=== PATIENT | female | born 1945 | race Hispanic/Latino ===

== ENCOUNTER 2017-08-16 11:36 | Inpatient (IN) | payer MEDICARE, OTHER ==
--- NOTE | 2017-08-16 12:43 | ED PDOC ---
Arrival/HPI <Catrachito Leach - Last Filed: 08/16/17 18:25> <Mark Lewis DO - Last Filed: 08/16/17 21:29> - General Chief Complaint: Abnormal Labs Time Seen by Provider: 08/16/17 11:44 - History of Present Illness Narrative History of Present Illness (Text): 72 year old Females presents with complaints of melena, shortness of breath, and swollen bilateral lower extremities. Patient is hard of hearing. Patient reports that she cannot walk more than a few feet without feeling short of breath. When she sits down, she starts coughing, wheezing and has clear sputum. Her symptoms resolve with rest. She reports that this has been going on for "a while" and cannot remember accurately how long it has been going on. She also had bilateral lower extremity edema that started the week of August 09. She saw her PCP who prescribed lasix for her. She took lasix for 3 days and then stopped because she started to have leg cramps. Her bilateral lower extremity edema is still persisting. She also has had "tarry" stool for a reported "6 years". She reports "I have had these stool constantly for the past 6 years." She reports having 1 bowel movement every other day. She denies fever, chest pain, dizziness, headache, heart palpitations. Patient saw Robin Montes today that instructed her to go to the emergency room for admission for low hemoglobin and dark, tarry stools 08/16/17 12:44 08/16/17 13:34 (Catrachito Leach) Past Medical History - Provider Review Nursing Documentation Reviewed: Yes - Cardiac Hx OK: Yes (questionable mi at age 41) Hx Hypertension: Yes - Pulmonary Hx Asthma: Yes Hx Bronchitis: Yes - Neurological HX Cerebrovascular Accident: Yes (02/2010 left facial droop, bilat lower ext wkns ) - Endocrine/Metabolic Hx Diabetes Mellitus Type 2: Yes - Musculoskeletal/Rheumatological Hx Falls: No - Gastrointestinal Hx Gastrointestinal Disorders: Yes (umbilical hernia) - Genitourinary/Gynecological Hx Genitourinary Disorders: No Hx Reproductive Disorders: No - Psychiatric Hx Depression: No Hx Emotional Abuse: No Hx Physical Abuse: No Hx Substance Use: No - Anesthesia Hx Anesthesia: Yes Hx Anesthesia Reactions: No Hx Malignant Hyperthermia: No - Suicidal Assessment Feels Threatened In Home Enviroment: No <Catrachito Leach - Last Filed: 08/16/17 18:25> Family/Social History - Physician Review Nursing Documentation Reviewed: Yes Family/Social History: Unknown Family HX Smoking Status: Never Smoked Hx Alcohol Use: Yes (OCCASIONAL DRINKS) Hx Substance Use: No Hx Substance Use Treatment: No <Catrachito Leach - Last Filed: 08/16/17 18:25> Allergies/Home Meds <Catrachito Leach - Last Filed: 08/16/17 18:25> <Mark Lewis DO - Last Filed: 08/16/17 21:29> Allergies/Adverse Reactions: Allergies banana Allergy (Verified 08/16/17 17:30) RASH codeine Allergy (Verified 08/16/17 17:30) ANAPHYLAXIS erythromycin base [From Erythrocin] Allergy (Verified 08/16/17 17:30) RASH Penicillins Allergy (Verified 08/16/17 17:30) ANAPHYLAXIS shellfish derived Allergy (Verified 08/16/17 17:30) ANAPHYLAXIS strawberry Allergy (Verified 08/16/17 17:30) RASH Sulfa (Sulfonamide Antibiotics) Allergy (Verified 08/16/17 17:30) ANAPHYLAXIS Home Medications: Home Meds Medication Instructions Recorded Confirmed Bisoprolol/HCTZ [Ziac 5-6.25 mg] 1 tab PO DAILY 08/16/17 08/16/17 GlipiZIDE [Glucotrol] 10 mg pe PO DAILY 08/16/17 08/16/17 Warfarin Sodium [Jantoven] 2 mg PO DAILY 08/16/17 08/16/17 metFORMIN [glucOPHAGE] 500 mg PO DAILY 08/16/17 08/16/17 Review of Systems - Physician Review All systems were reviewed & negative as marked: Yes - Review of Systems Constitutional: Fatigue Eyes: Normal Respiratory: SOB, Cough, Wheezing Cardiovascular: Normal Gastrointestinal: Other (Melena) Genitourinary Female: Frequency, Other (incontinence. she cannot feel the sensation of urination at times.) Musculoskeletal: Normal Skin: Rash (rash near anal canal) Neurological: Normal <Catrachito Leach - Last Filed: 08/16/17 18:25> Physical Exam Temperature: Afebrile Blood Pressure: Hypertensive Pulse: Regular Respiratory Rate: Normal Appearance: Positive for: Well-Appearing, Other (pale) Mental Status: Positive for: Alert and Oriented X 3 - Systems Exam Head: Present: Atraumatic Pupils: Present: PERRL Extroacular Muscles: Present: EOMI Mouth: Present: Moist Mucous Membranes Pharnyx: Present: Normal Respiratory/Chest: Present: Clear to Auscultation Cardiovascular: Present: Murmurs (aortic stenosis) Abdomen: Present: Normal Bowel Sounds Back: Present: Normal Inspection Upper Extremity: Present: Normal Inspection, NORMAL PULSES Lower Extremity: Present: Edema, NORMAL PULSES Neurological: Present: GCS=15, CN II-XII Intact Skin: Present: Warm, Dry <Catrachito Leach - Last Filed: 08/16/17 18:25> <Mark Lewis DO - Last Filed: 08/16/17 21:29> Vital Signs Temp Pulse Resp BP Pulse Ox 08/16/17 15:41 97.8 F 91 H 18 155/90 H 97 08/16/17 15:37 97.8 F 91 H 18 155/90 H 08/16/17 15:16 98.2 F 90 18 149/58 L 08/16/17 11:53 98.4 F 90 19 140/89 100 Medical Decision Making <Catrachito Leach - Last Filed: 08/16/17 18:25> <Mark Lewis DO - Last Filed: 08/16/17 21:29> ED Course and Treatment: Impression: 72 year old Female presents with reported melena, SOB with movement , and bilateral lower extremity edema Assessment: GI bleed, congestive heart failure, possible anemia Rule out pneumonia, asthma, COPD Plan: CBC CMP BNP Troponin Type and screen: PT/INR PTT EKG: normal sinus rhythm, right bundle branch block Vent rate: 91 OK: 150 QRS: 138 QT/QTc: 418/514 Chest X ray: moderate cardiomegaly and moderate vascular and interstitial congestion Patient saw Robin Montes today that instructed her to go to the emergency room for admission. Patient will be admitted to Med/Surg 08/16/17 13:12 Hgb is 6.9. Patient will be transfused 1 unit of PRBCs. INR:2.06. Hemoccult exam: guaiac + (Catrachito Leach) Patient Seen With Resident: In agreement with resident note. Patient was seen and evaluated with resident, came up with plan and treatment together. (Mark Lewis DO) - Lab Interpretations Lab Results: 08/16/17 12:50 08/16/17 12:50 Lab Results 08/16/17 13:30: Blood Type Confirm A POSITIVE 08/16/17 12:50: Blood Type A POSITIVE, Antibody Screen Negative, Crossmatch See Detail, BBK History Checked No verified bt 08/16/17 12:50: Sodium 142, Potassium 4.2, Chloride 108 H, Carbon Dioxide 21, Anion Gap 17, BUN 13, Creatinine 0.8, Est GFR ( Amer) > 60, Est GFR (Non- Af Amer) > 60, Random Glucose 179 H, Calcium 8.9, Total Bilirubin 1.6 H, AST 27 , ALT 20, Alkaline Phosphatase 69, Lactate Dehydrogenase 560, Total Creatine Kinase < 20 L, Troponin I 0.03, NT-Pro-B Natriuret Pep 2980 H, Total Protein 6.6 , Albumin 3.2, Globulin 3.4, Albumin/Globulin Ratio 0.9 L 08/16/17 12:50: PT 24.0 H, INR 2.06 H, APTT 33.3 08/16/17 12:50: WBC 4.8, RBC 2.97 L, Hgb 6.9 L*, Hct 22.3 L, MCV 75.1 L, MCH 23.2 L, MCHC 30.9 L, RDW 22.6 H, Plt Count 257, MPV 9.0, Gran % 71.5 H, Lymph % (Auto) 19.8 L, Hunt % (Auto) 7.3 H, Eos % (Auto) 1.0 L, Baso % (Auto) 0.4, Gran # 3.43, Lymph # (Auto) 1.0 L, Hunt # (Auto) 0.4, Eos # (Auto) 0.1, Baso # (Auto ) 0.02 - RAD Interpretation Radiology Orders: 08/16/17 12:14 CHEST PORTABLE [RAD] Stat - Medication Orders Current Medication Orders: Atorvastatin Calcium (Lipitor) 20 mg PO DIN RADHA Furosemide (Lasix) 40 mg IVP Q12 RADHA Last Admin: 08/16/17 21:14 Dose: 40 mg MAR Blood Pressure Document 08/16/17 21:14 RM (Rec: 08/16/17 21:20 RM [email or web address]) Blood Pressure Blood Pressure (100/60-150/90) 115/59 IVP Administration Document 08/16/17 21:14 RM (Rec: 08/16/17 21:20 RM [email or web address]) Charges for Administration # of IVP Administrations 1 Insulin Human Regular (Humulin R Med) 0 units SC ACHS RADHA PRN Reason: Protocol Last Admin: 08/16/17 21:14 Dose: Not Given Non-Admin Reason: Blood Sugar Parameter MAR Blood Glucose Document 08/16/17 21:14 RM (Rec: 08/16/17 21:14 [email or web address]) Blood Glucose Finger Stick Blood Glucose (70-120) 202 Discontinued Medications Phytonadione 10 mg/ Sodium (Chloride) 51 mls @ 100 mls/hr IV ONCE ONE Stop: 08/16/17 16:50 Last Admin: 08/16/17 17:50 Dose: 100 mls/hr eMAR Start Stop Document 08/16/17 17:50 (Rec: 08/16/17 17:50 [facility] [place], [id number]) Intravenous Solution Start Date 08/16/17 Start Time 17:50 End Date 08/16/17 End time 18:20 Total Infusion Time 30 - PA / PROPERTY ASSESSMENT MONITOR / Resident Statement SHMUEL has reviewed & agrees with the documentation as recorded. SHMUEL has examined the patient and agrees with the treatment plan. <Catrachito Leach - Last Filed: 08/16/17 18:25> Disposition/Present on Arrival - Present on Arrival Any Indicators Present on Arrival: No History of DVT/PE: No History of Uncontrolled Diabetes: No Urinary Catheter: No History of Decub. Ulcer: No History Surgical Site Infection Following: None - Disposition Have Diagnosis and Disposition been Completed?: Yes Disposition Time: 15:00 <Catrachito Leach - Last Filed: 08/16/17 18:25> - Disposition Disposition Time: 13:15 <Mark Lewis DO - Last Filed: 08/16/17 21:29> - Disposition Diagnosis: Anemia, Guaiac positive stools Disposition: HOSPITALIZED Patient Problems: Current Active Problems Problem Status Onset Anemia Acute Condition: UNKNOWN
[2017-08-16 12:56] LABS: BASO # 0.02 K/mm3 (0.0-2.0); BASO % 0.4 % (0.0-3.0); EOS # 0.1 (0.0-0.7); GRAN # 3.43 (1.4-6.5); GRAN % 71.5 % (50.0-68.0); LYMPH % 19.8 % (22.0-35.0); MEAN CELL VOLUME 75.1 fl (80.0-105.0); MEAN CORPUSCULAR HEMOGLOBIN 23.2 pg (25.0-35.0); MEAN CORPUSCULAR HGB CONC 30.9 g/dl (31.0-37.0); MONO # 0.4 (0.1-0.6); MONO % 7.3 % (1.0-6.0); RBC 2.97 10^6/uL (3.5-6.1); RED CELL DISTRIBUTION WIDTH 22.6 % (11.5-14.5); WHITE BLOOD COUNT 4.8 10^3/ul (4.5-11.0)
[2017-08-16 12:58] LABS: HEMOGLOBIN 6.9 g/dL (12.0-16.0)
[2017-08-16 13:05] LABS: INR 2.06 (0.93-1.08); PARTIAL THROMBOPLASTIN TIME 33.3 Seconds (25.1-36.5)
[2017-08-16 13:07] LABS: ALB/GLOB RATIO 0.9 (1.1-1.8); ALBUMIN 3.2 g/dL (3.0-4.8); ALT/SGPT 20 U/L (7-56); AST/SGOT 27 U/L (14-36); BLOOD UREA NITROGEN 13 mg/dL (7-21); CALCIUM 8.9 mg/dL (8.4-10.5); GFR AFRICAN-AMERICAN > 60; GFR NON-AFRICAN AMERICAN > 60
[2017-08-16 13:19] LABS: B-TYPE NATRIURETIC PEPTIDE 2980 pg/mL (0-450); TROPONIN I 0.03 ng/mL
--- NOTE | 2017-08-16 13:37 | RAD ---
Date of service: 08/16/2017 HISTORY: r/o infiltrate COMPARISON: 01/12/2012 FINDINGS: LUNGS: No active pulmonary disease. PLEURA: No significant pleural effusion identified, no pneumothorax apparent. CARDIOVASCULAR: Moderate cardiomegaly and moderate vascular and interstitial congestion OSSEOUS STRUCTURES: No significant abnormalities. VISUALIZED UPPER ABDOMEN: Normal. OTHER FINDINGS: None. IMPRESSION: Moderate cardiomegaly and moderate vascular and interstitial congestion
[2017-08-16 13:55] LABS: IRON 30 ug/dL (45-180)
[2017-08-16 14:05] LABS: % IRON SATURATION 8 % (20-55); TOTAL IRON BINDING CAPACITY 371 ug/dL (265-497)
[2017-08-16] MEDS ORDERED: Phytonadione 10 MG in Sodium Chloride 0.9% 50 ML IV ONE (16:20)
[2017-08-16] MEDS: Insulin Reg-MEDIUM-Coverage SC SCH ×2 (16:53→21:14)
--- NOTE | 2017-08-16 19:55 | HP ---
HISTORY OF PRESENT ILLNESS: The patient is a 72 year old woman with a past medical history of CAD s/p MA, iron deficiency anemia and a remote history of PE who was sent to [facility] ED by her PMD for inpatient management of symptomatic anemia and workup of suspected new onset heart failure. The patient was seen in her PMD's office approximately 10 days ago for complaint of a 3 day history of bilateral pedal edema, exertional dyspnea and 2 pillow orthopnea. Examination revealed bibasilar crackles and trace bilateral pedal edema. The patient at that time declined cardiac evaluation or ED evaluation and was started on Lasix 40 mg p.o. daily and advised to follow up in 1 week for reexamination. The patient returned 1 week later as advised and was noted to have significant improvement in her pedal edema but continued to endorse fatigue and exercise intolerance. Laboratory studies which were obtained demonstrated a hemoglobin of 7.8 ( baseline Hb 9-10 over the past 2 years) and, as such, she was sent to the ED for continued management of symptomatic anemia and further cardiac workup. Upon arrival to the ED, she was found to be afebrile and hemodynamically stable. Routine laboratory studies confirmed the anemia with a hemoglobin of 6.9. She was also found to have an elevated BNP of 2980. The patient was type and cross matched for 2 units of PRBCs and subsequently admitted for continued management of symptomatic anemia and heart failure. PAST MEDICAL HISTORY: As per HPI, also hypertension, pcg-ldwcrrs-hnvepkorz diabetes mellitus, vitamin B12 deficiency and morbid obesity. PAST SURGICAL HISTORY: Cholecystectomy and tonsillectomy. ALLERGIES: Penicillin, sulfas, macrolides, codeine and AARON inhibitors. MEDICATIONS: Bisoprolol/HCTZ 5/6.25 mg p.o. daily, Metformin 500 mg p.o. b.i.d.,. Glipizide 10 mg p.o. b.i.d., Coumadin 2 mg p.o. daily, Simvastatin 20 mg p.o. daily and vitamin B12 1000 mcg IM q monthly. FAMILY HISTORY: Significant for hypertension, coronary artery disease, and hyperlipidemia. SOCIAL HISTORY: She has no history of any toxic habits. REVIEW OF SYSTEMS: A 12-point review of systems is negative except as per HPI. PHYSICAL EXAMINATION: VITAL SIGNS: Temperature 97.8, pulse 91, blood pressure 155/90, respiratory rate 18, oxygen saturation 100% on room air. GENERAL: Elderly woman appearing her stated age, in no apparent distress. HEENT: PERRL. EOMI. No scleral icterus. Conjunctival pallor is noted. NECK: No JVD. LUNGS: Decreased breath sounds at the bases with bibasilar crackles and a few scattered rhonchi. CARDIOVASCULAR: Regular rate and rhythm. Normal S1 and S2. Grade 2/6 systolic murmur at the right upper sternal border. ABDOMEN: Obese. Normoactive bowel sounds. Soft, nontender, nondistended. EXTREMITIES: Bilateral trace pedal edema. NEUROLOGIC: Awake, alert, and oriented x 3. No focal motor deficits. LABORATORY DATA: WBC 4.8, hemoglobin 6.9, hematocrit 22, platelets 257, MCV 75. Sodium 142, potassium 4.2, chloride 108, bicarb 21, BUN 13, creatinine 0.8, glucose 179. INR 2.06. Iron 30, TIBC 371. BNP 2980. Troponin 0.03. IMAGING STUDIES: Chest x-ray demonstrates moderate cardiomegaly with moderate vascular and interstitial congestion. ASSESSMENT: The patient is a 72 year old woman with multiple medical comorbidities who was sent to the ED by her PMD for inpatient management of symptomatic anemia and cardiac workup for suspected new onset heart failure. PLAN: 1. Iron deficiency anemia, symptomatic. The patient is typed and cross matched and scheduled for transfusion of 2 units of PRBCs. A stool occult blood was reportedly positive in the ED. Dr. Shaver of Hematology/Oncology has been consulted for evaluation for possible IV iron infusions. Dr. Osei of Gastroenterology has been consulted for evaluation for possible colonoscopy. We will continue to monitor CBC daily and transfuse as needed. 2. Acute systolic HF exacerbation, new onset. Labs demonstrate an elevated BNP on admission of 2980. We will obtain a TTE to assess LV function and for any valvular abnormalities. Dr. Muniz of Cardiology has been consulted for further evaluation and recommendations. The patient has been started on Lasix 40 mg IV every 12 hours. We will monitor strict I&O's. 3. CAD s/p MA. As above, Dr. Muniz of Cardiology has been consulted for further evaluation and recommendations. We will cycle cardiac enzymes for 3 sets. The patient remains chest pain free. 4. Hypertension. Blood pressure controlled. We will continue to monitor hemodynamics and resume her home medications as needed. 5. Remote history of PE. The patient remains on Coumadin 2 mg p.o. daily however in the setting of symptomatic anemia and possible GI bleed we will hold anticoagulation therapy pending further GI evaluation. 6. Edc-efochqx-gvqzeapla diabetes mellitus. We will start medium dose insulin sliding scale for coverage and repeat a hemoglobin A1c in the morning. 7. Vitamin B12 deficiency. We will repeat a vitamin B12 level in the morning. She most recently received an IM injection on 08/01/2017. 8. Prophylaxis. GI prophylaxis is not indicated as the patient is eating. DVT prophylaxis is not indicated as the patient is ambulatory. CODE STATUS: Full code. Robin Richards MD MTDD
--- NOTE | 2017-08-16 20:13 | CARD ---
APPROVED REPORT Date of service: 08/16/2017 EKG Measurement Heart [id number] <Conclusion> Normal sinus rhythm Right bundle branch block Abnormal ECG
[2017-08-16 23:10] VITALS: BMI 29.9
[2017-08-16] MEDS ORDERED: Pneumococcal 23-Valent Vaccine IM ONE (23:10)
[2017-08-17 06:28] LABS: BASO # 0.02 K/mm3 (0.0-2.0); BASO % 0.4 % (0.0-3.0); EOS # 0.2 (0.0-0.7); EOS % 4.2 % (1.5-5.0); GRAN # 3.39 (1.4-6.5); LYMPH # 1.2 (1.2-3.4); LYMPH % 23.1 % (22.0-35.0); MEAN CELL VOLUME 78.2 fl (80.0-105.0); MEAN CORPUSCULAR HEMOGLOBIN 24.9 pg (25.0-35.0); MEAN CORPUSCULAR HGB CONC 31.9 g/dl (31.0-37.0); MEAN PLATELET VOLUME 8.9 fl (7.0-11.0); MONO # 0.4 (0.1-0.6); MONO % 8.3 % (1.0-6.0); RBC 3.57 10^6/uL (3.5-6.1); RED CELL DISTRIBUTION WIDTH 21.4 % (11.5-14.5); WHITE BLOOD COUNT 5.3 10^3/ul (4.5-11.0)
[2017-08-17 06:49] LABS: TROPONIN I 0.03 ng/mL
[2017-08-17 07:05] LABS: ALB/GLOB RATIO 0.9 (1.1-1.8); ALBUMIN 3.1 g/dL (3.0-4.8); ALT/SGPT 14 U/L (7-56); AST/SGOT 29 U/L (14-36); BLOOD UREA NITROGEN 13 mg/dL (7-21); CALCIUM 8.8 mg/dL (8.4-10.5); GFR AFRICAN-AMERICAN > 60; GFR NON-AFRICAN AMERICAN > 60
[2017-08-17 07:19] LABS: HEMOGLOBIN 8.9 g/dL (12.0-16.0)
[2017-08-17] MEDS: Insulin Reg-MEDIUM-Coverage SC SCH ×4 (08:25→21:52)
[2017-08-17] MEDS: HCTZ PO SCH (09:15)
[2017-08-17] MEDS: BISOPROLOL PO SCH (09:15)
--- NOTE | 2017-08-17 11:17 | CON ---
DATE: 08/16/2017 HISTORY OF PRESENT ILLNESS: This is a 72-year-old patient with a past medical history of diabetes mellitus, coronary artery disease, admitted with iron deficiency anemia on supplement and remote history of PE, admitted with symptomatic anemia, leg edema, exertional dyspnea and shortness of breath. Patient's hemoglobin was found to be 7.8. The patient was on iron with dark stool, but stool for occult blood done was positive. In the ER, it was found to have hemoglobin of 6.9 and was admitted for further evaluation. Her BNP was 2980. No history of vomiting blood. No complaints of any abdominal pain. The patient's family was at bedside at the time of the examination. PAST MEDICAL HISTORY: Other past medical history significant as above, history of hypertension, rem-xjoeibn-umglrconx diabetes mellitus and B12 deficiency. PAST SURGICAL HISTORY: Significant for cholecystectomy, tonsillectomy, the patient does remember having had any coloscopy or endoscopy. REVIEW OF SYSTEMS: Positive as above. The patient has shortness of breath on exertion, leg edema, no chest pain, no vomiting, no fever. ALLERGIES: STATES SHE IS ALLERGIC TO SHELLFISH, PENICILLIN, SULFA, MACROLIDES, AND AARON INHIBITORS. FAMILY HISTORY: Noncontributory. PHYSICAL EXAMINATION GENERAL: The patient is lying on the bed, not in acute distress. VITAL SIGNS: Temperature was 98.2, pulse 86, blood pressure 111/45 and respirations 20. HEENT: Atraumatic, anicteric. The patient is hard of hearing. NECK: Supple. HEART: S1, S2 heard. LUNGS: Bilateral air entry present. Few basilar crackles noted. ABDOMEN: Soft. There is no mass noted. EXTREMITIES: Bilateral pedal edema present. NEUROLOGICAL: Alert, oriented, moves all the extremities. LABORATORY DATA: Hemoglobin is 6.9, hematocrit 22.3, WBC 4.8 and platelets 257. Chemistry; total bilirubin 1.6, BUN 13, creatinine 0.8, serum glucose serum iron 30, INR is elevated to 2.06. IMPRESSION: This 72-year-old patient with history of coronary artery disease, history of status post cardiovascular accident admitted with symptomatic anemia, hemoglobin of 6.9. The patient does have some dark stool, but the patient to be also on iron. The patient is being now transfused, received 1 unit of PRBC transfusion . The patient also found to be in congestive heart failure. Would recommend at this point: 1. follow up with hemoglobin and hematocrit. Transfused. 2. PPI. 3. I would consider CT of the abdomen and pelvis with p.o. contrast.. 4. We will consider upper GI endoscopy and colonoscopy after further optimization of the cardiac status. 5. The patient received 10 mg of vitamin K. We will continue to closely follow up her care and suggest further management based on the clinical course. Angie Osei MD MTDOlivia
--- NOTE | 2017-08-17 11:58 | CT ---
Date of service: 08/17/2017 PROCEDURE: CT Abdomen and Pelvis without intravenous contrast HISTORY: positive stool occult blood COMPARISON: 12/27/2011 CT TECHNIQUE: Without contrast.. Contrast dose: Radiation dose: Total exam DLP = 1036 mGy-cm. This CT exam was performed using one or more of the following dose reduction techniques: Automated exposure control, adjustment of the mA and/or kV according to patient size, and/or use of iterative reconstruction technique. FINDINGS: LOWER THORAX: Moderate size left effusion LIVER: The liver appears atrophic surrounded by large amount of ascites. Findings are consistent with cirrhosis. GALLBLADDER AND BILE DUCTS: Unremarkable. PANCREAS: Unremarkable. No gross lesion or ductal dilatation. SPLEEN: Unremarkable. ADRENALS: Unremarkable. No mass. KIDNEYS AND URETERS: Unremarkable. No hydronephrosis. No solid mass. VASCULATURE: Unremarkable. No aortic aneurysm. BOWEL: Unremarkable. No obstruction. No gross mural thickening. APPENDIX: Unremarkable. Normal appendix. PERITONEUM: Severe ascites LYMPH NODES: Unremarkable. No enlarged lymph nodes. BLADDER: Unremarkable. REPRODUCTIVE: Unremarkable. BONES: No acute fracture. OTHER FINDINGS: None. IMPRESSION: Cirrhosis. Severe ascites. Moderate size left effusion
[2017-08-17 12:12] LABS: INR 1.54 (0.93-1.08); PARTIAL THROMBOPLASTIN TIME 31.7 Seconds (25.1-36.5); PROTHROMBIN TIME 17.9 SECONDS (9.4-12.5)
--- NOTE | 2017-08-17 12:57 | CP.PCM.PN ---
<Scottie Lipscomb - Last Filed: 08/17/17 13:44> Subjective - Date & Time of Evaluation Date of Evaluation: 08/17/17 Time of Evaluation: 11:00 - Subjective Subjective: PGY-4 GI Fellow Progress Note Sitting up in bed when seen this AM. Adamant about not having any contrast for CT scan; agreeable to CT w/o any contrast. States breathing about the same and feels abdomen is full. Denied abd pain, melena, hematochezia. 5 point ROS negative other than stated above. Objective - Vital Signs/Intake and Output Vital Signs (last 24 hours): Temp Pulse Resp BP Pulse Ox 98.3 F 81 20 140/55 L 100 08/17/17 07:48 08/17/17 10:00 08/17/17 07:48 08/17/17 09:15 08/17/17 07:48 Intake and Output: 08/17/17 08/17/17 06:59 18:59 Intake Total 915 Balance 915 - Medications Medications: Current Medications Atorvastatin Calcium (Lipitor) 20 mg PO DIN [facility] Furosemide (Lasix) 40 mg IVP Q12 [facility] Last Admin: 08/17/17 09:15 Dose: 40 mg Home Med (Home Med) 1 unit PO DAILY [facility] Last Admin: 08/17/17 09:15 Dose: 1 unit Insulin Human Regular (Humulin R Med) 0 units SC ACHS [facility] PRN Reason: Protocol Last Admin: 08/17/17 12:51 Dose: 1 unit Pantoprazole Sodium (Protonix Ec Tab) 40 mg PO 0600 [facility] - Labs Labs: 08/17/17 05:45 08/17/17 05:45 PT 17.9 SECONDS (9.4-12.5) H 08/17/17 11:30 INR 1.54 (0.93-1.08) H 08/17/17 11:30 APTT 31.7 Seconds (25.1-36.5) 08/17/17 11:30 - Constitutional Appears: Non-toxic, No Acute Distress - Head Exam Head Exam: ATRAUMATIC, NORMAL INSPECTION - Eye Exam Eye Exam: EOMI. absent: Scleral icterus - Respiratory Exam Respiratory Exam: NORMAL BREATHING PATTERN. absent: Accessory Muscle Use - Cardiovascular Exam Cardiovascular Exam: RRR. absent: Bradycardia, Tachycardia - GI/Abdominal Exam GI & Abdominal Exam: Distended (mildly), Soft, Normal Bowel Sounds. absent: Firm, Guarding, Rigid, Tenderness - Extremities Exam Extremities Exam: Pedal Edema (+1 to knees bilaterally) Assessment and Plan - Assessment and Plan (Free Text) Assessment: 72 yo WF with h/o CAD, CVA and PE (on warfarin) admitted for symptomatic anemia , # Occult GI Bleed: No obvious signs of GI bleed, dark stool but on Fe tabs, hemoccult +. Hgb 6.8 on admission -> 8.9 s/p 2 units PRBCs. Originally planned for PO contrasted CT but pt declined, agrees to non-con Abd/Pelvis CT. Holding endoscopy w/u given concerns for new decompensated CHF. No previous endoscopies. # Elevated INR: 2.06->1.54 today s/p Vit K 10 mg. On warfarin as OP for h/o PE. Wonder if risk of trt may outweigh benefits in this eldery pt (concern for GI bleed, falls->intracranial bleed, etc.) # New onset CHF: Defer w/u to primary/cardiology, await Echo results Plan: - Abd/Pelvis CT w/o contrast - Monitor Hgb - PPI - Monitor INR - Possible endoscopy when optimized from cardiac standpoint Pt seen and examing with Dr. Osei <Angie Osei V - Last Filed: 08/17/17 22:01> Objective - Vital Signs/Intake and Output Vital Signs (last 24 hours): Temp Pulse Resp BP Pulse Ox 98 F 77 20 121/44 L 100 08/17/17 16:26 08/17/17 18:00 08/17/17 16:26 08/17/17 16:26 08/17/17 16:26 Intake and Output: 08/17/17 08/18/17 18:59 06:59 Intake Total 600 540 Output Total 400 400 Balance 200 140 - Medications Medications: Current Medications Atorvastatin Calcium (Lipitor) 20 mg PO DIN [facility] Last Admin: 08/17/17 19:13 Dose: Not Given Furosemide (Lasix) 40 mg IVP Q12 [facility] Last Admin: 08/17/17 09:15 Dose: 40 mg Home Med (Home Med) 1 unit PO DAILY [facility] Last Admin: 08/17/17 09:15 Dose: 1 unit Insulin Human Regular (Humulin R Med) 0 units SC ACHS [facility] PRN Reason: Protocol Last Admin: 08/17/17 17:03 Dose: 1 unit Pantoprazole Sodium (Protonix Ec Tab) 40 mg PO 0600 [facility] - Labs Labs: 08/17/17 05:45 08/17/17 05:45 PT 17.9 SECONDS (9.4-12.5) H 08/17/17 11:30 INR 1.54 (0.93-1.08) H 08/17/17 11:30 APTT 31.7 Seconds (25.1-36.5) 08/17/17 11:30 Attending/Attestation - Attestation I have personally seen and examined this patient.: Yes I have fully participated in the care of the patient.: Yes I have reviewed all pertinent clinical information, including history, physical exam and plan: Yes Notes (Text): This is an addendum to GI progress report dictated by the GI Fellow.The patient was seen and examined earlier. Medical records, lab studies, imagings were reviewed. Last 24 hours events reviewed. Agreed with the above treatment plan as outlined in GI Fellow 's notes the with the addition of the following received a blood transfusion yesterday On examination abdomen soft no tenderness Patient refused by mouth contrast and also IV contrast Would request CT with no by mouth or IV contras patient is agreeable for that Follow-up PT INR and hemoglobin Consider EGD after reviewing the CT and INR thank you very much for allowing us to participate in the patient 08/17/17 21:59
--- NOTE | 2017-08-17 13:30 | PN ---
SUBJECTIVE: The patient was seen and examined at bedside on remote telemetry navarro. No acute events overnight. She remains afebrile and hemodynamically stable. She is s/p transfusion of 2 units of PRBC's with an appropriate response in hemoglobin and which were tolerated without any difficulties. This morning she is being taken for TTE. PHYSICAL EXAMINATION: VITAL SIGNS: Temperature 98.3, pulse 80, blood pressure 140/55, respiratory rate 18, oxygen saturation 100% on room air. GENERAL: An elderly woman appearing her stated age in no apparent distress. HEENT: PERRL. EOMI. No scleral icterus. Conjunctival pallor is noted. NECK: No JVD. CARDIOVASCULAR: Regular rate and rhythm. Normal S1 and S2. Grade 2/6 systolic murmur at the right upper sternal border. LUNGS: Decreased breath sounds at the bases with bibasilar crackles and few scattered rhonchi. ABDOMEN: Obese, normoactive bowel sounds. Soft, nontender, nondistended. EXTREMITIES: Trace pedal edema bilaterally. NEUROLOGIC: Awake, alert and oriented x 3. No focal motor deficits. LABORATORY DATA: WBC 5.3, hemoglobin 8.9, hematocrit 28, platelets 224, MCV 78.2. Chemistry reviewed and unremarkable. Troponin 0.03 x 3 sets. DIAGNOSTIC STUDIES: TTE is pending. ASSESSMENT: The patient is a 72 year old woman with multiple medical comorbidities who was sent to the ED by her PMD for inpatient management of symptomatic anemia and cardiac workup for suspected new onset heart failure. PLAN: 1. Iron deficiency anemia, symptomatic. The patient is s/p transfusion of 2 units of PRBC's with an appropriate response in Hb. Evaluation with Dr. Shaver of Heme/Onc pending to evaluate for possible IV iron infusions. Input from Dr. Osei of GI appreciated and recommendations were made for a CT of the abdomen /pelvis with p.o. contrast but the patient declined. We will speak with the patient to encourage her to perform the CT of the abdomen/pelvis as part of her anemia workup. We will continue to monitor CBC daily and transfuse as needed. 2. Acute systolic heart failure exacerbation, new onset. The patient is being taken for TTE. We will continue Lasix 40 mg IV q. 12 hours and monitoring strict I&O's. Evaluation with Dr. Muniz of Cardiology is pending. 3. CAD s/p CO. As above, evaluation with Dr. Muniz of Cardiology is pending. Cardiac enzymes have been negative for 3 sets and she remains chest pain free. Continue Lipitor 20 mg p.o. daily. 4. Hypertension. Continue Bisoprolol/HCTZ 5/6.25 mg p.o. daily. 5. Remote history of PE. The patient was on Coumadin 2 mg p.o. daily at home however this remains on hold in the setting of symptomatic anemia and possible GI bleed pending further GI evaluation. 6. NIDDM. The patient remains on a medium dose insulin sliding scale for coverage and the repeat A1c is pending. 7. Vitamin B12 deficiency. She most recently received an IM injection on 2017. A repeat B12 level is pending. 8. Prophylaxis: GI prophylaxis is not indicated as the patient is eating. DVT prophylaxis not indicated as the patient is ambulatory. CODE STATUS: Full code. Robin Richards MD MTDD
--- NOTE | 2017-08-17 19:26 | CON ---
DATE: 08/17/2017 CARDIOLOGY CONSULTATION HISTORY OF PRESENT ILLNESS: The patient is a 72-year-old woman who presents with dyspnea. The patient's past medical history is notable for diabetes mellitus and hypertension. She presents with shortness of breath. The patient is on Coumadin at home. In the emergency room, she was found to be markedly anemic. She denies chest pain. She does have chronic edema in the lower extremities. SOCIAL HISTORY: The patient has never smoked. REVIEW OF SYSTEMS: Fourteen-point review of systems is reviewed in detail. No angina, no coronary symptoms were elicited. Her symptoms are dominated by dyspnea as well as edema in the lower extremities. PHYSICAL EXAMINATION: VITAL SIGNS; Blood pressure is 140/55 with the heart rates in the 80s. NECK: Negative JVD. LUNGS: Bilateral rhonchi. HEART: Reveals S1, S2. EXTREMITIES: Without edema. LABORATORY DATA: Hemoglobin was 6.9, is up to 8.9. BUN and creatinine are unremarkable. Glucose is 132. Her proBNP was not done. Troponins are negative x2. Preliminary echocardiogram reveals good LV function with no LV outflow obstruction. IMPRESSION: 1. Dyspnea. 2. Mild congestive heart failure. 3. Marked anemia. 4. Diabetes mellitus. 5. Hypertension. PLAN: Given these findings, the patient has a CT scan of the chest. I agree with Lassilas for now. We will follow her hemoglobin. Mat Muniz MD
--- NOTE | 2017-08-17 19:27 | CARD ---
APPROVED REPORT Date of service: 08/17/2017 EXAM: Two-dimensional and M-mode echocardiogram with Doppler and color Doppler. INDICATION Congestive Heart Failure 2D DIMENSIONS Left Atrium (2D)3.9 (1.6-4.0cm)IVSd1.4 (0.7-1.1cm) LVDd4.4 (3.9-5.9cm)LVOT Diameter2.0 (1.8-2.4cm) PWd1.3 (0.7-1.1cm)LVDs3.1 (2.5-4.0cm) FS (%) 28.7 %LVEF (%)55.6 (>50%) M-Mode DIMENSIONS Aortic Root2.30 (2.2-3.7cm)Aortic Cusp Exc.0.50 (1.5-2.0cm) Aortic Valve AoV Peak Brttmetj761.0cm/sAoV VTI89.6cmAO Peak GR.55mmHg LVOT Peak Isawxqes17.8cm/sLVOT VTI23.90cmAO Mean GR.36mmHg JORGE (VMAX)0.05qx5IPX (VTI)0.84cm2 Mitral Valve MV E Eyotrles691.0cm/sMV A Bejmlclz325.0cm/sE/A ratio1.5 TDI E/Lateral E'0.0E/Medial E'0.0 Tricuspid Valve TR Peak Uaxfarqy351jh/sRAP ZHMBKCIC13fgHoFV Peak Gr.42mmHg [id number] LEFT VENTRICLE The left ventricle is normal size. There is mild concentric left ventricular hypertrophy. The left ventricular function is normal. The left ventricular ejection fraction is within the normal range. There is normal LV segmental wall motion. Transmitral Doppler flow pattern is Grade II-pseudonormal filling dynamics. RIGHT VENTRICLE The right ventricle is normal size. There is normal right ventricular wall thickness. The right ventricular systolic function is normal. ATRIA The left atrium size is normal. The right atrium size is normal. AORTIC VALVE The aortic valve is severely thickened. No aortic regurgitation is present. There is severe valvular aortic stenosis. MITRAL VALVE The mitral valve is mildly thickened. Mitral regurgitation is mild. There is no mitral valve stenosis. TRICUSPID VALVE The tricuspid valve is normal in structure. There is severe tricuspid regurgitation. There is moderate pulmonary hypertension. PULMONIC VALVE The pulmonary valve is normal in structure. There is no pulmonic valvular regurgitation. GREAT VESSELS The aortic root is normal in size. The IVC is normal in size and collapses >50% with inspiration. PERICARDIAL EFFUSION There is no pleural effusion. There is moderate left pleural effusion. <Conclusion> The left ventricle is normal size. There is mild concentric left ventricular hypertrophy. The left ventricular function is normal. The left ventricular ejection fraction is within the normal range. There is normal LV segmental wall motion. Transmitral Doppler flow pattern is Grade II-pseudonormal filling dynamics.. There is severe valvular aortic stenosis. Mitral regurgitation is mild. There is severe tricuspid regurgitation. There is moderate pulmonary hypertension. A PFO was noted
[2017-08-18] MEDS: Pantoprazole 40 mg EC Tab PO SCH (05:50)
[2017-08-18 06:38] LABS: BASO # 0.02 K/mm3 (0.0-2.0); BASO % 0.5 % (0.0-3.0); EOS # 0.3 (0.0-0.7); EOS % 5.8 % (1.5-5.0); GRAN # 2.69 (1.4-6.5); GRAN % 61.9 % (50.0-68.0); HEMOGLOBIN 8.3 g/dL (12.0-16.0); LYMPH % 22.8 % (22.0-35.0); MEAN CELL VOLUME 78.4 fl (80.0-105.0); MEAN CORPUSCULAR HEMOGLOBIN 24.6 pg (25.0-35.0); MEAN CORPUSCULAR HGB CONC 31.3 g/dl (31.0-37.0); MEAN PLATELET VOLUME 9.4 fl (7.0-11.0); MONO # 0.4 (0.1-0.6); RBC 3.38 10^6/uL (3.5-6.1); RED CELL DISTRIBUTION WIDTH 21.9 % (11.5-14.5); WHITE BLOOD COUNT 4.3 10^3/ul (4.5-11.0)
[2017-08-18 07:00] LABS: ALB/GLOB RATIO 0.8 (1.1-1.8); ALBUMIN 2.7 g/dL (3.0-4.8); ALT/SGPT 27 U/L (7-56); AST/SGOT 26 U/L (14-36); BLOOD UREA NITROGEN 14 mg/dL (7-21); CALCIUM 8.6 mg/dL (8.4-10.5); GFR AFRICAN-AMERICAN > 60; GFR NON-AFRICAN AMERICAN > 60
[2017-08-18] MEDS: Insulin Reg-MEDIUM-Coverage SC SCH ×4 (07:39→21:52)
[2017-08-18] MEDS ORDERED: levoFLOXacin 750 mg in D5W 750 MG/150 ML BAG IVPB STA (09:37)
[2017-08-18] MEDS: HCTZ PO SCH (09:39)
[2017-08-18] MEDS: BISOPROLOL PO SCH (09:39)
[2017-08-18 11:41] LABS: BODY FLUID TYPE PERITONEAL/ASCITES
[2017-08-18 12:06] LABS: BF GROSS APPEARANCE SL CLOUDY (CLEAR); BODY FLUID TOTAL COUNT 100 (0-0)
--- NOTE | 2017-08-18 12:46 | PN ---
DATE: 08/18/2017 CARDIOLOGY FOLLOWUP SUBJECTIVE: The patient is in a chair without shortness of breath at rest. PHYSICAL EXAMINATION: VITAL SIGNS: Blood pressure is 121/50, heart rate is in the 70s. NECK: Negative JVD. LUNGS: Without rales. HEART: S1 and S2 with 2/6 systolic ejection murmur. EXTREMITIES: Trace edema. LABORATORY DATA: Glucose is 127, hemoglobin is 8.3. Echocardiogram reveals critical aortic stenosis with a valve area of 0.8. IMPRESSION: 1. Marked anemia. 2. Gastrointestinal bleed, likely due to colonic perhaps telangiectasia. 3. Critical aortic stenosis. 4. Congestive heart failure. 5. Anemia. PLAN: Given these findings, I had an extensive discussion with the patient about her aortic stenosis and the need for cardiac catheterization and possible TAVR. The patient's all questions were answered. Risks and benefits of the procedure as well as risk and benefits of her disease was discussed in detail. We will schedule the patient for catheterization on Monday tentatively. The patient will decide over the next 24 hours. Mat Muniz MD
--- NOTE | 2017-08-18 13:38 | PN ---
DATE: 08/18/2017 SUBJECTIVE: The patient is a 72-year-old female in room 361, bed 2. She has no specific complaints and there have been no acute events overnight. PHYSICAL EXAMINATION: VITAL SIGNS: Temperature of 97.8, pulse rate of 78, blood pressure 120/50, respiratory rate of 20 with an O2 saturation of 93%. HEENT: PERRLA. EOMI. There is no icterus present. NECK: Supple with a full range of motion. No bruits or adenopathies are appreciated. LUNGS: Clear to auscultation and percussion bilaterally. HEART: With a regular rate and rhythm. ABDOMEN: Soft, somewhat distended, is nontender. Bowel sounds are normoactive. EXTREMITIES: Show no deformities. NEUROLOGIC: The patient is intact. LABORATORY DATA: Lab values show a WBC of 4.3, hemoglobin and hematocrit are 8.3 and 26.5, platelet count of 220,000. Chemistry is normal with the exception of a sugar of 127, total bilirubin of 1.9 with an albumin of 2.7. The patient, on CAT scan, appears to have cirrhosis with some ascites. She will be taken to GI Lab for an endoscopy today. We will continue current regimen. Marcelo Richards MD
--- NOTE | 2017-08-18 15:25 | CP.PCM.PN ---
<Scottie Lipscomb - Last Filed: 08/18/17 16:54> Subjective - Date & Time of Evaluation Date of Evaluation: 08/18/17 Time of Evaluation: 15:30 - Subjective Subjective: PGY-4 GI Fellow Progress Note Pt stated she feels well after para, less bloated. Denied N/V, F/C, nor signs of melena/hematochezia. 5 point ROS negative other than stated above Objective - Vital Signs/Intake and Output Vital Signs (last 24 hours): Temp Pulse Resp BP Pulse Ox 97.9 F 74 15 140/49 L 98 08/18/17 13:58 08/18/17 14:00 08/18/17 13:58 08/18/17 13:58 08/18/17 13:58 Intake and Output: 08/18/17 08/18/17 06:59 18:59 Intake Total 660 0 Output Total 500 500 Balance 160 -500 - Medications Medications: Current Medications Atorvastatin Calcium (Lipitor) 20 mg PO DIN [facility] Last Admin: 08/17/17 19:13 Dose: Not Given Furosemide (Lasix) 40 mg IVP Q12 [facility] Last Admin: 08/18/17 09:38 Dose: 40 mg Home Med (Home Med) 1 unit PO DAILY [facility] Last Admin: 08/18/17 09:39 Dose: 1 unit Insulin Human Regular (Humulin R Med) 0 units SC ACHS [facility] PRN Reason: Protocol Last Admin: 08/18/17 12:19 Dose: Not Given Pantoprazole Sodium (Protonix Ec Tab) 40 mg PO 0600 [facility] Last Admin: 08/18/17 05:50 Dose: 40 mg - Labs Labs: 08/18/17 05:45 08/18/17 05:45 PT 17.9 SECONDS (9.4-12.5) H 08/17/17 11:30 INR 1.54 (0.93-1.08) H 08/17/17 11:30 APTT 31.7 Seconds (25.1-36.5) 08/17/17 11:30 - Constitutional Appears: Well, Non-toxic - Head Exam Head Exam: ATRAUMATIC, NORMAL INSPECTION - Eye Exam Eye Exam: EOMI. absent: Conjunctival injection, Scleral icterus - Cardiovascular Exam Cardiovascular Exam: RRR, Murmur (3/6 systolic murmur best at RUSB) - GI/Abdominal Exam GI & Abdominal Exam: Distended (flank fullness), Soft, Normal Bowel Sounds. absent: Guarding, Tenderness - Skin Skin Exam: Dry, Normal Color Assessment and Plan - Assessment and Plan (Free Text) Assessment: 72 yo WF with h/o CAD, CVA and PE (on warfarin) admitted for symptomatic anemia , # Occult GI Bleed: No obvious signs of GI bleed, dark stool but on Fe tabs, hemoccult +. Hgb 6.8 on admission -> 8.9 s/p 2 units [address]BCs. Given new CT finding of cirrhosis suspect that patient could be bleeding from slow portal HTN bleed such as PHG, doubt acute variceal bleed given benign presentation. # Decompensated Cirrhosis: CP Class B, MELD-Na 14 (though on warfarin). c/b ascites. 3900 mL fluid removed on paracentesis on 08/18/17. No SBP. No total protein available. Etiology perhaps NAFLD vs R sided CHF induced with severe TR on echo and pHTN? # Elevated INR: 2.06->1.54 s/p Vit K 10 mg. On warfarin as OP for h/o PE. Wonder if risk of trt may outweigh benefits in this eldery pt (concern for GI bleed with cirrhosis, falls->intracranial bleed, etc.) # New onset CHF with preserved EF, severe and TR with pHTN: Defer w/u to primary/cardiology, plan for cath 08/21 Plan: - Need to discuss risk/benefit of proceeding with endoscopy in setting of severe aortic stenosis - At this time, Cardiology plan to perform cardiac cath on 08/21/17 prior to any endoscopy, defer to cardiology and primary medicine team - Levofloxacin daily day 2 of 7 for SBP ppx for cirrhotic with GI Bleed - Low Na diet - Monitor Hgb - PPI - Monitor INR Pt seen and examing with Dr. Osei <Angie Osei V - Last Filed: 08/19/17 00:09> Objective - Vital Signs/Intake and Output Vital Signs (last 24 hours): Temp Pulse Resp BP Pulse Ox 98.0 F 80 20 141/90 98 08/18/17 17:30 08/18/17 22:00 08/18/17 17:30 08/18/17 21:44 08/18/17 17:30 Intake and Output: 08/18/17 08/19/17 18:59 06:59 Intake Total 0 420 Output Total 500 300 Balance -500 120 - Medications Medications: Current Medications Atorvastatin Calcium (Lipitor) 20 mg PO DIN [facility] Last Admin: 08/18/17 17:13 Dose: Not Given Furosemide (Lasix) 40 mg IVP Q12 [facility] Last Admin: 08/18/17 21:44 Dose: 40 mg Home Med (Home Med) 1 unit PO DAILY [facility] Last Admin: 08/18/17 09:39 Dose: 1 unit Insulin Human Regular (Humulin R Med) 0 units SC ACHS [facility] PRN Reason: Protocol Last Admin: 08/18/17 21:52 Dose: Not Given Levofloxacin/Dextrose (Levaquin 750mg) 750 mg IVPB DAILY [facility] PRN Reason: Protocol Last Admin: 08/18/17 16:59 Dose: Not Given Pantoprazole Sodium (Protonix Ec Tab) 40 mg PO 0600 [facility] Last Admin: 08/18/17 05:50 Dose: 40 mg - Labs Labs: 08/18/17 05:45 08/18/17 05:45 PT 17.9 SECONDS (9.4-12.5) H 08/17/17 11:30 INR 1.54 (0.93-1.08) H 08/17/17 11:30 APTT 31.7 Seconds (25.1-36.5) 08/17/17 11:30 Attending/Attestation - Attestation I have personally seen and examined this patient.: Yes I have fully participated in the care of the patient.: Yes I have reviewed all pertinent clinical information, including history, physical exam and plan: Yes Notes (Text): This is an addendum to GI progress report dictated by the GI Fellow.The patient was seen and examined earlier. Medical records, lab studies, imagings were reviewed. Last 24 hours events reviewed. 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 Recommended to reschedule after cath Endo Procedure today was cancelled. Cirrhosis of liver sp large volume paracentesis today GI bleeding DD include variceal,PUD,AVM neoplasia On antibiotic prophylaxis 08/19/17 00:03
[2017-08-18] MEDS: levoFLOXacin 750 mg in D5W 150 ML BAG IVPB SCH (16:59)
--- NOTE | 2017-08-18 19:17 | US ---
PROCEDURE: Ultrasound guided paracentesis. HISTORY: New onset ascites. Abdominal pain and distension. Needs diagnostic and therapeutic paracentesis PHYSICIAN(S): Mat Swain MD. TECHNIQUE: The relative risks and indications for the procedure were explained to the patient and informed written consent obtained. Sonography of the abdomen was performed in a supine position. This revealed a moderate to large amount of non-loculated ascites, greatest in the right lower quadrant. A puncture site was selected and the area was prepped and draped in the usual sterile fashion. 1% Xylocaine was used to anesthetize the skin and soft tissues. A 7 Armenian paracentesis catheter was trocared into the right lower quadrantand 3900 cc of clear, straw fluid aspirated. The appropriate labs were sent. IMPRESSION: Ultrasound-guided paracentesis in the right lower quadrant. 3900 cc of fluid were aspirated. Labs were sent
[2017-08-19] MEDS: Pantoprazole 40 mg EC Tab PO SCH (05:25)
[2017-08-19 06:35] LABS: INR 1.48 (0.93-1.08); PROTHROMBIN TIME 17.1 SECONDS (9.4-12.5)
[2017-08-19 07:04] LABS: BASO # 0.02 K/mm3 (0.0-2.0); BASO % 0.5 % (0.0-3.0); EOS # 0.1 (0.0-0.7); EOS % 2.5 % (1.5-5.0); GRAN # 2.62 (1.4-6.5); GRAN % 71.4 % (50.0-68.0); HEMOGLOBIN 7.8 g/dL (12.0-16.0); LYMPH # 0.6 (1.2-3.4); LYMPH % 16.3 % (22.0-35.0); MEAN CELL VOLUME 78.5 fl (80.0-105.0); MEAN CORPUSCULAR HEMOGLOBIN 24.6 pg (25.0-35.0); MEAN CORPUSCULAR HGB CONC 31.3 g/dl (31.0-37.0); MEAN PLATELET VOLUME 9.5 fl (7.0-11.0); MONO # 0.3 (0.1-0.6); MONO % 9.3 % (1.0-6.0); RBC 3.17 10^6/uL (3.5-6.1); RED CELL DISTRIBUTION WIDTH 22.2 % (11.5-14.5); WHITE BLOOD COUNT 3.7 10^3/ul (4.5-11.0)
[2017-08-19 07:25] LABS: ALB/GLOB RATIO 0.8 (1.1-1.8); ALBUMIN 2.6 g/dL (3.0-4.8); ALT/SGPT 22 U/L (7-56); AST/SGOT 56 U/L (14-36); BLOOD UREA NITROGEN 13 mg/dL (7-21); CALCIUM 8.5 mg/dL (8.4-10.5); GFR AFRICAN-AMERICAN > 60; GFR NON-AFRICAN AMERICAN > 60
[2017-08-19] MEDS: Insulin Reg-MEDIUM-Coverage SC SCH ×4 (08:02→22:07)
[2017-08-19] MEDS: HCTZ PO SCH (10:21)
[2017-08-19] MEDS: BISOPROLOL PO SCH (10:21)
[2017-08-19] MEDS: levoFLOXacin 750 mg in D5W 150 ML BAG IVPB SCH (10:26)
[2017-08-19] MEDS: guaiFENesin DM 100 mg-10 mg/5 ml UD PO PRN (10:28)
--- NOTE | 2017-08-19 11:33 | PN ---
SUBJECTIVE: The patient was seen and examined at bedside on the remote telemetry navarro. No acute events overnight. She remains afebrile and hemodynamically stable. The patient is s/p therapeutic/diagnostic abdominal paracentesis with aspiration of 3.9 liters of fluid. This morning she reports significant improvement in her respiratory status. OBJECTIVE: VITAL SIGNS: Temperature 98, pulse 80, blood pressure 110/48, respiratory rate 20, oxygen saturation 99% on 2 liters nasal cannula. GENERAL: No apparent distress. HEENT: PERRL, EOMI. No scleral icterus. Mild conjunctival pallor is noted. NECK: No JVD. LUNGS: Decreased breath sounds at the bases with bibasilar crackles and a few scattered rhonchi. CARDIOVASCULAR: Regular rate and rhythm. Normal S1 and S2. Grade 2/6 systolic ejection murmur to right upper sternal border. ABDOMEN: Obese. Normoactive bowel sounds. Soft, nontender, and nondistended. EXTREMITIES: Trace pedal edema bilaterally. NEUROLOGIC: Awake, alert, and oriented x 3. No focal motor deficits. LABORATORY DATA: WBC 3.7, hemoglobin 7.8, hematocrit 25, platelets 199, MCV is 78. Sodium 141, potassium 3.5, chloride 105, bicarb 28, BUN 13, creatinine 0.8, glucose 147. ASSESSMENT: The patient is a 72 year old woman with multiple medical comorbidities who was sent to the ED by her PMD for inpatient management of symptomatic anemia and a cardiac workup for suspected new-onset heart failure whose hospital course demonstrated cirrhosis of unclear etiology and critical aortic stenosis. PLAN: 1. 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 Input from Dr. Osei greatly appreciated. We will transfuse an additional 1 unit of PRBC. EGD/colonoscopy has been deferred pending cardiac clearance given the patient's newly diagnosed critical aortic stenosis. 2. Acute systolic heart failure exacerbation, new onset, resolved. Input from Dr. Muniz greatly appreciated. The patient continues to diurese nicely and at present, is clinically euvolemic. We will continue Lasix 40 mg IV every 12 hours. 3. Critical aortic stenosis. The patient is pending cardiac catheterization with Dr. Muniz prior to evaluation for possible TAVR. 4. Cirrhosis, unclear etiology, consider secondary to NAFLD vs right-sided heart failure in the setting of severe . Input from Dr. Osei noted and greatly appreciated. Abdominal paracentesis with 3.9 liters of fluid aspirated. We will await reports. 5. CAD s/p UT. Continue with Lipitor 20 mg p.o. daily. 6. Hypertension. Blood pressure controlled. Continue Bisoprolol/HCTZ 5/6.25 mg p.o. daily. 7. History of remote PE. Patient remains off anticoagulation therapy in the setting of suspected GI bleed. 8. NIDDM. Patient remains on medium-dose insulin sliding scale for coverage. 9. Vitamin B12 deficiency. Patient most recently received an IM injection on . 10. Prophylaxis. GI prophylaxis is not indicated as the patient is eating. DVT prophylaxis not indicated as the patient is ambulatory. CODE STATUS: Full code. Robin Richards MD MTDD
--- NOTE | 2017-08-19 11:39 | PN ---
DATE: 08/19/2017 CARDIOLOGY FOLLOWUP SUBJECTIVE: The patient is comfortable in bed. No shortness of breath. PHYSICAL EXAMINATION: VITAL SIGNS: Blood pressure 110/48, the heart rate is in the 80s. NECK: Negative JVD. LUNGS: Without rales. HEART: With 2/6 systolic ejection murmur. EXTREMITIES: Decreasing edema. LABORATORY DATA: Potassium is 3.5. The hemoglobin is 7.8. INR is 1.48. IMPRESSION: 1. Congestive heart failure. 2. Cirrhosis. 3. Critical aortic stenosis. 4. Marked anemia, likely due to gastrointestinal bleed. 5. Anemia. Given these findings, the patient will need packed red blood cells. I have discussed with her about the need for cardiac catheterization. She is now agreeable. Mat Muniz MD
[2017-08-19 12:30] LABS: HEPATITIS B SURFACE AG Negative (NEGATIVE)
[2017-08-19 12:35] LABS: HEPATITIS A IGM NEGATIVE (NEGATIVE); HEPATITIS B CORE AB NEGATIVE (NEGATIVE)
[2017-08-19 12:47] LABS: HEPATITIS C ANTIBODY NEGATIVE (NEGATIVE)
--- NOTE | 2017-08-19 14:15 | CP.PCM.PN ---
<Santa Robertson - Last Filed: 08/19/17 14:21> Subjective - Date & Time of Evaluation Date of Evaluation: 08/19/17 Time of Evaluation: 14:12 - Subjective Subjective: Gastroenterology Fellow/PGY6 Progress Note for Dr. Osei Patient sitting out in chair. Denies abdominal pain and notes improved abdominal distension. Notes improving leg swelling. Tolerating regular diet. Admits to bowel movement yesterday. Denies confusion, hematemesis, or easy bruising/bleeding. A 12-point review of systems negative except for as above. Objective - Vital Signs/Intake and Output Vital Signs (last 24 hours): Temp Pulse Resp BP Pulse Ox 98 F 80 20 111/66 99 08/19/17 08:00 08/19/17 10:00 08/19/17 08:00 08/19/17 10:10 08/19/17 08:00 Intake and Output: 08/19/17 08/19/17 06:59 18:59 Intake Total 420 Output Total 300 Balance 120 - Medications Medications: Current Medications Alprazolam (Xanax) 0.5 mg PO BID PRN; Protocol PRN Reason: Anxiety Last Admin: 08/19/17 10:26 Dose: 0.5 mg Atorvastatin Calcium (Lipitor) 20 mg PO DIN [facility] Last Admin: 08/18/17 17:13 Dose: Not Given Furosemide (Lasix) 40 mg IVP DAILY [facility] Last Admin: 08/19/17 10:10 Dose: 40 mg Guaifenesin/Dextromethorphan (Robitussin Dm) 5 ml PO Q4H PRN PRN Reason: Cough Last Admin: 08/19/17 10:28 Dose: 5 ml Home Med (Home Med) 1 unit PO DAILY [facility] Last Admin: 08/19/17 10:21 Dose: 1 unit Insulin Human Regular (Humulin R Med) 0 units SC ACHS [facility] PRN Reason: Protocol Last Admin: 08/19/17 11:34 Dose: 3 unit Levofloxacin/Dextrose (Levaquin 750mg) 750 mg IVPB DAILY [facility] PRN Reason: Protocol Last Admin: 08/19/17 10:26 Dose: 750 mg Pantoprazole Sodium (Protonix Ec Tab) 40 mg PO 0600 [facility] Last Admin: 08/19/17 05:25 Dose: 40 mg Potassium Chloride (K-Dur 20 Meq Er Tab) 40 meq PO BRK [facility] - Labs Labs: 08/19/17 06:30 08/19/17 06:30 PT 17.1 SECONDS (9.4-12.5) H 08/19/17 06:00 INR 1.48 (0.93-1.08) H 08/19/17 06:00 APTT 31.7 Seconds (25.1-36.5) 08/17/17 11:30 - Constitutional Appears: Non-toxic, No Acute Distress - Head Exam Head Exam: ATRAUMATIC, NORMOCEPHALIC - Eye Exam Eye Exam: EOMI, PERRL. absent: Scleral icterus Pupil Exam: PERRL. absent: Miosis, Mydriatic - ENT Exam ENT Exam: Mucous Membranes Moist, Normal Oropharynx - Neck Exam Neck Exam: Full ROM, Normal Inspection - Respiratory Exam Respiratory Exam: Clear to Ausculation Bilateral. absent: Rales, Rhonchi, Wheezes - Cardiovascular Exam Cardiovascular Exam: RRR, +S1, +S2. absent: Gallop, Rubs - GI/Abdominal Exam GI & Abdominal Exam: Soft, Normal Bowel Sounds. absent: Distended, Firm, Guarding, Rigid, Tenderness, Organomegaly, Rebound - Extremities Exam Extremities Exam: Normal Inspection Additional comments: 1+ B/L LE pitting edema - Neurological Exam Neurological Exam: Alert, Awake - Psychiatric Exam Psychiatric exam: Normal Affect, Normal Mood - Skin Skin Exam: Dry, Intact, Normal Color, Warm Assessment and Plan - Assessment and Plan (Free Text) Assessment: 72 year old female with PMH of CAD, CVA, and PE on Coumadin presenting with shortness of breath. Active treatment of symptomatic anemia 2/2 to concern for GI bleed s/p 2Units pRBC (08/16/17) and newly diagnosed decompensated cirrhosis 2 /2 ascites and GI bleed. No prior EGD or colonoscopy. Plan: -H/H slowly trending down, continue to trend -Goal Hb 7-8 in setting of cirrhosis -no overt active GI blood loss -BUN normal-likely slow occult GI blood loss- DDx -variceal, PUD, vascular malformation, neoplasia -cardiology managing- high risk for endoscopic procedure in setting of severe Aortic stenosis -await cardiology recommendation after catheterization planned for monday, prior to consideration of endoscopic evaluation -MELD-Na 12 today -08/18 3.9L paracentesis- no SBP, pending fluid albumin and cytology -contacted the lab to add on total protein to delineate ascites etiology as likely portal HTN vs cardiac -continue Levofloxacin for SBP prophylaxis given penicillin allergy -negative Hepatitis panel -daily LFTs, INR -low sodium diet -will follow clinical course <Angie Osei V - Last Filed: 08/19/17 20:23> Objective - Vital Signs/Intake and Output Vital Signs (last 24 hours): Temp Pulse Resp BP Pulse Ox 98.3 F 79 20 111/49 L 100 08/19/17 17:32 08/19/17 18:00 08/19/17 17:32 08/19/17 17:32 08/19/17 17:08 Intake and Output: 08/19/17 08/20/17 18:59 06:59 Intake Total 1050 Balance 1050 - Medications Medications: Current Medications Alprazolam (Xanax) 0.5 mg PO BID PRN; Protocol PRN Reason: Anxiety Last Admin: 08/19/17 10:26 Dose: 0.5 mg Atorvastatin Calcium (Lipitor) 20 mg PO DIN [facility] Last Admin: 08/19/17 16:49 Dose: Not Given Furosemide (Lasix) 40 mg IVP DAILY [facility] Last Admin: 08/19/17 10:10 Dose: 40 mg Guaifenesin/Dextromethorphan (Robitussin Dm) 5 ml PO Q4H PRN PRN Reason: Cough Last Admin: 08/19/17 10:28 Dose: 5 ml Home Med (Home Med) 1 unit PO DAILY [facility] Last Admin: 08/19/17 10:21 Dose: 1 unit Insulin Human Regular (Humulin R Med) 0 units SC ACHS [facility] PRN Reason: Protocol Last Admin: 08/19/17 16:46 Dose: 3 unit Pantoprazole Sodium (Protonix Ec Tab) 40 mg PO 0600 [facility] Last Admin: 08/19/17 05:25 Dose: 40 mg Potassium Chloride (K-Dur 20 Meq Er Tab) 40 meq PO BRK [facility] - Labs Labs: 08/19/17 06:30 08/19/17 06:30 PT 17.1 SECONDS (9.4-12.5) H 08/19/17 06:00 INR 1.48 (0.93-1.08) H 08/19/17 06:00 APTT 31.7 Seconds (25.1-36.5) 08/17/17 11:30 Attending/Attestation - Attestation I have personally seen and examined this patient.: Yes I have fully participated in the care of the patient.: Yes I have reviewed all pertinent clinical information, including history, physical exam and plan: Yes Notes (Text): This is an addendum to GI progress report dictated by the GI Fellow.The patient was seen and examined earlier. Medical records, lab studies, imagings were reviewed. Last 24 hours events reviewed. Agreed with the above treatment plan as outlined in GI Fellow 's notes the with the addition of the following patient is receiving blood transfusion On examination abdomen spleen edge palpable Close follow-up of hemo Continue PPI Critical aortic stenosis planned cardiac cath on Monday Would recommend upper GI endoscopy. prior to restarting long-term anticoagulation/ antiplatelet therapy in view of possible gastric/esophageal varices, PUD and or other active upper GI bleeding source inc AVM, neoplasia 08/19/17 20:18
[2017-08-20] MEDS: Pantoprazole 40 mg EC Tab PO SCH (05:48)
[2017-08-20 07:33] LABS: BASO # 0.02 K/mm3 (0.0-2.0); BASO % 0.5 % (0.0-3.0); EOS # 0.2 (0.0-0.7); EOS % 4.7 % (1.5-5.0); GRAN # 2.73 (1.4-6.5); GRAN % 67.6 % (50.0-68.0); HEMOGLOBIN 9.5 g/dL (12.0-16.0); LYMPH # 0.7 (1.2-3.4); LYMPH % 16.6 % (22.0-35.0); MEAN CELL VOLUME 79.4 fl (80.0-105.0); MEAN CORPUSCULAR HEMOGLOBIN 25.4 pg (25.0-35.0); MEAN PLATELET VOLUME 8.8 fl (7.0-11.0); MONO # 0.4 (0.1-0.6); MONO % 10.6 % (1.0-6.0); RBC 3.74 10^6/uL (3.5-6.1); RED CELL DISTRIBUTION WIDTH 21.7 % (11.5-14.5)
[2017-08-20 08:07] LABS: ALB/GLOB RATIO 0.8 (1.1-1.8); ALBUMIN 2.6 g/dL (3.0-4.8); ALT/SGPT 21 U/L (7-56); AST/SGOT 24 U/L (14-36); BLOOD UREA NITROGEN 14 mg/dL (7-21); CALCIUM 8.5 mg/dL (8.4-10.5); GFR AFRICAN-AMERICAN > 60; GFR NON-AFRICAN AMERICAN > 60
[2017-08-20] MEDS: Potassium Chloride 20 mEq ER Tab PO SCH (08:32)
[2017-08-20] MEDS: Insulin Reg-MEDIUM-Coverage SC SCH ×4 (08:32→21:41)
[2017-08-20] MEDS: guaiFENesin DM 100 mg-10 mg/5 ml UD PO PRN (11:05)
[2017-08-20] MEDS: BISOPROLOL PO SCH (11:05)
[2017-08-20] MEDS: HCTZ PO SCH (11:05)
[2017-08-20] MEDS ORDERED: Potassium Chloride 20 mEq/15 ml LIQ UD PO STA (11:40)
--- NOTE | 2017-08-20 12:07 | CP.PCM.PN ---
Addendum entered and electronically signed by Santa Robertson DO 08/20/17 12:50 : ordered Doppler U/S to evaluate portal system for thrombosis Original Note: <Santa Robertson - Last Filed: 08/20/17 12:42> Subjective - Date & Time of Evaluation Date of Evaluation: 08/20/17 Time of Evaluation: 12:04 - Subjective Subjective: Gastroenterology Fellow/PGY6 Progress Note for Dr. Osei Patient feels well. Notes worsened abdominal distension compared to yesterday. Tolerating regular diet. Denies confusion or abdominal pain. A 12-point review of systems negative except for as above. Objective - Vital Signs/Intake and Output Vital Signs (last 24 hours): Temp Pulse Resp BP Pulse Ox 98 F 84 20 118/50 L 97 08/20/17 07:52 08/20/17 07:52 08/20/17 07:52 08/20/17 11:09 08/20/17 07:52 Intake and Output: 08/20/17 08/20/17 06:59 18:59 Intake Total 720 Output Total 450 Balance 270 - Medications Medications: Current Medications Alprazolam (Xanax) 0.5 mg PO BID PRN; Protocol PRN Reason: Anxiety Last Admin: 08/19/17 10:26 Dose: 0.5 mg Atorvastatin Calcium (Lipitor) 20 mg PO DIN [facility] Last Admin: 08/19/17 16:49 Dose: Not Given Guaifenesin/Dextromethorphan (Robitussin Dm) 5 ml PO Q4H PRN PRN Reason: Cough Last Admin: 08/20/17 11:05 Dose: 5 ml Home Med (Home Med) 1 unit PO DAILY [facility] Last Admin: 08/20/17 11:05 Dose: 1 unit Insulin Human Regular (Humulin R Med) 0 units SC ACHS [facility] PRN Reason: Protocol Last Admin: 08/20/17 08:32 Dose: 1 unit Pantoprazole Sodium (Protonix Ec Tab) 40 mg PO 0600 [facility] Last Admin: 08/20/17 05:48 Dose: 40 mg Potassium Chloride (K-Dur 20 Meq Er Tab) 40 meq PO BRK [facility] Last Admin: 08/20/17 08:32 Dose: 40 meq - Labs Labs: 08/20/17 06:30 08/20/17 06:30 PT 17.1 SECONDS (9.4-12.5) H 08/19/17 06:00 INR 1.48 (0.93-1.08) H 08/19/17 06:00 APTT 31.7 Seconds (25.1-36.5) 08/17/17 11:30 - Constitutional Appears: Non-toxic, No Acute Distress - Head Exam Head Exam: ATRAUMATIC, NORMOCEPHALIC - Eye Exam Eye Exam: EOMI, PERRL Pupil Exam: PERRL. absent: Miosis, Mydriatic - ENT Exam ENT Exam: Mucous Membranes Moist, Normal Oropharynx - Neck Exam Neck Exam: Full ROM, Normal Inspection - Respiratory Exam Respiratory Exam: Clear to Ausculation Bilateral. absent: Rales, Rhonchi, Wheezes - Cardiovascular Exam Cardiovascular Exam: RRR, +S1, +S2. absent: Gallop, Rubs - GI/Abdominal Exam GI & Abdominal Exam: Distended, Soft, Normal Bowel Sounds, Organomegaly. absent : Firm, Guarding, Rigid, Tenderness, Rebound Additional comments: fluid wave present, splenomegaly - Extremities Exam Extremities Exam: Normal Inspection Additional comments: 1+ B/L LE pitting edema - Neurological Exam Neurological Exam: Alert, Awake Additional comments: no asterixis - Psychiatric Exam Psychiatric exam: Normal Affect, Normal Mood - Skin Skin Exam: Dry, Intact, Normal Color, Warm Assessment and Plan - Assessment and Plan (Free Text) Assessment: 72 year old female with PMH of CAD, CVA, and PE on Coumadin presenting with shortness of breath. Active treatment of symptomatic anemia 2/2 to concern for GI bleed s/p 2Units pRBC (08/16/17) and newly diagnosed decompensated cirrhosis 2 /2 ascites and GI bleed. No prior EGD or colonoscopy. Plan: -H/H with appropriate response to transfusion, s/p 1U pRBC 08/19 -continue to monitor H/H -await cardiology recommendation after catheterization tomorrow, 08/21/17 -MELD-Na 12, daily PT/INR patient will likely benefit from NSBB given pHTN, will await cardiology recommendation given severe aortic stenosis -08/18 3.9L paracentesis- no SBP, pending total protein, albumin, cytology -continue Levofloxacin for SBP prophylaxis given penicillin allergy for additional three days -will benefit from EGD prior to restarting anticoagulation to evaluate for source of GI Bleed- rule out varices, PUD, vascular malformation -low sodium diet -will follow clinical course <Angie Osei V - Last Filed: 08/21/17 00:06> Objective - Vital Signs/Intake and Output Vital Signs (last 24 hours): Temp Pulse Resp BP Pulse Ox 97.5 F L 68 16 111/45 L 96 08/20/17 16:24 08/20/17 16:24 08/20/17 16:24 08/20/17 16:24 08/20/17 16:24 Intake and Output: 08/20/17 08/21/17 18:59 06:59 Intake Total 875 360 Balance 875 360 - Medications Medications: Current Medications Alprazolam (Xanax) 0.5 mg PO BID PRN; Protocol PRN Reason: Anxiety Last Admin: 08/19/17 10:26 Dose: 0.5 mg Atorvastatin Calcium (Lipitor) 20 mg PO DIN [facility] Last Admin: 08/20/17 17:24 Dose: Not Given Guaifenesin/Dextromethorphan (Robitussin Dm) 5 ml PO Q4H PRN PRN Reason: Cough Last Admin: 08/20/17 11:05 Dose: 5 ml Home Med (Home Med) 1 unit PO DAILY [facility] Last Admin: 08/20/17 11:05 Dose: 1 unit Insulin Human Regular (Humulin R Med) 0 units SC ACHS [facility] PRN Reason: Protocol Last Admin: 08/20/17 21:41 Dose: Not Given Levofloxacin (Levaquin) 750 mg PO DAILY [facility] PRN Reason: Protocol Stop: 08/22/17 10:01 Last Admin: 08/20/17 14:11 Dose: 750 mg Pantoprazole Sodium (Protonix Ec Tab) 40 mg PO 0600 [facility] Last Admin: 08/20/17 05:48 Dose: 40 mg Potassium Chloride (K-Dur 20 Meq Er Tab) 40 meq PO BRK [facility] Last Admin: 08/20/17 08:32 Dose: 40 meq - Labs Labs: 08/20/17 06:30 08/20/17 06:30 PT 17.1 SECONDS (9.4-12.5) H 08/19/17 06:00 INR 1.48 (0.93-1.08) H 08/19/17 06:00 APTT 31.7 Seconds (25.1-36.5) 08/17/17 11:30 Attending/Attestation - Attestation I have personally seen and examined this patient.: Yes I have fully participated in the care of the patient.: Yes I have reviewed all pertinent clinical information, including history, physical exam and plan: Yes Notes (Text): This is an addendum to GI progress report dictated by the GI Fellow.The patient was seen and examined earlier. Medical records, lab studies, imagings were reviewed. Last 24 hours events reviewed. Agreed with the above treatment plan as outlined in GI Fellow 's notes the with the addition of the following Hct has improved post transfusion on exam abdominal distention present planned cath tomorrow 08/21/17 00:04
--- NOTE | 2017-08-20 12:16 | PN ---
DATE: 08/20/2017 CARDIOLOGY FOLLOWUP SUBJECTIVE: The patient is without dyspnea. PHYSICAL EXAMINATION: VITAL SIGNS: Blood pressure is 118/50, the heart rate is in the 80s. NECK: Negative JVD. LUNGS: Without rales. HEART: Reveals a II/ systolic ejection murmur. EXTREMITIES: Without edema. LABORATORY DATA: Hemoglobin is 3.2, hemoglobin is 9.5. IMPRESSION: 1. Congestive heart failure. 2. Pedal edema. 3. Critical aortic stenosis. 4. Gastrointestinal bleed. 5. Anemia. PLAN: Given these findings, her anemia is stable at this time. The patient is scheduled for cardiac catheterization in the morning. I have discussed this with the patient as well as her son in detail. Mat Muniz MD
[2017-08-20] MEDS: levoFLOXacin 750 MG TAB PO SCH (14:11)
--- NOTE | 2017-08-20 16:19 | PN ---
SUBJECTIVE: The patient is seen and examined at bedside on the remote telemetry navarro. No acute events overnight. She remains afebrile and hemodynamically stable. The patient is s/p transfusion of an additional unit of PRBCs with an appropriate response in hemoglobin. She is pending cardiac catheterization with Dr. Muniz tomorrow as part of evaluation for possible TAVR. She also has ongoing GI workup given the presentation with decompensated cirrhosis. Overall, she does feel improved since admission and offers no complaints. OBJECTIVE: VITAL SIGNS: Temperature 98, pulse 84, blood pressure 118/50, respiratory rate 20, oxygen saturation 97% on room air. GENERAL: No apparent distress. HEENT: PERRL. EOMI. No scleral icterus. Mild conjunctival pallor is noted. NECK: No JVD. LUNGS: Decreased breath sounds at the bases with scant bibasilar crackles. CARDIOVASCULAR: Regular rate and rhythm. Normal S1 and S2. Grade 2/6 MILTON to RUSB. ABDOMEN: Normoactive bowel sounds. Soft, nontender, and nondistended. EXTREMITIES: No edema. NEUROLOGIC: Awake, alert, and oriented x 3. No focal motor deficits. LABORATORY DATA: WBC 4, hemoglobin 9.5, hematocrit 29, platelets 173, MCV 79.4. Chemistry reviewed and largely unremarkable. Hepatitis panel is negative. ASSESSMENT: The patient is a 72 year old woman with multiple medical comorbidities who was sent to the ED by her PMD for inpatient management of symptomatic anemia and a cardiac workup for suspected new onset heart failure whose hospital course demonstrated cirrhosis of unclear etiology and critical aortic stenosis. PLAN: 1. 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 Input from Dr. Osei greatly appreciated. The patient is status post transfusion of 1 unit of PRBC with an appropriate response in hemoglobin. EGD/colonoscopy has been deferred pending cardiac optimization as the patient is scheduled for cardiac catheterization as a part of a workup for her critical aortic stenosis. 2. Acute systolic heart failure exacerbation, new onset, resolved. Input from Dr. Muniz is greatly appreciated. The patient is diuresed nicely since admission and Lasix has been discontinued. 3. Critical aortic stenosis. She is pending cardiac catheterization tomorrow with Dr. Muniz prior to evaluation for possible TAVR. 4. Decompensated cirrhosis, unclear etiology, consider secondary to NAFLD vs right-sided heart failure in the setting of severe . Input from Dr. Osei is greatly appreciated. The patient is s/p abdominal paracentesis with 3.9 L of fluid aspirated. Cytology and culture reports are pending. 5. CAD s/p NH. Continue Lipitor 20 mg p.o. daily. 6. Hypertension, blood pressure controlled. Continue bisoprolol/HCTZ 5/6.25 mg p.o. daily. 7. History of remote PE. She remains off anticoagulation therapy in the setting of suspected GI bleed. 8. NIDDM. Continue medium-dose insulin sliding scale for coverage. 9. Vitamin B12 deficiency. 10. Prophylaxis. GI prophylaxis not indicated as the patient is eating. DVT prophylaxis not indicated as the patient is ambulatory. CODE STATUS: Full code. Robin Richards MD MTDOlivia
[2017-08-21] MEDS: Pantoprazole 40 mg EC Tab PO SCH (05:38)
[2017-08-21 06:43] LABS: BASO # 0.02 K/mm3 (0.0-2.0); BASO % 0.5 % (0.0-3.0); EOS # 0.2 (0.0-0.7); EOS % 3.7 % (1.5-5.0); GRAN # 3.02 (1.4-6.5); GRAN % 70.4 % (50.0-68.0); HEMOGLOBIN 9.4 g/dL (12.0-16.0); LYMPH # 0.7 (1.2-3.4); LYMPH % 16.1 % (22.0-35.0); MEAN CELL VOLUME 78.9 fl (80.0-105.0); MEAN CORPUSCULAR HEMOGLOBIN 25.1 pg (25.0-35.0); MEAN CORPUSCULAR HGB CONC 31.9 g/dl (31.0-37.0); MEAN PLATELET VOLUME 9.3 fl (7.0-11.0); MONO # 0.4 (0.1-0.6); MONO % 9.3 % (1.0-6.0); RBC 3.74 10^6/uL (3.5-6.1); RED CELL DISTRIBUTION WIDTH 22.1 % (11.5-14.5); WHITE BLOOD COUNT 4.3 10^3/ul (4.5-11.0)
[2017-08-21 07:07] LABS: ALB/GLOB RATIO 0.9 (1.1-1.8); ALBUMIN 2.7 g/dL (3.0-4.8); ALT/SGPT 19 U/L (7-56); AST/SGOT 23 U/L (14-36); BLOOD UREA NITROGEN 13 mg/dL (7-21); CALCIUM 8.7 mg/dL (8.4-10.5); GFR AFRICAN-AMERICAN > 60; GFR NON-AFRICAN AMERICAN > 60
[2017-08-21 07:09] LABS: INR 1.54 (0.93-1.08); PROTHROMBIN TIME 17.9 SECONDS (9.4-12.5)
[2017-08-21] MEDS: Insulin Reg-MEDIUM-Coverage SC SCH ×4 (09:02→22:05)
[2017-08-21] MEDS: Potassium Chloride 20 mEq ER Tab PO SCH (09:38)
[2017-08-21] MEDS: levoFLOXacin 750 MG TAB PO SCH (09:38)
[2017-08-21] MEDS: BISOPROLOL PO SCH (09:39)
[2017-08-21] MEDS: HCTZ PO SCH (09:39)
--- NOTE | 2017-08-21 11:11 | CP.PCM.PN ---
<Scottie Lpiscomb - Last Filed: 08/21/17 11:07> Subjective - Date & Time of Evaluation Date of Evaluation: 08/21/17 Time of Evaluation: 08:00 - Subjective Subjective: PGY-4 Gi Fellow Prog Note Pt sitting in bedside chair, son present. States feels overall somewhat better in general since admission. Denies CP, SOB, Abd pain, unsure about BM details but stated is having them. 5 point ROS negative other than stated above Objective - Vital Signs/Intake and Output Vital Signs (last 24 hours): Temp Pulse Resp BP Pulse Ox 98.2 F 86 18 114/46 L 98 08/21/17 08:08 08/21/17 08:08 08/21/17 08:08 08/21/17 08:08 08/21/17 08:08 Intake and Output: 08/21/17 08/21/17 06:59 18:59 Intake Total 360 Balance 360 - Medications Medications: Current Medications Alprazolam (Xanax) 0.5 mg PO BID PRN; Protocol PRN Reason: Anxiety Last Admin: 08/19/17 10:26 Dose: 0.5 mg Atorvastatin Calcium (Lipitor) 20 mg PO DIN [facility] Last Admin: 08/20/17 17:24 Dose: Not Given Guaifenesin/Dextromethorphan (Robitussin Dm) 5 ml PO Q4H PRN PRN Reason: Cough Last Admin: 08/20/17 11:05 Dose: 5 ml Home Med (Home Med) 1 unit PO DAILY [facility] Last Admin: 08/21/17 09:39 Dose: 1 unit Insulin Human Regular (Humulin R Med) 0 units SC ACHS [facility] PRN Reason: Protocol Last Admin: 08/21/17 09:02 Dose: Not Given Levofloxacin (Levaquin) 750 mg PO DAILY [facility] PRN Reason: Protocol Stop: 08/22/17 10:01 Last Admin: 08/21/17 09:38 Dose: 750 mg Pantoprazole Sodium (Protonix Ec Tab) 40 mg PO 0600 [facility] Last Admin: 08/21/17 05:38 Dose: Not Given Potassium Chloride (K-Dur 20 Meq Er Tab) 40 meq PO BRK [facility] Last Admin: 08/21/17 09:38 Dose: 40 meq - Labs Labs: 08/21/17 06:00 08/21/17 06:00 PT 17.9 SECONDS (9.4-12.5) H 08/21/17 06:00 INR 1.54 (0.93-1.08) H 08/21/17 06:00 APTT 31.7 Seconds (25.1-36.5) 08/17/17 11:30 - Constitutional Appears: Well, Non-toxic - Head Exam Head Exam: ATRAUMATIC, NORMAL INSPECTION - Eye Exam Eye Exam: EOMI. absent: Conjunctival injection, Scleral icterus - Respiratory Exam Respiratory Exam: NORMAL BREATHING PATTERN. absent: Accessory Muscle Use, Wheezes - Cardiovascular Exam Cardiovascular Exam: Irregular Rhythm, Murmur (3/6 systolic at RUSB) - GI/Abdominal Exam GI & Abdominal Exam: Distended (mildly), Soft, Normal Bowel Sounds. absent: Firm, Guarding, Rigid, Tenderness Assessment and Plan - Assessment and Plan (Free Text) Assessment: 72 yo WF with h/o CAD, CVA and PE (on warfarin) admitted for symptomatic anemia , # Occult GI Bleed: No obvious signs of GI bleed, dark stool but on Fe tabs, hemoccult +. Hgb 6.8 on admission -> 8.9 s/p 2 units PRBCs with appropriate response. Given new CT finding of cirrhosis suspect that patient could be bleeding from slow portal HTN bleed such as PHG, doubt acute variceal bleed given benign presentation. # Decompensated Cirrhosis: CP Class B, MELD-Na 14 (though on warfarin). c/b ascites. 3900 mL fluid removed on paracentesis on 08/18/17. No SBP. No total protein available. Etiology perhaps NAFLD vs R sided CHF induced with severe TR on echo and pHTN? # Elevated INR: 2.06->1.54 s/p Vit K 10 mg. On warfarin as OP for h/o PE. Wonder if risk of trt may outweigh benefits in this eldery pt (concern for GI bleed with cirrhosis, falls->intracranial bleed, etc.) # New onset CHF with preserved EF, severe and TR with pHTN: Defer w/u to primary/cardiology, plan for cath 08/21. Plan: - Need to discuss risk/benefit of proceeding with endoscopy in setting of severe aortic stenosis; planning for EGD on 08/22/17 - May need BB for primary variceal ppx - Cardiology plan to perform cardiac cath on today prior to any endoscopy, defer to cardiology and primary medicine team - Levofloxacin daily day 5 of 7 for SBP ppx for cirrhotic with GI Bleed - Low Na diet - Monitor Hgb - PPI - Monitor INR <Angie Osei V - Last Filed: 08/21/17 22:50> Objective - Vital Signs/Intake and Output Vital Signs (last 24 hours): Temp Pulse Resp BP Pulse Ox 97.6 F 82 19 117/56 L 96 08/21/17 17:05 08/21/17 22:00 08/21/17 21:21 08/21/17 21:21 08/21/17 17:05 Intake and Output: 08/21/17 08/22/17 18:59 06:59 Intake Total 2500 Output Total 400 Balance 2100 - Medications Medications: Current Medications Alprazolam (Xanax) 0.5 mg PO BID PRN; Protocol PRN Reason: Anxiety Last Admin: 08/19/17 10:26 Dose: 0.5 mg Atorvastatin Calcium (Lipitor) 20 mg PO DIN [facility] Last Admin: 08/21/17 17:26 Dose: Not Given Guaifenesin/Dextromethorphan (Robitussin Dm) 5 ml PO Q4H PRN PRN Reason: Cough Last Admin: 08/20/17 11:05 Dose: 5 ml Home Med (Home Med) 1 unit PO DAILY [facility] Last Admin: 08/21/17 09:39 Dose: 1 unit Insulin Human Regular (Humulin R Med) 0 units SC ACHS [facility] PRN Reason: Protocol Last Admin: 08/21/17 22:05 Dose: Not Given Pantoprazole Sodium (Protonix Ec Tab) 40 mg PO 0600 [facility] Last Admin: 08/21/17 05:38 Dose: Not Given Potassium Chloride (K-Dur 20 Meq Er Tab) 40 meq PO BRK [facility] Last Admin: 08/21/17 09:38 Dose: 40 meq - Labs Labs: 08/21/17 06:00 08/21/17 06:00 PT 17.9 SECONDS (9.4-12.5) H 08/21/17 06:00 INR 1.54 (0.93-1.08) H 08/21/17 06:00 APTT 31.7 Seconds (25.1-36.5) 08/17/17 11:30 Attending/Attestation - Attestation I have personally seen and examined this patient.: Yes I have fully participated in the care of the patient.: Yes I have reviewed all pertinent clinical information, including history, physical exam and plan: Yes Notes (Text): This is an addendum to GI progress report dictated by the GI Fellow.The patient was seen and examined earlier. Medical records, lab studies, imagings were reviewed. Last 24 hours events reviewed. Agreed with the above treatment plan as outlined in GI Fellow 's notes the with the addition of the following dw Dr. Muniz ,tie layer sp cardiac cath significant and CAD Cardiology recommended GI workup prior to further cardiology eval Schedule for EGD tomorrow 08/21/17 22:47
--- NOTE | 2017-08-21 11:55 | PN ---
SUBJECTIVE: The patient was seen and examined at bedside on the remote telemetry navarro. No acute events overnight. She remains afebrile and hemodynamically stable. The patient is scheduled for cardiac catheterization today with Dr. Muniz as part of a workup prior to possible TAVR given her critical aortic stenosis. OBJECTIVE: VITAL SIGNS: Temperature 98.2, pulse 86, blood pressure 114/46, respiratory rate 18, oxygen saturation 98% on room air. GENERAL: No apparent distress. HEENT: PERRL, EOMI. No scleral icterus. Mild conjunctival pallor is noted. NECK: No JVD. LUNGS: Decreased breath sounds at the bases. CARDIOVASCULAR: Regular rate and rhythm. Normal S1 and S2. Grade 2/6 MILTON to RUSB. ABDOMEN: Normoactive bowel sounds. Soft, nontender, and nondistended. EXTREMITIES: No edema. NEUROLOGIC: Awake, alert and oriented x 3. No focal motor deficits. LABORATORY DATA: WBC 4.3, hemoglobin 9.4, hematocrit 29, platelets 195, MCV 79. Chemistry reviewed and unremarkable. ASSESSMENT: The patient is a 72 year old woman with multiple medical comorbidities who was sent to the ED by her PMD for inpatient management of symptomatic anemia and a cardiac workup for suspected new-onset heart failure and whose hospital course demonstrated cirrhosis of unclear etiology and critical aortic stenosis. PLAN: 1. 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 Input from Dr. Osei appreciated. The patient has been transfused multiple units of PRBCs and with stable H/H. EGD/colonoscopy has been deferred pending cardiac optimization given her underlying critical aortic stenosis. We will continue to monitor CBC daily and transfuse as needed. 2. Acute systolic heart failure exacerbation, new onset, resolved. Input from Dr. Muniz appreciated. The patient has diuresed nicely since admission and remains off Lasix. 3. Critical aortic stenosis. The patient is pending cardiac cath with Dr. Muniz as part of a workup for possible TAVR. 4. Decompensated cirrhosis, unclear etiology, consider secondary to NAFLD vs right-sided heart failure in the setting of critical . Input from Dr. Osei is appreciated. Hepatitis panel reviewed and negative. The patient underwent an abdominal ultrasound with results pending. 5. CAD s/p SD. Continue Lipitor 20 mg p.o. daily. 6. Hypertension. Continue Bisoprolol/HCTZ 5/6.25 mg p.o. daily. 7. History of remote PE. She remains off anticoagulation therapy in the setting of suspected GI bleed. 8. NIDDM. Continue medium-dose insulin sliding scale for coverage. 9. Vitamin B12 deficiency. 10. Prophylaxis. GI prophylaxis not indicated as the patient is eating. DVT prophylaxis not indicated as the patient is ambulatory. CODE STATUS: Full code. Robin Richards MD MTDD
[2017-08-21] MEDS ORDERED: Famotidine 20mg/50ml 20 MG/50 ML BAG IVPB ONE (12:38)
[2017-08-21] MEDS ORDERED: Lidocaine 2 GM Vial 2 GM/50 ML VIAL IV ONE (12:54)
[2017-08-21] MEDS ORDERED: HEPARIN IV ONE (12:54)
[2017-08-21] MEDS ORDERED: Iodixanol 320 MG/ML 100 ML BOTTLE IV ONE (13:06)
[2017-08-21] MEDS ORDERED: Midazolam 2 MG/2 ML VIAL ONE ×2 (13:16→14:15)
[2017-08-21] MEDS ORDERED: Iodixanol 320 MG/ML 200 ML BOTTLE IV ONE ×2 (13:36→13:56)
[2017-08-21] MEDS ORDERED: Sodium Chloride 0.9% 1,000 ML IV SCH (15:15)
--- NOTE | 2017-08-21 18:45 | US ---
PROCEDURE: Portal vein duplex ultrasound. CLINICAL HISTORY: Cirrhosis. Deteriorating liver function. Evaluate for portal vein thrombosis. PHYSICIAN(S): Mat Swain M.D. FINDINGS: The liver parenchyma is heterogeneous with a nodular contour. This is consistent with cirrhosis. No obvious mass is seen on these limited images. The extrahepatic portal vein is somewhat small in caliber with hepatopetal flow. The hepatic artery is enlarged and patent. Limited images the central hepatic veins are patent. The spleen is enlarged. There is a small to moderate amount of ascites in the upper abdomen IMPRESSION: 1. Patent portal vein with hepatopetal flow.
--- NOTE | 2017-08-21 20:02 | CARDCATH ---
PROCEDURE DATE: 08/21/2017 RIGHT AND LEFT HEART CATHETERIZATION HISTORY: The patient is a 72-year-old woman who presents with CHF and marked anemia. She was found to have critical aortic stenosis on her echocardiogram and physical exam. In addition, she is found to be markedly anemic requiring blood transfusions. Because of this, cardiac catheterization was recommended. PROCEDURE: Right and left heart catheterization with coronary arteriography, left ventriculogram, supra-aortic valvular injection. The right femoral artery was cannulated with a 6-Moroccan sheath. The right femoral vein was cannulated with a 7-Moroccan sheath. There were no complications. I performed moderate sedation which included the presence of an independent trained observer that assisted in monitoring the patient's level of consciousness and physiologic status. After administration of Versed and fentanyl, my intra-service time was 30 minutes. The findings on catheterization included hemodynamic measurements which revealed a right atrial mean pressure of 4 mmHg, pulmonary artery pressure was 60/25 mmHg. The mean pulmonary pressure was 28 mmHg. The mean pulmonary capillary wedge pressure was 7 mmHg. Simultaneous LV and supra-aortic valvular pressure measurements revealed a [id number]-[id number] gradient of 40 mmHg. With a cardiac output of 5.45 liters per minute, the aortic valve area was 0.86 cm2. Her coronary anatomy revealed a right dominant circulation. The RCA was free of significant disease. The left main artery was unremarkable. The LAD revealed an eccentric 50%-60% stenosis. The circumflex artery and obtuse marginal branches are free of significant disease. Supra-aortic valvular injection revealed no aortic insufficiency. LV function revealed normal LV function with an EF of approximately 60%. Manual compression was used close the femoral artery site. The patient tolerated the procedure well. Given these findings, the patient's catheterization revealed; 1. Critical aortic stenosis with an aortic valve area of 0.86 cm2. 2. Single vessel LAD stenosis of approximately 60% in the proximal portion. 3. Normal LV function. 4. No aortic insufficiency. Given these findings, the patient will need TAVR as well as potential PTCA and stent of a proximal LAD stenosis. Before we can do these procedures, we will need to rule out a GI source of bleeding in order to place her on antiplatelet therapy. She will need to undergo an invasive GI workup. I have discussed this with the patient and family. The patient is at increased risk because of her aortic stenosis and coronary artery disease, however, the risk will need to be accepted and understood with careful hemodynamic monitoring to minimize the risk. I have discussed this in detail with the patient and family in detail. We will move on to GI workup in the morning. Mat Muniz MD
[2017-08-22] MEDS: Pantoprazole 40 mg EC Tab PO SCH (05:35)
[2017-08-22 07:00] LABS: GRAN # 4.49 (1.4-6.5); GRAN % 83.2 % (50.0-68.0); LYMPH # 0.5 (1.2-3.4); LYMPH % 9.6 % (22.0-35.0); MEAN CELL VOLUME 79.8 fl (80.0-105.0); MEAN CORPUSCULAR HEMOGLOBIN 24.9 pg (25.0-35.0); MEAN CORPUSCULAR HGB CONC 31.3 g/dl (31.0-37.0); MEAN PLATELET VOLUME 9.7 fl (7.0-11.0); MONO # 0.4 (0.1-0.6); MONO % 7.2 % (1.0-6.0); RBC 4.01 10^6/uL (3.5-6.1); RED CELL DISTRIBUTION WIDTH 22.5 % (11.5-14.5); WHITE BLOOD COUNT 5.4 10^3/ul (4.5-11.0)
[2017-08-22 07:18] LABS: ALB/GLOB RATIO 0.9 (1.1-1.8); ALBUMIN 2.9 g/dL (3.0-4.8); ALT/SGPT 20 U/L (7-56); AST/SGOT 28 U/L (14-36); BLOOD UREA NITROGEN 19 mg/dL (7-21); CALCIUM 8.8 mg/dL (8.4-10.5); GFR AFRICAN-AMERICAN > 60; GFR NON-AFRICAN AMERICAN > 60
[2017-08-22 08:15] LABS: INR 1.56 (0.93-1.08); PROTHROMBIN TIME 18.1 SECONDS (9.4-12.5)
[2017-08-22] MEDS: BISOPROLOL PO SCH (10:00)
[2017-08-22] MEDS: HCTZ PO SCH (10:00)
[2017-08-22] MEDS: Insulin Reg-MEDIUM-Coverage SC SCH ×4 (11:00→22:42)
[2017-08-22] MEDS: Potassium Chloride 20 mEq ER Tab PO SCH (12:24)
--- NOTE | 2017-08-22 12:59 | PN ---
SUBJECTIVE: The patient was seen and examined on bedside on the telemetry navarro. No acute events overnight. She remains afebrile, hemodynamically stable and is doing well s/p her diagnostic cardiac catheterization. We will confer with Dr. Muniz and Dr. Osei regarding the need for further GI evaluation with EGD and/or colonoscopy given the patient's presentation with symptomatic anemia and decompensated cirrhosis. Otherwise she feels well overall and offers no complaints. OBJECTIVE: VITAL SIGNS: Temperature 97.8, pulse 85, blood pressure 112/53, respiratory rate 18, oxygen saturation 96% on room air. GENERAL: No apparent distress. HEENT: PERRL, EOMI. No scleral icterus. Mild conjunctival pallor is noted. NECK: No JVD. LUNGS: Decreased breath sounds at the bases. CARDIOVASCULAR: Regular rate and rhythm. Normal S1 and S2. Grade 2/6 MILTON to RUSB. ABDOMEN: Normoactive bowel sounds. Soft, nontender, nondistended. EXTREMITIES: No edema. NEUROLOGIC: Awake, alert, and oriented x 3. No focal motor deficits. LABORATORY DATA: WBC 5.4, hemoglobin 10, hematocrit 32, platelets 200, MCV 79.8. Chemistry reviewed and unremarkable. IMAGING STUDIES: Abdominal ultrasound demonstrated [id number] ascites in the upper abdomen and a cirrhotic liver with no evidence of portal vein obstruction. DIAGNOSTIC STUDIES: Cardiac catheterization demonstrated normal LV function with single vessel LAD stenosis of approximately 60% to the proximal portion and critical aortic stenosis with an aortic valve area of 0.86 cm2. ASSESSMENT: The patient is a 72 year old woman with multiple medical comorbidities who was admitted for management of symptomatic anemia and new onset heart failure and whose hospital workup revealed critical aortic stenosis and cirrhosis of unclear etiology. PLAN: 1. 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 The patient is s/p transfusion of multiple units of PRBCs and with stable H/H. Input from Dr. Osei appreciated. The patient will require invasive GI workup (ie: EGD/colnoscopy). 2. Critical aortic stenosis. Input from Dr. Muniz greatly appreciated and the patient is s/p cardiac catheterization as part of a workup for possible TAVR. 3. Acute systolic heart failure exacerbation, resolved. She remains clinically euvolemic and off Lasix. 4. Decompensated cirrhosis, unclear etiology, consider secondary to NAFLD versus right-sided heart failure in the setting of critical . Input from Dr. Osei appreciated. Abdominal ultrasound reviewed. Hepatitis panel is negative. 5. CAD. As above, cardiac catheterization demonstrated single vessel disease however the lesion was not instrumented as the patient cannot be started on anticoagulation or antiplatelet therapy until a complete GI workup has been done given her presentation with symptomatic anemia and concern for GI bleed. 6. Hypertension. Blood pressure controlled. Continue Bisoprolol/HCTZ 5/6.25 mg p.o. daily. 7. History of remote PE. As above, the patient remains off anticoagulation therapy pending GI evaluation. 8. NIDDM. Continue medium-dose insulin sliding scale for coverage. 9. Vitamin B12 deficiency. 10. Prophylaxis. GI prophylaxis not indicated as the patient is eating. DVT prophylaxis not indicated as the patient is ambulatory. CODE STATUS: Full code. Robin Richards MD MTDD
[2017-08-22] MEDS ORDERED: Sodium Chloride 0.9% 1,000 ML IV SCH (14:00)
[2017-08-22] MEDS ORDERED: Etomidate 20 mg/10ml Inj IV ONE (14:06)
[2017-08-22] MEDS ORDERED: ePHEDrine 50 mg/ml Inj ONE (14:06)
--- NOTE | 2017-08-22 14:08 | PN ---
DATE: 08/22/2017 SUBJECTIVE: The patient tolerated cardiac catheterization. There are no post catheterization complications. PHYSICAL EXAMINATION: GENERAL: The patient is awake and alert. VITAL SIGNS: Blood pressure is 137/51, heart rate is in the 80s. NECK: Negative JVD. LUNGS: Without rales. HEART: S1, S2 with 2/6 systolic ejection murmur. EXTREMITIES: Without edema. The right groin site is stable. LABORATORY DATA: Hemoglobin is 10. Chemistries, BUN and creatinine unremarkable. The glucose is 272. IMPRESSION: 1. Critical aortic stenosis. 2. Coronary artery disease with a 60-70% proximal left anterior descending stenoses. 3. Gastrointestinal bleed. 4. Anemia. 5. Ascites. PLAN: The plan is for endoscopy today with colonoscopy. If no obvious source of bleeding is found, we will consider the patient for TAVR. Mat Muniz MD
[2017-08-22] MEDS ORDERED: Peg-Electrolyte Oral Soln 4L (Golytely) PO ONE (16:00)
[2017-08-23] MEDS: Pantoprazole 40 mg EC Tab PO SCH ×2 (05:35→06:30)
[2017-08-23 06:42] LABS: EOS % 0.7 % (1.5-5.0); GRAN # 2.9 (1.4-6.5); GRAN % 67.2 % (50.0-68.0); HEMOGLOBIN 8.9 g/dL (12.0-16.0); LYMPH % 23.7 % (22.0-35.0); MEAN CELL VOLUME 80.3 fl (80.0-105.0); MEAN CORPUSCULAR HEMOGLOBIN 25.1 pg (25.0-35.0); MEAN CORPUSCULAR HGB CONC 31.2 g/dl (31.0-37.0); MEAN PLATELET VOLUME 9.5 fl (7.0-11.0); MONO # 0.4 (0.1-0.6); MONO % 8.4 % (1.0-6.0); RBC 3.55 10^6/uL (3.5-6.1); RED CELL DISTRIBUTION WIDTH 23.3 % (11.5-14.5)
[2017-08-23] MEDS ORDERED: Magnesium Citrate Oral SOL (300 ml) PO ONE (06:59)
[2017-08-23 07:01] LABS: ALB/GLOB RATIO 0.8 (1.1-1.8); ALBUMIN 2.6 g/dL (3.0-4.8); ALT/SGPT 21 U/L (7-56); AST/SGOT 27 U/L (14-36); BLOOD UREA NITROGEN 19 mg/dL (7-21); CALCIUM 8.6 mg/dL (8.4-10.5); GFR AFRICAN-AMERICAN > 60; GFR NON-AFRICAN AMERICAN > 60
[2017-08-23] MEDS ORDERED: Phytonadione 10 mg/ml Inj (Adult) SC STA (07:01)
[2017-08-23] MEDS ORDERED: Bisacodyl 5mg EC Tab PO ONE (07:01)
[2017-08-23 07:06] LABS: INR 1.64 (0.93-1.08); PROTHROMBIN TIME 19.1 SECONDS (9.4-12.5)
[2017-08-23 07:09] LABS: WHITE BLOOD COUNT 4.3 10^3/ul (4.5-11.0)
[2017-08-23] MEDS: Insulin Reg-MEDIUM-Coverage SC SCH ×5 (08:26→21:12)
[2017-08-23] MEDS: Potassium Chloride 20 mEq ER Tab PO SCH (08:32)
--- NOTE | 2017-08-23 09:26 | CP.PCM.PN ---
<Scottie Lipscomb - Last Filed: 08/23/17 09:23> Subjective - Date & Time of Evaluation Date of Evaluation: 08/23/17 Time of Evaluation: 08:30 - Subjective Subjective: PGY-4 GI Fellow Prog Note Pt lying in bed when seen this AM. Did not finish golytely prep overnight. Denied any abd pain, CP, SOB. 5 point ROS negative other than stated above Objective - Vital Signs/Intake and Output Vital Signs (last 24 hours): Temp Pulse Resp BP Pulse Ox 98.1 F 83 18 121/60 92 L 08/23/17 06:00 08/23/17 06:00 08/23/17 06:00 08/23/17 06:00 08/23/17 06:00 Intake and Output: 08/23/17 08/23/17 06:59 18:59 Intake Total 240 Balance 240 - Medications Medications: Current Medications Alprazolam (Xanax) 0.5 mg PO BID PRN; Protocol PRN Reason: Anxiety Last Admin: 08/19/17 10:26 Dose: 0.5 mg Atorvastatin Calcium (Lipitor) 20 mg PO DIN [facility] Last Admin: 08/22/17 17:40 Dose: Not Given Guaifenesin/Dextromethorphan (Robitussin Dm) 5 ml PO Q4H PRN PRN Reason: Cough Last Admin: 08/20/17 11:05 Dose: 5 ml Home Med (Home Med) 1 unit PO DAILY [facility] Last Admin: 08/22/17 10:00 Dose: Not Given Insulin Human Regular (Humulin R Med) 0 units SC ACHS [facility] PRN Reason: Protocol Last Admin: 08/23/17 08:26 Dose: Not Given Pantoprazole Sodium (Protonix Ec Tab) 40 mg PO 0600 [facility] Last Admin: 08/23/17 06:30 Dose: 40 mg Potassium Chloride (K-Dur 20 Meq Er Tab) 40 meq PO BRK [facility] Last Admin: 08/23/17 08:32 Dose: 40 meq - Labs Labs: 08/23/17 06:00 08/23/17 06:00 PT 19.1 SECONDS (9.4-12.5) H 08/23/17 06:29 INR 1.64 (0.93-1.08) H 08/23/17 06:29 APTT 31.7 Seconds (25.1-36.5) 08/17/17 11:30 - Constitutional Appears: Well, No Acute Distress - Head Exam Head Exam: ATRAUMATIC, NORMAL INSPECTION - Eye Exam Eye Exam: EOMI. absent: Scleral icterus - Respiratory Exam Respiratory Exam: NORMAL BREATHING PATTERN. absent: Accessory Muscle Use, Wheezes, Stridor - Cardiovascular Exam Cardiovascular Exam: REGULAR RHYTHM, Murmur (3/6 systolic at RUSB) - GI/Abdominal Exam GI & Abdominal Exam: Distended, Soft, Normal Bowel Sounds. absent: Firm, Guarding, Rigid, Tenderness Assessment and Plan - Assessment and Plan (Free Text) Assessment: 72 yo WF with h/o CAD, CVA and PE (on warfarin) admitted for symptomatic anemia , # Occult GI Bleed: No obvious signs of GI bleed, dark stool but on Fe tabs, hemoccult +. Hgb 6.8 on admission -> 8.9 s/p 2 units PRBCs with appropriate response. 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 No varices seen. Planned for CSPY today, but pt did not finish prep and INR > 1.5. # Decompensated Cirrhosis: CP Class B, MELD-Na 14 (though on warfarin). Etiology perhaps NAFLD vs R sided CHF induced with severe TR on echo and pHTN? - Ascites: 3900 mL fluid removed on paracentesis on 08/18/17. No SBP. No total protein available. Would likely benefit from diuretic therapy but will hold off for now with w/u of GI Bleed and plans for TAVR. 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 - HCC: CT scan this admission w/o mass though not triple phase - HE: None # Elevated INR: 1.6 on 08/23, given FFP and Vit K in order to reverse for possible CSPY On warfarin as OP for h/o PE. Wonder if risk of trt may outweigh benefits in this eldery pt (concern for GI bleed with cirrhosis, falls-> intracranial bleed, etc.) # New onset CHF with preserved EF, severe and TR with pHTN: Defer w/u to primary/cardiology, Cardiology recommend TAVR, but need to figure out if actively GI Bleeding. Plan: - Given MagCitrate and more Golytely this AM in hopes of Colonoscopy before end of day; if not clear by noon, will need to arrange for Colonoscopy on 08/25/17. In that case, would need Golytely on 08/24/17, Clear Liq Diet on 08/24/17, NPO after MN and INR to be <1.5 in AM on 08/25/17. - Completing course of Levofloxacin for SBP ppx, day 6 of 7 - Low Na diet - Monitor Hgb - PPI - Monitor INR - Needs Hep A and Hep B vaccination as outpatient if not already done <Angie Osei V - Last Filed: 08/27/17 10:24> Objective - Vital Signs/Intake and Output Vital Signs (last 24 hours): Temp Pulse Resp BP Pulse Ox 98.3 F 76 20 123/63 99 08/24/17 17:40 08/24/17 18:00 08/24/17 17:40 08/24/17 17:40 08/24/17 15:00 Intake and Output: 08/24/17 08/25/17 18:59 06:59 Intake Total 720 300 Output Total 0 Balance 720 300 - Medications Medications: Current Medications Alprazolam (Xanax) 0.5 mg PO BID PRN; Protocol PRN Reason: Anxiety Last Admin: 08/19/17 10:26 Dose: 0.5 mg Atorvastatin Calcium (Lipitor) 20 mg PO DIN [facility] Last Admin: 08/24/17 17:06 Dose: Not Given Guaifenesin/Dextromethorphan (Robitussin Dm) 5 ml PO Q4H PRN PRN Reason: Cough Last Admin: 08/20/17 11:05 Dose: 5 ml Home Med (Home Med) 1 unit PO DAILY [facility] Last Admin: 08/24/17 09:13 Dose: 1 unit Levofloxacin/Dextrose (Levaquin 750mg) 750 mg in 150 mls @ 100 mls/hr IVPB DAILY [facility] PRN Reason: Protocol Stop: 08/24/17 23:59 Last Admin: 08/24/17 09:13 Dose: 100 mls/hr Albumin Human (Albumin Human 25% (12.5 Gm/50 Ml)) 50 mls @ 1 mls/min IVPB BID [facility] Last Admin: 08/24/17 17:49 Dose: 1 mls/min Metronidazole (Flagyl) 500 mg in 100 mls @ 100 mls/hr IVPB Q8 [facility] PRN Reason: Protocol Last Admin: 08/24/17 22:03 Dose: 100 mls/hr Insulin Human Regular (Humulin R Med) 0 units SC ACHS [facility] PRN Reason: Protocol Last Admin: 08/24/17 22:03 Dose: Not Given Pantoprazole Sodium (Protonix Ec Tab) 40 mg PO 0600 [facility] Last Admin: 08/24/17 05:21 Dose: 40 mg Potassium Chloride (K-Dur 20 Meq Er Tab) 40 meq PO BRK [facility] Last Admin: 08/24/17 08:12 Dose: 40 meq - Labs Labs: 08/24/17 06:00 08/24/17 06:00 PT 16.8 SECONDS (9.4-12.5) H 08/24/17 06:00 INR 1.45 (0.93-1.08) H 08/24/17 06:00 APTT 31.7 Seconds (25.1-36.5) 08/17/17 11:30 Attending/Attestation - Attestation I have personally seen and examined this patient.: Yes I have fully participated in the care of the patient.: Yes I have reviewed all pertinent clinical information, including history, physical exam and plan: Yes Notes (Text): This is an addendum to GI progress report dictated by the Seating And Mobility Technologist.The patient was seen and examined earlier. Medical records, lab studies, imagings were reviewed. Last 24 hours events reviewed. Agreed with the above treatment plan as outlined in Seating And Mobility Technologist 's notes the with the addition of the following patient scheduled for colonoscopy and EGD High risk procedure risks benefits alternatives to the patient and patient'sier 08/24/17 23:35
--- NOTE | 2017-08-23 09:29 | PN ---
SUBJECTIVE: The patient was seen and examined at the bedside on the telemetry navarro. No acute events overnight. She remains afebrile and hemodynamically stable. The patient is pending invasive GI evaluation with Dr. Osei this morning and overall feels okay and offers no complaints. OBJECTIVE: VITAL SIGNS: Temperature 98.1, pulse 83, blood pressure 121/60, respiratory rate 18, oxygen saturation 93% on room air. GENERAL: No apparent distress. HEENT: PERRL. EOMI. No scleral icterus. Mild conjunctival pallor is noted. NECK: No JVD. LUNGS: Decreased breath sounds at the bases. CARDIOVASCULAR: Regular rate and rhythm. Normal S1 and S2. Grade 2/6 MILTON to RUSB. ABDOMEN: Normoactive bowel sounds. Soft, nontender, nondistended. EXTREMITIES: No edema. NEUROLOGIC: Awake, alert and oriented x 3. No focal motor deficits. LABORATORY DATA: WBC 4.3, hemoglobin 8.9, hematocrit 28, platelets 172. Chemistry reviewed and unremarkable. INR 1.6. ASSESSMENT: The patient is a 72 year old woman with multiple medical comorbidities who was admitted for management of symptomatic anemia and new onset heart failure and whose hospital course revealed critical aortic stenosis and cirrhosis of unclear etiology. PLAN: 1. 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 The patient is s/p transfusion of multiple units of PRBCs and pending invasive GI evaluation today with Dr. Osei. 2. Critical aortic stenosis. Input from Dr. Muniz appreciated and arrangements will be made for TAVR. 3. Acute systolic heart failure, resolved. The patient remains clinically euvolemic and off Lasix. 4. Decompensated cirrhosis, unclear etiology, consider secondary to NAFLD vs right-sided heart failure in the setting of critical aortic stenosis. Continue with care as per Dr. Osei. 5. CAD. The patient is s/p cardiac catheterization which demonstrated single vessel CAD however the lesion was not instrumented as the patient cannot be started on anticoagulation or antiplatelet therapy until we have ruled out an active bleed. 6. Hypertension. Continue Bisoprolol/HCTZ 5/6.25 mg p.o. daily. 7. History of remote PE. She remains off anticoagulation therapy pending GI evaluation. 8. NIDDM. Continue medium-dose insulin sliding scale for coverage. 9. Vitamin B12 deficiency. 10. Prophylaxis. GI prophylaxis not indicated as the patient is eating. DVT prophylaxis not indicated as the patient is ambulatory. CODE STATUS: Full code. Robin Richards MD MTDOlivia
[2017-08-23] MEDS: levoFLOXacin 750 mg in D5W 750 MG/150 ML BAG IVPB SCH (10:00)
[2017-08-23] MEDS: BISOPROLOL PO SCH (12:06)
[2017-08-23] MEDS: HCTZ PO SCH (12:06)
--- NOTE | 2017-08-23 14:13 | PN ---
DATE: 08/23/2017 CARDIOLOGY FOLLOWUP SUBJECTIVE: The patient is comfortable. No shortness of breath. OBJECTIVE: VITAL SIGNS: Blood pressure 121/60, heart rate is in the 80s. NECK: Negative JVD. LUNGS: Without rales. HEART: Reveal S1, S2 with a 2/6 systolic ejection murmur. EXTREMITIES: Without edema. DATA: Hemoglobin is 8.9 today. Chemistries: BUN and creatinine unremarkable. Glucose 134. IMPRESSION: 1. Critical aortic stenosis. 2. Marked anemia. 3. Recent congestive heart failure. 4. Rule out gastrointestinal bleed. 5. Cirrhosis. 6. History of ascites. Given these findings, we were awaiting for complete GI workup before considering TAVR for aortic stenosis. Mat Muniz MD
[2017-08-23] MEDS ORDERED: Propofol 10 mg/ml Inj (20 ML) ONE ×2 (15:19→16:02)
[2017-08-23] MEDS ORDERED: Etomidate 20 mg/10ml Inj IV ONE (15:19)
[2017-08-23] MEDS ORDERED: Sodium Chloride 0.9% 1,000 ML IV SCH (16:30)
[2017-08-23] MEDS: metroNIDAZOLE IV 500 mg/100 ml 500 MG/100 ML BAG IVPB SCH (20:00)
[2017-08-24] MEDS: Pantoprazole 40 mg EC Tab PO SCH (05:21)
[2017-08-24] MEDS: metroNIDAZOLE IV 500 mg/100 ml 500 MG/100 ML BAG IVPB SCH ×3 (05:21→22:03)
[2017-08-24 07:06] LABS: BASO # 0.02 K/mm3 (0.0-2.0); BASO % 0.5 % (0.0-3.0); EOS # 0.1 (0.0-0.7); GRAN # 2.77 (1.4-6.5); GRAN % 68.2 % (50.0-68.0); HEMOGLOBIN 9.4 g/dL (12.0-16.0); LYMPH # 0.8 (1.2-3.4); LYMPH % 20.4 % (22.0-35.0); MEAN CELL VOLUME 81.4 fl (80.0-105.0); MEAN CORPUSCULAR HEMOGLOBIN 25.3 pg (25.0-35.0); MEAN CORPUSCULAR HGB CONC 31.1 g/dl (31.0-37.0); MONO # 0.4 (0.1-0.6); MONO % 8.9 % (1.0-6.0); PLATELET COUNT 171 10^3/uL (120.0-450.0); RBC 3.71 10^6/uL (3.5-6.1); RED CELL DISTRIBUTION WIDTH 23.9 % (11.5-14.5); WHITE BLOOD COUNT 4.1 10^3/ul (4.5-11.0)
[2017-08-24 07:22] LABS: ALB/GLOB RATIO 0.8 (1.1-1.8); ALBUMIN 2.6 g/dL (3.0-4.8); ALT/SGPT 24 U/L (7-56); AST/SGOT 27 U/L (14-36); BLOOD UREA NITROGEN 16 mg/dL (7-21); CALCIUM 8.5 mg/dL (8.4-10.5); GFR AFRICAN-AMERICAN > 60; GFR NON-AFRICAN AMERICAN > 60
[2017-08-24 07:23] LABS: INR 1.45 (0.93-1.08); PROTHROMBIN TIME 16.8 SECONDS (9.4-12.5)
[2017-08-24] MEDS: Insulin Reg-MEDIUM-Coverage SC SCH ×4 (07:51→22:03)
[2017-08-24] MEDS: Potassium Chloride 20 mEq ER Tab PO SCH (08:12)
[2017-08-24] MEDS: levoFLOXacin 750 mg in D5W 750 MG/150 ML BAG IVPB SCH (09:13)
[2017-08-24] MEDS: BISOPROLOL PO SCH (09:13)
[2017-08-24] MEDS: HCTZ PO SCH (09:13)
--- NOTE | 2017-08-24 10:26 | PN ---
DATE: 08/24/2017 CARDIOLOGY FOLLOWUP SUBJECTIVE: The patient is comfortable post colonoscopy. PHYSICAL EXAMINATION: VITAL SIGNS: Blood pressure is 105/70, heart rates in the 80s. NECK: Negative JVD. LUNGS: Without rales. HEART: Reveals S1, S2 with a II/ ejection murmur. EXTREMITIES: Without edema. LABORATORY DATA: Hemoglobin is stable at 9.4. Chemistries are unremarkable. IMPRESSION: 1. Status post gastrointestinal bleed. 2. Aortic stenosis. 3. Colonic telangiectasia. 4. Anemia. 5. Diabetes mellitus. PLAN: Given these findings, we will discuss with GI about continued management. We would like to place the patient on Plavix and see whether she bleeds prior to proceeding with TAVR of her aortic valve. Mat Muniz MD
--- NOTE | 2017-08-24 10:45 | CP.PCM.PN ---
<CherylstaciaKrystinsisi - Last Filed: 08/24/17 12:15> Subjective - Date & Time of Evaluation Date of Evaluation: 08/24/17 Time of Evaluation: 07:30 - Subjective Subjective: PGY-4 GI Fellow Prog Note Pt sleeping in bed this AM. States that she is doing OK. Eager for Paracentesis today to remove fluid. Denied CP, SOB, Abd Pain. 5 point ROS negative other than stated above Objective - Vital Signs/Intake and Output Vital Signs (last 24 hours): Temp Pulse Resp BP Pulse Ox 98.1 F 90 20 105/40 L 97 08/24/17 06:00 08/24/17 06:00 08/24/17 06:00 08/24/17 06:00 08/24/17 06:00 Intake and Output: 08/24/17 08/24/17 06:59 18:59 Intake Total 320 Output Total 900 Balance -580 - Medications Medications: Current Medications Alprazolam (Xanax) 0.5 mg PO BID PRN; Protocol PRN Reason: Anxiety Last Admin: 08/19/17 10:26 Dose: 0.5 mg Atorvastatin Calcium (Lipitor) 20 mg PO DIN RADHA Last Admin: 08/23/17 18:12 Dose: Not Given Guaifenesin/Dextromethorphan (Robitussin Dm) 5 ml PO Q4H PRN PRN Reason: Cough Last Admin: 08/20/17 11:05 Dose: 5 ml Home Med (Home Med) 1 unit PO DAILY [facility] Last Admin: 08/24/17 09:13 Dose: 1 unit Levofloxacin/Dextrose (Levaquin 750mg) 750 mg in 150 mls @ 100 mls/hr IVPB DAILY RAD[facility] PRN Reason: Protocol Stop: 08/24/17 23:59 Last Admin: 08/24/17 09:13 Dose: 100 mls/hr Albumin Human (Albumin Human 25% (12.5 Gm/50 Ml)) 50 mls @ 1 mls/min IVPB BID RADHA Metronidazole (Flagyl) 500 mg in 100 mls @ 100 mls/hr IVPB Q8 [facility] PRN Reason: Protocol Last Admin: 08/24/17 05:21 Dose: 100 mls/hr Insulin Human Regular (Humulin R Med) 0 units SC ACHS RADHA PRN Reason: Protocol Last Admin: 08/24/17 07:51 Dose: Not Given Pantoprazole Sodium (Protonix Ec Tab) 40 mg PO 0600 [facility] Last Admin: 08/24/17 05:21 Dose: 40 mg Potassium Chloride (K-Dur 20 Meq Er Tab) 40 meq PO BRK [facility] Last Admin: 08/24/17 08:12 Dose: 40 meq - Labs Labs: 08/24/17 06:00 08/24/17 06:00 PT 16.8 SECONDS (9.4-12.5) H 08/24/17 06:00 INR 1.45 (0.93-1.08) H 08/24/17 06:00 APTT 31.7 Seconds (25.1-36.5) 08/17/17 11:30 - Constitutional Appears: Well, Non-toxic, No Acute Distress - Head Exam Head Exam: ATRAUMATIC, NORMAL INSPECTION - Respiratory Exam Respiratory Exam: Clear to Ausculation Bilateral. absent: Accessory Muscle Use , NORMAL BREATHING PATTERN - Cardiovascular Exam Cardiovascular Exam: REGULAR RHYTHM, RRR, Murmur (4/6 systolic murmur) - GI/Abdominal Exam GI & Abdominal Exam: Distended (mildly with flank fullness), Soft, Normal Bowel Sounds. absent: Firm, Guarding, Tenderness, Mass, Rebound - Psychiatric Exam Psychiatric exam: Normal Affect, Normal Mood Assessment and Plan - Assessment and Plan (Free Text) Assessment: 72 yo WF with h/o CAD, CVA and PE (on warfarin) admitted for symptomatic anemia , # Occult GI Bleed: No obvious signs of GI bleed, dark stool but on Fe tabs, hemoccult +. Hgb 6.8 on admission -> 8.9 s/p 2 units PRBCs with appropriate response. 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 No varices seen. Repeat EGD on 08/23 with APC trt to GAVE. CSPY on 08/24/17 with multiple non-bleeding angioectasia treated with APC, Diverticulosis, 5 mm polyp in descending colon, 8 mm polyp in sigmoid both injection lifted and hot snared. # Decompensated Cirrhosis: CP Class B, MELD-Na 14 (though on warfarin). Etiology perhaps NAFLD vs R sided CHF induced with severe TR on echo and pHTN? - Ascites: 3900 mL fluid removed on paracentesis on 08/18/17. No SBP. No total protein available. Would likely benefit from diuretic therapy but will hold off for now with w/u of GI Bleed and plans for TAVR. 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 - HCC: CT scan this admission w/o mass though not triple phase - HE: None # Elevated INR: Revered with Vit K and FFP for endoscopy. On warfarin as OP for h/o PE. Wonder if risk of trt may outweigh benefits in this eldery pt ( concern for GI bleed with cirrhosis, falls->intracranial bleed, etc.) # New onset CHF with preserved EF, severe and TR with pHTN: Defer w/u to primary/cardiology, Cardiology recommend TAVR. Plan: - Would wait another 24 before starting on anti-coagulation - CLD today - Paracentesis today - Completing course of Levofloxacin for SBP ppx, day 7 of 7 - Will consider starting diuretics, need to discuss with cardiology - Low Na diet - Monitor Hgb - PPI - Monitor INR - Needs Hep A and Hep B vaccination as outpatient if not already done Pt discussed with Dr. Osei who will see pt later today for final recs <Angie Osei V - Last Filed: 08/27/17 10:27> Objective - Vital Signs/Intake and Output Vital Signs (last 24 hours): Temp Pulse Resp BP Pulse Ox 98.3 F 76 20 123/63 99 08/24/17 17:40 08/24/17 18:00 08/24/17 17:40 08/24/17 17:40 08/24/17 15:00 Intake and Output: 08/24/17 08/25/17 18:59 06:59 Intake Total 720 300 Output Total 0 Balance 720 300 - Medications Medications: Current Medications Alprazolam (Xanax) 0.5 mg PO BID PRN; Protocol PRN Reason: Anxiety Last Admin: 08/19/17 10:26 Dose: 0.5 mg Atorvastatin Calcium (Lipitor) 20 mg PO DIN RADHA Last Admin: 08/24/17 17:06 Dose: Not Given Guaifenesin/Dextromethorphan (Robitussin Dm) 5 ml PO Q4H PRN PRN Reason: Cough Last Admin: 08/20/17 11:05 Dose: 5 ml Home Med (Home Med) 1 unit PO DAILY [facility] Last Admin: 08/24/17 09:13 Dose: 1 unit Levofloxacin/Dextrose (Levaquin 750mg) 750 mg in 150 mls @ 100 mls/hr IVPB DAILY RADHA PRN Reason: Protocol Stop: 08/24/17 23:59 Last Admin: 08/24/17 09:13 Dose: 100 mls/hr Albumin Human (Albumin Human 25% (12.5 Gm/50 Ml)) 50 mls @ 1 mls/min IVPB BID RAD[facility] Last Admin: 08/24/17 17:49 Dose: 1 mls/min Metronidazole (Flagyl) 500 mg in 100 mls @ 100 mls/hr IVPB Q8 [facility] PRN Reason: Protocol Last Admin: 08/24/17 22:03 Dose: 100 mls/hr Insulin Human Regular (Humulin R Med) 0 units SC ACHS RADHA PRN Reason: Protocol Last Admin: 08/24/17 22:03 Dose: Not Given Pantoprazole Sodium (Protonix Ec Tab) 40 mg PO 0600 [facility] Last Admin: 08/24/17 05:21 Dose: 40 mg Potassium Chloride (K-Dur 20 Meq Er Tab) 40 meq PO BRK [facility] Last Admin: 08/24/17 08:12 Dose: 40 meq - Labs Labs: 08/24/17 06:00 08/24/17 06:00 PT 16.8 SECONDS (9.4-12.5) H 08/24/17 06:00 INR 1.45 (0.93-1.08) H 08/24/17 06:00 APTT 31.7 Seconds (25.1-36.5) 08/17/17 11:30 Attending/Attestation - Attestation I have personally seen and examined this patient.: Yes I have fully participated in the care of the patient.: Yes I have reviewed all pertinent clinical information, including history, physical exam and plan: Yes Notes (Text): This is an addendum to GI progress report dictated by the Real Estate Manager.The patient was seen and examined earlier. Medical records, lab studies, imagings were reviewed. Last 24 hours events reviewed. Agreed with the above treatment plan as outlined in Real Estate Manager 's notes the with the addition of the following status post EGD and BiCAP treatment of gave Status post APC off multiple colonic AVMs status post polypectomy. Patient also had diverticulosis and Hemorrhoids Okay to resume Plavix after 48 hours if Hct remains stable and no s bleeding Patient is scheduled for TAVAR and PCI 08/24/17 23:36
--- NOTE | 2017-08-24 14:13 | PN ---
SUBJECTIVE: The patient was seen and examined at bedside on the telemetry navarro. No acute events overnight. The patient is s/p EGD and colonoscopy with no postprocedure complications noted. This morning she reports feeling well and offers no new complaints. OBJECTIVE: VITAL SIGNS: Temperature 98.1, pulse 87, blood pressure 105/40, respiratory rate 20, oxygen saturation 97% on room air. GENERAL: No apparent distress. HEENT: PERRL. EOMI. No scleral icterus. Mild conjunctival pallor is noted. NECK: No JVD. LUNGS: Decreased breath sounds at the bases. CARDIOVASCULAR: Regular rate and rhythm. Normal S1 and S2. Grade 2/6 MILTON to RUSB. ABDOMEN: Normoactive bowel sounds. Soft, nontender, nondistended. EXTREMITIES: No edema. NEUROLOGIC: Awake, alert and oriented x 3. No focal motor deficits. LABORATORY DATA: WBC 4.1, hemoglobin 9.4, hematocrit 30, platelets 171. Chemistry reviewed and unremarkable. DIAGNOSTIC STUDIES: 1. 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 2. Colonoscopy demonstrated multiple non-bleeding colonic angioectasias, diverticulosis and internal hemorrhoids. ASSESSMENT: The patient is a 72 year old woman with multiple medical comorbidities who was admitted for management of symptomatic anemia and new onset heart failure and whose hospital course revealed critical aortic stenosis and cirrhosis of unclear etiology. PLAN: 1. Iron-deficiency anemia, symptomatic, secondary to Heyde syndrome. Input from Dr. Osei greatly appreciated and findings of the EGD and colonoscopy are reviewed. There is no active bleeding. We will continue to monitor her CBC daily and transfuse as needed. The definitive therapy will be aortic valve replacement given her critical . 2. Critical aortic stenosis. Input from Dr. Muniz greatly appreciated and arrangements will be need to be made for a TAVR. We will need to confer with Dr. Osei and Dr. Muniz regarding timing anticoagulation therapy. 3. Acute systolic heart failure, resolved. 4. Decompensated cirrhosis, etiology unclear, considered secondary to NAFLD vs right-sided heart failure. Continue with care as per Dr. Osei. The patient is being transfused Albumin and may benefit from maintenance doses of Lasix and Aldactone. 5. CAD. The patient is s/p cardiac catheterization which demonstrated single vessel CAD. As above, we will need to confer with Dr. Muniz and Dr. Osei regarding the feasibility of stenting this patient and placing her on anticoagulation therapy. 6. Hypertension. Continue Bisoprolol/HCTZ 5/6.25 mg p.o. daily. 7. History of remote PE. She remains off anticoagulation therapy pending discussion with Dr. Osei. 8. NIDDM. Continue medium-dose insulin sliding scale for coverage. 9. Vitamin B12 deficiency. 10. Prophylaxis. GI prophylaxis not indicated as the patient is eating. DVT prophylaxis not indicated as the patient is ambulatory. CODE STATUS: Full code. Robin Richards MD MTDD
--- NOTE | 2017-08-24 16:50 | US ---
PROCEDURE: Ultrasound guided paracentesis. HISTORY: Recurrent ascites with abdominal pain and distension. Needs repeat paracentesis PHYSICIAN(S): Mat Swain MD. TECHNIQUE: The relative risks and indications for the procedure were explained to the patient and informed written consent obtained. Sonography of the abdomen was performed in a supine position. This revealed a small to moderate amount of non-loculated ascites, greatest in the right lower quadrant. A puncture site was selected and the area was prepped and draped in the usual sterile fashion. 1% Xylocaine was used to anesthetize the skin and soft tissues. A 7 Palestinian paracentesis catheter was trocared into the right lower quadrantand 2900 cc of clear, straw-colored fluid aspirated. No labs were sent due to the recent paracentesis P. IMPRESSION: Ultrasound-guided paracentesis in the right lower quadrant. 2900 cc of fluid were aspirated.
[2017-08-25] MEDS: metroNIDAZOLE IV 500 mg/100 ml 500 MG/100 ML BAG IVPB SCH (06:28)
[2017-08-25] MEDS: Pantoprazole 40 mg EC Tab PO SCH (06:29)
[2017-08-25] MEDS ORDERED: Alum-Mag Hydrox-Simethicone Susp (30 mL) PO ONE (06:39)
[2017-08-25 06:53] LABS: BASO # 0.01 K/mm3 (0.0-2.0); BASO % 0.3 % (0.0-3.0); EOS # 0.1 (0.0-0.7); EOS % 3.2 % (1.5-5.0); GRAN # 2.15 (1.4-6.5); GRAN % 63.1 % (50.0-68.0); HEMOGLOBIN 8.8 g/dL (12.0-16.0); LYMPH # 0.8 (1.2-3.4); LYMPH % 24.3 % (22.0-35.0); MEAN CELL VOLUME 81.8 fl (80.0-105.0); MEAN CORPUSCULAR HEMOGLOBIN 25.4 pg (25.0-35.0); MEAN CORPUSCULAR HGB CONC 31.1 g/dl (31.0-37.0); MEAN PLATELET VOLUME 8.8 fl (7.0-11.0); MONO # 0.3 (0.1-0.6); MONO % 9.1 % (1.0-6.0); RBC 3.46 10^6/uL (3.5-6.1); RED CELL DISTRIBUTION WIDTH 23.5 % (11.5-14.5); WHITE BLOOD COUNT 3.4 10^3/ul (4.5-11.0)
[2017-08-25 07:03] LABS: INR 1.52 (0.93-1.08); PROTHROMBIN TIME 17.6 SECONDS (9.4-12.5)
[2017-08-25 07:26] LABS: ALB/GLOB RATIO 0.8 (1.1-1.8); ALBUMIN 2.4 g/dL (3.0-4.8); ALT/SGPT 28 U/L (7-56); AST/SGOT 22 U/L (14-36); BLOOD UREA NITROGEN 12 mg/dL (7-21); CALCIUM 8.3 mg/dL (8.4-10.5); GFR AFRICAN-AMERICAN > 60; GFR NON-AFRICAN AMERICAN > 60
--- NOTE | 2017-08-25 07:41 | CP.PCM.PN ---
<Scottie Lipscomb - Last Filed: 08/25/17 18:19> Subjective - Date & Time of Evaluation Date of Evaluation: 08/25/17 Time of Evaluation: 07:15 - Subjective Subjective: PGY-4 GI Fellow Prog Note Pt lying in bed this AM asleep. States abd feels less full after para yesterday. Complains of RLE pain that seems to be worse than day prior. 5 point ROS negative other than stated above Objective - Vital Signs/Intake and Output Vital Signs (last 24 hours): Temp Pulse Resp BP Pulse Ox 97.9 F 81 20 114/58 L 99 08/25/17 06:00 08/25/17 06:00 08/25/17 06:00 08/25/17 06:00 08/25/17 06:00 Intake and Output: 08/25/17 08/25/17 06:59 18:59 Intake Total 540 Output Total 350 Balance 190 - Medications Medications: Current Medications Alprazolam (Xanax) 0.5 mg PO BID PRN; Protocol PRN Reason: Anxiety Last Admin: 08/19/17 10:26 Dose: 0.5 mg Atorvastatin Calcium (Lipitor) 20 mg PO DIN [facility] Last Admin: 08/24/17 17:06 Dose: Not Given Guaifenesin/Dextromethorphan (Robitussin Dm) 5 ml PO Q4H PRN PRN Reason: Cough Last Admin: 08/20/17 11:05 Dose: 5 ml Home Med (Home Med) 1 unit PO DAILY [facility] Last Admin: 08/24/17 09:13 Dose: 1 unit Albumin Human (Albumin Human 25% (12.5 Gm/50 Ml)) 50 mls @ 1 mls/min IVPB BID [facility] Last Admin: 08/24/17 17:49 Dose: 1 mls/min Metronidazole (Flagyl) 500 mg in 100 mls @ 100 mls/hr IVPB Q8 [facility] PRN Reason: Protocol Last Admin: 08/25/17 06:28 Dose: 100 mls/hr Insulin Human Regular (Humulin R Med) 0 units SC ACHS RADHA PRN Reason: Protocol Last Admin: 08/24/17 22:03 Dose: Not Given Pantoprazole Sodium (Protonix Ec Tab) 40 mg PO 0600 [facility] Last Admin: 08/25/17 06:29 Dose: 40 mg Potassium Chloride (K-Dur 20 Meq Er Tab) 40 meq PO BRK [facility] Last Admin: 08/24/17 08:12 Dose: 40 meq - Labs Labs: 08/25/17 06:30 08/25/17 06:30 PT 17.6 SECONDS (9.4-12.5) H 08/25/17 06:30 INR 1.52 (0.93-1.08) H 08/25/17 06:30 APTT 31.7 Seconds (25.1-36.5) 08/17/17 11:30 Assessment and Plan - Assessment and Plan (Free Text) Assessment: 72 yo WF with h/o CAD, CVA and PE (on warfarin) admitted for symptomatic anemia , # Occult GI Bleed: No obvious signs of GI bleed, dark stool but on Fe tabs, hemoccult +. Hgb 6.8 on admission -> 8.9 s/p 2 units PRBCs with appropriate response. 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 No varices seen. Repeat EGD on 08/23 with APC trt to GAVE. CSPY on 08/24/17 with multiple non-bleeding angioectasia treated with APC, Diverticulosis, 5 mm polyp in descending colon (hyperplastic), 8 mm polyp in sigmoid (tubular adenoma). # Decompensated Cirrhosis: CP Class B, MELD-Na 14 (though on warfarin). Etiology perhaps NAFLD vs R sided CHF induced with severe TR on echo and pHTN? Ordered broad w/u to evaluate etiology of cirrhosis including ARABELLA w/reflex, ASMA , Anti Live Kidney Ab, Alpha 1 antitrypsin, Ceruloplasmin, Hemochromatosis Gene (iron studies not accurate in acute setting) - Ascites: 3900 mL fluid removed on paracentesis on 08/18/17. No SBP. No total protein available. 2900 mL removed 08/24. Plan to start spironolactone monotherapy for now given . - EGD: 08/22, with GAVE s/p APC, no varices. - HCC: CT scan this admission w/o mass though not triple phase - HE: None # Elevated INR: Reversed with Vit K and FFP for endoscopy. On warfarin as OP for h/o PE. Wonder if risk of trt may outweigh benefits in this eldery pt ( concern for GI bleed with cirrhosis, falls->intracranial bleed, etc.) # New onset CHF with preserved EF, severe and TR with pHTN: Defer w/u to primary/cardiology, Cardiology recommend TAVR. Plan: - OK to start clopidogrel and monitor Hgb, signs of bleeding - Started spironolactone 25 mg Daily --- May eventually need furosemide and higher doses --- Stopped KCl supp - F/u above cirrhosis w/u - Completed 7 day course of Levofloxacin for SBP ppx - Low Na diet - PPI - Monitor INR - Needs Hep A and Hep B vaccination as outpatient if not already done Pt seen and examined with Dr. Osei <Angie Osei V - Last Filed: 08/27/17 10:18> Objective - Vital Signs/Intake and Output Vital Signs (last 24 hours): Temp Pulse Resp BP Pulse Ox 97.1 F L 67 19 103/43 L 100 08/25/17 11:38 08/25/17 11:38 08/25/17 11:38 08/25/17 11:38 08/25/17 09:22 - Labs Labs: 08/25/17 06:30 08/25/17 06:30 PT 17.6 SECONDS (9.4-12.5) H 08/25/17 06:30 INR 1.52 (0.93-1.08) H 08/25/17 06:30 APTT 31.7 Seconds (25.1-36.5) 08/17/17 11:30 Attending/Attestation - Attestation I have personally seen and examined this patient.: Yes I have fully participated in the care of the patient.: Yes I have reviewed all pertinent clinical information, including history, physical exam and plan: Yes Notes (Text): This is an addendum to GI progress report dictated by the GI Fellow.The patient was seen and examined earlier. Medical records, lab studies, imagings were reviewed. Last 24 hours events reviewed. Agreed with the above treatment plan as outlined in GI Fellow 's notes the with the addition of the following started on Plavix Status post large volume paracentesis 2 On examination abdomen soft Will start low-dose Aldactone We need to titrate the dose Lasix Need close monitoring of blood pressure to avoid significant reduction in preload him in view of of aortic stenosis 08/26/17 02:34
[2017-08-25] MEDS: Insulin Reg-MEDIUM-Coverage SC SCH ×2 (08:08→13:39)
[2017-08-25] MEDS: Potassium Chloride 20 mEq ER Tab PO SCH (08:36)
[2017-08-25 09:23] VITALS: O2SAT 100
[2017-08-25] MEDS: BISOPROLOL PO SCH (09:37)
[2017-08-25] MEDS: HCTZ PO SCH (09:37)
--- NOTE | 2017-08-25 09:48 | PN ---
DATE: 08/25/2017 CARDIOLOGY FOLLOWUP HISTORY: The patient underwent paracentesis yesterday. No shortness of breath noted. PHYSICAL EXAMINATION: VITAL SIGNS: Blood pressure 114/58, the heart rate is in the 70s. NECK: Negative JVD. LUNGS: Without rales. HEART: Reveals a II/ systolic ejection murmur. EXTREMITIES: Without edema. LABORATORY DATA: Hemoglobin is 8.8. Chemistries: BUN and creatinine are unremarkable. Glucose is 140. IMPRESSION: 1. Status post paracentesis. 2. Critical aortic stenosis. 3. History of gastrointestinal bleed secondary to telangiectasias. 4. Diabetes mellitus. 5. Anemia. PLAN: Given these findings, awaiting clearance for GI to start Plavix. We will check her hemoglobin over the weekend on Plavix once cleared by GI. If her hemoglobin stays stable, we will begin arrangements for TAVR. Mat Muniz MD
--- NOTE | 2017-08-25 10:23 | US ---
PROCEDURE: Right lower extremity venous US HISTORY: Leg pain and swelling. Evaluate for DVT. PHYSICIAN(S): Mat Swain M.D. TECHNIQUE: Duplex sonography and color-flow Doppler with graded compression were used to evaluate the deep venous system of the right lower extremity. The exam is somewhat limited by edema. FINDINGS: The visualized deep venous system of the right lower extremity is sonographically normal and compressible. Normal waveforms and augmentation are seen. There is no sonographic evidence for deep venous thrombosis in the visualized segments of the right lower extremity. IMPRESSION: 1. No sonographic evidence for deep venous thrombosis in the visualized segments of the right lower extremity.
[2017-08-25 11:41] VITALS: BP 103/43; PULSE 67; RESP 19; TEMP 97.1
--- NOTE | 2017-08-25 11:55 | PN ---
DATE: 08/24/2017 SUBJECTIVE: The patient's only complaint at this time is right leg pain. She is currently having an ultrasound of the leg performed to rule out DVT. PHYSICAL EXAMINATION: VITAL SIGNS: Temperature is 97.5, pulse rate of 75, blood pressure 110/45, O2 saturation of 100% on 2 liters nasal cannula. HEENT: Negative. NECK: Supple with a full range of motion. Bilateral bruits are appreciated. LUNGS: Clear. HEART: Regular rate and rhythm with a grade 3/6 systolic murmur in the aortic area. ABDOMEN: Benign. EXTREMITIES: Show no edema. NEUROLOGICAL: There are no focal motor deficits. LABORATORY DATA: WBC of 3.4, hemoglobin and hematocrit of 8.8 and 28.3. Chemistry has been essentially normal with a random glucose of 140, calcium is 8.3. IMPRESSION: At this time is, 1. Anemia. 2. B12 deficiency. 3. Critical aortic stenosis. 4. Arteriovenous malformations, both in the upper and lower endoscopy. PLAN: We will continue current regimen, check ultrasound of the leg and treat appropriately. Marcelo Richards MD
--- NOTE | 2017-08-28 17:25 | DS ---
ADMITTING DIAGNOSES: Symptomatic iron deficiency anemia, decompensated cirrhosis and new onset congestive heart failure. DISCHARGE DIAGNOSES: Iron deficiency anemia secondary to GI secondary to Heyde syndrome, decompensated cirrhosis of unclear etiology and critical aortic stenosis. SECONDARY DIAGNOSES: CAD, HTN and T2DM. CONSULTATIONS: Dr. Osei (Gastroenterology), Dr. Swain (Interventional Radiology) and Dr. Muniz (Cardiology). IMAGING STUDIES: 1. Chest x-ray demonstrated moderate cardiomegaly with moderate vascular and interstitial congestion. 2. CT of the abdomen and pelvis without contrast demonstrated severe ascites with a cirrhotic liver and moderate left-sided pleural effusion. 3. Abdominal ultrasound demonstrated a cirrhotic liver with no evidence of portal vein thrombosis. DIAGNOSTIC STUDIES: TTE demonstrated normal LV size and function with severe aortic stenosis and severe tricuspid regurgitation with moderate pulmonary hypertension. PROCEDURES: 1. Abdominal paracentesis with aspiration of 3.9 liters of fluid. 2. Cardiac catheterization demonstrated single-vessel CAD with a 60% proximal LAD lesion. 3. Endoscopy demonstrated short-segment Ann esophagus, gastric antral vascular ectasia (GAVE) without bleeding. 4. Colonoscopy demonstrated multiple non-bleeding colonic angioectasias, internal hemorrhoids and diverticulosis of the sigmoid and descending colon. HISTORY OF PRESENT ILLNESS: The patient is a 72 year old woman with a past medical history of CAD, iron deficiency anemia and a remote history of PE who was sent to [facility] ED by her PMD for inpatient management of symptomatic anemia and workup of suspected new onset heart failure. The patient was seen in her PMD's office approximately 10 days ago for complaint of a 3 day history of bilateral pedal edema, exertional dyspnea and 2 pillow orthopnea. Examination revealed bibasilar crackles and trace bilateral pedal edema. At that time she declined ED evaluation or cardiac referral and was started on Lasix 40 mg p.o. daily. She was advised to follow up in 1 week for re-examination. The patient returned 1 week later as advised and was noted to have significant improvement in her pedal edema but continued to endorse fatigue and exercise intolerance. Laboratory studies which were obtained demonstrated a hemoglobin of 7.8 ( baseline Hb 9-10 over the past 2 years) and she was sent to the ED for continued management of symptomatic anemia and further cardiac workup. Upon arrival to the ED she was found to be afebrile and hemodynamically stable. Laboratory studies confirmed the anemia with a hemoglobin of 6.9. She was also found to have an elevated BNP of 2980. The patient was started on IV Lasix, type and crossmatch for 2 units of PRBCs and was subsequently admitted to the telemetry navarro for continued management of symptomatic anemia and decompensated heart failure. HOSPITAL COURSE: Upon admission to the telemetry navarro the patient was evaluated by Dr. Muniz of Cardiology and Dr. Osei of Gastroenterology. The patient was transfused multiple units of PRBCs during her hospital stay with no complications noted. As part of her cardiac workup, she underwent an echocardiogram which demonstrated a preserved EF but did note severe aortic stenosis. The patient was taken to the cardiac catheterization lab with Dr. Muniz as part of a workup for possible TAVR and was noted to have single-vessel CAD with a 60% proximal LAD lesion and critical aortic stenosis. The LAD lesion was not instrumented as the patient did not have a complete invasive GI workup and as such was unable to be started on antiplatelet or anticoagulation therapy. The following day she was taken to the endoscopy suite with Dr. Osei where she went an EGD and a colonoscopy with the findings described above. Of note, no active bleeding was noted. The patient was also evaluated by Dr. Mat Swain of Interventional Radiology and underwent a diagnostic and therapeutic paracentesis given her presentation with decompensated cirrhosis of unclear etiology. She had removal of 3.9 liters of ascites with the fluid analysis results pending. The remainder of her hospital course was unremarkable but given her deconditioned state a TCU evaluation was placed. After acceptance to the TCU, the patient was cleared for transfer and on hospital day #9 was transferred to the TCU for continued physical therapy. CONDITION: Fair, improved. DISPOSITION: TCU. FOLLOWUP: The patient will be followed by her PMD and the consultants while on the TCU. Robin Richards MD [facility]
== END 2017-08-25 16:56 | DRG 811 ==
LOC: ED 11:36 → ERH 13:44 → 3RNO 15:51 → 2RSO 08-21 15:32
PROVIDERS: ADMIT Student in an Organized Health Care Education/Training Program; ATTEND Student in an Organized Health Care Education/Training Program
PROC: 30233N1 Transfusion of Nonautologous Red Blood Cells into Peripheral Vein, Percutaneous Approach (ICD-10-PCS; 2017-08-16)
PROC: 0W9G3ZX Drainage of Peritoneal Cavity, Percutaneous Approach, Diagnostic (ICD-10-PCS; 2017-08-18)
PROC: 4A023N8 Measurement of Cardiac Sampling and Pressure, Bilateral, Percutaneous Approach (ICD-10-PCS; principal; 2017-08-21)
PROC: B2161ZZ Fluoroscopy of Right and Left Heart using Low Osmolar Contrast (ICD-10-PCS; 2017-08-21)
PROC: B2111ZZ Fluoroscopy of Multiple Coronary Arteries using Low Osmolar Contrast (ICD-10-PCS; 2017-08-21)
PROC: B3101ZZ Fluoroscopy of Thoracic Aorta using Low Osmolar Contrast (ICD-10-PCS; 2017-08-21)
PROC: 0DJ08ZZ Inspection of Upper Intestinal Tract, Via Natural or Artificial Opening Endoscopic (ICD-10-PCS; 2017-08-22)
PROC: 0W3P8ZZ Control Bleeding in Gastrointestinal Tract, Via Natural or Artificial Opening Endoscopic (ICD-10-PCS; 2017-08-23)
PROC: 0DBM8ZX Excision of Descending Colon, Via Natural or Artificial Opening Endoscopic, Diagnostic (ICD-10-PCS; 2017-08-23)
PROC: 0DBN8ZX Excision of Sigmoid Colon, Via Natural or Artificial Opening Endoscopic, Diagnostic (ICD-10-PCS; 2017-08-23)
PROC: 3E0 Administration, Physiological Systems and Anatomical Regions, Introduction (ICD-10-PCS; 2017-08-23)
PROC: 0W3P8ZZ Control Bleeding in Gastrointestinal Tract, Via Natural or Artificial Opening Endoscopic (ICD-10-PCS; 2017-08-23)
PROC: 30233K1 Transfusion of Nonautologous Frozen Plasma into Peripheral Vein, Percutaneous Approach (ICD-10-PCS; 2017-08-23)
PROC: 0W9G3ZZ Drainage of Peritoneal Cavity, Percutaneous Approach (ICD-10-PCS; 2017-08-24)
DX: D50.0 Iron deficiency anemia secondary to blood loss (chronic) (principal); I50.23 Acute on chronic systolic (congestive) heart failure; R18.8 Other ascites; K92.1 Melena; I11.0 Hypertensive heart disease with heart failure; I25.10 Atherosclerotic heart disease of native coronary artery without angina pectoris; I35.0 Nonrheumatic aortic (valve) stenosis; K55.20 Angiodysplasia of colon without hemorrhage; K31.819 Angiodysplasia of stomach and duodenum without bleeding; K22.70 Barrett's esophagus without dysplasia; K31.7 Polyp of stomach and duodenum; D12.5 Benign neoplasm of sigmoid colon; K63.5 Polyp of colon; K57.30 Diverticulosis of large intestine without perforation or abscess without bleeding; K74.60 Unspecified cirrhosis of liver; K64.8 Other hemorrhoids; E11.9 Type 2 diabetes mellitus without complications; K42.9 Umbilical hernia without obstruction or gangrene; E78.5 Hyperlipidemia, unspecified; J45.909 Unspecified asthma, uncomplicated; E53.8 Deficiency of other specified B group vitamins; R79.1 Abnormal coagulation profile; Z86.73 Personal history of transient ischemic attack (TIA), and cerebral infarction without residual deficits; I25.2 Old myocardial infarction; Z79.84 Long term (current) use of oral hypoglycemic drugs; Z88.5 Allergy status to narcotic agent; Z86.711 Personal history of pulmonary embolism; Z79.02 Long term (current) use of antithrombotics/antiplatelets; Z88.0 Allergy status to penicillin; Z79.01 Long term (current) use of anticoagulants; Z88.2 Allergy status to sulfonamides

== ENCOUNTER 2017-08-25 16:58 | Inpatient (IN) | payer OTHER ==
[2017-08-25] MEDS ORDERED: guaiFENesin DM 100 mg-10 mg/5 ml UD PO PRN (17:13)
[2017-08-25] MEDS: Albumin Human 25% (12.5 gm/50 ml) IV SCH (18:11)
[2017-08-25] MEDS ORDERED: Pneumococcal 23-Valent Vaccine IM ONE (20:04)
[2017-08-25 20:05] VITALS: BMI 31.1
[2017-08-25] MEDS: Insulin Reg-MEDIUM-Coverage SC SCH (21:16)
[2017-08-26] MEDS: Pantoprazole 40 mg EC Tab PO SCH (05:27)
[2017-08-26] MEDS: Insulin Reg-MEDIUM-Coverage SC SCH ×4 (06:58→21:47)
[2017-08-26] MEDS ORDERED: Potassium Chloride 20 mEq ER Tab PO SCH (08:00)
[2017-08-26 08:55] LABS: BASO # 0.02 K/mm3 (0.0-2.0); BASO % 0.5 % (0.0-3.0); EOS # 0.2 (0.0-0.7); EOS % 5.4 % (1.5-5.0); GRAN # 2.89 (1.4-6.5); GRAN % 70.5 % (50.0-68.0); HEMOGLOBIN 10.2 g/dL (12.0-16.0); LYMPH # 0.6 (1.2-3.4); LYMPH % 15.1 % (22.0-35.0); MEAN CORPUSCULAR HEMOGLOBIN 25.8 pg (25.0-35.0); MEAN CORPUSCULAR HGB CONC 31.9 g/dl (31.0-37.0); MONO # 0.4 (0.1-0.6); MONO % 8.5 % (1.0-6.0); PLATELET COUNT 134 10^3/uL (120.0-450.0); RBC 3.95 10^6/uL (3.5-6.1); RED CELL DISTRIBUTION WIDTH 23.3 % (11.5-14.5); WHITE BLOOD COUNT 4.1 10^3/ul (4.5-11.0)
[2017-08-26 09:02] LABS: ALB/GLOB RATIO 0.9 (1.1-1.8); ALBUMIN 2.8 g/dL (3.0-4.8); ALT/SGPT 25 U/L (7-56); AST/SGOT 18 U/L (14-36); BLOOD UREA NITROGEN 13 mg/dL (7-21); CALCIUM 8.7 mg/dL (8.4-10.5); GFR AFRICAN-AMERICAN > 60; GFR NON-AFRICAN AMERICAN > 60
[2017-08-26 09:03] LABS: INR 1.43 (0.93-1.08); PROTHROMBIN TIME 16.6 SECONDS (9.4-12.5)
[2017-08-26] MEDS ORDERED: Non Formulary Medication (Bisoprolol/Hctz [Ziac 5-6.25 Mg] 1 TAB) PO SCH (10:00)
[2017-08-26] MEDS: Albumin Human 25% (12.5 gm/50 ml) IV SCH ×2 (10:14→18:41)
--- NOTE | 2017-08-26 12:23 | PN ---
SUBJECTIVE: The patient was seen and examined at bedside on the TCU. No acute events overnight. She remains afebrile and hemodynamically stable. This morning she reports feeling well and offers no complaints. OBJECTIVE: VITAL SIGNS: Temperature 97.9, pulse 72, blood pressure 141/64, respiratory rate 18, oxygen saturation 94% on 2 liters nasal cannula. GENERAL: No apparent distress. HEENT: PERRL. EOMI. No scleral icterus. Mild conjunctival pallor is noted. NECK: No JVD. LUNGS: Decreased breath sounds at the bases. CARDIOVASCULAR: Regular rate and rhythm. Normal S1 and S2. Grade 2/6 MILTON to RUSB. ABDOMEN: Normoactive bowel sounds. Soft, nontender, nondistended. EXTREMITIES: No edema. NEUROLOGIC: Awake, alert and oriented x 3. No focal motor deficits. LABORATORY DATA: WBC 4, hemoglobin 10.2, hematocrit 32, platelets 134. Chemistry reviewed and unremarkable. ASSESSMENT: The patient is a 72 year old woman with multiple medical comorbidities who was admitted for management of symptomatic anemia and new onset heart failure and whose hospital course revealed critical aortic stenosis and cirrhosis of unclear etiology. PLAN: 1. Iron deficiency anemia, secondary to Heyde syndrome. Input from Dr. Osei greatly appreciated and the findings of the EGD and colonoscopy are reviewed. The definitive therapy will be aortic valve replacement given her critical . 2. Critical . Input from Dr. Muniz appreciated and arrangements will be made for TAVR. 3. Acute systolic heart failure, resolved. 4. Decompensated cirrhosis, etiology unclear. Workup is ongoing for the patient's cirrhosis. Continue care as per Dr. Osei. 5. CAD. The patient is s/p cardiac catheterization which demonstrated single vessel CAD. She has been started on Plavix 75 mg p.o. daily. We will continue to monitor for any evidence of bleeding and the patient will need to undergo cardiac catheterization prior to pursuing TAVR. 6. Hypertension. Continue Bisoprolol/HCTZ 5/6.25 mg p.o. daily. 7. History of remote PE. The patient remains off anticoagulation therapy but has been restarted on Plavix given her underlying CAD. 8. NIDDM. Continue medium dose of insulin sliding scale for coverage. 9. Vitamin B12 deficiency. 10. Prophylaxis. GI prophylaxis not indicated as the patient is eating. DVT prophylaxis is not indicated as patient is ambulatory. CODE STATUS: Full code. Robin Richards MD [id number]
[2017-08-27] MEDS: Pantoprazole 40 mg EC Tab PO SCH (05:22)
[2017-08-27] MEDS: Insulin Reg-MEDIUM-Coverage SC SCH ×4 (06:40→21:54)
--- NOTE | 2017-08-27 10:42 | CP.PCM.PN ---
<Naomi Bell - Last Filed: 08/27/17 10:59> Subjective - Date & Time of Evaluation Date of Evaluation: 08/26/17 Time of Evaluation: 12:00 - Subjective Subjective: GI Fellow PGY5 Progress Note, Late Entry Pt seen and evaluated at bedside, pt doing well with no complaints, in chair eating food. No reports of rectal bleeding per nursing staff. ROS: A 12pt ROS was negative except as above Objective - Vital Signs/Intake and Output Vital Signs (last 24 hours): Temp Pulse Resp BP Pulse Ox 97.6 F 75 16 115/65 99 08/26/17 10:00 08/26/17 10:00 08/26/17 10:00 08/26/17 10:00 08/26/17 10:00 Intake and Output: 08/27/17 08/27/17 06:59 18:59 Intake Total 320 Output Total 500 Balance -180 - Medications Medications: Current Medications Albumin Human (Albumin Human 25% (12.5 Gm/50 Ml)) 12.5 gm IV BID [facility] Last Admin: 08/26/17 18:41 Dose: 12.5 gm Alprazolam (Xanax) 0.5 mg PO BID PRN; Protocol PRN Reason: Anxiety Atorvastatin Calcium (Lipitor) 20 mg PO DIN [facility] Last Admin: 08/26/17 17:34 Dose: 20 mg Clopidogrel Bisulfate (Plavix) 75 mg PO DAILY [facility] Last Admin: 08/26/17 09:40 Dose: 75 mg Furosemide (Lasix) 20 mg PO DAILY [facility] Guaifenesin/Dextromethorphan (Robitussin Dm) 5 ml PO Q4H PRN PRN Reason: Cough Insulin Human Regular (Humulin R Med) 0 units SC ACHS [facility] PRN Reason: Protocol Last Admin: 08/27/17 06:40 Dose: 1 u Non-Formulary Medication (Bisoprolol/Hctz [Ziac 5-6.25 Mg]) 1 tab PO DAILY [facility] Pantoprazole Sodium (Protonix Ec Tab) 40 mg PO 0600 [facility] Last Admin: 08/27/17 05:22 Dose: 40 mg Spironolactone (Aldactone) 25 mg PO 1000,1800 [facility] PRN Reason: Protocol - Labs Labs: 08/26/17 08:30 08/26/17 08:30 PT 16.6 SECONDS (9.4-12.5) H 08/26/17 08:30 INR 1.43 (0.93-1.08) H 08/26/17 08:30 - Constitutional Appears: Non-toxic, No Acute Distress - Head Exam Head Exam: ATRAUMATIC, NORMAL INSPECTION, NORMOCEPHALIC - Eye Exam Eye Exam: EOMI, Normal appearance, PERRL - ENT Exam ENT Exam: Mucous Membranes Moist - Neck Exam Neck Exam: Full ROM - Respiratory Exam Respiratory Exam: NORMAL BREATHING PATTERN - Cardiovascular Exam Cardiovascular Exam: REGULAR RHYTHM, RRR - GI/Abdominal Exam GI & Abdominal Exam: Soft, Normal Bowel Sounds. absent: Distended, Guarding, Tenderness - Neurological Exam Neurological Exam: Alert, Awake - Psychiatric Exam Psychiatric exam: Normal Affect, Normal Mood - Skin Skin Exam: Dry, Intact, Normal Color, Warm Assessment and Plan - Assessment and Plan (Free Text) Assessment: This is a 72 yo WF with h/o CAD, CVA and PE admitted for symptomatic anemia. 1. GI Bleed 2. Anemia 3. Decompensated Cirrhosis 4. Ascites 5. Elevated INR 6. 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 No varices seen. Repeat EGD on 08/23 with APC txt to GAVE. Colonoscopy on 08/24/17 with multiple non-bleeding angioectasia treated with APC, Diverticulosis, 5 mm polyp in descending colon (hyperplastic), 8 mm polyp in sigmoid (tubular adenoma). -Continue clopidogrel and monitor Hgb, signs of bleeding -Ascites with 3900 mL fluid removed on paracentesis on 08/18/17. No SBP. No total protein available. 2900 mL removed 08/24. -Completed 7 day course of Levofloxacin for SBP ppx -Low Na diet -Monitor INR -Given critical , do not want to decrease preload, will decrease lasix to 20mg daily and increase aldactone to 25mg bid -Further medical management per primary team and cardiology for critical Pt seen and examined with Dr. Osei <Angie Osei V - Last Filed: 08/27/17 22:18> Objective - Vital Signs/Intake and Output Vital Signs (last 24 hours): Temp Pulse Resp BP Pulse Ox 98.2 F 74 18 101/48 L 96 08/27/17 16:30 08/27/17 16:30 08/27/17 16:30 08/27/17 16:30 08/27/17 16:30 - Medications Medications: Current Medications Acetaminophen (Tylenol 325mg Tab) 650 mg PO Q6H PRN; Protocol PRN Reason: Pain, moderate (4-7) Last Admin: 08/27/17 17:19 Dose: 650 mg Albumin Human (Albumin Human 25% (12.5 Gm/50 Ml)) 12.5 gm IV BID [facility] Last Admin: 08/27/17 18:10 Dose: 12.5 gm Alprazolam (Xanax) 0.5 mg PO BID PRN; Protocol PRN Reason: Anxiety Atorvastatin Calcium (Lipitor) 20 mg PO DIN [facility] Last Admin: 08/27/17 18:29 Dose: Not Given Clopidogrel Bisulfate (Plavix) 75 mg PO DAILY [facility] Last Admin: 08/27/17 11:02 Dose: 75 mg Furosemide (Lasix) 20 mg PO DAILY [facility] Last Admin: 08/27/17 11:01 Dose: 20 mg Guaifenesin/Dextromethorphan (Robitussin Dm) 5 ml PO Q4H PRN PRN Reason: Cough Insulin Human Regular (Humulin R Med) 0 units SC ACHS [facility] PRN Reason: Protocol Last Admin: 08/27/17 21:54 Dose: 2 u Non-Formulary Medication (Bisoprolol/Hctz [Ziac 5-6.25 Mg]) 1 tab PO DAILY [facility] Last Admin: 08/27/17 11:01 Dose: 1 tab Pantoprazole Sodium (Protonix Ec Tab) 40 mg PO 0600 [facility] Last Admin: 08/27/17 05:22 Dose: 40 mg Spironolactone (Aldactone) 25 mg PO 1000,1800 [facility] PRN Reason: Protocol Last Admin: 08/27/17 18:10 Dose: 25 mg - Labs Labs: 08/26/17 08:30 08/26/17 08:30 PT 16.6 SECONDS (9.4-12.5) H 08/26/17 08:30 INR 1.43 (0.93-1.08) H 08/26/17 08:30 Attending/Attestation - Attestation I have personally seen and examined this patient.: Yes I have fully participated in the care of the patient.: Yes I have reviewed all pertinent clinical information, including history, physical exam and plan: Yes Notes (Text): This is a delayed addendum to GI progress report dictated by the GI Fellow.The patient was seen and examined earlier. Medical records, lab studies , imagings were reviewed. Last 24 hours events reviewed. Agreed with the above treatment plan as outlined in GI Fellow 's notes the with the addition of the following we change the diuretics dose. Increase Aldctone to 25 mg twice daily and lasic to 20 mg daily. Monitor weight and also urinary output Close follow-up off blood pressure and electrolytes Follow-up hemoglobin and hematocrit patient is on Plavix Plan for TAVAR and the PCI 08/27/17 22:10
[2017-08-27] MEDS: Non Formulary Medication (Bisoprolol/Hctz [Ziac 5-6.25 Mg] 1 TAB) PO SCH (11:01)
[2017-08-27] MEDS: Albumin Human 25% (12.5 gm/50 ml) IV SCH ×2 (11:01→18:10)
[2017-08-27 13:05] VITALS: RESP 18
[2017-08-27 16:30] VITALS: TEMP 98.2
[2017-08-28] MEDS: Pantoprazole 40 mg EC Tab PO SCH (05:41)
[2017-08-28 06:20] VITALS: O2SAT 94
[2017-08-28] MEDS: Insulin Reg-MEDIUM-Coverage SC SCH ×4 (06:31→21:28)
[2017-08-28 07:13] LABS: BASO # 0.02 K/mm3 (0.0-2.0); BASO % 0.5 % (0.0-3.0); EOS # 0.2 (0.0-0.7); EOS % 4.1 % (1.5-5.0); GRAN # 2.39 (1.4-6.5); GRAN % 61.4 % (50.0-68.0); HEMOGLOBIN 9.6 g/dL (12.0-16.0); LYMPH # 0.9 (1.2-3.4); LYMPH % 22.9 % (22.0-35.0); MEAN CELL VOLUME 80.5 fl (80.0-105.0); MEAN CORPUSCULAR HEMOGLOBIN 25.7 pg (25.0-35.0); MEAN CORPUSCULAR HGB CONC 31.9 g/dl (31.0-37.0); MONO # 0.4 (0.1-0.6); MONO % 11.1 % (1.0-6.0); PLATELET COUNT 145 10^3/uL (120.0-450.0); RBC 3.74 10^6/uL (3.5-6.1); RED CELL DISTRIBUTION WIDTH 23.9 % (11.5-14.5); WHITE BLOOD COUNT 3.9 10^3/ul (4.5-11.0)
[2017-08-28 07:23] LABS: ALBUMIN 2.9 g/dL (3.0-4.8); ALT/SGPT 22 U/L (7-56); AST/SGOT 19 U/L (14-36); BLOOD UREA NITROGEN 11 mg/dL (7-21); CALCIUM 8.9 mg/dL (8.4-10.5); GFR AFRICAN-AMERICAN > 60; GFR NON-AFRICAN AMERICAN > 60
--- NOTE | 2017-08-28 09:44 | PN ---
SUBJECTIVE: The patient was seen and examined at bedside on the TCU. No acute events overnight. She remains afebrile and hemodynamically stable. This morning she reports feeling well and offers no complaints. PHYSICAL EXAMINATION VITAL SIGNS: Temperature 98.2, pulse 83, blood pressure 115/60, respiratory rate 18, oxygen saturation 94% on room air. GENERAL: No apparent distress. HEENT: PERRL. EOMI. No scleral icterus. Mild conjunctival pallor is noted. NECK: No JVD. LUNGS: Clear to auscultation. CARDIOVASCULAR: Regular rate and rhythm. Normal S1 and S2. Grade II/ MILTON to RUSB. ABDOMEN: Normoactive bowel sounds. Soft, nontender, nondistended. EXTREMITIES: No edema. NEUROLOGIC: Awake, alert and oriented x 3. No focal motor deficits. LABORATORY DATA: WBC 3.9, hemoglobin 9.6, hematocrit 30, platelets 145. Chemistry reviewed and unremarkable. ASSESSMENT: The patient is a 72 year-old woman with multiple medical comorbidities who was admitted for management of symptomatic anemia and decompensated cirrhosis of unclear etiology and was subsequently transferred to the TCU for continued physical therapy. PLAN: 1. 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 Input from Dr. Osei greatly appreciated. The patient has no evidence of active bleed. The definitive therapy will be aortic valve replacement given her critical . 2. Critical . Input from Dr. Muniz appreciated. The patient is s/p post cardiac catheterization and has been started on Plavix. Arrangements will be made in the near future for a TAVR. 3. Decompensated cirrhosis of unclear etiology. Continue with care as per Dr. Osei. 4. Acute systolic heart failure, resolved. 5. CAD. As above the patient is s/p cardiac catheterization which demonstrated a single lesion to the proximal LAD. The lesion was not stented given the patient's presentation with GI bleed. She has been restarted on Plavix 75 mg p.o. daily. There has been no evidence of active bleed. 6. Hypertension. Blood pressure controlled. Continue with current medications. 7. History of remote PE. We will need to discuss the feasibility of anticoagulation in this patient. 8. NIDDM. 9. Vitamin B12 deficiency. 10. Prophylaxis. GI prophylaxis is not indicated as the patient is eating. DVT prophylaxis is not indicated as the patient is ambulatory. CODE STATUS: Full code. Robin Richards MD [facility]
[2017-08-28] MEDS: Albumin Human 25% (12.5 gm/50 ml) IV SCH ×2 (10:53→17:28)
[2017-08-28] MEDS: Non Formulary Medication (Bisoprolol/Hctz [Ziac 5-6.25 Mg] 1 TAB) PO SCH (10:54)
--- NOTE | 2017-08-28 14:11 | CP.PCM.PN ---
<Scottie Lipscomb - Last Filed: 08/28/17 14:08> Subjective - Date & Time of Evaluation Date of Evaluation: 08/28/17 Time of Evaluation: 07:30 - Subjective Subjective: PGY-4 GI Fellow Prog Note Pt sitting in bed eating breakfast this AM. States she is doing well with just some mild intermittent abd pain. Denies melena, hematochezia, N/V. 5 point ROS negative other than stated above Objective - Vital Signs/Intake and Output Vital Signs (last 24 hours): Temp Pulse Resp BP Pulse Ox 98.2 F 85 18 111/56 L 94 L 08/28/17 06:00 08/28/17 12:53 08/28/17 06:00 08/28/17 10:54 08/28/17 06:00 Intake and Output: 08/28/17 08/28/17 06:59 18:59 Intake Total 360 Output Total 600 Balance -240 - Medications Medications: Current Medications Acetaminophen (Tylenol 325mg Tab) 650 mg PO Q6H PRN; Protocol PRN Reason: Pain, moderate (4-7) Last Admin: 08/27/17 17:19 Dose: 650 mg Albumin Human (Albumin Human 25% (12.5 Gm/50 Ml)) 12.5 gm IV BID [facility] Last Admin: 08/28/17 10:53 Dose: 12.5 gm Alprazolam (Xanax) 0.5 mg PO BID PRN; Protocol PRN Reason: Anxiety Atorvastatin Calcium (Lipitor) 20 mg PO DIN [facility] Last Admin: 08/27/17 18:29 Dose: Not Given Clopidogrel Bisulfate (Plavix) 75 mg PO DAILY [facility] Last Admin: 08/28/17 10:55 Dose: 75 mg Furosemide (Lasix) 20 mg PO DAILY [facility] Last Admin: 08/28/17 10:54 Dose: 20 mg Guaifenesin/Dextromethorphan (Robitussin Dm) 5 ml PO Q4H PRN PRN Reason: Cough Insulin Human Regular (Humulin R Med) 0 units SC ACHS [facility] PRN Reason: Protocol Last Admin: 08/28/17 11:36 Dose: 1 u Non-Formulary Medication (Bisoprolol/Hctz [Ziac 5-6.25 Mg]) 1 tab PO DAILY [facility] Last Admin: 08/28/17 10:54 Dose: 1 tab Pantoprazole Sodium (Protonix Ec Tab) 40 mg PO 0600 [facility] Last Admin: 08/28/17 05:41 Dose: 40 mg Spironolactone (Aldactone) 25 mg PO 1000,1800 [facility] PRN Reason: Protocol Last Admin: 08/28/17 10:53 Dose: 25 mg - Labs Labs: 08/28/17 06:20 08/28/17 06:20 PT 16.6 SECONDS (9.4-12.5) H 08/26/17 08:30 INR 1.43 (0.93-1.08) H 08/26/17 08:30 - Constitutional Appears: Non-toxic, No Acute Distress - Eye Exam Eye Exam: EOMI. absent: Conjunctival injection, Scleral icterus - Respiratory Exam Respiratory Exam: NORMAL BREATHING PATTERN. absent: Accessory Muscle Use, Respiratory Distress - Cardiovascular Exam Cardiovascular Exam: REGULAR RHYTHM, Murmur - GI/Abdominal Exam GI & Abdominal Exam: Distended (mildly, with flank fullness), Soft, Normal Bowel Sounds. absent: Tenderness, Diminished Bowel Sounds Assessment and Plan - Assessment and Plan (Free Text) Assessment: 72 yo WF with h/o CAD, CVA and PE (on warfarin) admitted for symptomatic anemia , # Occult GI Bleed: No obvious signs of GI bleed, dark stool but on Fe tabs, hemoccult +. Hgb 6.8 on admission -> 8.9 s/p 2 units PRBCs with appropriate response. 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 No varices seen. Repeat EGD on 08/23 with APC trt to GAVE. CSPY on 08/24/17 with multiple non-bleeding angioectasia treated with APC, Diverticulosis, 5 mm polyp in descending colon (hyperplastic), 8 mm polyp in sigmoid (tubular adenoma). # Decompensated Cirrhosis: CP Class B, MELD-Na 14 (though on warfarin). Etiology perhaps NAFLD vs R sided CHF induced with severe TR on echo and pHTN? Ordered broad w/u to evaluate etiology of cirrhosis including ARABELLA w/reflex, ASMA , Anti Live Kidney Ab, Alpha 1 antitrypsin, Ceruloplasmin, Hemochromatosis Gene (iron studies not accurate in acute setting) - Ascites: 3900 mL fluid removed on paracentesis on 08/18/17. No SBP. No total protein available. 2900 mL removed 08/24. Plan to start spironolactone monotherapy for now given . - EGD: 08/22, with GAVE s/p APC, no varices. - HCC: CT scan this admission w/o mass though not triple phase - HE: None # Elevated INR: Reversed with Vit K and FFP for endoscopy. On warfarin as OP for h/o PE. Wonder if risk of trt may outweigh benefits in this eldery pt ( concern for GI bleed with cirrhosis, falls->intracranial bleed, etc.) # New onset CHF with preserved EF, severe and TR with pHTN: Defer w/u to primary/cardiology, Cardiology recommend TAVR. Plan: - Continue anti-platelet therapy and monitor Hgb, signs of bleeding - Continue Spironolactone 25 mg BID and Furosemide 20 mg daily with monitoring of I&O and labs - F/u above cirrhosis w/u - Completed 7 day course of Levofloxacin for SBP ppx - Low Na diet - PPI - Monitor INR - Needs Hep A and Hep B vaccination as outpatient if not already done Pt seen and examined with Dr. Osei <Angie Osei V - Last Filed: 08/28/17 23:55> Objective - Vital Signs/Intake and Output Vital Signs (last 24 hours): Temp Pulse Resp BP Pulse Ox 98.2 F 89 18 111/56 L 94 L 08/28/17 06:00 08/28/17 16:57 08/28/17 06:00 08/28/17 10:54 08/28/17 16:57 - Medications Medications: Current Medications Acetaminophen (Tylenol 325mg Tab) 650 mg PO Q6H PRN; Protocol PRN Reason: Pain, moderate (4-7) Last Admin: 08/27/17 17:19 Dose: 650 mg Albumin Human (Albumin Human 25% (12.5 Gm/50 Ml)) 12.5 gm IV BID [facility] Last Admin: 08/28/17 17:28 Dose: 12.5 gm Alprazolam (Xanax) 0.5 mg PO BID PRN; Protocol PRN Reason: Anxiety Atorvastatin Calcium (Lipitor) 20 mg PO DIN [facility] Last Admin: 08/28/17 17:28 Dose: Not Given Clopidogrel Bisulfate (Plavix) 75 mg PO DAILY [facility] Last Admin: 08/28/17 10:55 Dose: 75 mg Furosemide (Lasix) 20 mg PO DAILY [facility] Last Admin: 08/28/17 10:54 Dose: 20 mg Guaifenesin/Dextromethorphan (Robitussin Dm) 5 ml PO Q4H PRN PRN Reason: Cough Insulin Human Regular (Humulin R Med) 0 units SC ACHS [facility] PRN Reason: Protocol Last Admin: 08/28/17 21:28 Dose: 7 u Non-Formulary Medication (Bisoprolol/Hctz [Ziac 5-6.25 Mg]) 1 tab PO DAILY [facility] Last Admin: 08/28/17 10:54 Dose: 1 tab Pantoprazole Sodium (Protonix Ec Tab) 40 mg PO 0600 [facility] Last Admin: 08/28/17 05:41 Dose: 40 mg Spironolactone (Aldactone) 25 mg PO 1000,1800 [facility] PRN Reason: Protocol Last Admin: 08/28/17 17:29 Dose: 25 mg - Labs Labs: 08/28/17 06:20 08/28/17 06:20 PT 16.6 SECONDS (9.4-12.5) H 08/26/17 08:30 INR 1.43 (0.93-1.08) H 08/26/17 08:30 Attending/Attestation - Attestation I have personally seen and examined this patient.: Yes I have fully participated in the care of the patient.: Yes I have reviewed all pertinent clinical information, including history, physical exam and plan: Yes Notes (Text): This is an addendum to GI progress report dictated by the GI Fellow.The patient was seen and examined earlier. Medical records, lab studies, imagings were reviewed. Last 24 hours events reviewed. Agreed with the above treatment plan as outlined in GI Fellow 's notes the with the addition of the following 08/28/17 23:55
--- NOTE | 2017-08-28 14:12 | PN ---
DATE: 08/28/2017 CARDIOLOGY FOLLOWUP SUBJECTIVE: Patient is currently in the TCU. She denies shortness of breath. Denies chest pain. PHYSICAL EXAMINATION: VITAL SIGNS: Stable. NECK: Negative JVD. LUNGS: Without rales. HEART: S1, S2 with a 2/6 systolic ejection murmur. EXTREMITIES: Without edema. LABORATORY DATA: Hemoglobin is state. IMPRESSION: 1. Status post gastrointestinal bleed. 2. Documented telangiectasias. 3. Critical aortic stenosis. 4. Anemia which is remained stable. 5. History of deep venous thromboses in the past. 6. Anemia. Given these findings, the patient is agreeable for transfer to [facility] for evaluation for TAVR. I have discussed this with the patient in detail. Calls have been made to [facility] with Dr. Rice. Once the bed is ready, they will transfer the patient over to [facility]. Mat Muniz MD
[2017-08-28 17:10] VITALS: PULSE 89
[2017-08-29] MEDS: Pantoprazole 40 mg EC Tab PO SCH (05:56)
[2017-08-29] MEDS: Insulin Reg-MEDIUM-Coverage SC SCH ×2 (06:39→12:15)
--- NOTE | 2017-08-29 09:16 | PN ---
SUBJECTIVE: The patient was seen and examined at bedside on the TCU. No acute events overnight. She remains afebrile and hemodynamically stable. The patient is agreeable to transfer to [facility] for TAVR and arrangements are being made to facilitate this transfer. OBJECTIVE: VITAL SIGNS: Temperature 98, pulse 85, blood pressure 124/52, respiratory rate 18, oxygen saturation 94% on room air. GENERAL: No apparent distress. HEENT: PERRL. EOMI. No scleral icterus. No conjunctival pallor. NECK: No JVD. LUNGS: Clear to auscultation. CARDIOVASCULAR: Regular rate and rhythm. Normal S1 and S2. Grade II/ MILTON to RUSB. ABDOMEN: Normoactive bowel sounds. Soft, nontender, nondistended. EXTREMITIES: No edema. NEUROLOGIC: Awake, alert and oriented x 3. No focal motor deficits. LABORATORY DATA: No new labs. ASSESSMENT: The patient is a 72 year old woman with multiple medical comorbidities who was admitted for management of symptomatic anemia and decompensated cirrhosis of unclear etiology and was subsequently transferred to the TCU for continued PT and is pending transfer to [facility] for TAVR. PLAN: 1. Iron deficiency anemia secondary to GI bleed secondary to Heyde syndrome, resolved. Input from Dr. Osei greatly appreciated and the patient has no evidence of active bleed. The patient is pending transfer to [facility] for TAVR which is the definitive therapy given her underlying cause of GI bleed. 2. Critical . Input from Dr. Muniz appreciated and, as above, the patient is pending transfer to [facility] for TAVR. 3. Decompensated cirrhosis of unclear etiology. The workup is ongoing. Continue with care as per Dr. Osei. 4. Acute systolic heart failure, resolved. 5. CAD. As above, the patient is scheduled for TAVR and her proximal LAD lesion of 60% stenosis may be pursued afterwards. 6. Hypertension. Blood pressure controlled. Continue with current medications. 7. History of remote PE. We will need to discuss anticoagulation in this patient after undergoing TAVR. 8. NIDDM. Continue with medium dose of insulin sliding scale for coverage. 9. Vitamin B12 deficiency. 10. Prophylaxis. GI prophylaxis is not indicated as the patient is eating. DVT prophylaxis is not indicated as the patient is ambulatory. CODE STATUS: Full code. Robin Richards MD [facility]TD[facility]
[2017-08-29 10:37] LABS: CERULOPLASMIN 30 mg/dL (18-53)
[2017-08-29] MEDS: Albumin Human 25% (12.5 gm/50 ml) IV SCH (10:46)
[2017-08-29] MEDS: Non Formulary Medication (Bisoprolol/Hctz [Ziac 5-6.25 Mg] 1 TAB) PO SCH (10:47)
[2017-08-29 10:50] VITALS: BP 116/74
[2017-08-29 10:59] LABS: BASO # 0.03 K/mm3 (0.0-2.0); BASO % 0.6 % (0.0-3.0); EOS # 0.2 (0.0-0.7); EOS % 4.4 % (1.5-5.0); GRAN # 3.25 (1.4-6.5); GRAN % 64.3 % (50.0-68.0); HEMOGLOBIN 10.9 g/dL (12.0-16.0); LYMPH % 18.8 % (22.0-35.0); MEAN CELL VOLUME 81.5 fl (80.0-105.0); MEAN CORPUSCULAR HEMOGLOBIN 25.5 pg (25.0-35.0); MEAN CORPUSCULAR HGB CONC 31.2 g/dl (31.0-37.0); MONO # 0.6 (0.1-0.6); MONO % 11.9 % (1.0-6.0); PLATELET COUNT 154 10^3/uL (120.0-450.0); RBC 4.28 10^6/uL (3.5-6.1); RED CELL DISTRIBUTION WIDTH 24.6 % (11.5-14.5); WHITE BLOOD COUNT 5.1 10^3/ul (4.5-11.0)
--- NOTE | 2017-08-29 11:14 | CP.PCM.PN ---
Subjective - Date & Time of Evaluation Date of Evaluation: 08/29/17 Time of Evaluation: 09:20 - Subjective Subjective: S&E at bedside, chart reviewed, no acute overnight events. Last BM was last night, not "watery", report abdominal "fluttering" , feel like abdomen is distended, no distress, no N/V , tolerated breakfast. No fever or chills. Denies SOB or CP. Objective - Vital Signs/Intake and Output Vital Signs (last 24 hours): Temp Pulse Resp BP Pulse Ox 98.2 F 89 18 116/74 94 L 08/28/17 06:00 08/28/17 16:57 08/28/17 06:00 08/29/17 10:48 08/28/17 16:57 - Medications Medications: Current Medications Acetaminophen (Tylenol 325mg Tab) 650 mg PO Q6H PRN; Protocol PRN Reason: Pain, moderate (4-7) Last Admin: 08/27/17 17:19 Dose: 650 mg Albumin Human (Albumin Human 25% (12.5 Gm/50 Ml)) 12.5 gm IV BID [facility] Last Admin: 08/29/17 10:46 Dose: 12.5 gm Alprazolam (Xanax) 0.5 mg PO BID PRN; Protocol PRN Reason: Anxiety Atorvastatin Calcium (Lipitor) 20 mg PO DIN [facility] Last Admin: 08/28/17 17:28 Dose: Not Given Clopidogrel Bisulfate (Plavix) 75 mg PO DAILY [facility] Last Admin: 08/29/17 10:48 Dose: 75 mg Furosemide (Lasix) 20 mg PO DAILY [facility] Last Admin: 08/29/17 10:48 Dose: 20 mg Guaifenesin/Dextromethorphan (Robitussin Dm) 5 ml PO Q4H PRN PRN Reason: Cough Insulin Human Regular (Humulin R Med) 0 units SC ACHS [facility] PRN Reason: Protocol Last Admin: 08/29/17 06:39 Dose: Not Given Non-Formulary Medication (Bisoprolol/Hctz [Ziac 5-6.25 Mg]) 1 tab PO DAILY [facility] Last Admin: 08/29/17 10:47 Dose: 1 tab Pantoprazole Sodium (Protonix Ec Tab) 40 mg PO 0600 [facility] Last Admin: 08/29/17 05:56 Dose: 40 mg Spironolactone (Aldactone) 25 mg PO 1000,1800 [facility] PRN Reason: Protocol Last Admin: 08/29/17 10:47 Dose: 25 mg - Labs Labs: 08/28/17 06:20 08/28/17 06:20 PT 16.6 SECONDS (9.4-12.5) H 08/26/17 08:30 INR 1.43 (0.93-1.08) H 08/26/17 08:30 - Constitutional Appears: No Acute Distress - Head Exam Head Exam: NORMOCEPHALIC - Eye Exam Eye Exam: Normal appearance. absent: Scleral icterus - ENT Exam ENT Exam: Mucous Membranes Moist - Neck Exam Neck Exam: Normal Inspection - Respiratory Exam Respiratory Exam: NORMAL BREATHING PATTERN. absent: Respiratory Distress - Cardiovascular Exam Cardiovascular Exam: +S1, +S2 - GI/Abdominal Exam GI & Abdominal Exam: Distended, Soft, Normal Bowel Sounds. 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, no varices, no intervention elevated INR, repeat EGD 08/23 s/p APC for GAVE, colon 08/24/17: multiple nonbleeding angioectasia w/ APC, diverticulosis, colon polyps descending colon and sigmoid Decompensated Cirrhosis, maybe secondary to NAFLD vs right sided CHF Ascites, s/p paracentesis 08/18/17 (3900ml), negative for SBP, repeated on 08/24 ( 2900ml) New onset CHF Plan: on Plavix, monitor Hgb, signs of bleeding Continue Spironolactone 25 mg BID and Furosemide 20 mg daily with monitoring of I&O and labs F/u autoimmune markers Low Na diet PPI Monitor INR FU cdiff, results pending Needs Hep A and Hep B vaccination as outpatient if not already done planned to be transferred to [facility] for TAVR evaluation when bed ready, as per cardiology Seen and discussed with Dr. Osei
--- NOTE | 2017-08-29 14:38 | PN ---
DATE: 08/29/2017 SUBJECTIVE: The patient is in no acute distress. PHYSICAL EXAMINATION: VITAL SIGNS: Stable. NECK: Negative JVD. LUNGS: Without rales. HEART: S1, S2, 2/6 systolic ejection murmur. EXTREMITIES: Without edema. LABORATORY DATA: Hemoglobin was not done today. Chemistries unremarkable. IMPRESSION: 1. Status post gastrointestinal bleed. 2. Critical aortic stenosis. 3. Coronary artery disease. 4. Diabetes mellitus. Given these findings, we will obtain a CBC daily. Awaiting transfer to [facility] for evaluation of a transcatheter aortic valve replacement. Mat Muniz MD
--- NOTE | 2017-08-30 05:48 | DS ---
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 SECONDARY DIAGNOSES: Coronary artery disease, hypertension and vzh-vrmnefy-zpnatfylj diabetes mellitus. CONSULTATIONS: Dr. Osei (Gastroenterology) and Dr. Muniz (Cardiology). IMAGING STUDIES: None. DIAGNOSTIC STUDIES: None. PROCEDURES: None. HISTORY OF PRESENT ILLNESS: The patient is a 72 year old woman with a past medical history of CAD and a remote history of PE who was sent to [facility] ED by her PMD for inpatient management of symptomatic anemia and workup of suspected new-onset heart failure. The patient was initially admitted to the telemetry navarro for management of the aforementioned symptoms. 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 After resolution of her acute medical issues she was transferred to the TCU for continued physical therapy. HOSPITAL COURSE: The patient's TCU stay was largely unremarkable. She was found to be ambulating around the TCU and was doing well with physical therapy. There was no further report of blood loss and labs demonstrated a stable hemoglobin. Arrangements were made by Dr. Muniz for transfer to [facility] for TAVR and on TCU day #3 she was accepted and transferred to the [facility]. CONDITION: Fair, improved. DISPOSITION: [facility]. FOLLOWUP: The patient will follow up with her PMD within 1 week of discharge. The patient to follow up with Dr. Muniz and Dr. Osei as scheduled. Robin Richards MD FLAKITO
== END 2017-08-29 14:34 | disposition short-term general hospital (02) | DRG 812 ==
LOC: TRCU 16:58
PROVIDERS: ADMIT Student in an Organized Health Care Education/Training Program; ATTEND Student in an Organized Health Care Education/Training Program
PROC: F07Z9FZ Gait Training/Functional Ambulation Treatment using Assistive, Adaptive, Supportive or Protective Equipment (ICD-10-PCS; principal; 2017-08-26)
PROC: F07M6ZZ Therapeutic Exercise Treatment of Musculoskeletal System - Whole Body (ICD-10-PCS; 2017-08-26)
PROC: F08Z2ZZ Grooming/Personal Hygiene Treatment (ICD-10-PCS; 2017-08-26)
PROC: F08Z0ZZ Bathing/Showering Techniques Treatment (ICD-10-PCS; 2017-08-26)
PROC: F08Z4ZZ Home Management Treatment (ICD-10-PCS; 2017-08-26)
DX: D50.0 Iron deficiency anemia secondary to blood loss (chronic) (principal); K92.2 Gastrointestinal hemorrhage, unspecified; R18.8 Other ascites; E11.9 Type 2 diabetes mellitus without complications; I11.0 Hypertensive heart disease with heart failure; I25.10 Atherosclerotic heart disease of native coronary artery without angina pectoris; I35.0 Nonrheumatic aortic (valve) stenosis; I50.9 Heart failure, unspecified; K74.60 Unspecified cirrhosis of liver; R79.1 Abnormal coagulation profile; Z79.84 Long term (current) use of oral hypoglycemic drugs; Z86.711 Personal history of pulmonary embolism; Z86.718 Personal history of other venous thrombosis and embolism; Z86.73 Personal history of transient ischemic attack (TIA), and cerebral infarction without residual deficits; Z95.2 Presence of prosthetic heart valve

== ENCOUNTER 2017-09-29 17:30 | Inpatient (IN) | payer MEDICARE, OTHER ==
[2017-09-29 17:31] VITALS: BMI 31.1
[2017-09-29 19:05] LABS: BASO # 0.02 K/mm3 (0.0-2.0); BASO % 0.6 % (0.0-3.0); EOS # 0.1 (0.0-0.7); EOS % 4.1 % (1.5-5.0); GRAN # 1.94 (1.4-6.5); GRAN % 61.1 % (50.0-68.0); HEMOGLOBIN 8.3 g/dL (12.0-16.0); LYMPH # 0.9 (1.2-3.4); MEAN CORPUSCULAR HEMOGLOBIN 28.6 pg (25.0-35.0); MEAN CORPUSCULAR HGB CONC 32.2 g/dl (31.0-37.0); MEAN PLATELET VOLUME 8.7 fl (7.0-11.0); MONO # 0.2 (0.1-0.6); MONO % 7.2 % (1.0-6.0); RBC 2.9 10^6/uL (3.5-6.1); RED CELL DISTRIBUTION WIDTH 28.8 % (11.5-14.5); WHITE BLOOD COUNT 3.2 10^3/ul (4.5-11.0)
[2017-09-29 19:09] LABS: INR 1.24; PROTHROMBIN TIME 14.2 SECONDS (9.4-12.5)
[2017-09-29 19:13] LABS: ALB/GLOB RATIO 0.8 (1.1-1.8); ALBUMIN 3.3 g/dL (3.0-4.8); ALT/SGPT 16 U/L (7-56); AST/SGOT 30 U/L (14-36); BLOOD UREA NITROGEN 13 mg/dL (7-21); CALCIUM 9.2 mg/dL (8.4-10.5); GFR NON-AFRICAN AMERICAN > 60
[2017-09-29 19:23] LABS: TROPONIN I < 0.01 ng/mL
--- NOTE | 2017-09-29 20:10 | ED PDOC ---
Arrival/HPI - General Chief Complaint: Abnormal Labs Time Seen by Provider: 09/29/17 17:51 Historian: Patient - History of Present Illness Narrative History of Present Illness (Text): 09/29/17 20:04 72 year old female, with a past medical history that includes jaundice, pancreatitis, and GI bleed, presents to the emergency department for evaluation status post low hemoglobin reading. Patient states she was in a rehab facility and the doctor there told her she had low hemoglobin and sent her to the emergency department. Patient denies any complaints, states she did not see any rectal bleeding, and does not know why she was sent to the hospital. Patient states she has been feeling much better since entering the rehab facility. Patient also informs she was in hospital about a month ago and had a lower GI bleed requiring 5 units of blood per patient. Patient denies any nausea , vomiting, chest pain, shortness of breath, abdominal pain, or any other complaints. Time/Duration: Prior to Arrival Past Medical History - Provider Review Nursing Documentation Reviewed: Yes - Travel History Have you recently traveled outside [place] w/in the past 3 mons?: No - Reproductive Menopause: Yes - Cardiac Hx Congestive Heart Failure: Yes Hx Hypertension: Yes - Pulmonary Hx Asthma: Yes Hx Bronchitis: Yes - Neurological HX Cerebrovascular Accident: Yes - Endocrine/Metabolic Hx Diabetes Mellitus Type 2: Yes - Hematological/Oncological Hx Blood Transfusions: Yes Hx Blood Transfusion Reaction: (UNKNOWN) - Musculoskeletal/Rheumatological Hx Falls: No - Gastrointestinal Hx Gastrointestinal Disorders: Yes (HEMORRHOID,H/O GI BLEED,) - Genitourinary/Gynecological Hx Genitourinary Disorders: No Hx Reproductive Disorders: No - Psychiatric Hx Depression: No Hx Emotional Abuse: No Hx Physical Abuse: No Hx Substance Use: No - Anesthesia Hx Anesthesia Reactions: No Hx Malignant Hyperthermia: No - Suicidal Assessment Feels Threatened In Home Enviroment: No Family/Social History - Physician Review Nursing Documentation Reviewed: Yes Family/Social History: No Known Family HX Smoking Status: Never Smoked Hx Alcohol Use: Yes (OCCASIONAL) Frequency of alcohol use: Socially Hx Substance Use: No Hx Substance Use Treatment: No Allergies/Home Meds Allergies/Adverse Reactions: Allergies banana Allergy (Verified 09/29/17 17:37) RASH codeine Allergy (Verified 09/29/17 17:37) ANAPHYLAXIS diphenhydramine [From Benadryl Allergy] Allergy (Verified 09/29/17 17:37) RASH erythromycin base [From Erythrocin] Allergy (Verified 09/29/17 17:37) RASH Penicillins Allergy (Verified 09/29/17 17:37) ANAPHYLAXIS shellfish derived Allergy (Verified 09/29/17 17:37) ANAPHYLAXIS strawberry Allergy (Verified 09/29/17 17:37) RASH Sulfa (Sulfonamide Antibiotics) Allergy (Verified 09/29/17 17:37) ANAPHYLAXIS Review of Systems - Physician Review All systems were reviewed & negative as marked: Yes - Review of Systems Constitutional: absent: Fatigue, Fevers Respiratory: absent: SOB, Cough Cardiovascular: absent: Chest Pain Gastrointestinal: absent: Abdominal Pain, Nausea, Vomiting Neurological: absent: Headache, Dizziness Psychiatric: absent: Anxiety, Depression Physical Exam Vital Signs Reviewed: Yes Vital Signs Temp Pulse Resp BP Pulse Ox 09/29/17 19:31 98.5 F 100 H 18 127/60 97 Temperature: Afebrile Blood Pressure: Normal Pulse: Tachycardic Respiratory Rate: Normal Appearance: Positive for: Well-Appearing, Non-Toxic, Comfortable Pain Distress: None Mental Status: Positive for: Alert and Oriented X 3 - Systems Exam Head: Present: Atraumatic Mouth: Present: Moist Mucous Membranes Respiratory/Chest: Present: Clear to Auscultation, Good Air Exchange. No: Respiratory Distress, Accessory Muscle Use Cardiovascular: Present: Murmurs, Tachycardic Abdomen: No: Tenderness, Distention, Peritoneal Signs, Rebound, Guarding Rectal: Present: Occult Blood, Melena, Normal Rectal Tone. No: Rectal Tenderness, Gross Blood, Hemorrhoids, Fissures Back: Present: Normal Inspection Neurological: Present: GCS=15, Speech Normal Skin: Present: Warm, Dry, Normal Color. No: Rashes Psychiatric: Present: Alert, Oriented x 3 Medical Decision Making ED Course and Treatment: 09/29/17 21:02 72-year-old female sent in from rehabilitation facility for anemia Patient is slightly tachycardic. Denies any complaints at present time. Patient was found to have heme positive dark stools. CBC hemoglobin 8.3 CMP k:3.4 glucose; 154 EKG sinus rhythm with PACs at 100 bpm right bundle branch block no ST elevations Case was discussed with Dr. Mcdermott in depth. We'll transfuse one unit admit observational status to telemetry. consent for blood transfusion obtained. Family states that patients GI doctor is dr. Munoz; both the patient and her son would prefer dr. munoz on consult all results and plan discussed with family and patient in depth. impression; gi bleeding, anemia admit observational status - Lab Interpretations Lab Results: 09/29/17 18:20 09/29/17 18:20 Lab Results 09/29/17 20:25: Urine Color Yellow, Urine Appearance Clear, Urine pH 6.0, Ur Specific [place] <= 1.005, Urine Protein Negative, Urine Glucose (UA) Negative, Urine Ketones Negative, Urine Blood Trace-intact H, Urine Nitrate Negative, Urine Bilirubin Negative, Urine Urobilinogen 0.2, Ur Leukocyte Esterase Trace H , Urine RBC 2 - 5, Urine WBC 1 - 3, Ur Epithelial Cells 6 - 8 09/29/17 18:20: PT 14.2 H, INR 1.24, APTT 25.0 L 09/29/17 18:20: WBC 3.2 L D, RBC 2.90 L, Hgb 8.3 L D, Hct 25.8 L, MCV 89.0 D, MCH 28.6, MCHC 32.2, RDW 28.8 H, Plt Count 140, MPV 8.7, Gran % 61.1, Lymph % ( Auto) 27.0, Dunn % (Auto) 7.2 H, Eos % (Auto) 4.1, Baso % (Auto) 0.6, Gran # 1.94, Lymph # (Auto) 0.9 L, Dunn # (Auto) 0.2, Eos # (Auto) 0.1, Baso # (Auto) 0.02 09/29/17 18:20: Blood Type A POSITIVE, Antibody Screen Negative, Crossmatch See Detail, BBK History Checked Patient has bt 09/29/17 18:20: Sodium 141, Potassium 3.4 L, Chloride 106, Carbon Dioxide 26, Anion Gap 13, BUN 13, Creatinine 0.6 L, Est GFR ( Amer) > 60, Est GFR ( Non-Af Amer) > 60, Random Glucose 154 H, Calcium 9.2, Total Bilirubin 0.8, AST 30, ALT 16, Alkaline Phosphatase 71, Lactate Dehydrogenase 597, Total Creatine Kinase < 20 L, Troponin I < 0.01 D, Total Protein 7.3, Albumin 3.3, Globulin 4.0, Albumin/Globulin Ratio 0.8 L - RAD Interpretation Radiology Orders: 09/29/17 20:23 CHEST PORTABLE [RAD] Stat - Medication Orders Current Medication Orders: Discontinued Medications Pantoprazole Sodium (Protonix Inj) 40 mg IVP STAT STA Stop: 09/29/17 20:41 Last Admin: 09/29/17 20:50 Dose: 40 mg IVP Administration Document 09/29/17 20:50 JOL (Rec: 09/29/17 20:50 JOL [id number]) Charges for Administration # of IVP Administrations 1 Disposition/Present on Arrival - Present on Arrival Any Indicators Present on Arrival: No History of DVT/PE: No History of Uncontrolled Diabetes: No Urinary Catheter: No History of Decub. Ulcer: No History Surgical Site Infection Following: None - Disposition Have Diagnosis and Disposition been Completed?: Yes Diagnosis: Anemia, Guaiac positive stools Disposition: HOSPITALIZED Disposition Time: 21:05 Patient Plan: Observation Patient Problems: Current Active Problems Problem Status Onset Anemia Acute Guaiac positive stools Acute Condition: FAIR
[2017-09-29 20:42] LABS: URINE BILIRUBIN NEGATIVE (NEGATIVE); URINE BLOOD TRACE-INTACT (NEGATIVE); URINE GLUCOSE (UA) NEGATIVE (NEGATIVE); URINE LEUKOCYTE ESTERASE TRACE Leu/uL (NEGATIVE); URINE PROTEIN NEGATIVE mg/dL (<30 mg/dL); URINE UROBILINOGEN 0.2 E.U./dL (<1 E.U./dL)
[2017-09-29 20:48] LABS: URINE APPEARANCE CLEAR (CLEAR); URINE COLOR YELLOW (YELLOW)
[2017-09-30] MEDS ORDERED: Potassium Chloride 20 mEq ER Tab PO ONE (08:10)
[2017-09-30 08:47] LABS: BASO # 0.02 K/mm3 (0.0-2.0); BASO % 0.6 % (0.0-3.0); EOS # 0.2 (0.0-0.7); EOS % 5.1 % (1.5-5.0); GRAN # 1.85 (1.4-6.5); GRAN % 58.8 % (50.0-68.0); HEMOGLOBIN 9.1 g/dL (12.0-16.0); LYMPH # 0.9 (1.2-3.4); LYMPH % 27.6 % (22.0-35.0); MEAN CELL VOLUME 87.3 fl (80.0-105.0); MEAN CORPUSCULAR HEMOGLOBIN 29.5 pg (25.0-35.0); MEAN CORPUSCULAR HGB CONC 33.8 g/dl (31.0-37.0); MEAN PLATELET VOLUME 8.3 fl (7.0-11.0); MONO # 0.3 (0.1-0.6); MONO % 7.9 % (1.0-6.0); RBC 3.08 10^6/uL (3.5-6.1); RED CELL DISTRIBUTION WIDTH 26.3 % (11.5-14.5); WHITE BLOOD COUNT 3.2 10^3/ul (4.5-11.0)
[2017-09-30 08:57] LABS: ALB/GLOB RATIO 0.8 (1.1-1.8); ALBUMIN 3.1 g/dL (3.0-4.8); ALT/SGPT 16 U/L (7-56); AST/SGOT 28 U/L (14-36); BLOOD UREA NITROGEN 12 mg/dL (7-21); GFR NON-AFRICAN AMERICAN > 60
--- NOTE | 2017-09-30 09:26 | HP ---
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 The patient was admitted to [facility] [place] approximately 1 month ago for evaluation of malaise, fatigue and near syncope. Workup at that time found the patient to have critical aortic stenosis as well as iron deficiency anemia. The patient underwent EGD and colonoscopy with Dr. Osei which demonstrated GAVE and multiple colonic telangiectasias due to her underlying critical aortic stenosis. She was transfused multiple units of PRBCs given her presenting hemoglobin of 6.3 and has maintained a baseline hemoglobin of 8-9 since that hospitalization. On this admission she denies overt blood loss, melena, hematochezia or hematemesis. She furthermore denies fatigue, lethargy, chest pain, palpitations or near syncope and states that she was excelling with physical therapy. On arrival to the ED she was found to be afebrile and hemodynamically stable. Laboratory studies demonstrated a hemoglobin of 8.3 ( baseline 8-9) and a stool sample was heme positive. She was typed and crossmatched for transfusion of 1 unit of PRBCs and subsequently admitted to the telemetry navarro. PAST MEDICAL HISTORY: As per HPI, also CAD, hypertension, morbid obesity, NIDDM, vitamin B12 deficiency and a remote history of PE. PAST SURGICAL HISTORY: Cholecystectomy and tonsillectomy. ALLERGIES: Penicillin, sulfas, macrolides, codeine and AARON inhibitors. MEDICATIONS: Bisoprolol/HCTZ 5/6.25 mg p.o. daily, Metformin 500 mg p.o. b.i.d., Simvastatin 20 mg p.o. daily and Vitamin B12 1000 mcg IM q monthly. FAMILY HISTORY: Significant for hypertension, CAD and hyperlipidemia. SOCIAL HISTORY: The patient has no history of any toxic habits. REVIEW OF SYSTEMS: A 12-point review of systems is negative except as per HPI. PHYSICAL EXAMINATION VITAL SIGNS: Temperature 97.9, pulse 90, blood pressure 134/63, respiratory rate 20, oxygen saturation 97% on room air. GENERAL: No apparent distress. HEENT: PERRL, EOMI. No scleral icterus. Mild conjunctival pallor is noted. NECK: No JVD. LUNGS: Clear to auscultation. CARDIOVASCULAR: Regular rate and rhythm. Normal S1 and S2. Grade II/ MILTON to RUSB. ABDOMEN: Normoactive bowel sounds, soft, nontender, nondistended. EXTREMITIES: No edema. NEUROLOGIC: Awake, alert and oriented x 3. No focal motor deficits. LABORATORY DATA: WBC 3.2, hemoglobin 8.3, hematocrit 26, platelets 140. Chemistry reviewed and largely unremarkable with the exception of potassium of 3.4. 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 PLAN: 1. 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 She remains at her baseline Hb of 8-9. She has been transfused 1 unit of PRBCs. The patient remains completely asymptomatic and offers no new complaints as compared to her prior admission. Evaluation with Dr. Osei is pending however it is unlikely she will warrant any further GI intervention. We will check a post-transfusion CBC. 2. Critical aortic stenosis. The patient remains chest pain free and hemodynamically stable. She has had a consultation at [facility] for TAVR. 3. CAD. Recent catheterization demonstrated a 60% proximal LAD lesion and the patient was advised that this may be pursued after she undergoes her TAVR. 4. Hypertension. Blood pressure controlled. Continue with current medications. 5. History of remote PE. 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 6. NIDDM. We will resume Metformin 500 mg p.o. b.i.d. 7. Vitamin B12 deficiency. 8. Prophylaxis. GI prophylaxis not indicated as the patient is eating. DVT prophylaxis not indicated as the patient is ambulatory. CODE STATUS: Full code. Robin Richards MD MTDOlivia
--- NOTE | 2017-09-30 10:27 | RAD ---
Date of service: 09/29/2017 HISTORY: anemia COMPARISON: 08/16/2017. FINDINGS: LUNGS: The lungs are well inflated. There is moderate pulmonary venous congestion and mild interstitial pulmonary edema. PLEURA: No significant pleural effusion identified, no pneumothorax apparent. CARDIOVASCULAR: There is moderate cardiomegaly with prominent central vasculature P OSSEOUS STRUCTURES: No significant abnormalities. VISUALIZED UPPER ABDOMEN: Normal. OTHER FINDINGS: None. IMPRESSION: Findings are most compatible with mild congestive heart failure.
--- NOTE | 2017-09-30 12:10 | CP.PCM.CON ---
<Scottie Lipscomb - Last Filed: 09/30/17 12:10> History of Present Illness - History of Present Illness History of Present Illness: PGY-4 GI Fellow Consult Note Mrs. 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 Pt was recently admitted here last month for newly diagnosis cirrhosis and severe after presenting with signs of volume overload and GI bleed. Since DC, she states she has been in rehab working with PT. She states that she has been compliant with her medications as far as she can tell. She states that her BMs are normally green or brown but states that the last one was black, though she is on iron. She denied any CP, SOB, N/V, hematochezia. She states that she feels some abd distention when she has not moved her bowels or voided her bladder with regularity. In ED, she was found to have a Hgb of 8.3 from baseline of 8-9 during last admission. She was later admitted for blood transfusion and GI consult. 12 point ROS negative other than stated above MHx: See above SurgHx: Cardiac Cath. EGD 08/24/17 with GAVE s/p APC, no varices, short seg Ann's; CSPY: 1 hyperplastic polyp, 1 tubular adenoma, angioectasias s/p APC , diverticulosis. Meds: reviewed in MAR FamHx: Denied fam h/o GI probs SocHx: Denied x3 All: Reviewed in chart. Past Patient History - Past Social History Smoking Status: Never Smoked - CARDIAC Hx Cardiac Disorders: Yes (severe aortic stenosis) Hx Congestive Heart Failure: Yes Hx Hypercholesterolemia: Yes Hx Hypertension: Yes Hx Peripheral Edema: Yes - PULMONARY Hx Respiratory Disorders: Yes (PE) Hx Asthma: Yes Hx Bronchitis: Yes - NEUROLOGICAL Hx Neurological Disorder: Yes HX Cerebrovascular Accident: Yes - HEENT Hx HEENT Problems: Yes (wearing glasses and hard hearing) - RENAL Hx Chronic Kidney Disease: No - ENDOCRINE/METABOLIC Hx Endocrine Disorders: Yes Hx Diabetes Mellitus Type 2: Yes - HEMATOLOGICAL/ONCOLOGICAL Hx Blood Disorders: Yes Hx Anemia: Yes (Blood transfusion) Hx Cirrhosis: Yes - INTEGUMENTARY Hx Dermatological Problems: No (denies) - MUSCULOSKELETAL/RHEUMATOLOGICAL Hx Musculoskeletal Disorders: Yes Hx Back Pain: Yes (chronic back pain) Hx Falls: Yes - GASTROINTESTINAL Hx Gastrointestinal Disorders: Yes (HEMORRHOID,H/O GI BLEED,) - GENITOURINARY/GYNECOLOGICAL Hx Genitourinary Disorders: No - PSYCHIATRIC Hx Psychophysiologic Disorder: No (denies) Hx Depression: No Hx Emotional Abuse: No Hx Substance Use: No - SURGICAL HISTORY Hx Surgeries: Yes Hx Cardiac Catheterization: Yes - ANESTHESIA Hx Anesthesia Reactions: No Hx Malignant Hyperthermia: No Meds Allergies/Adverse Reactions: Allergies Allergy/AdvReac Type Severity Reaction Status Date / Time banana Allergy RASH Verified 09/29/17 17:37 codeine Allergy ANAPHYLAXIS Verified 09/29/17 17:37 diphenhydramine Allergy RASH Verified 09/29/17 17:37 [From Benadryl Allergy] erythromycin base Allergy RASH Verified 09/29/17 17:37 [From Erythrocin] Penicillins Allergy ANAPHYLAXIS Verified 09/29/17 17:37 shellfish derived Allergy ANAPHYLAXIS Verified 09/29/17 17:37 strawberry Allergy RASH Verified 09/29/17 17:37 Sulfa (Sulfonamide Allergy ANAPHYLAXIS Verified 09/29/17 17:37 Antibiotics) - Medications Medications: Current Medications Atorvastatin Calcium (Lipitor) 20 mg PO DIN [facility] Furosemide (Lasix) 20 mg PO DAILY [facility] Metformin HCl (Glucophage) 500 mg PO BID [facility] Last Admin: 09/30/17 09:18 Dose: 500 mg Metoprolol Tartrate (Lopressor) 12.5 mg PO BRKDIN [facility] Spironolactone (Aldactone) 25 mg PO BID [facility] Physical Exam - Constitutional Appears: No Acute Distress, Chronically Ill - Head Exam Head Exam: ATRAUMATIC, NORMAL INSPECTION - Eye Exam Eye Exam: EOMI, Scleral icterus. absent: Conjunctival injection - ENT Exam ENT Exam: Mucous Membranes Dry. absent: Mucous Membranes Moist, Normal External Ear Exam - Respiratory Exam Respiratory Exam: Clear to Auscultation Bilateral, NORMAL BREATHING PATTERN. absent: Wheezes - Cardiovascular Exam Cardiovascular Exam: REGULAR RHYTHM, RRR - GI/Abdominal Exam GI & Abdominal Exam: Distended (mild, dull to percussion, falnk fullness), Normal Bowel Sounds, Soft. absent: Bruit, Diminished Bowel Sounds, Guarding, Pulsatile Mass, Rebound, Rigid, Tenderness - Rectal Exam Rectal Exam: Deferred - Extremities Exam Extremities exam: Positive for: normal inspection, pedal edema (trace) - Neurological Exam Neurological exam: Alert, Oriented x3 - Psychiatric Exam Psychiatric exam: Normal Affect, Normal Mood - Skin Skin Exam: Dry, Intact Results - Vital Signs Recent Vital Signs: Last Vital Signs Temp 97.9 F 09/30/17 06:00 Pulse 99 H 09/30/17 06:00 Resp 20 09/30/17 06:00 BP 134/63 09/30/17 06:00 Pulse Ox 97 09/30/17 06:00 - Labs Result Diagrams: 09/30/17 08:40 09/30/17 08:40 Labs: Laboratory Results - last 24 hr 09/30/17 09/30/17 09/30/17 07:26 08:40 08:40 WBC 3.2 L RBC 3.08 L Hgb 9.1 L Hct 26.9 L MCV 87.3 MCH 29.5 MCHC 33.8 RDW 26.3 H Plt Count 119 L MPV 8.3 Gran % 58.8 Lymph % (Auto) 27.6 [place] % (Auto) 7.9 H Eos % (Auto) 5.1 H Baso % (Auto) 0.6 Gran # 1.85 Lymph # (Auto) 0.9 L [place] # (Auto) 0.3 Eos # (Auto) 0.2 Baso # (Auto) 0.02 Sodium 143 Potassium 3.7 Chloride 107 Carbon Dioxide 24 Anion Gap 16 BUN 12 Creatinine 0.6 L Est GFR ( Amer) > 60 Est GFR (Non-Af Amer) > 60 POC Glucose (mg/dL) 156 H Random Glucose 148 H Calcium 9.0 Total Bilirubin 1.9 H AST 28 ALT 16 Alkaline Phosphatase 68 Total Protein 7.1 Albumin 3.1 Globulin 4.0 Albumin/Globulin Ratio 0.8 L Assessment & Plan - Assessment and Plan (Free Text) Assessment: # Decompensated Cirrhosis: CP Class B, MELD-Na 143. Etiology perhaps NAFLD vs R sided CHF induced with severe TR on echo and pHTN? - Ascites: s/p Para x 2 during last admission. Supposed to be on furosemide and spironolactone, but unclear if was taking at rehab. - EGD: 08/22, with GAVE s/p APC, no varices. 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 # H/o PE: Previously on warfarin but since DCed due to bleeding concerns. # Severe and TR with pHTN: Cardiology recommend TAVR, seen last week by surgeon who recommended further PT prior to any procedure. Plan: - F/u transfusion, transfuse if Hgb < 7 - RUQ doppler to eval for PVT and ascites - Start Furosemide 20 mg gabino - Start Spironolactone 25 mg BID - Might need Paracentesis Pt discussed with Dr. Osei, see his attestation for further recs/changes. <Angie Osei V - Last Filed: 09/30/17 23:53> Meds - Medications Medications: Current Medications Acetaminophen (Tylenol 325mg Tab) 650 mg PO Q4H PRN PRN Reason: Pain, moderate (4-7) Last Admin: 09/30/17 23:29 Dose: 650 mg Atorvastatin Calcium (Lipitor) 20 mg PO DIN [facility] Last Admin: 09/30/17 18:00 Dose: Not Given Furosemide (Lasix) 20 mg PO DAILY [facility] Metformin HCl (Glucophage) 500 mg PO BID [facility] Last Admin: 09/30/17 17:58 Dose: 500 mg Metoprolol Tartrate (Lopressor) 12.5 mg PO BRKDIN [facility] Last Admin: 09/30/17 17:58 Dose: 12.5 mg Pantoprazole Sodium (Protonix Ec Tab) 40 mg PO 0600 [facility] Spironolactone (Aldactone) 25 mg PO BID [facility] Last Admin: 09/30/17 17:58 Dose: 25 mg Results - Vital Signs Recent Vital Signs: Last Vital Signs Temp 97.1 F L 09/30/17 17:44 Pulse 83 09/30/17 22:00 Resp 19 09/30/17 17:44 BP 132/59 L 09/30/17 17:58 Pulse Ox 97 09/30/17 06:00 - Labs Result Diagrams: 09/30/17 08:40 09/30/17 08:40 Labs: Laboratory Results - last 24 hr 09/30/17 09/30/17 09/30/17 07:26 08:40 08:40 WBC 3.2 L RBC 3.08 L Hgb 9.1 L Hct 26.9 L MCV 87.3 MCH 29.5 MCHC 33.8 RDW 26.3 H Plt Count 119 L MPV 8.3 Gran % 58.8 Lymph % (Auto) 27.6 [place] % (Auto) 7.9 H Eos % (Auto) 5.1 H Baso % (Auto) 0.6 Gran # 1.85 Lymph # (Auto) 0.9 L [place] # (Auto) 0.3 Eos # (Auto) 0.2 Baso # (Auto) 0.02 Sodium 143 Potassium 3.7 Chloride 107 Carbon Dioxide 24 Anion Gap 16 BUN 12 Creatinine 0.6 L Est GFR ( Amer) > 60 Est GFR (Non-Af Amer) > 60 POC Glucose (mg/dL) 156 H Random Glucose 148 H Calcium 9.0 Total Bilirubin 1.9 H AST 28 ALT 16 Alkaline Phosphatase 68 Total Protein 7.1 Albumin 3.1 Globulin 4.0 Albumin/Globulin Ratio 0.8 L 09/30/17 09/30/17 11:44 16:07 WBC RBC Hgb Hct MCV MCH MCHC RDW Plt Count MPV Gran % Lymph % (Auto) [place] % (Auto) Eos % (Auto) Baso % (Auto) Gran # Lymph # (Auto) [place] # (Auto) Eos # (Auto) Baso # (Auto) Sodium Potassium Chloride Carbon Dioxide Anion Gap BUN Creatinine Est GFR ( Amer) Est GFR (Non-Af Amer) POC Glucose (mg/dL) 171 H 185 H Random Glucose Calcium Total Bilirubin AST ALT Alkaline Phosphatase Total Protein Albumin Globulin Albumin/Globulin Ratio Attending/Attestation - Attestation I have personally seen and examined this patient.: Yes I have fully participated in the care of the patient.: Yes I have reviewed all pertinent clinical information: Yes Notes (Text): This is an addendum to GI consult report dictated by the GI Fellow.The patient was seen and examined earlier. Medical records, lab studies, imagings were reviewed. Last 24 hours events reviewed. Agreed with the above treatment plan as outlined in GI Fellow 's notes with the addition of the following discussed with the patient and also patient's family who were at bedside Admitted with a symptomatic anemia Previousendoscopic evaluation reviewed previous cath report review. In addition to the critiareas patient also has significant coronary artery may need PCI as per Dr. Muniz Patient is presently on Plavix, off Coumadin Status post 1 unit packed RBC transfusion The concern for her to have is ascites as per the patient The etiology for cirrhosis is not clear the differential diagnosisshould include a Yo cardiac cirrhosis and less likely autoimmune, patient's ARABELLA was positi low titer and anti-smooth muscle antody positive in low titer. Hemochromatosis genetic test was negative Would recommend patient on periodic IV infusion of iron until hemoglobin improves then long-term oral iron if the patient can tolerate otherwise she would benefit from maintenance in IV iron infusions. The possibility of patient having small bowel AVM is high in the background of patient having critical aortic stenosis Would increase the Aldactone to 50mg po BIDif blood pressure stable and continue Lasix at 20 mg titrated to 40mg if the patient can tolerate it in addition Aldactone 100mg and present dose of lasix Close monitoring of hemoglobin and hematocrit Close follow-up of electrolytes 09/30/17 23:44
--- NOTE | 2017-09-30 14:36 | CARD ---
APPROVED REPORT Date of service: 09/29/2017 EKG Measurement Heart [id number] <Conclusion> Sinus rhythm with premature atrial complexes Right bundle branch block T wave abnormality, consider inferior ischemia Abnormal ECG
[2017-10-01 07:37] LABS: HEMOGLOBIN 8.6 g/dL (12.0-16.0); MEAN CELL VOLUME 87.5 fl (80.0-105.0); MEAN CORPUSCULAR HEMOGLOBIN 29.1 pg (25.0-35.0); MEAN CORPUSCULAR HGB CONC 33.2 g/dl (31.0-37.0); MEAN PLATELET VOLUME 8.9 fl (7.0-11.0); RBC 2.96 10^6/uL (3.5-6.1); RED CELL DISTRIBUTION WIDTH 26.6 % (11.5-14.5)
[2017-10-01 07:46] LABS: INR 1.26; PROTHROMBIN TIME 14.6 SECONDS (9.4-12.5)
[2017-10-01 07:50] LABS: ALB/GLOB RATIO 0.7 (1.1-1.8); ALBUMIN 2.7 g/dL (3.0-4.8); ALT/SGPT 19 U/L (7-56); AST/SGOT 21 U/L (14-36); BLOOD UREA NITROGEN 13 mg/dL (7-21); CALCIUM 8.9 mg/dL (8.4-10.5); GFR NON-AFRICAN AMERICAN > 60
--- NOTE | 2017-10-01 13:33 | CP.PCM.PN ---
<Scottie Lipscomb - Last Filed: 10/01/17 16:16> Subjective - Date & Time of Evaluation Date of Evaluation: 10/01/17 Time of Evaluation: 15:30 - Subjective Subjective: PGY-4 GI Fellow Prog Note Mrs. Santiago was lying in bed when seen this PM. Some minor abd pain and loose stools which is not atypical for her. 5 point ROS negative other than stated above Objective - Vital Signs/Intake and Output Vital Signs (last 24 hours): Temp Pulse Resp BP Pulse Ox 97.6 F 74 20 117/47 L 100 10/01/17 06:00 10/01/17 10:17 10/01/17 06:00 10/01/17 10:17 10/01/17 06:00 - Medications Medications: Current Medications Acetaminophen (Tylenol 325mg Tab) 650 mg PO Q4H PRN PRN Reason: Pain, moderate (4-7) Last Admin: 09/30/17 23:29 Dose: 650 mg Atorvastatin Calcium (Lipitor) 20 mg PO DIN [facility] Last Admin: 09/30/17 18:00 Dose: Not Given Furosemide (Lasix) 20 mg PO DAILY [facility] Last Admin: 10/01/17 10:17 Dose: Not Given Metformin HCl (Glucophage) 500 mg PO BID [facility] Last Admin: 10/01/17 10:17 Dose: 500 mg Metoprolol Tartrate (Lopressor) 12.5 mg PO BRKDIN [facility] Last Admin: 10/01/17 10:17 Dose: 12.5 mg Pantoprazole Sodium (Protonix Ec Tab) 40 mg PO 0600 [facility] Spironolactone (Aldactone) 25 mg PO BID [facility] Last Admin: 10/01/17 10:17 Dose: 25 mg - Labs Labs: PT 14.6 SECONDS (9.4-12.5) H 10/01/17 07:00 INR 1.26 10/01/17 07:00 APTT 25.0 Seconds (25.1-36.5) L 09/29/17 18:20 - Constitutional Appears: No Acute Distress, Chronically Ill - Head Exam Head Exam: ATRAUMATIC, NORMAL INSPECTION - Eye Exam Eye Exam: EOMI. absent: Conjunctival injection, Scleral icterus - Respiratory Exam Respiratory Exam: absent: Accessory Muscle Use, Respiratory Distress - Cardiovascular Exam Cardiovascular Exam: REGULAR RHYTHM, RRR, Murmur (4/6 at RUSB) - GI/Abdominal Exam GI & Abdominal Exam: Distended (mildly with some ttp in LLQ), Soft, Tenderness ( LLQ), Normal Bowel Sounds. absent: Bruit, Firm, Guarding, Rigid, Organomegaly, Rebound Additional comments: flank fullness Assessment and Plan - Assessment and Plan (Free Text) Assessment: # Decompensated Cirrhosis: CP Class B, MELD-Na 143. Etiology perhaps NAFLD vs R sided CHF induced with severe TR on echo and pHTN? - Ascites: s/p Para x 2 during last admission. Supposed to be on furosemide and spironolactone, but unclear if was taking at rehab. New PVT seen on Doppler this admission, formal report pending to assess if signs of chronic PVT present - EGD: 08/22, with GAVE s/p APC, no varices. 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 # H/o PE: Previously on warfarin but since DCed due to bleeding concerns. # Severe and TR with pHTN: Cardiology recommend TAVR, seen last week by surgeon who recommended further PT prior to any procedure. Plan: - Increase Spironolactone from 25 mg BID to 50 mg BID - Cont Furosemide 20 mg daily - Daily CMPs, CBCx - Plan to await formal Doppler read to help decided whether to proceed with MRI or Triple phase CT to eval PVT further and r/o HCC - Check AFP in AM Pt discussed with Dr. Osei, see his attestation for further recs/changes. <Angie Osei V - Last Filed: 10/02/17 00:45> Objective - Vital Signs/Intake and Output Vital Signs (last 24 hours): Temp Pulse Resp BP Pulse Ox 97.6 F 75 20 110/56 L 100 10/01/17 23:57 10/01/17 23:57 10/01/17 23:57 10/01/17 23:57 10/01/17 23:57 Intake and Output: 10/01/17 10/02/17 18:59 06:59 Intake Total 712 Balance 712 - Medications Medications: Current Medications Acetaminophen (Tylenol 325mg Tab) 650 mg PO Q4H PRN PRN Reason: Pain, moderate (4-7) Last Admin: 09/30/17 23:29 Dose: 650 mg Atorvastatin Calcium (Lipitor) 20 mg PO DIN [facility] Last Admin: 10/01/17 18:13 Dose: 20 mg Furosemide (Lasix) 20 mg PO DAILY [facility] Last Admin: 10/01/17 10:17 Dose: Not Given Metformin HCl (Glucophage) 500 mg PO BID [facility] Last Admin: 10/01/17 18:13 Dose: 500 mg Metoprolol Tartrate (Lopressor) 12.5 mg PO BRKDIN [facility] Last Admin: 10/01/17 18:13 Dose: 12.5 mg Pantoprazole Sodium (Protonix Ec Tab) 40 mg PO 0600 [facility] Spironolactone (Aldactone) 50 mg PO BID [facility] Last Admin: 10/01/17 18:12 Dose: 50 mg - Labs Labs: PT 14.6 SECONDS (9.4-12.5) H 10/01/17 07:00 INR 1.26 10/01/17 07:00 APTT 25.0 Seconds (25.1-36.5) L 09/29/17 18:20 Attending/Attestation - Attestation I have personally seen and examined this patient.: Yes I have fully participated in the care of the patient.: Yes I have reviewed all pertinent clinical information, including history, physical exam and plan: Yes Notes (Text): This is an addendum to GI consult report dictated by the GI Fellow.The patient was seen and examined earlier. Medical records, lab studies, imagings were reviewed. Last 24 hours events reviewed. Agreed with the above treatment plan as outlined in GI Fellow 's notes with the addition of the following diuretics dose has been increased Repeat abdominal Doppler preliminary report is suggestive of portal vein thrombosis. Patient's previous Doppler done last month portal vein was patent We discussed with the interventional radiologist regarding repeat study CT with contrast versus MRI with contrast. The previous CT was done with no contrast. Ordered AFP 10/02/17 00:41
--- NOTE | 2017-10-01 14:36 | PN ---
SUBJECTIVE: The patient was seen and examined at bedside on the telemetry navarro. No acute events overnight. She remains afebrile and hemodynamically stable. This morning she reports feeling well, is moving her bowels and denies melena, hematochezia or any overt blood loss. She is presently pending an abdominal ultrasound as per GI. OBJECTIVE: VITAL SIGNS: Temperature 97.6, pulse 74, blood pressure 117/47, respiratory rate 20, oxygen saturation 100% on room air. GENERAL: No apparent distress. HEENT: PERRL, EOMI. No scleral icterus. Mild conjunctival pallor is noted. NECK: No JVD. LUNGS: Clear to auscultation. CARDIOVASCULAR: Regular rate and rhythm. Normal S1 and S2. Grade II/ MILTON to RUSB. ABDOMEN: Normoactive bowel sounds. Soft, nontender and nondistended. EXTREMITIES: No edema. NEUROLOGIC: Awake, alert and oriented x 3. No focal motor deficits. LABORATORY DATA: WBC 3, hemoglobin 9.6, hematocrit 26, platelets 124. Chemistry reviewed and unremarkable. 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 PLAN: 1. 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 She remains at her baseline Hb of 8-9. We will continue to monitor CBC daily and transfuse as needed. Input from Dr. Osei noted and appreciated and the patient is pending an abdominal ultrasound. 2. Critical aortic stenosis. The patient remains chest pain free and hemodynamically stable. She has ongoing care at [facility] for a TAVR. 3. CAD. Recent cardiac catheterization demonstrated a 60% proximal LAD lesion and the patient was advised that this may need to be pursued after she undergoes her TAVR. 4. Hypertension. Blood pressure controlled. Continue current medications. 5. History of remote PE. The patient remains off anticoagulation therapy given her chronic GI losses. 6. NIDDM. Continue Metformin 500 mg p.o. b.i.d. 7. Vitamin B12 deficiency. 8. Cirrhosis of unclear etiology but likely favors cardiac cirrhosis +/- FORD. Continue with care as per Dr. Osei. 9. Prophylaxis. GI prophylaxis is not indicated as the patient is eating. DVT prophylaxis is not indicated as the patient is ambulatory. CODE STATUS: Full code. Robin Richards MD MTDOlivia
[2017-10-02] MEDS: Pantoprazole 40 mg EC Tab PO SCH (05:28)
[2017-10-02 07:28] LABS: HEMOGLOBIN 8.4 g/dL (12.0-16.0); MEAN CELL VOLUME 88.5 fl (80.0-105.0); MEAN CORPUSCULAR HEMOGLOBIN 29.3 pg (25.0-35.0); MEAN CORPUSCULAR HGB CONC 33.1 g/dl (31.0-37.0); MEAN PLATELET VOLUME 8.7 fl (7.0-11.0); RBC 2.87 10^6/uL (3.5-6.1); RED CELL DISTRIBUTION WIDTH 25.9 % (11.5-14.5); WHITE BLOOD COUNT 3.4 10^3/ul (4.5-11.0)
[2017-10-02 07:40] LABS: ALB/GLOB RATIO 0.7 (1.1-1.8); ALBUMIN 2.7 g/dL (3.0-4.8); ALT/SGPT 18 U/L (7-56); AST/SGOT 19 U/L (14-36); BLOOD UREA NITROGEN 14 mg/dL (7-21); CALCIUM 9.2 mg/dL (8.4-10.5); GFR NON-AFRICAN AMERICAN > 60
--- NOTE | 2017-10-02 09:38 | PN ---
SUBJECTIVE: The patient was seen and examined at bedside on the telemetry navarro. No acute events overnight. She remains afebrile and hemodynamically stable. This morning she reports feeling well, is moving her bowels and denies melena, hematochezia or any overt blood loss. She had an abdominal ultrasound with the preliminary read reportedly demonstrating a portal vein thrombus and, as such, is scheduled for an MRI of the abdomen. OBJECTIVE: VITAL SIGNS: Temperature 98, pulse 75, blood pressure 113/50, respiratory rate 20, oxygen saturation 97% on room air. GENERAL: No apparent distress. HEENT: PERRL, EOMI. No scleral icterus. Mild conjunctival pallor is noted. NECK: No JVD. LUNGS: Clear to auscultation. CARDIOVASCULAR: Regular rate and rhythm. Normal S1 and S2. Grade II/ MILTON to RUSB. ABDOMEN: Normoactive bowel sounds. Soft, nontender, nondistended. EXTREMITIES: No edema. NEUROLOGIC: Awake, alert and oriented x 3. No focal motor deficits. LABORATORY DATA: WBC 3.4, hemoglobin 8.4, hematocrit 25, platelets 129. Chemistry reviewed and unremarkable. 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 PLAN: 1. 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 She remains at her baseline Hb of 8-9. We will continue to monitor CBC daily and transfuse as needed. 2. Cirrhosis of unclear etiology although favor cardiac cirrhosis +/- FORD. Input from Dr. Osei greatly appreciated. The patient is s/p abdominal ultrasound with preliminary report demonstrating possible portal vein thrombus. She is scheduled for an MRI of the abdomen. Continue Lasix 20 mg p.o. daily and Spironolactone 50 mg p.o. b.i.d. 3. Critical aortic stenosis. The patient remains chest pain free and hemodynamically stable. Arrangements are in process for TAVR at [facility]. 4. CAD. A recent cardiac catheterization demonstrated a 60% proximal LAD lesion and the patient was advised that this may need to be instrumented after undergoing TAVR. 5. Hypertension. Blood pressure controlled. Continue Metoprolol 12.5 mg p.o. b.i.d. 6. History of remote PE. The patient remains off anticoagulation therapy given her chronic GI blood loss. 7. NIDDM. Continue Metformin 500 mg p.o. b.i.d. 8. Vitamin B12 deficiency. The patient receives monthly B12 injections. 9. Prophylaxis. GI prophylaxis not indicated as the patient is eating. DVT prophylaxis not indicated as the patient is ambulatory. CODE STATUS: Full code. Robin Richards MD MTDOlivia
--- NOTE | 2017-10-02 11:18 | US ---
Date of service: 10/01/2017 PROCEDURE: ABDOMEN DUPLEX ULTRASOUND HISTORY: r/o portal vein thrombosis COMPARISON: Portal vein duplex ultrasound 08/21/2017. TECHNIQUE: Duplex and spectral Doppler analysis of the portal and hepatic veins is been performed as well as the hepatic artery, abdominal aorta and inferior vena cava. FINDINGS: There is no detectable color or spectral Doppler blood flow identified subpleural the main portal vein suggesting at least partial if not near complete thrombosis. Follow-up CT with contrast is advised if there is no contraindication. Normal hepatic arterial blood flows appreciated as well as abdominal aortic and main segment, right and left hepatic venous blood flow. IMPRESSION: Findings suspicious for interval subtotal if not near complete thrombosis of the main portal vein. Follow-up contrast CT is advised for further characterization.
--- NOTE | 2017-10-02 15:33 | CP.PCM.PCO ---
Physician Communication Note - Physician Communication Note Physician Communication Note: Discussed w/Dr. Swain, order MRI w/wo contrast
--- NOTE | 2017-10-02 16:34 | CP.PCM.CON ---
History of Present Illness - History of Present Illness History of Present Illness: Heme/Onc Consult Note for Dr. 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 Patient was admitted to [facility] about one month ago where she underwent upper and lower endoscopy with Dr. 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 On this admission, she was found to have a hemoglobin of 8.3 in the ED and was transfused 1 unit of pRBC and admitted. Patient had abdominal US performed, which showed subtotal thrombosis of the portal vein. Hematology was consulted for further recommendations. Patient also complained of right lower extremity pain. Patient denied CP, SOB, n/v/d, abdominal pain, fever, chills, [place], or dizziness. PMH: as above Surg: cholecystectomy and tonsillectomy All: banana, codeine, benadryl, penicillin, shellfish, straberry, sulfa SH: Denies tobacco, EtOH, or illicit drug use FHx: CAD, HTN, and HLD Review of Systems - Review of Systems All systems: reviewed and no additional remarkable complaints except (12 point ROS reviewed and is negative other than what is stated in HPI.) Past Patient History - Past Social History Smoking Status: Never Smoked - CARDIAC Hx Cardiac Disorders: Yes (severe aortic stenosis) Hx Congestive Heart Failure: Yes Hx Hypercholesterolemia: Yes Hx Hypertension: Yes Hx Peripheral Edema: Yes - PULMONARY Hx Respiratory Disorders: Yes (PE) Hx Asthma: Yes Hx Bronchitis: Yes - NEUROLOGICAL Hx Neurological Disorder: Yes HX Cerebrovascular Accident: Yes - HEENT Hx HEENT Problems: Yes (wearing glasses and hard hearing) - RENAL Hx Chronic Kidney Disease: No - ENDOCRINE/METABOLIC Hx Endocrine Disorders: Yes Hx Diabetes Mellitus Type 2: Yes - HEMATOLOGICAL/ONCOLOGICAL Hx Blood Disorders: Yes Hx Anemia: Yes (Blood transfusion) Hx Cirrhosis: Yes - INTEGUMENTARY Hx Dermatological Problems: No (denies) - MUSCULOSKELETAL/RHEUMATOLOGICAL Hx Musculoskeletal Disorders: Yes Hx Back Pain: Yes (chronic back pain) Hx Falls: Yes - GASTROINTESTINAL Hx Gastrointestinal Disorders: Yes (HEMORRHOID,H/O GI BLEED,) - GENITOURINARY/GYNECOLOGICAL Hx Genitourinary Disorders: No - PSYCHIATRIC Hx Psychophysiologic Disorder: No (denies) Hx Depression: No Hx Emotional Abuse: No Hx Substance Use: No - SURGICAL HISTORY Hx Surgeries: Yes Hx Cardiac Catheterization: Yes - ANESTHESIA Hx Anesthesia Reactions: No Hx Malignant Hyperthermia: No Meds Allergies/Adverse Reactions: Allergies Allergy/AdvReac Type Severity Reaction Status Date / Time banana Allergy RASH Verified 09/29/17 17:37 codeine Allergy ANAPHYLAXIS Verified 09/29/17 17:37 diphenhydramine Allergy RASH Verified 09/29/17 17:37 [From Benadryl Allergy] erythromycin base Allergy RASH Verified 09/29/17 17:37 [From Erythrocin] Penicillins Allergy ANAPHYLAXIS Verified 09/29/17 17:37 shellfish derived Allergy ANAPHYLAXIS Verified 09/29/17 17:37 strawberry Allergy RASH Verified 09/29/17 17:37 Sulfa (Sulfonamide Allergy ANAPHYLAXIS Verified 09/29/17 17:37 Antibiotics) - Medications Medications: Current Medications Acetaminophen (Tylenol 325mg Tab) 650 mg PO Q4H PRN PRN Reason: Pain, moderate (4-7) Last Admin: 10/02/17 05:53 Dose: 650 mg Atorvastatin Calcium (Lipitor) 20 mg PO DIN [facility] Last Admin: 10/01/17 18:13 Dose: 20 mg Furosemide (Lasix) 20 mg PO DAILY [facility] Last Admin: 10/02/17 09:29 Dose: 20 mg Metformin HCl (Glucophage) 500 mg PO BID [facility] Last Admin: 10/02/17 09:30 Dose: 500 mg Metoprolol Tartrate (Lopressor) 12.5 mg PO BRKDIN [facility] Last Admin: 10/02/17 09:30 Dose: 12.5 mg Pantoprazole Sodium (Protonix Ec Tab) 40 mg PO 0600 [facility] Last Admin: 10/02/17 05:28 Dose: 40 mg Spironolactone (Aldactone) 50 mg PO BID [facility] Last Admin: 10/02/17 09:30 Dose: 50 mg Physical Exam - Constitutional Appears: No Acute Distress - Head Exam Head Exam: NORMAL INSPECTION - Eye Exam Eye Exam: Normal appearance - ENT Exam ENT Exam: Normal Exam - Neck Exam Neck exam: Positive for: Normal Inspection - Respiratory Exam Respiratory Exam: Clear to Auscultation Bilateral. absent: Rales, Rhonchi, Wheezes - Cardiovascular Exam Cardiovascular Exam: RRR, +S1, +S2, Systolic Murmur (heard best at left sternal border). absent: Gallop, Rubs - GI/Abdominal Exam GI & Abdominal Exam: Distended, Soft. absent: Guarding, Rebound Additional comments: no spider angiomas, no caput medusae - Extremities Exam Additional comments: positive Heberden nodes; no palmar erythema, contractures, benitez's nails - Back Exam Back exam: NORMAL INSPECTION - Neurological Exam Neurological exam: Alert, CN II-XII Intact, Oriented x3 - Psychiatric Exam Psychiatric exam: Normal Affect, Normal Mood - Skin Skin Exam: Dry, Intact, Normal Color, Warm Results - Vital Signs Recent Vital Signs: Last Vital Signs Temp 97.8 F 10/02/17 12:00 Pulse 73 10/02/17 12:00 Resp 18 10/02/17 12:00 BP 125/63 10/02/17 12:00 Pulse Ox 97 10/02/17 06:00 - Labs Result Diagrams: 10/02/17 06:30 10/02/17 06:30 Labs: Laboratory Results - last 24 hr 10/01/17 10/01/17 10/02/17 17:06 21:21 06:30 WBC 3.4 L RBC 2.87 L Hgb 8.4 L Hct 25.4 L MCV 88.5 MCH 29.3 MCHC 33.1 RDW 25.9 H Plt Count 129 MPV 8.7 Sodium Potassium Chloride Carbon Dioxide Anion Gap BUN Creatinine Est GFR ( Amer) Est GFR (Non-Af Amer) POC Glucose (mg/dL) 206 H 272 H Random Glucose Calcium Total Bilirubin AST ALT Alkaline Phosphatase Total Protein Albumin Globulin Albumin/Globulin Ratio 10/02/17 10/02/17 10/02/17 06:30 07:17 11:30 WBC RBC Hgb Hct MCV MCH MCHC RDW Plt Count MPV Sodium 141 Potassium 3.9 Chloride 108 H Carbon Dioxide 23 Anion Gap 13 BUN 14 Creatinine 0.7 Est GFR ( Amer) > 60 Est GFR (Non-Af Amer) > 60 POC Glucose (mg/dL) 148 H 189 H Random Glucose 141 H Calcium 9.2 Total Bilirubin 1.0 AST 19 ALT 18 Alkaline Phosphatase 61 Total Protein 6.4 Albumin 2.7 L Globulin 3.7 Albumin/Globulin Ratio 0.7 L Assessment & Plan - Assessment and Plan (Free Text) Assessment: 72 yo F with PMH of FORD and cardiac cirrhosis, ascites, colonic polyps, Ann 's esophagus, DM, HTN, 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 Hematology was consulted due to subtotal portal vein thrombosis found on US. Plan: - Abdominal US showed subtotal portal vein thrombosis - F/u abdominal MRI - Would hold off on anticoagulation at this time in the setting of cirrhosis and low-normal platelet count - Will reassess anticoagulation after MRI - Paroxysmal nocturnal hemoglobinuria included in differential, but unlikely with normal LDH. Flow cytometry and retic ordered to rule out. - Cont Lasix and Aldactone per GI - GI following - ID [email or web address] [email or web address] Case discussed with Dr. Cifuentes. Ryan Lomeli DO PGY2
--- NOTE | 2017-10-02 18:17 | CP.PCM.PN ---
<Franko Tam - Last Filed: 10/02/17 18:27> Subjective - Date & Time of Evaluation Date of Evaluation: 10/02/17 Time of Evaluation: 18:17 - Subjective Subjective: GI Progress Note for Dr. Osei's Service- Rahul, PGY2 Patient seen and assessed at bedside. No acute events overnight. Patient denies any complaints at this time including fevers, chills, headache, chest pain, SOB , abdominal pain, N/V/D/C, changes in urine output or any skin changes. Objective - Vital Signs/Intake and Output Vital Signs (last 24 hours): Temp Pulse Resp BP Pulse Ox 97.8 F 73 18 112/46 L 97 10/02/17 12:00 10/02/17 17:50 10/02/17 12:00 10/02/17 17:50 10/02/17 06:00 Intake and Output: 10/02/17 10/02/17 06:59 18:59 Intake Total 420 Output Total 350 Balance 70 - Medications Medications: Current Medications Acetaminophen (Tylenol 325mg Tab) 650 mg PO Q4H PRN PRN Reason: Pain, moderate (4-7) Last Admin: 10/02/17 05:53 Dose: 650 mg Atorvastatin Calcium (Lipitor) 20 mg PO DIN [facility] Last Admin: 10/02/17 17:49 Dose: Not Given Furosemide (Lasix) 20 mg PO DAILY [facility] Last Admin: 10/02/17 09:29 Dose: 20 mg Metformin HCl (Glucophage) 500 mg PO BID [facility] Last Admin: 10/02/17 17:50 Dose: Not Given Metoprolol Tartrate (Lopressor) 12.5 mg PO BRKDIN [facility] Last Admin: 10/02/17 17:50 Dose: 12.5 mg Pantoprazole Sodium (Protonix Ec Tab) 40 mg PO 0600 [facility] Last Admin: 10/02/17 05:28 Dose: 40 mg Spironolactone (Aldactone) 50 mg PO BID [facility] Last Admin: 10/02/17 09:30 Dose: 50 mg - Labs Labs: 10/02/17 06:30 10/02/17 06:30 PT 14.6 SECONDS (9.4-12.5) H 10/01/17 07:00 INR 1.26 10/01/17 07:00 APTT 25.0 Seconds (25.1-36.5) L 09/29/17 18:20 - Constitutional Appears: Non-toxic, No Acute Distress - Head Exam Head Exam: ATRAUMATIC, NORMOCEPHALIC - Eye Exam Eye Exam: EOMI, Normal appearance, PERRL - ENT Exam ENT Exam: Mucous Membranes Moist - Neck Exam Neck Exam: Full ROM - Respiratory Exam Respiratory Exam: Clear to Ausculation Bilateral, NORMAL BREATHING PATTERN. absent: Accessory Muscle Use, Chest Wall Tenderness, Decreased Breath Sounds, Prolonged Expiratory Phase, Rales, Rhonchi, Wheezes, Respiratory Distress, Stridor - Cardiovascular Exam Cardiovascular Exam: REGULAR RHYTHM, RRR, +S1, +S2, Murmur (Grade I/II systolic ejection murmur) - GI/Abdominal Exam GI & Abdominal Exam: Soft, Normal Bowel Sounds. absent: Distended, Firm, Guarding, Rigid, Tenderness - Extremities Exam Extremities Exam: Full ROM, Normal Capillary Refill, Normal Inspection - Neurological Exam Neurological Exam: Alert, Awake, Oriented x3 - Psychiatric Exam Psychiatric exam: Normal Affect, Normal Mood - Skin Skin Exam: Dry, Intact, Normal Color, Warm Assessment and Plan - Assessment and Plan (Free Text) Assessment: 72 year old female with a past medical history significant for , suspected FORD +/- Cardiac Cirrhosis (c/b Ascites, GAVE s/p APC, no varices on 08/24/17), Colonic Angioectasias (Heyde Syndrome), Colonic polyps, Ann's, DM, HTN, and pHTN who presented from rehab for reported drop in hemoglobin. Patient was found to have portal vein thrombosis on abdominal US. Plan: -Abdominal US showed portal vein thrombosis; See report for further details -Abdominal MRI w/o contrast pending to r/o HCC -IR and Heme/Onc consulted, all recommendations appreciated -Holding diuretics (Lasix and Aldactone) -AFP pending -Daily CBC's, INR's and CMP's -Continue daily PPI -Heart Healthy/Moderate Carb Consistent diet Patient seen and case discussed with attending, Dr. Osei. <Angie Osei V - Last Filed: 10/03/17 06:34> Objective - Vital Signs/Intake and Output Vital Signs (last 24 hours): Temp Pulse Resp BP Pulse Ox 98.4 F 72 18 101/50 L 94 L 10/02/17 21:48 10/02/17 21:48 10/02/17 21:48 10/02/17 21:48 10/02/17 21:48 Intake and Output: 10/02/17 10/03/17 18:59 06:59 Intake Total 780 Output Total 350 Balance 430 - Medications Medications: Current Medications Acetaminophen (Tylenol 325mg Tab) 650 mg PO Q4H PRN PRN Reason: Pain, moderate (4-7) Last Admin: 10/03/17 03:21 Dose: 650 mg Atorvastatin Calcium (Lipitor) 20 mg PO DIN [facility] Last Admin: 10/02/17 17:49 Dose: Not Given Furosemide (Lasix) 20 mg PO DAILY [facility] Last Admin: 10/02/17 09:29 Dose: 20 mg Metformin HCl (Glucophage) 500 mg PO BID [facility] Last Admin: 10/02/17 17:50 Dose: Not Given Metoprolol Tartrate (Lopressor) 12.5 mg PO BRKDIN [facility] Last Admin: 10/02/17 17:50 Dose: 12.5 mg Pantoprazole Sodium (Protonix Ec Tab) 40 mg PO 0600 [facility] Last Admin: 10/03/17 05:06 Dose: 40 mg Spironolactone (Aldactone) 50 mg PO BID [facility] Last Admin: 10/02/17 09:30 Dose: 50 mg - Labs Labs: 10/02/17 06:30 10/02/17 06:30 PT 14.6 SECONDS (9.4-12.5) H 10/01/17 07:00 INR 1.26 10/01/17 07:00 APTT 25.0 Seconds (25.1-36.5) L 09/29/17 18:20 Attending/Attestation - Attestation I have personally seen and examined this patient.: Yes I have fully participated in the care of the patient.: Yes I have reviewed all pertinent clinical information, including history, physical exam and plan: Yes
[2017-10-03] MEDS: Pantoprazole 40 mg EC Tab PO SCH (05:06)
[2017-10-03 07:10] LABS: HEMOGLOBIN 8.3 g/dL (12.0-16.0); MEAN CELL VOLUME 88.7 fl (80.0-105.0); MEAN CORPUSCULAR HEMOGLOBIN 29.4 pg (25.0-35.0); MEAN CORPUSCULAR HGB CONC 33.2 g/dl (31.0-37.0); MEAN PLATELET VOLUME 8.9 fl (7.0-11.0); RBC 2.82 10^6/uL (3.5-6.1); RED CELL DISTRIBUTION WIDTH 25.8 % (11.5-14.5)
[2017-10-03 07:13] LABS: INR 1.29; PARTIAL THROMBOPLASTIN TIME 29.7 Seconds (25.1-36.5); PROTHROMBIN TIME 14.9 SECONDS (9.4-12.5)
[2017-10-03 07:27] LABS: ALB/GLOB RATIO 0.7 (1.1-1.8); ALBUMIN 2.7 g/dL (3.0-4.8); ALT/SGPT 15 U/L (7-56); AST/SGOT 21 U/L (14-36); BLOOD UREA NITROGEN 14 mg/dL (7-21); CALCIUM 9.4 mg/dL (8.4-10.5); GFR NON-AFRICAN AMERICAN > 60
[2017-10-03 07:57] LABS: WHITE BLOOD COUNT 2.8 10^3/ul (4.5-11.0)
--- NOTE | 2017-10-03 08:40 | PN ---
SUBJECTIVE: The patient was seen and examined at bedside on the telemetry navarro. No acute events overnight. She remains afebrile and hemodynamically stable. She is pending an MRI of the abdomen to further assess possible portal vein thrombus as per abdominal ultrasound. Otherwise she feels ok and offers no new complaints. OBJECTIVE: VITAL SIGNS: Temperature 98.4, pulse 72, blood pressure 101/50, respiratory rate 18, oxygen saturation 94% on room air. GENERAL: No apparent distress. HEENT: PERRL, EOMI. No scleral icterus. Mild conjunctival pallor is noted. NECK: No JVD. LUNGS: Clear to auscultation. CARDIOVASCULAR: Regular rate and rhythm. Normal S1 and S2. Grade II/ MILTON to RUSB. ABDOMEN: Normoactive bowel sounds. Soft, nontender, nondistended. EXTREMITIES: No edema. NEUROLOGIC: Awake, alert and oriented x 3. No focal motor deficits. LABORATORY DATA: Morning labs are pending. 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 PLAN: 1. 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 She remains at her baseline Hb of 8-9. Continue to monitor CBC daily and transfuse as needed. 2. Cirrhosis of unclear etiology, although favor cardiac cirrhosis +/- FORD. Input from Dr. Osei greatly appreciated. MRI of the abdomen is pending. Continue Lasix 20 mg p.o. daily and Aldactone 50 mg p.o. b.i.d. 3. Critical aortic stenosis. Arrangements are in process for TAVR at [facility]. 4. Portal vein thrombosis. Input from Dr. Osei greatly appreciated. Input from Dr. Cifuentes greatly appreciated. The patient is pending MRI of the abdomen. 5. Nonobstructive CAD. A recent catheterization demonstrated 60% proximal LAD lesion and the patient was advised that this may need to be instrumented after undergoing TAVR. 6. Hypertension. Blood pressure controlled. Continue Metoprolol 12.5 mg p.o. b.i.d. 7. History of remote PE. The patient remains off anticoagulation therapy given her chronic GI blood loss. 7. NIDDM. We will d/c Metformin 500 mg p.o. b.i.d and start medium dose insulin sliding scale. 8. Vitamin B12 deficiency. The patient receives monthly B12 injections. 9. Prophylaxis. GI prophylaxis not indicated as the patient is eating. DVT prophylaxis not indicated as the patient is ambulatory. CODE STATUS: Full code. Robin Richards MD MTDD
[2017-10-03] MEDS ORDERED: Gadodiamide 287 MG/ML VIAL (15ML) IV ONE (08:51)
--- NOTE | 2017-10-03 11:10 | CP.PCM.PN ---
<Franko Tam - Last Filed: 10/03/17 20:03> Subjective - Date & Time of Evaluation Date of Evaluation: 10/03/17 Time of Evaluation: 11:08 - Subjective Subjective: GI Progress Note for Dr. Osei's Service- Rahul, PGY2 Patient seen and assessed at bedside. No acute events overnight. Patient refused CT scan yesterday as patient thought she was allergic to the dye but aware of Abdominal MRI today. Patient denies any complaints at this time including fevers, chills, headache, chest pain, SOB, abdominal pain, N/V/D/C, changes in urine output or any skin changes. Objective - Vital Signs/Intake and Output Vital Signs (last 24 hours): Temp Pulse Resp BP Pulse Ox 97.9 F 79 20 116/52 L 95 10/03/17 06:00 10/03/17 06:00 10/03/17 06:00 10/03/17 09:45 10/03/17 06:00 Intake and Output: 10/03/17 10/03/17 06:59 18:59 Intake Total 780 Output Total 350 Balance 430 - Medications Medications: Current Medications Acetaminophen (Tylenol 325mg Tab) 650 mg PO Q4H PRN PRN Reason: Pain, moderate (4-7) Last Admin: 10/03/17 03:21 Dose: 650 mg Atorvastatin Calcium (Lipitor) 20 mg PO DIN [facility] Last Admin: 10/02/17 17:49 Dose: Not Given Furosemide (Lasix) 20 mg PO DAILY [facility] Last Admin: 10/02/17 09:29 Dose: 20 mg Insulin Human Regular (Humulin R Med) 0 units SC ACHS [facility] PRN Reason: Protocol Metoprolol Tartrate (Lopressor) 12.5 mg PO BRKDIN [facility] Last Admin: 10/03/17 09:45 Dose: Not Given Pantoprazole Sodium (Protonix Ec Tab) 40 mg PO 0600 [facility] Last Admin: 10/03/17 05:06 Dose: 40 mg Spironolactone (Aldactone) 50 mg PO BID [facility] Last Admin: 10/02/17 09:30 Dose: 50 mg - Labs Labs: 10/03/17 06:30 10/03/17 06:30 PT 14.9 SECONDS (9.4-12.5) H 10/03/17 06:30 INR 1.29 10/03/17 06:30 APTT 29.7 Seconds (25.1-36.5) 10/03/17 06:30 - Constitutional Appears: Non-toxic, No Acute Distress - Head Exam Head Exam: ATRAUMATIC, NORMOCEPHALIC - Eye Exam Eye Exam: EOMI, Normal appearance - ENT Exam ENT Exam: Mucous Membranes Moist - Neck Exam Neck Exam: Full ROM - Respiratory Exam Respiratory Exam: Clear to Ausculation Bilateral, NORMAL BREATHING PATTERN. absent: Accessory Muscle Use, Chest Wall Tenderness, Decreased Breath Sounds, Prolonged Expiratory Phase, Rales, Rhonchi, Wheezes, Respiratory Distress, Stridor - Cardiovascular Exam Cardiovascular Exam: REGULAR RHYTHM, RRR, +S1, +S2, Murmur. absent: Bradycardia , Tachycardia, Clicks, Diastolic murmur, Gallop, Irregular Rhythm, JVD, Rubs, + S4 - GI/Abdominal Exam GI & Abdominal Exam: Soft, Normal Bowel Sounds. absent: Distended, Firm, Guarding, Rigid, Tenderness, Organomegaly, Rebound - Extremities Exam Extremities Exam: Normal Capillary Refill. absent: Calf Tenderness, Joint Swelling, Pedal Edema, Tenderness - Neurological Exam Neurological Exam: Alert, Awake, Oriented x3 - Psychiatric Exam Psychiatric exam: Normal Affect, Normal Mood - Skin Skin Exam: Dry, Intact, Normal Color, Warm Assessment and Plan - Assessment and Plan (Free Text) Assessment: 72 year old female with a past medical history significant for , suspected FORD +/- Cardiac Cirrhosis (c/b Ascites, GAVE s/p APC, no varices on 08/24/17), Colonic Angioectasias (Heyde Syndrome), Colonic polyps, Ann's, DM, HTN, and pHTN who presented from rehab for reported drop in hemoglobin. Patient was found to have portal vein thrombosis on abdominal US. IR and Heme/Onc consulted and patient pending Abdominal MRI today (10/03). Plan: -Abdominal US showed portal vein thrombosis; See report for further details -Abdominal MRI w/o contrast pending to r/o HCC; Will follow up results -Will resume diuretics as scheduled tomorrow (10/04) -AFP within normal limits -Daily CBC's, INR's and CMP's -Continue daily PPI -Heart Healthy/Moderate Carb Consistent diet -IR and Heme/Onc consulted, all recommendations appreciated Patient seen and case discussed with attending, Dr. Osei. <Angie Osei V - Last Filed: 10/03/17 23:39> Objective - Vital Signs/Intake and Output Vital Signs (last 24 hours): Temp Pulse Resp BP Pulse Ox 97.8 F 83 20 144/63 97 10/03/17 14:00 10/03/17 14:00 10/03/17 14:00 10/03/17 14:00 10/03/17 14:00 - Medications Medications: Current Medications Acetaminophen (Tylenol 325mg Tab) 650 mg PO Q4H PRN PRN Reason: Pain, moderate (4-7) Last Admin: 10/03/17 22:18 Dose: 650 mg Atorvastatin Calcium (Lipitor) 20 mg PO DIN [facility] Last Admin: 10/03/17 17:12 Dose: 20 mg Furosemide (Lasix) 20 mg PO DAILY [facility] Last Admin: 10/02/17 09:29 Dose: 20 mg Insulin Human Regular (Humulin R Med) 0 units SC ACHS [facility] PRN Reason: Protocol Last Admin: 10/03/17 17:12 Dose: 3 units Metoprolol Tartrate (Lopressor) 12.5 mg PO BRKDIN [facility] Last Admin: 10/03/17 17:12 Dose: 12.5 mg Pantoprazole Sodium (Protonix Ec Tab) 40 mg PO 0600 [facility] Last Admin: 10/03/17 05:06 Dose: 40 mg Spironolactone (Aldactone) 50 mg PO BID [facility] Last Admin: 10/02/17 09:30 Dose: 50 mg - Labs Labs: 10/03/17 06:30 10/03/17 06:30 PT 14.9 SECONDS (9.4-12.5) H 10/03/17 06:30 INR 1.29 10/03/17 06:30 APTT 29.7 Seconds (25.1-36.5) 10/03/17 06:30 Attending/Attestation - Attestation I have personally seen and examined this patient.: Yes I have fully participated in the care of the patient.: Yes I have reviewed all pertinent clinical information, including history, physical exam and plan: Yes
[2017-10-03] MEDS: Insulin Reg-MEDIUM-Coverage SC SCH ×2 (12:10→17:12)
--- NOTE | 2017-10-03 16:03 | MRI ---
Date of service: 10/03/2017 PROCEDURE: MRI Abdomen with and without contrast HISTORY: Rule out hepatoma and portal vein thrombosis COMPARISON: Doppler ultrasound 10/01/2017. TECHNIQUE: Multisequence, multiplanar MR images of the abdomen with and without gadolinium contrast enhancement. 15 cc of Omniscan FINDINGS: LIVER: The liver is atrophic and irregular in contour consistent with cirrhosis. There is no evidence of tumor The recent Doppler ultrasound exam showed no significant flow in the portal vein. There is some enhancement of the portal vein on MRI. The postcontrast images were somewhat degraded by motion artifact. The findings are consistent with partial thrombosis. There is no evidence of cavernous transformation. There is no evidence of acute thrombus within the portal vein. In this case the ultrasound findings are probably more reliable than MRI in evaluating the portal vein. GALLBLADDER: Removed SPLEEN: Mild splenomegaly measuring 14 cm in height by 13 cm AP x 7.8 cm wide. PANCREAS: Unremarkable. ADRENALS: Unremarkable. KIDNEYS: Unremarkable. AORTA: No aneurysm. ASCITES: None. PERITONEUM: There is a large amount of ascites surrounding the liver and spleen LYMPH NODES: Unremarkable. OTHER FINDINGS: None. IMPRESSION: No evidence of hepatoma. There is some enhancement of the portal vein on MRI. The postcontrast images were somewhat degraded by motion artifact. The findings are consistent with partial thrombosis. There is no evidence of cavernous transformation. There is no evidence of acute thrombus within the portal vein. In this case the ultrasound findings are probably more reliable than MRI in evaluating the portal vein.
[2017-10-04] MEDS: Pantoprazole 40 mg EC Tab PO SCH (05:53)
[2017-10-04 07:01] LABS: BASO # 0.03 K/mm3 (0.0-2.0); EOS # 0.2 (0.0-0.7); GRAN # 1.41 (1.4-6.5); GRAN % 47.3 % (50.0-68.0); HEMOGLOBIN 8.4 g/dL (12.0-16.0); LYMPH % 34.6 % (22.0-35.0); MEAN CELL VOLUME 90.2 fl (80.0-105.0); MEAN CORPUSCULAR HEMOGLOBIN 29.5 pg (25.0-35.0); MEAN CORPUSCULAR HGB CONC 32.7 g/dl (31.0-37.0); MEAN PLATELET VOLUME 9.5 fl (7.0-11.0); MONO # 0.3 (0.1-0.6); MONO % 11.1 % (1.0-6.0); RBC 2.85 10^6/uL (3.5-6.1); RED CELL DISTRIBUTION WIDTH 25.7 % (11.5-14.5)
[2017-10-04 07:47] LABS: ALB/GLOB RATIO 0.7 (1.1-1.8); ALBUMIN 2.6 g/dL (3.0-4.8); ALT/SGPT 17 U/L (7-56); AST/SGOT 22 U/L (14-36); BLOOD UREA NITROGEN 13 mg/dL (7-21); CALCIUM 9.1 mg/dL (8.4-10.5); GFR NON-AFRICAN AMERICAN > 60
[2017-10-04] MEDS: Insulin Reg-MEDIUM-Coverage SC SCH ×3 (08:36→17:05)
[2017-10-04 09:13] VITALS: RESP 18
--- NOTE | 2017-10-04 12:12 | CP.PCM.PN ---
Subjective - Date & Time of Evaluation Date of Evaluation: 10/04/17 Time of Evaluation: 09:50 - Subjective Subjective: S&E at bedside chart reviewed, no acute overnight events, denies N/V or abdominal pain. Had BM this am, no diarrhea or overt GI bleeding. Tolerating oral intake. S/P abdominal MRI found no liver lesion/mass , show atrophic and irregular liver consistent with cirrhosis. Portal thrombosis, no cavernous transformation, no acute thrombosis w/in portal vein. Objective - Vital Signs/Intake and Output Vital Signs (last 24 hours): Temp Pulse Resp BP Pulse Ox 97.6 F 78 18 102/44 L 94 L 10/04/17 06:00 10/04/17 08:37 10/04/17 06:00 10/04/17 08:37 10/04/17 06:00 Intake and Output: 10/04/17 10/04/17 06:59 18:59 Intake Total 120 300 Balance 120 300 - Medications Medications: Current Medications Acetaminophen (Tylenol 325mg Tab) 650 mg PO Q4H PRN PRN Reason: Pain, moderate (4-7) Last Admin: 10/04/17 04:30 Dose: 325 mg Atorvastatin Calcium (Lipitor) 20 mg PO DIN [facility] Last Admin: 10/03/17 17:12 Dose: 20 mg Furosemide (Lasix) 20 mg PO DAILY [facility] Last Admin: 10/02/17 09:29 Dose: 20 mg Insulin Human Regular (Humulin R Med) 0 units SC ACHS [facility] PRN Reason: Protocol Last Admin: 10/04/17 08:36 Dose: Not Given Metoprolol Tartrate (Lopressor) 12.5 mg PO BRKDIN [facility] Last Admin: 10/04/17 08:37 Dose: Not Given Pantoprazole Sodium (Protonix Ec Tab) 40 mg PO 0600 [facility] Last Admin: 10/04/17 05:53 Dose: 40 mg Spironolactone (Aldactone) 50 mg PO BID [facility] Last Admin: 10/02/17 09:30 Dose: 50 mg - Labs Labs: 10/04/17 06:15 10/04/17 06:30 PT 14.9 SECONDS (9.4-12.5) H 10/03/17 06:30 INR 1.29 10/03/17 06:30 APTT 29.7 Seconds (25.1-36.5) 10/03/17 06:30 - Constitutional Appears: No Acute Distress - Head Exam Head Exam: NORMOCEPHALIC - Eye Exam Eye Exam: Normal appearance. absent: Scleral icterus - ENT Exam ENT Exam: Mucous Membranes Moist - Neck Exam Neck Exam: Normal Inspection - Respiratory Exam Respiratory Exam: NORMAL BREATHING PATTERN. absent: Respiratory Distress - Cardiovascular Exam Cardiovascular Exam: +S1, +S2 - GI/Abdominal Exam GI & Abdominal Exam: Soft, Normal Bowel Sounds. absent: Guarding, Tenderness, Rebound - Extremities Exam Extremities Exam: absent: Calf Tenderness, Pedal Edema - Neurological Exam Neurological Exam: Alert, Awake, Oriented x3 - Skin Skin Exam: Dry, Warm Assessment and Plan - Assessment and Plan (Free Text) Assessment: Assessment: Liver Cirrhosis/ FORD/Cardiac cirrhosis Ascites: medical MGt, on lasix and aldactone Heyde Syndrome Colon polyps Ann's esophagus Portal Vein Thrombosis, seen on abdominal US abdominal MRI (no liver masses seen ) Severe Aortic Valve Stenosis Plan: back on Lasix 20 mg and Aldactone 50 BID, Lasix can consider to increase to 20 BID with close monitoring of electrolytes and BP. diet as tolerated, on heart healthy, carb consistent continue PPI oncology/cardiology FU AFP within normal limits As per oncology recommendation no anticoagulation now due to risk of bleeding, H /o decrease hgb. Discuss w/ patient, as per Dr. Osei, spoke to son regarding her current findings/plan. Seen and discussed w/ Dr. Osei.
--- NOTE | 2017-10-04 12:50 | PN ---
SUBJECTIVE: The patient was seen and examined at bedside on the general medical navarro. No acute events overnight. She remains afebrile, hemodynamically stable and abdominal pain free. This morning she feels ok and offers no complaints. PHYSICAL EXAMINATION: VITAL SIGNS: Temperature 97.8, pulse 83, blood pressure 144/63, respiratory rate 20, oxygen saturation 97% on room air. GENERAL: No apparent distress. HEENT: PERRL, EOMI. No scleral icterus. No conjunctival pallor. NECK: No JVD, no bruits. LUNGS: Clear to auscultation. CARDIOVASCULAR: Regular rate and rhythm. Normal S1, S2. Grade II/ MILTON to RUSB. ABDOMEN: Normoactive bowel sounds, soft, nontender, nondistended. EXTREMITIES: No edema. NEUROLOGIC: Awake, alert, and oriented x 3. No focal motor deficits. LABORATORY DATA: WBC 3, hemoglobin 8.4, hematocrit 26, platelets 132. Sodium 143, potassium 3.7, chloride 109, bicarb 26, BUN 13, creatinine 0.7, glucose 156. IMAGING STUDIES: MRI of the abdomen with and without contrast demonstrated no evidence of hepatoma but did demonstrate findings consistent with partial portal vein thrombosis and a cirrhotic liver with a large amount of ascites surrounding the liver and spleen. 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 PLAN: 1. 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 She remains at her baseline Hb of 8-9. Continue to monitor CBC daily and transfuse as needed (goal Hb > 7). 2. Cirrhosis of unclear etiology, although favor cardiac cirrhosis +/- FORD. Input from Dr. Osei greatly appreciated. Continue Lasix 20 mg p.o. daily and Aldactone 50 mg p.o. b.i.d. 3. Critical aortic stenosis. Arrangements are in process for TAVR at [facility]. 4. Portal vein thrombosis. MRI imaging reviewed. Input from Dr. Osei greatly appreciated. Evaluation with Dr. Cifuentes of Hematology Oncology is ongoing. 5. Nonobstructive CAD. The patient was advised that her 60% proximal LAD lesion may need to be instrumented after undergoing TAVR. 6. Hypertension. BP borderline low, will d/c Metoprolol 12.5 mg p.o. b.i.d. 7. History of remote PE. The patient remains off anticoagulation therapy given her chronic GI blood loss. 8. NIDDM. Continue medium-dose insulin sliding scale and monitoring fingersticks before meals and at bedtime. 9. Vitamin B12 deficiency. The patient receives monthly B12 injections. 10. Prophylaxis. GI prophylaxis is not indicated as the patient is eating. DVT prophylaxis is not indicated as the patient is ambulatory. CODE STATUS: Full code. Robin Richards MD MTDD
--- NOTE | 2017-10-04 14:03 | CP.PCM.PN ---
Subjective - Date & Time of Evaluation Date of Evaluation: 10/04/17 Time of Evaluation: 13:48 - Subjective Subjective: Heme/Onc Progress Note for Dr. Cifuentes -- Ryan Lomeli DO PGY2 Patient seen and examined at bedside. No acute overnight events. Patient complains of right LE pain, however this has been ongoing for some time. There is no erythema or swelling. Patient denies any abdominal pain, skin color change , new bruising or skin lesions. Patient further denies CP, SOB, n/v/d, fever, chills, [place]TH or dizziness. Objective - Vital Signs/Intake and Output Vital Signs (last 24 hours): Temp Pulse Resp BP Pulse Ox 97.6 F 78 18 102/44 L 94 L 10/04/17 06:00 10/04/17 08:37 10/04/17 06:00 10/04/17 08:37 10/04/17 06:00 Intake and Output: 10/04/17 10/04/17 06:59 18:59 Intake Total 120 300 Balance 120 300 - Medications Medications: Current Medications Acetaminophen (Tylenol 325mg Tab) 650 mg PO Q4H PRN PRN Reason: Pain, moderate (4-7) Last Admin: 10/04/17 04:30 Dose: 325 mg Atorvastatin Calcium (Lipitor) 20 mg PO DIN [facility] Last Admin: 10/03/17 17:12 Dose: 20 mg Furosemide (Lasix) 20 mg PO DAILY [facility] Last Admin: 10/02/17 09:29 Dose: 20 mg Insulin Human Regular (Humulin R Med) 0 units SC ACHS [facility] PRN Reason: Protocol Last Admin: 10/04/17 11:57 Dose: 5 units Pantoprazole Sodium (Protonix Ec Tab) 40 mg PO 0600 [facility] Last Admin: 10/04/17 05:53 Dose: 40 mg Spironolactone (Aldactone) 50 mg PO BID [facility] Last Admin: 10/02/17 09:30 Dose: 50 mg - Labs Labs: 10/04/17 06:15 10/04/17 06:30 PT 14.9 SECONDS (9.4-12.5) H 10/03/17 06:30 INR 1.29 10/03/17 06:30 APTT 29.7 Seconds (25.1-36.5) 10/03/17 06:30 - Constitutional Appears: No Acute Distress - Head Exam Head Exam: NORMAL INSPECTION - Eye Exam Eye Exam: Normal appearance. absent: Scleral icterus Pupil Exam: NORMAL ACCOMODATION - ENT Exam ENT Exam: Normal Exam - Neck Exam Neck Exam: Normal Inspection - Respiratory Exam Respiratory Exam: Clear to Ausculation Bilateral. absent: Rales, Rhonchi, Wheezes - Cardiovascular Exam Cardiovascular Exam: RRR, +S1, +S2. absent: Gallop, Rubs, Murmur - GI/Abdominal Exam GI & Abdominal Exam: Distended, Soft. 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 Hematology was consulted due to subtotal portal vein thrombosis found on US. Plan: - Abdominal US showed subtotal portal vein thrombosis - Abdominal MRI showed cirrhosis and partial portal vein thrombosis - Anticoagulation normally indicated, however we are hesitant at this time to anticoagulate due patient's history of GI bleed, cirrhosis, and low-normal platelet count - Paroxysmal nocturnal hemoglobinuria included in differential, but unlikely with normal LDH and retic count. Flow cytometry ordered to rule out. - Cont Lasix and Aldactone per GI - GI following - ID following Case discussed with attending. Ryan Lomeli, DO PGY2
[2017-10-04 14:51] VITALS: BP 121/49; PULSE 84; TEMP 97.9; O2SAT 97
== END 2017-10-04 18:01 | DRG 811 ==
LOC: ED 17:30 → ERH 21:00 → 2RSO 23:47 → OBSVTOIN 10-01 11:15 → 5RNO 10-02 12:59
PROVIDERS: ADMIT Student in an Organized Health Care Education/Training Program; ATTEND Student in an Organized Health Care Education/Training Program
PROC: 30233N1 Transfusion of Nonautologous Red Blood Cells into Peripheral Vein, Percutaneous Approach (ICD-10-PCS; principal; 2017-09-29)
DX: D50.0 Iron deficiency anemia secondary to blood loss (chronic) (principal); I81 Portal vein thrombosis; K76.7 Hepatorenal syndrome; R18.8 Other ascites; I35.0 Nonrheumatic aortic (valve) stenosis; I11.0 Hypertensive heart disease with heart failure; I50.9 Heart failure, unspecified; E11.9 Type 2 diabetes mellitus without complications; E78.00 Pure hypercholesterolemia, unspecified; K74.60 Unspecified cirrhosis of liver; K75.81 Nonalcoholic steatohepatitis (NASH); I25.10 Atherosclerotic heart disease of native coronary artery without angina pectoris; K22.70 Barrett's esophagus without dysplasia; K55.20 Angiodysplasia of colon without hemorrhage; K31.819 Angiodysplasia of stomach and duodenum without bleeding; K76.1 Chronic passive congestion of liver; K63.5 Polyp of colon; E53.8 Deficiency of other specified B group vitamins; E78.5 Hyperlipidemia, unspecified; J45.909 Unspecified asthma, uncomplicated; Z86.711 Personal history of pulmonary embolism; Z86.73 Personal history of transient ischemic attack (TIA), and cerebral infarction without residual deficits; Z79.4 Long term (current) use of insulin; Z88.0 Allergy status to penicillin; Z88.5 Allergy status to narcotic agent; Z88.2 Allergy status to sulfonamides

== ENCOUNTER 2017-10-23 14:52 | Observation (INO) | payer MEDICARE, OTHER ==
--- NOTE | 2017-10-23 15:50 | ED PDOC ---
Arrival/HPI - General Chief Complaint: Altered Mental Status Time Seen by Provider: 10/23/17 15:09 Historian: Patient, Family - History of Present Illness Narrative History of Present Illness (Text): 10/23/17 15:18 72 year old female, with past medical history of possible FORD and cardiac cirrhosis, ascites, colonic polyps, Ann's esophagus, DM, HTN, iron- deficiency anemia 2/2 to Heyde syndrome, and severe aortic stenosis, presents to the emergency department accompanied by family from [facility] for evaluation of AMS today. Family reports patient has been experiencing visual and auditory hallucination, where patient thinks people are trying to hurt her. Patient had an Urinalysis performed in detention with negative findings. However, patient was sent to the emergency department for further evaluation. Upon arrival to the Emergency department patient denies any somatic complaints and wants to go home. Patient denies any fever, chills, nausea, vomiting, diarrhea, abdominal pain, chest pain, shortness of breath, cough, headache, dizziness, neck pain, back pain, or any other complaints. PMD: Dr. Mcdermott Time/Duration: Prior to Arrival Symptom Onset: Gradual Symptom Course: Unchanged Activities at Onset: Light Context: Other (correction) Past Medical History - Provider Review Nursing Documentation Reviewed: Yes - Infectious Disease Hx of Infectious Diseases: None - Reproductive Menopause: Yes - Cardiac Hx Cardiac Disorders: Yes (severe aortic stenosis) Hx Congestive Heart Failure: Yes Hx Hypertension: Yes - Pulmonary Hx Respiratory Disorders: Yes (PE) Hx Asthma: Yes Hx Bronchitis: Yes - Neurological HX Cerebrovascular Accident: Yes - HEENT Hx HEENT Disorder: Yes (wearing glasses and hard hearing) - Renal Hx Renal Disorder: No - Endocrine/Metabolic Hx Diabetes Mellitus Type 2: Yes - Hematological/Oncological Hx Blood Disorders: Yes Hx Anemia: Yes (Blood transfusion) Hx Cirrhosis: Yes - Integumentary Hx Dermatological Disorder: No (denies) - Musculoskeletal/Rheumatological Hx Musculoskeletal Disorders: Yes Hx Back Pain: Yes (chronic back pain) Hx Falls: Yes - Gastrointestinal Hx Gastrointestinal Disorders: Yes (HEMORRHOID,H/O GI BLEED,) - Genitourinary/Gynecological Hx Genitourinary Disorders: No - Psychiatric Hx Psychophysiologic Disorder: No (denies) Hx Depression: No Hx Emotional Abuse: No Hx Substance Use: No - Surgical History Hx Cardiac Catheterization: Yes - Anesthesia Hx Anesthesia Reactions: No Hx Malignant Hyperthermia: No - Suicidal Assessment Feels Threatened In Home Enviroment: No Family/Social History - Physician Review Nursing Documentation Reviewed: Yes Family/Social History: No Known Family HX Smoking Status: Never Smoked Hx Alcohol Use: No Hx Substance Use: No Hx Substance Use Treatment: No Allergies/Home Meds Allergies/Adverse Reactions: Allergies banana Allergy (Verified 09/29/17 17:37) RASH codeine Allergy (Verified 09/29/17 17:37) ANAPHYLAXIS diphenhydramine [From Benadryl Allergy] Allergy (Verified 09/29/17 17:37) RASH erythromycin base [From Erythrocin] Allergy (Verified 09/29/17 17:37) RASH Penicillins Allergy (Verified 09/29/17 17:37) ANAPHYLAXIS shellfish derived Allergy (Verified 09/29/17 17:37) ANAPHYLAXIS strawberry Allergy (Verified 09/29/17 17:37) RASH Sulfa (Sulfonamide Antibiotics) Allergy (Verified 09/29/17 17:37) ANAPHYLAXIS Home Medications: Home Meds Medication Instructions Recorded Confirmed Acetaminophen [Tylenol] 650 mg PO Q6 09/30/17 09/30/17 Ascorbic Acid [Vitamin C] 1,000 mg PO BID 09/30/17 09/30/17 Atorvastatin Calcium [Atorvastatin 20 PO DAILY 09/30/17 Calcium] Docusate Sodium [Colace] 100 mg PO Q12 09/30/17 09/30/17 Ferrous Sulfate [Feosol] 325 BID 09/30/17 Review of Systems - Physician Review All systems were reviewed & negative as marked: Yes - Review of Systems Constitutional: Normal. absent: Fevers Eyes: Normal ENT: Normal Respiratory: Normal. absent: SOB, Cough Cardiovascular: Normal. absent: Chest Pain, HEALY Gastrointestinal: Normal. absent: Abdominal Pain, Diarrhea, Nausea, Vomiting Genitourinary Female: Normal. absent: Dysuria, Urine Output Changes Musculoskeletal: Normal. absent: Back Pain, Neck Pain Skin: Normal Neurological: Normal. absent: Headache, Dizziness Endocrine: Normal Hemo/Lymphatic: Normal Psychiatric: Normal Physical Exam Vital Signs Reviewed: Yes Vital Signs Temp Pulse Resp BP Pulse Ox 10/23/17 20:29 128/54 L 10/23/17 20:12 75 18 128/54 L 95 10/23/17 15:11 97.9 F 10/23/17 15:09 77 19 102/63 98 10/23/17 14:54 98.2 F 82 18 118/78 97 Temperature: Afebrile Blood Pressure: Normal Pulse: Regular Respiratory Rate: Normal Appearance: Positive for: Well-Appearing, Non-Toxic, Comfortable Pain Distress: None Mental Status: Positive for: Alert and Oriented X 3 - Systems Exam Head: Present: Atraumatic, Normocephalic Pupils: Present: PERRL Extroacular Muscles: Present: EOMI Conjunctiva: Present: Normal Mouth: Present: Moist Mucous Membranes Neck: Present: Normal Range of Motion Respiratory/Chest: Present: Clear to Auscultation, Good Air Exchange. No: Respiratory Distress, Accessory Muscle Use Cardiovascular: Present: Regular Rate and Rhythm, Normal S1, S2. No: Murmurs Abdomen: No: Tenderness, Distention, Peritoneal Signs Back: Present: Normal Inspection Upper Extremity: Present: Normal Inspection, Other (PICC line to right arm). No : Cyanosis, Edema Lower Extremity: Present: Normal Inspection. No: Edema Neurological: Present: GCS=15, CN II-XII Intact, Speech Normal Skin: Present: Warm, Dry, Normal Color. No: Rashes Psychiatric: Present: Alert, Oriented x 3, Normal Insight, Normal Concentration Medical Decision Making ED Course and Treatment: 10/23/17 15:34 Impression: 72 year old female presents to the emergency department for medical evaluation for episodes of AMS. Now AAox3 Plan: -- CT of Head -- EKG -- Labs -- Blood Culture -- Urine Culture -- Urinalysis -- Reassess and disposition Prior Visits: Notes and results from previous visits were reviewed. Progress Notes: EKG shows NSR at 72bpm with pvcs. RBBB, Left posterior fasciscular block. Unchanged from prior. Trop x 1 negative. 10/23/17 16:41 CT of head reviewed by radiologist, shows no acute intracranial abnormality. Severe chronic microangiopathic changes and mild age-related global parenchymal volume loss. Chest X-ray reviewed by radiologist, shows: FINDINGS: The right PICC line terminates at the cavoatrial junction. LUNGS: The lungs are well inflated. There is mild pulmonary venous congestion. PLEURA: Small left pleural effusion, no pneumothorax apparent. CARDIOVASCULAR: There is persistent mild cardiomegaly. OSSEOUS STRUCTURES: No significant abnormalities. VISUALIZED UPPER ABDOMEN: Normal. OTHER FINDINGS: None. IMPRESSION: Right PICC line terminates at the cavoatrial junction. No pneumothorax. Mild pulmonary venous congestion and small left pleural effusion. 10/23/17 19:36 Patient was bryson cultured (picc, peripheral and urine). Started on levaquin due to leukocyte esterase pending uculture. These episodes may be sundowning as patient is alert in ED. Will transfer to observation for further evaluation. . 10/23/17 19:40 - Lab Interpretations Lab Results: 10/23/17 17:00 10/23/17 17:00 Lab Results 10/23/17 17:21: Urine Color Yellow, Urine Appearance Clear, Urine pH 7.0, Ur Specific [place] 1.010, Urine Protein Negative, Urine Glucose (UA) Negative, Urine Ketones Negative, Urine Blood Negative, Urine Nitrate Negative, Urine Bilirubin Negative, Urine Urobilinogen 0.2, Ur Leukocyte Esterase Trace H, Urine RBC 0 - 2, Urine WBC 2 - 5, Ur Epithelial Cells 4 - 5, Urine Bacteria Mod 10/23/17 17:17: Ammonia 26 10/23/17 17:00: Free T4 1.22, TSH 3rd Generation 8.89 H 10/23/17 17:00: Sodium 138, Potassium 3.6, Chloride 106, Carbon Dioxide 26, Anion Gap 10, BUN 10, Creatinine 0.8, Est GFR ( Amer) > 60, Est GFR (Non- Af Amer) > 60, Random Glucose 174 H, Calcium 9.4, Phosphorus 3.5, Magnesium 1.5 L, Total Bilirubin 1.3, AST 25, ALT 19, Alkaline Phosphatase 88, Total Creatine Kinase < 20 L, Troponin I < 0.01, NT-Pro-B Natriuret Pep 1820 H, Total Protein 6.9, Albumin 2.9 L, Globulin 3.9, Albumin/Globulin Ratio 0.7 L 10/23/17 17:00: PT 15.9 H, INR 1.39, APTT 31.9 10/23/17 17:00: WBC 3.2 L, RBC 2.88 L, Hgb 9.2 L, Hct 28.2 L, MCV 97.9 D, MCH 31.9, MCHC 32.6, RDW 22.9 H, Plt Count 122, MPV 9.4, Gran % 61.9, Lymph % (Auto ) 23.5, Otoe % (Auto) 10.8 H, Eos % (Auto) 3.5, Baso % (Auto) 0.3, Gran # 1.95, Lymph # (Auto) 0.7 L, Otoe # (Auto) 0.3, Eos # (Auto) 0.1, Baso # (Auto) 0.01 10/23/17 15:13: POC Glucose (mg/dL) 172 H - RAD Interpretation Radiology Orders: 10/23/17 15:33 HEAD W/O CONTRAST [CT] Stat CHEST PORTABLE [RAD] Stat Agency Director: Radiologist - Medication Orders Current Medication Orders: Magnesium Sulfate/Dextrose (Magnesium Sulfate 1 Gm/100 Ml D5w) 1 gm in 100 mls @ 100 mls/hr IVPB ONCE ONE Stop: 10/23/17 22:19 Discontinued Medications Aspirin (Aspirin Chewable) 324 mg PO STAT STA Stop: 10/23/17 18:10 Last Admin: 10/23/17 20:29 Dose: 324 mg Furosemide (Lasix) 40 mg IVP STAT STA Stop: 10/23/17 18:10 Last Admin: 10/23/17 20:29 Dose: 40 mg MAR Blood Pressure Document 10/23/17 20:29 HI (Rec: 10/23/17 20:30 [id number][facility] Blood Pressure Blood Pressure (100/60-150/90) 128/54 IVP Administration Document 10/23/17 20:29 HI (Rec: 10/23/17 20:30 [id number]) Charges for Administration # of IVP Administrations 1 Levofloxacin/Dextrose (Levaquin 750mg) 750 mg in 150 mls @ 100 mls/hr IVPB STAT STA PRN Reason: Protocol Stop: 10/23/17 19:39 Last Admin: 10/23/17 20:28 Dose: 100 mls/hr eMAR Start Stop Document 10/23/17 20:28 HI (Rec: 10/23/17 20:29 [id number]) Intravenous Solution Start Date 10/23/17 Start Time 20:29 - Scribe Statement The provider has reviewed the documentation as recorded by the Scribe [place]. All medical record entries made by the Scribe were at my direction and personally dictated by me. I have reviewed the chart and agree that the record accurately reflects my personal performance of the history, physical exam, medical decision making, and the department course for this patient. I have also personally directed, reviewed, and agree with the discharge instructions and disposition. Disposition/Present on Arrival - Present on Arrival Any Indicators Present on Arrival: No History of DVT/PE: No History of Uncontrolled Diabetes: No Urinary Catheter: No History of Decub. Ulcer: No History Surgical Site Infection Following: None - Disposition Have Diagnosis and Disposition been Completed?: Yes Diagnosis: Pleural effusion, Pulmonary vascular congestion, Anemia, Agitation, UTI ( urinary tract infection) Disposition: HOSPITALIZED Disposition Time: 19:38 Patient Plan: Observation Patient Problems: Current Active Problems Problem Status Onset Agitation Acute Anemia Acute Pleural effusion Acute Pulmonary vascular congestion Acute UTI (urinary tract infection) Acute Condition: FAIR
--- NOTE | 2017-10-23 16:29 | CT ---
Date of service: 10/23/2017 PROCEDURE: CT HEAD WITHOUT CONTRAST. HISTORY: Head injury COMPARISON: None available. TECHNIQUE: Axial computed tomography images were obtained through the head/brain without intravenous contrast. Radiation dose: Total exam DLP = 826.31 mGy-cm. This CT exam was performed using one or more of the following dose reduction techniques: Automated exposure control, adjustment of the mA and/or kV according to patient size, and/or use of iterative reconstruction technique. FINDINGS: HEMORRHAGE: No intracranial hemorrhage. BRAIN: There are severe chronic microangiopathic changes. There is no mass, mass effect or abnormal extra-axial fluid collection. There is no territorial infarction. The midline sagittal structures are normal.There are coarse atherosclerotic calcifications in the cavernous carotid arteries. VENTRICLES: There is mild age-related global parenchymal volume loss and proportionate enlargement of the ventricles and cortical sulci. CALVARIUM: Unremarkable. PARANASAL SINUSES: Predominantly clear. MASTOID AIR CELLS: Predominantly clear. OTHER FINDINGS: None. IMPRESSION: No acute intracranial abnormality. Severe chronic microangiopathic changes and mild age-related global parenchymal volume loss.
--- NOTE | 2017-10-23 16:30 | RAD ---
Date of service: 10/23/2017 HISTORY: ... COMPARISON: 09/29/2017 FINDINGS: The right PICC line terminates at the cavoatrial junction. LUNGS: The lungs are well inflated. There is mild pulmonary venous congestion. PLEURA: Small left pleural effusion, no pneumothorax apparent. CARDIOVASCULAR: There is persistent mild cardiomegaly. OSSEOUS STRUCTURES: No significant abnormalities. VISUALIZED UPPER ABDOMEN: Normal. OTHER FINDINGS: None. IMPRESSION: Right PICC line terminates at the cavoatrial junction. No pneumothorax. Mild pulmonary venous congestion and small left pleural effusion.
[2017-10-23 17:27] LABS: URINE BILIRUBIN NEGATIVE (NEGATIVE); URINE BLOOD NEGATIVE (NEGATIVE); URINE GLUCOSE (UA) NEGATIVE (NEGATIVE); URINE LEUKOCYTE ESTERASE TRACE Leu/uL (NEGATIVE); URINE PROTEIN NEGATIVE mg/dL (<30 mg/dL); URINE UROBILINOGEN 0.2 E.U./dL (<1 E.U./dL)
[2017-10-23 17:27] LABS: BASO # 0.01 K/mm3 (0.0-2.0); BASO % 0.3 % (0.0-3.0); EOS # 0.1 (0.0-0.7); EOS % 3.5 % (1.5-5.0); GRAN # 1.95 (1.4-6.5); GRAN % 61.9 % (50.0-68.0); HEMOGLOBIN 9.2 g/dL (12.0-16.0); LYMPH # 0.7 (1.2-3.4); LYMPH % 23.5 % (22.0-35.0); MEAN CELL VOLUME 97.9 fl (80.0-105.0); MEAN CORPUSCULAR HEMOGLOBIN 31.9 pg (25.0-35.0); MEAN CORPUSCULAR HGB CONC 32.6 g/dl (31.0-37.0); MEAN PLATELET VOLUME 9.4 fl (7.0-11.0); MONO # 0.3 (0.1-0.6); MONO % 10.8 % (1.0-6.0); RBC 2.88 10^6/uL (3.5-6.1); RED CELL DISTRIBUTION WIDTH 22.9 % (11.5-14.5); WHITE BLOOD COUNT 3.2 10^3/ul (4.5-11.0)
[2017-10-23 17:29] LABS: URINE APPEARANCE CLEAR (CLEAR); URINE COLOR YELLOW (YELLOW)
[2017-10-23 17:34] LABS: INR 1.39; PARTIAL THROMBOPLASTIN TIME 31.9 Seconds (25.1-36.5); PROTHROMBIN TIME 15.9 SECONDS (9.4-12.5)
[2017-10-23 17:45] LABS: ALB/GLOB RATIO 0.7 (1.1-1.8); ALBUMIN 2.9 g/dL (3.0-4.8); ALT/SGPT 19 U/L (7-56); AST/SGOT 25 U/L (14-36); BLOOD UREA NITROGEN 10 mg/dL (7-21); CALCIUM 9.4 mg/dL (8.4-10.5); GFR NON-AFRICAN AMERICAN > 60
[2017-10-23 17:49] LABS: B-TYPE NATRIURETIC PEPTIDE 1820 pg/mL (0-450); TROPONIN I < 0.01 ng/mL
[2017-10-23 17:54] LABS: FREE T4 1.22 ng/dL (0.78-2.19)
[2017-10-23 17:55] LABS: URINE BACTERIA MOD (NEG); URINE RBC 0 - 2 /hpf (0-2)
[2017-10-23] MEDS ORDERED: cefTRIAXone 1 gm 1 GM/100 ML BAG IVPB STA (18:08)
[2017-10-23] MEDS ORDERED: levoFLOXacin 750 mg in D5W 750 MG/150 ML BAG IVPB STA (18:10)
[2017-10-23] MEDS ORDERED: Magnesium Sulfate 1 gm in D5W 1 GM/100 ML BAG IVPB ONE (21:20)
[2017-10-24 04:20] VITALS: BMI 29.1
[2017-10-24] MEDS ORDERED: Levothyroxine 50 MCG TAB PO SCH (06:00)
[2017-10-24] MEDS ORDERED: Pantoprazole 40 mg EC Tab PO SCH (06:00)
[2017-10-24 07:05] LABS: HEMOGLOBIN 8.7 g/dL (12.0-16.0); MEAN CELL VOLUME 98.2 fl (80.0-105.0); MEAN CORPUSCULAR HEMOGLOBIN 31.6 pg (25.0-35.0); MEAN CORPUSCULAR HGB CONC 32.2 g/dl (31.0-37.0); MEAN PLATELET VOLUME 8.5 fl (7.0-11.0); RBC 2.75 10^6/uL (3.5-6.1)
[2017-10-24 07:25] LABS: ALB/GLOB RATIO 0.7 (1.1-1.8); ALBUMIN 2.7 g/dL (3.0-4.8); ALT/SGPT 21 U/L (7-56); AST/SGOT 26 U/L (14-36); BLOOD UREA NITROGEN 10 mg/dL (7-21); GFR NON-AFRICAN AMERICAN > 60
[2017-10-24] MEDS: Insulin Lispro (humaLOG) LOW Coverage SC SCH ×3 (07:30→17:16)
[2017-10-24 07:36] LABS: WHITE BLOOD COUNT 2.4 10^3/ul (4.5-11.0)
[2017-10-24 07:47] VITALS: RESP 20
[2017-10-24] MEDS ORDERED: Potassium Chloride 20 mEq ER Tab PO ONE (08:13)
--- NOTE | 2017-10-24 09:13 | HP ---
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 The patient has been doing well at her rehab facility until approximately 1 week ago when she was noted to have some confusion, particularly at night. Over the course of next several days the patient's confusion reportedly progressed to auditory and visual hallucinations. Given these symptoms, she was brought to [facility] for further evaluation. Upon arrival to the ED she was found to be afebrile, hemodynamically stable and no neurological deficits were noted. Furthermore she denied hallucinations and was found to be awake, alert and oriented x 3. She was subsequently admitted to the [facility] for continued observation. PAST MEDICAL HISTORY: As per HPI, also nonobstructive CAD, HTN, morbid obesity, NIDDM, vitamin B12 deficiency, history of remote PE and cirrhosis of unclear etiology (favor FORD vs cardiac cirrhosis). PAST SURGICAL HISTORY: Cholecystectomy and tonsillectomy. ALLERGIES: Penicillin, sulfas, macrolides, codeine and AARON inhibitors. MEDICATIONS: Lasix 40 mg p.o. daily, Aldactone 50 mg p.o. b.i.d., Lipitor 20 mg p.o. daily, Protonix 40 mg p.o. daily, Feosol 325 mg p.o. t.i.d. and Vitamin B12 of 1000 mcg IM q monthly. FAMILY HISTORY: Significant for hypertension, CAD and hyperlipidemia. SOCIAL HISTORY: The patient has no history of any toxic habits. REVIEW OF SYSTEMS: A 12-point review of systems is negative except as per HPI. PHYSICAL EXAMINATION: VITAL SIGNS: Temperature 99, pulse 72, blood pressure 160/80, respiratory rate 20, oxygen saturation 96% on room air. GENERAL: No apparent distress. HEENT: PERRL, EOMI. No scleral icterus. No conjunctival pallor. NECK: No JVD. No bruits. LUNGS: Clear to auscultation. CARDIOVASCULAR: Regular rate and rhythm. Normal S1 and S2. Grade II/ MILTON to RUSB. ABDOMEN: Normoactive bowel sounds. Soft, nontender and nondistended. EXTREMITIES: No edema. NEUROLOGIC: Awake, alert and oriented x 3. No focal motor deficits. LABORATORY DATA: WBC 2.4, hemoglobin 8.7, hematocrit 27, platelets 110. Sodium 140, potassium 3.4, chloride 107, bicarb 28, BUN 10, creatinine 0.8, glucose 110. TSH 8.89. Urinalysis unremarkable. ASSESSMENT: The patient is a 72-year-old woman with multiple medical comorbidities who was transferred from her rehab facility for evaluation of a 1 week history of reported confusion and auditory and visual hallucinations. PLAN: 1. Delirium, etiology likely secondary to sundowning syndrome. The patient presently appears to be at her baseline mentation and per discussion with the ED physician and the nursing staff there have been no episodes of confusion since presentation. The patient furthermore denies any confusion and remains completely lucid. CT imaging, lab studies and U/A reviewed and are unremarkable. 2. Hypothyroidism. Labs demonstrate TSH of 8.89. We will start Synthroid 50 mcg p.o. daily. 3. 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 The patient remains at her baseline Hb of 8-9. We will continue to monitor CBC daily and transfuse as needed (goal Hb > 7). 4. Cirrhosis of unclear etiology, although favor cardiac cirrhosis +/- FORD. She remains clinically euvolemic. Continue Lasix 40 mg p.o. daily and Aldactone 50 mg p.o. b.i.d. 5. Critical aortic stenosis. Arrangements are in process for TAVR at [facility]. 6. Partial portal vein thrombosis. 7. Nonobstructive CAD. She remains chest pain free and hemodynamically stable. 8. Hypertension. Blood pressure remained stable. Continue with current medications. 9. History of remote PE. The patient remains off anticoagulation given her chronic GI blood loss. 10. NIDDM. Continue medium-dose insulin sliding scale and monitoring fingersticks before every meal and at bedtime. 11. Vitamin B12 deficiency. The patient receives monthly B12 injections. 12. Prophylaxis. GI prophylaxis is not indicated as the patient is eating. DVT prophylaxis is not indicated as the patient is ambulatory. CODE STATUS: Full code. Robin Richards MD [facility] # [id number] MTDOlivia
--- NOTE | 2017-10-24 14:02 | CARD ---
APPROVED REPORT Date of service: 10/23/2017 EKG Measurement Heart [id number] <Conclusion> Sinus rhythm with occasional premature ventricular complexes Right bundle branch block Left posterior fascicular block Bifascicular block Inferior infarct, age undetermined Abnormal ECG
[2017-10-24 15:08] VITALS: BP 110/47; PULSE 79; TEMP 97.8; O2SAT 100
== END 2017-10-24 18:41 ==
LOC: ED 14:52 → ERH 19:35 → 5RNO 22:46
PROVIDERS: ADMIT Student in an Organized Health Care Education/Training Program; ATTEND Student in an Organized Health Care Education/Training Program
DX: N39.0 Urinary tract infection, site not specified (principal); I11.0 Hypertensive heart disease with heart failure; I50.9 Heart failure, unspecified; I25.10 Atherosclerotic heart disease of native coronary artery without angina pectoris; I35.0 Nonrheumatic aortic (valve) stenosis; D50.9 Iron deficiency anemia, unspecified; I81 Portal vein thrombosis; E11.9 Type 2 diabetes mellitus without complications; J45.909 Unspecified asthma, uncomplicated; K74.60 Unspecified cirrhosis of liver; E53.8 Deficiency of other specified B group vitamins; E03.9 Hypothyroidism, unspecified; R45.1 Restlessness and agitation; Z79.4 Long term (current) use of insulin; Z86.73 Personal history of transient ischemic attack (TIA), and cerebral infarction without residual deficits
CPT/HCPCS: 36415; 70450; 71045; 80053; 81001; 82140; 82550; 82948; 83735; 83880; 84100; 84439; 84443; 84484; 85025; 85027; 85610; 85730; 87040; 87086; 93005; 96374; 97116; 97161; 99285; G0378; G8978; G8979; J1940; J3475

== ENCOUNTER 2018-02-23 19:31 | Inpatient (IN) | payer MEDICARE, OTHER ==
[2018-02-23 19:31] VITALS: BMI 29.1
[2018-02-23 20:14] LABS: BASO # 0.04 K/mm3 (0.0-2.0); BASO % 0.8 % (0.0-3.0); EOS # 0.2 (0.0-0.7); EOS % 4.9 % (1.5-5.0); GRAN # 2.84 (1.4-6.5); GRAN % 60.1 % (50.0-68.0); HEMOGLOBIN 10.9 g/dL (12.0-16.0); LYMPH # 1.2 (1.2-3.4); LYMPH % 26.1 % (22.0-35.0); MEAN CELL VOLUME 90.1 fl (80.0-105.0); MEAN CORPUSCULAR HEMOGLOBIN 29.3 pg (25.0-35.0); MEAN CORPUSCULAR HGB CONC 32.5 g/dl (31.0-37.0); MEAN PLATELET VOLUME 9.7 fl (7.0-11.0); MONO # 0.4 (0.1-0.6); MONO % 8.1 % (1.0-6.0); RBC 3.72 10^6/uL (3.5-6.1); RED CELL DISTRIBUTION WIDTH 20.7 % (11.5-14.5); WHITE BLOOD COUNT 4.7 10^3/uL (4.5-11.0)
[2018-02-23] MEDS ORDERED: Sodium Chloride 0.9% 1,000 ML IV STA (20:17)
[2018-02-23 20:22] LABS: INR 1.25; PARTIAL THROMBOPLASTIN TIME 29.5 Seconds (25.1-36.5); PROTHROMBIN TIME 14.3 SECONDS (9.4-12.5)
[2018-02-23 20:27] LABS: ALB/GLOB RATIO 0.8 (1.1-1.8); ALBUMIN 3.3 g/dL (3.0-4.8); ALT/SGPT 21 U/L (7-56); AST/SGOT 29 U/L (14-36); BLOOD UREA NITROGEN 10 mg/dL (7-21); CALCIUM 9.8 mg/dL (8.4-10.5); GFR NON-AFRICAN AMERICAN > 60; LIPASE 204 U/L (23-300)
[2018-02-23 20:29] LABS: VENOUS BLOOD GAS PO2 37 mm/Hg (30-55)
[2018-02-23] MEDS ORDERED: Iohexol 350 MG/100 ML VIAL ONE (20:40)
--- NOTE | 2018-02-23 21:04 | ED PDOC ---
Arrival/HPI - General Chief Complaint: Abdominal Pain Time Seen by Provider: 02/23/18 20:00 Historian: Patient, Family - History of Present Illness Narrative History of Present Illness (Text): Patient is a 72 yr old female with PMH Aortic stenosis, stent placement, cirrhosis who presents with c/o not feeling well x 3-4 days and new onset abdominal pain and dry heaving today but no emesis. She states she often get sob walking down the [place] and is mildly sob now. She has associated ascites which she has had in the past. She otherwise denies WADSW[place]TH, CP, f/c, vomiting, dysuria, stool changes, hematemesis, and extremity pain/weakness 02/23/18 21:01 Time/Duration: Prior to Arrival, < week (3-4 days) Symptom Onset: Gradual Symptom Course: Worsening Severity Level: 6 Activities at Onset: Rest Past Medical History - Provider Review Nursing Documentation Reviewed: Yes - Infectious Disease Hx of Infectious Diseases: None - Cardiac Hx Cardiac Disorders: Yes (severe aortic stenosis) Hx Congestive Heart Failure: Yes Hx Hypertension: Yes - Pulmonary Hx Respiratory Disorders: Yes (PE) Hx Asthma: Yes Hx Bronchitis: Yes Other/Comment: Ann's esophagus - Neurological HX Cerebrovascular Accident: Yes (2010) - HEENT Hx HEENT Disorder: Yes (wearing glasses and hard hearing) - Renal Hx Renal Disorder: No - Endocrine/Metabolic Hx Diabetes Mellitus Type 2: Yes - Hematological/Oncological Hx Blood Disorders: Yes Hx Anemia: Yes (Blood transfusion) Hx Cirrhosis: Yes Other/Comment: iron deficiency anemia - Integumentary Hx Dermatological Disorder: No (denies) - Musculoskeletal/Rheumatological Hx Musculoskeletal Disorders: Yes Hx Back Pain: Yes (chronic back pain) Hx Falls: Yes - Gastrointestinal Hx Gastrointestinal Disorders: Yes (HEMORRHOID,H/O GI BLEED,) Other/Comment: cirrhosis - Genitourinary/Gynecological Hx Genitourinary Disorders: No Other/Comment: colonic polyps - Psychiatric Hx Psychophysiologic Disorder: No (denies) Hx Depression: No Hx Emotional Abuse: No Hx Substance Use: No - Surgical History Hx Cardiac Catheterization: Yes - Anesthesia Hx Anesthesia Reactions: No Hx Malignant Hyperthermia: No - Suicidal Assessment Feels Threatened In Home Enviroment: No Family/Social History - Physician Review Nursing Documentation Reviewed: Yes Family/Social History: Unknown Family HX Smoking Status: Never Smoked Hx Alcohol Use: No Hx Substance Use: No Hx Substance Use Treatment: No Allergies/Home Meds Allergies/Adverse Reactions: Allergies banana Allergy (Verified 09/29/17 17:37) RASH codeine Allergy (Verified 09/29/17 17:37) ANAPHYLAXIS diphenhydramine [From Benadryl Allergy] Allergy (Verified 09/29/17 17:37) RASH erythromycin base [From Erythrocin] Allergy (Verified 09/29/17 17:37) RASH Penicillins Allergy (Verified 09/29/17 17:37) ANAPHYLAXIS shellfish derived Allergy (Verified 09/29/17 17:37) ANAPHYLAXIS strawberry Allergy (Verified 09/29/17 17:37) RASH Sulfa (Sulfonamide Antibiotics) Allergy (Verified 09/29/17 17:37) ANAPHYLAXIS Home Medications: Home Meds Medication Instructions Recorded Confirmed Acetaminophen [Tylenol] 650 mg PO Q6 09/30/17 09/30/17 Ascorbic Acid [Vitamin C] 1,000 mg PO BID 09/30/17 09/30/17 Docusate Sodium [Colace] 100 mg PO Q12 09/30/17 09/30/17 Ferrous Sulfate [Feosol] 325 BID 09/30/17 Review of Systems - Physician Review All systems were reviewed & negative as marked: Yes - Review of Systems Constitutional: Fatigue. absent: Fevers Respiratory: SOB. absent: Cough Cardiovascular: Edema. absent: Chest Pain Gastrointestinal: Abdominal Pain, Nausea. absent: Stool Changes, Vomiting, Hematochezia, Hematemesis Genitourinary Female: absent: Dysuria Skin: Skin Lesions. absent: Rash Neurological: absent: Headache, Dizziness, Speech Changes, Facial Droop Endocrine: absent: Diaphoresis Physical Exam Vital Signs Temp Pulse Resp BP Pulse Ox 02/23/18 20:14 97.9 F 135 H 18 134/74 98 02/23/18 19:46 97.9 F 137 H 24 98 Temperature: Afebrile Blood Pressure: Normal Pulse: Tachycardic Respiratory Rate: Normal Appearance: Positive for: Well-Appearing, Non-Toxic, Comfortable Pain Distress: Mild Mental Status: Positive for: Alert and Oriented X 3 - Systems Exam Head: Present: Atraumatic, Normocephalic Extroacular Muscles: Present: EOMI Mouth: Present: Moist Mucous Membranes Neck: Present: Normal Range of Motion Respiratory/Chest: No: Clear to Auscultation, Good Air Exchange, Respiratory Distress, Accessory Muscle Use Medical Decision Making ED Course and Treatment: Impression: 72 F with PMH critical aortic stenosis and cirrhosis who presents with SOB abdominal pain and tachycardia Plan: CBC CMP VBG shock panel BNP troponin lipase blood cx UA urine cx CXR EKG CT A/p reassess and dispo 02/23/18 20:[address] Mcdermott who agreed to admit the patient to the hospital under his service. patient will be admitted to the telemetry floor. 02/23/18 21:12 - Lab Interpretations Lab Results: pO2 37 mm/Hg (30-55) 02/23/18 20:20 VBG pH 7.40 (7.32-7.43) 02/23/18 20:20 VBG pCO2 42.0 (40-60) 02/23/18 20:20 VBG HCO3 26.0 mmol/l (21-28) 02/23/18 20:20 VBG Total CO2 27.3 mmol.L (22-28) 02/23/18 20:20 VBG O2 Sat (Calc) 72.8 % (40-65) H 02/23/18 20:20 VBG Base Excess 1.0 mmol/L (0.0-2.0) 02/23/18 20:20 VBG Potassium 4.1 mmol/L (3.6-5.2) 02/23/18 20:20 Sodium 136.0 mmol/L (132-148) 02/23/18 20:20 Chloride 102.0 mmol/L (98-107) 02/23/18 20:20 Glucose 180 mg/dl (65-105) H 02/23/18 20:20 Lactate 2.8 mmol/L (0.7-2.1) H 02/23/18 20:20 FiO2 21.0 % 02/23/18 20:20 Crit Value Called To Tereso staton 02/23/18 20:20 Crit Value Called By Atc 02/23/18 20:20 Blood Gas Notified Time 202702/23/18 20:20 PT 14.3 SECONDS (9.4-12.5) H 02/23/18 20:00 INR 1.25 02/23/18 20:00 APTT 29.5 Seconds (25.1-36.5) 02/23/18 20:00 Total Bilirubin 1.5 mg/dL (0.2-1.3) H 02/23/18 20:00 AST 29 U/L (14-36) 02/23/18 20:00 ALT 21 U/L (7-56) 02/23/18 20:00 Alkaline Phosphatase 82 U/L (38-126) 02/23/18 20:00 Total Protein 7.4 g/dL (5.8-8.3) 02/23/18 20:00 Albumin 3.3 g/dL (3.0-4.8) 02/23/18 20:00 Globulin 4.1 gm/dL 02/23/18 20:00 Albumin/Globulin Ratio 0.8 (1.1-1.8) L 02/23/18 20:00 Lipase 204 U/L (23-300) 02/23/18 20:00 - RAD Interpretation Radiology Orders: 02/23/18 20:05 CHEST PORTABLE [RAD] Stat 02/23/18 20:06 ABDOMEN & PELVIS [ABD & PELVIS IV CONTRAST ONLY] [CT] Stat Disposition/Present on Arrival - Present on Arrival Any Indicators Present on Arrival: No History of DVT/PE: No History of Uncontrolled Diabetes: No Urinary Catheter: No History of Decub. Ulcer: No History Surgical Site Infection Following: None - Disposition Have Diagnosis and Disposition been Completed?: Yes Diagnosis: Ascites, Aortic stenosis Disposition: HOSPITALIZED Disposition Time: 21:11 Patient Plan: Admission Patient Problems: Current Active Problems Problem Status Onset Aortic stenosis Acute Ascites Acute Condition: FAIR Referrals: Susie CARROLL,Robin Bang MD [Primary Care Provider] - Follow up with primary Forms: [employer] ([place]gian)
[2018-02-23 21:18] LABS: B-TYPE NATRIURETIC PEPTIDE 1330 pg/mL (0-450); TROPONIN I < 0.01 ng/mL
[2018-02-23 21:44] LABS: URINE APPEARANCE SL CLOUDY (CLEAR); URINE BILIRUBIN NEGATIVE (NEGATIVE); URINE BLOOD TRACE-INTACT (NEGATIVE); URINE COLOR YELLOW (YELLOW); URINE GLUCOSE (UA) NEGATIVE (NEGATIVE); URINE LEUKOCYTE ESTERASE TRACE Leu/uL (NEGATIVE); URINE PROTEIN NEGATIVE mg/dL (<30 mg/dL); URINE UROBILINOGEN 0.2 E.U./dL (<1 E.U./dL)
[2018-02-23 21:46] LABS: URINE RBC 0 - 2 /hpf (0-2); URINE WBC 0 - 2 /hpf (0-6)
[2018-02-23 21:47] LABS: URINE BACTERIA MANY /hpf
[2018-02-24] MEDS ORDERED: Oxycodone/Acetaminophen 5/325 mg Tab PO PRN (00:35)
[2018-02-24 00:38] LABS: VENOUS BLOOD GAS BASE EXCESS 3.4 mmol/L (0.0-2.0); VENOUS BLOOD GAS PO2 25 mm/Hg (30-55); VENOUS BLOOD PH 7.42 (7.32-7.43)
[2018-02-24] MEDS: Levothyroxine 25 MCG TAB PO SCH (05:37)
[2018-02-24 08:14] LABS: BASO # 0.03 K/mm3 (0.0-2.0); BASO % 0.8 % (0.0-3.0); EOS # 0.3 (0.0-0.7); EOS % 7.4 % (1.5-5.0); GRAN # 1.74 (1.4-6.5); GRAN % 49.3 % (50.0-68.0); HEMOGLOBIN 9.6 g/dL (12.0-16.0); LYMPH # 1.2 (1.2-3.4); LYMPH % 32.9 % (22.0-35.0); MEAN CELL VOLUME 90.4 fl (80.0-105.0); MEAN CORPUSCULAR HEMOGLOBIN 28.7 pg (25.0-35.0); MEAN CORPUSCULAR HGB CONC 31.8 g/dl (31.0-37.0); MEAN PLATELET VOLUME 8.9 fl (7.0-11.0); MONO # 0.3 (0.1-0.6); MONO % 9.6 % (1.0-6.0); RBC 3.34 10^6/uL (3.5-6.1); RED CELL DISTRIBUTION WIDTH 20.6 % (11.5-14.5); WHITE BLOOD COUNT 3.5 10^3/uL (4.5-11.0)
[2018-02-24 08:59] LABS: ALB/GLOB RATIO 0.8 (1.1-1.8); ALBUMIN 2.8 g/dL (3.0-4.8); ALT/SGPT 26 U/L (7-56); AST/SGOT 22 U/L (14-36); BLOOD UREA NITROGEN 9 mg/dL (7-21); CALCIUM 9.3 mg/dL (8.4-10.5); GFR NON-AFRICAN AMERICAN > 60
[2018-02-24] MEDS: Pantoprazole 40 mg EC Tab PO SCH (09:19)
--- NOTE | 2018-02-24 09:48 | HP ---
HISTORY OF PRESENT ILLNESS: The patient is a 72-year-old woman with a past medical history of cirrhosis of unclear etiology (favor cardiac cirrhosis +/- FORD) who presented for evaluation of a 3 day history of worsening abdominal discomfort associated with distention and nausea. The was in her usual state of health until approximately 3 days prior to presentation to the ED when she noticed increasing abdominal girth and pedal edema. Over the next 2 days she developed significant abdominal distension, abdominal pain and nausea. She denied vomiting, hematemesis, melena or hematochezia associated with her symptoms and furthermore denied fevers, chills or rigors. Due to the severe pain she opted for ED evaluation. In the ED she was afebrile, tachycardic with a pulse in the 130s and otherwise hemodynamically stable. Physical examination disclosed a markedly distended abdomen. The patient underwent a CT of the abdomen and pelvis and subsequently was admitted for continued management of decompensated ascites. PAST MEDICAL HISTORY: As per HPI, also hypothyroidism, iron-deficiency anemia secondary to chronic GI losses secondary to Heyde syndrome, nonobstructive CAD, hypertension, type 2 diabetes mellitus (diet-controlled), vitamin B12 deficiency, critical aortic stenosis and a remote history of PE. PAST SURGICAL HISTORY: Cholecystectomy and tonsillectomy. ALLERGIES: Penicillin, Sulfas, Macrolides, Codeine and AARON inhibitors. MEDICATIONS: Synthroid 25 mcg p.o. daily, Lasix 40 mg p.o. daily, Aldactone 50 mg p.o. b.i.d, Lipitor 20 mg p.o. daily, Protonix 40 mg p.o. daily, Feosol 325 mg p.o. t.i.d, and Vitamin B12 1000 mcg IM q. monthly. FAMILY HISTORY: Significant for hypertension, CAD, and hyperlipidemia. SOCIAL HISTORY: The patient has no history of any toxic habits. REVIEW OF SYSTEMS: A 12-point review of systems is negative except as per HPI. PHYSICAL EXAMINATION: VITAL SIGNS: Temperature 97.6, pulse 93, blood pressure 116/60, respiratory rate 18, oxygen saturation 100% on 2L NC. GENERAL: Elderly woman lying in bed in moderate distress secondary to abdominal pain. HEENT: PERRL, EOMI. No scleral icterus. Conjunctival pallor is noted. NECK: No JVD, no bruits. LUNGS: Decreased breath sounds at the bases. CARDIOVASCULAR: Regular rate and rhythm. Normal S1, S2. Grade II/ MILTON to RUSB. ABDOMEN: Markedly distended with tense ascites and positive fluid wave, distant bowel sounds. Diffusely tender to palpation with voluntary guarding. EXTREMITIES: Trace lower extremity edema bilaterally. NEUROLOGIC: Awake, alert, and oriented x 3. No focal motor deficits. No asterixis. LABORATORY DATA: WBC 3.5 with 49% neutrophils, hemoglobin 9.6, hematocrit 30, platelets 134. Sodium 137, potassium 3.9, chloride 103, bicarb 26, BUN 10, creatinine 0.7, glucose 175. IMAGING STUDIES: 1. Chest x-ray is pending. 2. CT of the abdomen and pelvis without contrast is pending. ASSESSMENT: The patient is a 72-year-old woman with a past medical history of cirrhosis of unclear etiology (favor cardiac cirrhosis +/- FORD) who presented with a 3 day history of abdominal distention and was admitted for management of decompensated ascites. PLAN: 1. Cirrhosis of unclear etiology, although favor cardiac cirrhosis +/- FORD, with recurrent decompensated ascites. GI evaluation with Dr. Osei is pending. Dr. Mat Swain has been consulted for therapeutic paracentesis. We will restart Lasix 40 mg p.o. daily and Aldactone 50 mg p.o. b.i.d. We will start Tylenol 650 mg p.o. q. 6 hours p.r.n pain and Zofran 4 mg IV q. 6 hours p.r.n. nausea. 2. 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 She remains at her baseline Hb of 8-9. Continue Feosol 325 mg p.o. t.i.d. Continue to monitor CBC daily and transfuse as needed (goal Hb > 7). 3. Critical aortic stenosis. 4. Nonobstructive CAD. Continue Lipitor 20 mg p.o. daily. 5. Hypertension. Blood pressure remains stable. Continue current medications. 6. History of remote PE. The patient remains off anticoagulation therapy due to history of GI bleed. 7. Non-insulin dependent diabetes mellitus, diet-controlled. 8. Hypothyroidism. Continue Synthroid 25 mcg p.o. daily. 9. Vitamin B12 deficiency. The patient receives monthly B12 injections. 10. Prophylaxis. Continue with Protonix for GI prophylaxis and SCDs for DVT prophylaxis. CODE STATUS: Full code. Robin Richards MD MTDD
--- NOTE | 2018-02-24 12:23 | CT ---
Date of service: 02/23/2018 PROCEDURE: CT Abdomen and Pelvis without intravenous contrast HISTORY: abdominal pain COMPARISON: 08/17/2017 TECHNIQUE: Without contrast.. Contrast dose: 0 Radiation dose: Total exam DLP = 1124.03 mGy-cm. This CT exam was performed using one or more of the following dose reduction techniques: Automated exposure control, adjustment of the mA and/or kV according to patient size, and/or use of iterative reconstruction technique. FINDINGS: LOWER THORAX: Cardiomegaly. Small left pleural effusion. No infiltrate. LIVER: Nodular contour. Moderately atrophic. Consistent with hepatic cirrhosis. No mass. No biliary dilatation. Normal attenuation. Minimal intrahepatic biliary gas in the left lobe of the liver, possibly related to prior cholecystectomy. GALLBLADDER AND BILE DUCTS: Status post cholecystectomy PANCREAS: Unremarkable. No gross lesion or ductal dilatation. SPLEEN: Unremarkable. ADRENALS: Unremarkable. No mass. KIDNEYS AND URETERS: Unremarkable. No hydronephrosis. No solid mass. VASCULATURE: No evidence of abdominal aortic aneurysm. There is mild atherosclerotic calcification of the abdominal aorta. Left upper quadrant varices are noted likely reflecting portal hypertension associated with hepatic cirrhosis. BOWEL: Mild nonspecific mural thickening of the 3rd duodenum and proximal jejunum. Nonspecific enteritis. Possibly related to hypoalbuminemia. No generalized small-bowel mural thickening. Diverticulosis of the descending and sigmoid colon. No evidence of diverticulitis. No bowel obstruction. APPENDIX: Normal appendix. PERITONEUM: Extensive ascites. No pneumoperitoneum. LYMPH NODES: Unremarkable. No enlarged lymph nodes. BLADDER: Unremarkable. REPRODUCTIVE: Normal uterus. BONES: No acute fracture. OTHER FINDINGS: None. IMPRESSION: Small left pleural effusion. Hepatic cirrhosis. Extensive ascites. Left upper quadrant varices. Descending/sigmoid colonic diverticulosis without evidence of diverticulitis. The preliminary findings for this examination were reported by [facility] at 11:12 p.m. on 02/23/2018. There is concurrence of this report with the preliminary findings.
--- NOTE | 2018-02-24 12:35 | CP.PCM.CON ---
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 Patient notes abdominal distension and not feeling well for the last four days. Denies nausea, vomiting, hematemesis, heartburn, acid reflux, melena, hematochezia, yellowing of skin, or confusion. Prior EGD and colonoscopy 08/2017 with severe GAVE and gastric/colonic with multiple AVMs s/p APC. Family History- denies stomach cancer, colon cancer Social History- denies stomach cancer, colon cancer Surgical History- cholecystectomy, tonsillectomy Review of Systems - Review of Systems Review of Systems: 12-point review of systems negative except for as above Past Patient History - Infectious Disease Hx of Infectious Diseases: None - Past Social History Smoking Status: Never Smoked - CARDIAC Hx Cardiac Disorders: Yes Hx Congestive Heart Failure: Yes Hx Hypertension: Yes Hx Peripheral Edema: Yes - PULMONARY Hx Respiratory Disorders: Yes Hx Asthma: Yes Hx Bronchitis: Yes Other/Comment: Ann's esophagus / PE - NEUROLOGICAL Hx Neurological Disorder: Yes HX Cerebrovascular Accident: Yes (2010) - HEENT Hx HEENT Problems: Yes Hx Deafness: Yes Hx Difficulty Chewing: Yes Hx Glaucoma: Yes - RENAL Hx Chronic Kidney Disease: No - ENDOCRINE/METABOLIC Hx Endocrine Disorders: Yes Hx Diabetes Mellitus Type 2: Yes - HEMATOLOGICAL/ONCOLOGICAL Hx Blood Disorders: Yes Hx Anemia: Yes - INTEGUMENTARY Hx Dermatological Problems: Yes (dry skin / rash to BLE / stage 3 sacrum) - MUSCULOSKELETAL/RHEUMATOLOGICAL Hx Musculoskeletal Disorders: Yes Hx Arthritis: Yes Hx Back Pain: Yes Hx Falls: Yes Hx Unsteady Gait: Yes - GASTROINTESTINAL Hx Gastrointestinal Disorders: Yes Other/Comment: ascites, GI bleed, Colonic polyps, hemorrhoids - GENITOURINARY/GYNECOLOGICAL Hx Genitourinary Disorders: Yes Hx Incontinence: Yes - PSYCHIATRIC Hx Psychophysiologic Disorder: No Hx Substance Use: No - SURGICAL HISTORY Hx Surgeries: Yes Hx Cardiac Catheterization: Yes Hx Cholecystectomy: Yes Hx Coronary Stent: Yes - ANESTHESIA Hx Anesthesia Reactions: No Hx Malignant Hyperthermia: No Meds Allergies/Adverse Reactions: Allergies Allergy/AdvReac Type Severity Reaction Status Date / Time banana Allergy RASH Verified 09/29/17 17:37 codeine Allergy ANAPHYLAXIS Verified 09/29/17 17:37 diphenhydramine Allergy RASH Verified 09/29/17 17:37 [From Benadryl Allergy] erythromycin base Allergy RASH Verified 09/29/17 17:37 [From Erythrocin] Penicillins Allergy ANAPHYLAXIS Verified 09/29/17 17:37 shellfish derived Allergy ANAPHYLAXIS Verified 09/29/17 17:37 strawberry Allergy RASH Verified 09/29/17 17:37 Sulfa (Sulfonamide Allergy ANAPHYLAXIS Verified 09/29/17 17:37 Antibiotics) - Medications Medications: Current Medications Atorvastatin Calcium (Lipitor) 20 mg PO DAILY [facility] Last Admin: 02/24/18 09:20 Dose: Not Given Ferrous Sulfate (Feosol) 324 mg PO TID [facility] Last Admin: 02/24/18 09:19 Dose: 324 mg Furosemide (Lasix) 40 mg PO DAILY [facility] Last Admin: 02/24/18 09:20 Dose: 40 mg Levothyroxine Sodium (Synthroid) 25 mcg PO 0600 [facility] Last Admin: 02/24/18 05:37 Dose: 25 mcg Ondansetron HCl (Zofran Inj) 4 mg IVP Q6 PRN PRN Reason: Nausea Pantoprazole Sodium (Protonix Ec Tab) 40 mg PO DAILY [facility] Last Admin: 02/24/18 09:19 Dose: 40 mg Spironolactone (Aldactone) 50 mg PO BID [facility] Last Admin: 02/24/18 09:19 Dose: 50 mg Tramadol HCl (Ultram) 50 mg PO Q6 PRN PRN Reason: Pain, moderate (4-7) Physical Exam - Constitutional Appears: Non-toxic, No Acute Distress, Chronically Ill - Head Exam Head Exam: ATRAUMATIC, NORMOCEPHALIC - Eye Exam Eye Exam: PERRL. absent: Scleral icterus Pupil Exam: PERRL. absent: Miosis, Mydriatic - ENT Exam ENT Exam: Mucous Membranes Moist, Normal Oropharynx - Neck Exam Neck exam: Positive for: Full Rom, Normal Inspection - Respiratory Exam Respiratory Exam: Clear to Auscultation Bilateral. absent: Rales, Rhonchi, Wheezes - Cardiovascular Exam Cardiovascular Exam: RRR, +S1, +S2. absent: Gallop, Rubs - GI/Abdominal Exam GI & Abdominal Exam: Distended, Normal Bowel Sounds, Soft, Tenderness. absent: Firm, Guarding, Organomegaly, Rebound, Rigid - Extremities Exam Additional comments: 1+ B/L LE pitting edema - Neurological Exam Neurological exam: Alert - Psychiatric Exam Psychiatric exam: Normal Affect, Normal Mood - Skin Skin Exam: Dry, Intact, Normal Color, Warm Results - Vital Signs Recent Vital Signs: Last Vital Signs Temp 97.6 F 02/24/18 06:00 Pulse 93 H 02/24/18 06:00 Resp 18 02/24/18 06:00 BP 133/61 02/24/18 09:20 Pulse Ox 100 02/24/18 06:00 - Labs Result Diagrams: 02/24/18 08:00 02/24/18 07:00 Labs: Laboratory Results - last 24 hr 02/23/18 02/23/18 02/23/18 20:00 20:00 20:00 WBC 4.7 RBC 3.72 Hgb 10.9 L D Hct 33.5 L MCV 90.1 D MCH 29.3 MCHC 32.5 RDW 20.7 H Plt Count 167 MPV 9.7 Gran % 60.1 Lymph % (Auto) 26.1 Ransom % (Auto) 8.1 H Eos % (Auto) 4.9 Baso % (Auto) 0.8 Gran # 2.84 Lymph # (Auto) 1.2 Ransom # (Auto) 0.4 Eos # (Auto) 0.2 Baso # (Auto) 0.04 PT 14.3 H INR 1.25 APTT 29.5 pO2 VBG pH VBG pCO2 VBG HCO3 VBG Total CO2 VBG O2 Sat (Calc) VBG Base Excess VBG Potassium Glucose Lactate FiO2 Crit Value Called To Crit Value Called By Blood Gas Notified Time Sodium 137 Potassium 3.9 Chloride 103 Carbon Dioxide 26 Anion Gap 12 BUN 10 Creatinine 0.7 Est GFR ( Amer) > 60 Est GFR (Non-Af Amer) > 60 POC Glucose (mg/dL) Random Glucose 175 H Calcium 9.8 Total Bilirubin 1.5 H AST 29 ALT 21 Alkaline Phosphatase 82 Troponin I < 0.01 NT-Pro-B Natriuret Pep 1330 H Total Protein 7.4 Albumin 3.3 Globulin 4.1 Albumin/Globulin Ratio 0.8 L Lipase 204 TSH 3rd Generation Venous Blood Potassium Urine Color Urine Appearance Urine pH Ur Specific [place] Urine Protein Urine Glucose (UA) Urine Ketones Urine Blood Urine Nitrate Urine Bilirubin Urine Urobilinogen Ur Leukocyte Esterase Urine RBC Urine WBC Ur Epithelial Cells Urine Bacteria 02/23/18 02/23/18 02/23/18 20:00 20:20 21:31 WBC RBC Hgb Hct MCV MCH MCHC RDW Plt Count MPV Gran % Lymph % (Auto) Ransom % (Auto) Eos % (Auto) Baso % (Auto) Gran # Lymph # (Auto) Ransom # (Auto) Eos # (Auto) Baso # (Auto) PT INR APTT pO2 37 VBG pH 7.40 VBG pCO2 42.0 VBG HCO3 26.0 VBG Total CO2 27.3 VBG O2 Sat (Calc) 72.8 H VBG Base Excess 1.0 VBG Potassium 4.1 Glucose 180 H Lactate 2.8 H FiO2 21.0 Crit Value Called To Tereso staton Crit Value Called By Atc Blood Gas Notified Time 2027 Sodium 136.0 Potassium Chloride 102.0 Carbon Dioxide Anion Gap BUN Creatinine Est GFR ( Amer) Est GFR (Non-Af Amer) POC Glucose (mg/dL) Random Glucose Calcium Total Bilirubin AST ALT Alkaline Phosphatase Troponin I NT-Pro-B Natriuret Pep Total Protein Albumin Globulin Albumin/Globulin Ratio Lipase TSH 3rd Generation 3.79 Venous Blood Potassium 4.1 Urine Color Yellow Urine Appearance Sl cloudy Urine pH 6.0 Ur Specific [place] 1.025 Urine Protein Negative Urine Glucose (UA) Negative Urine Ketones Negative Urine Blood Trace-intact H Urine Nitrate Positive H Urine Bilirubin Negative Urine Urobilinogen 0.2 Ur Leukocyte Esterase Trace H Urine RBC 0 - 2 Urine WBC 0 - 2 Ur Epithelial Cells 3 - 4 Urine Bacteria Many 02/24/18 02/24/18 02/24/18 00:20 07:00 07:20 WBC RBC Hgb Hct MCV MCH MCHC RDW Plt Count MPV Gran % Lymph % (Auto) Ransom % (Auto) Eos % (Auto) Baso % (Auto) Gran # Lymph # (Auto) Ransom # (Auto) Eos # (Auto) Baso # (Auto) PT INR APTT pO2 25 L VBG pH 7.42 VBG pCO2 44.0 VBG HCO3 28.5 H VBG Total CO2 29.9 H VBG O2 Sat (Calc) 48.4 VBG Base Excess 3.4 H VBG Potassium 3.1 L Glucose 166 H Lactate 2.0 FiO2 21.0 Crit Value Called To Leslee max Crit Value Called By Pao Blood Gas Notified Time 35 Sodium 138.0 137 Potassium 3.1 L Chloride 103.0 105 Carbon Dioxide 26 Anion Gap 9 L BUN 9 Creatinine 0.6 L Est GFR ( Amer) > 60 Est GFR (Non-Af Amer) > 60 POC Glucose (mg/dL) 156 H Random Glucose 138 H Calcium 9.3 Total Bilirubin 1.5 H AST 22 ALT 26 Alkaline Phosphatase 66 Troponin I NT-Pro-B Natriuret Pep Total Protein 6.3 Albumin 2.8 L Globulin 3.6 Albumin/Globulin Ratio 0.8 L Lipase TSH 3rd Generation Venous Blood Potassium 3.1 L Urine Color Urine Appearance Urine pH Ur Specific [place] Urine Protein Urine Glucose (UA) Urine Ketones Urine Blood Urine Nitrate Urine Bilirubin Urine Urobilinogen Ur Leukocyte Esterase Urine RBC Urine WBC Ur Epithelial Cells Urine Bacteria 02/24/18 02/24/18 08:00 11:16 WBC 3.5 L D RBC 3.34 L Hgb 9.6 L Hct 30.2 L MCV 90.4 MCH 28.7 MCHC 31.8 RDW 20.6 H Plt Count 134 MPV 8.9 Gran % 49.3 L Lymph % (Auto) 32.9 Ransom % (Auto) 9.6 H Eos % (Auto) 7.4 H Baso % (Auto) 0.8 Gran # 1.74 Lymph # (Auto) 1.2 Ransom # (Auto) 0.3 Eos # (Auto) 0.3 Baso # (Auto) 0.03 PT INR APTT pO2 VBG pH VBG pCO2 VBG HCO3 VBG Total CO2 VBG O2 Sat (Calc) VBG Base Excess VBG Potassium Glucose Lactate FiO2 Crit Value Called To Crit Value Called By Blood Gas Notified Time Sodium Potassium Chloride Carbon Dioxide Anion Gap BUN Creatinine Est GFR ( Amer) Est GFR (Non-Af Amer) POC Glucose (mg/dL) 226 H Random Glucose Calcium Total Bilirubin AST ALT Alkaline Phosphatase Troponin I NT-Pro-B Natriuret Pep Total Protein Albumin Globulin Albumin/Globulin Ratio Lipase TSH 3rd Generation Venous Blood Potassium Urine Color Urine Appearance Urine pH Ur Specific [place] Urine Protein Urine Glucose (UA) Urine Ketones Urine Blood Urine Nitrate Urine Bilirubin Urine Urobilinogen Ur Leukocyte Esterase Urine RBC Urine WBC Ur Epithelial Cells Urine Bacteria Assessment & Plan - Assessment and Plan (Free Text) Assessment: 72 year old female with PMH of decompensated cirrhosis (likely cardiac etiology) in setting of portal vein thrombosis, 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 Active treatment of abdominal pain in setting of ascites and portal vein thrombosis. Prior EGD and colonoscopy 08/2017 with severe GAVE and gastric/colonic with multiple AVMs s/p APC. Plan: -CT A/P- large ascites -order for diagnostic and therapeutic paracentesis with fluid analysis -continue Lasix 40mg and spironolactone 100mg daily -H/H stable -2g sodium diet -will follow up on ongoing medical management at tertiary care facility due to pAfib and critical aortic stenosis with high-risk medical history -will follow clinical course <Angie Osei V - Last Filed: 02/24/18 23:53> Meds - Medications Medications: Current Medications Acetaminophen (Tylenol 325mg Tab) 650 mg PO Q6H PRN PRN Reason: Pain, moderate (4-7) Last Admin: 02/24/18 13:23 Dose: 650 mg Atorvastatin Calcium (Lipitor) 20 mg PO DAILY [facility] Last Admin: 02/24/18 09:20 Dose: Not Given Ferrous Sulfate (Feosol) 324 mg PO TID [facility] Last Admin: 02/24/18 18:16 Dose: 324 mg Furosemide (Lasix) 40 mg PO DAILY [facility] Last Admin: 02/24/18 09:20 Dose: 40 mg Insulin Human Regular (Humulin R Low) 0 units SC [facility]; Protocol Last Admin: 02/24/18 22:25 Dose: 2 units Levothyroxine Sodium (Synthroid) 25 mcg PO 0600 [facility] Last Admin: 02/24/18 05:37 Dose: 25 mcg Ondansetron HCl (Zofran Inj) 4 mg IVP Q6 PRN PRN Reason: Nausea Pantoprazole Sodium (Protonix Ec Tab) 40 mg PO DAILY [facility] Last Admin: 02/24/18 09:19 Dose: 40 mg Spironolactone (Aldactone) 50 mg PO BID [facility] Last Admin: 02/24/18 18:15 Dose: 50 mg Tramadol HCl (Ultram) 50 mg PO Q6 PRN PRN Reason: Pain, moderate (4-7) Last Admin: 02/24/18 22:31 Dose: 50 mg Results - Vital Signs Recent Vital Signs: Last Vital Signs Temp 97.9 F 02/24/18 16:59 Pulse 88 02/24/18 22:00 Resp 20 02/24/18 16:59 BP 114/58 L 02/24/18 16:59 Pulse Ox 100 02/24/18 06:00 - Labs Result Diagrams: 02/24/18 08:00 02/24/18 07:00 Labs: Laboratory Results - last 24 hr 02/23/18 02/24/18 02/24/18 20:00 00:20 07:00 WBC RBC Hgb Hct MCV MCH MCHC RDW Plt Count MPV Gran % Lymph % (Auto) Ransom % (Auto) Eos % (Auto) Baso % (Auto) Gran # Lymph # (Auto) Ransom # (Auto) Eos # (Auto) Baso # (Auto) pO2 25 L VBG pH 7.42 VBG pCO2 44.0 VBG HCO3 28.5 H VBG Total CO2 29.9 H VBG O2 Sat (Calc) 48.4 VBG Base Excess 3.4 H VBG Potassium 3.1 L Sodium 138.0 137 Chloride 103.0 105 Glucose 166 H Lactate 2.0 FiO2 21.0 Crit Value Called To Leslee max Crit Value Called By Pao Blood Gas Notified Time 35 Potassium 3.1 L Carbon Dioxide 26 Anion Gap 9 L BUN 9 Creatinine 0.6 L Est GFR ( Amer) > 60 Est GFR (Non-Af Amer) > 60 POC Glucose (mg/dL) Random Glucose 138 H Calcium 9.3 Total Bilirubin 1.5 H AST 22 ALT 26 Alkaline Phosphatase 66 Total Protein 6.3 Albumin 2.8 L Globulin 3.6 Albumin/Globulin Ratio 0.8 L TSH 3rd Generation 3.79 Venous Blood Potassium 3.1 L 02/24/18 02/24/18 02/24/18 07:20 08:00 11:16 WBC 3.5 L D RBC 3.34 L Hgb 9.6 L Hct 30.2 L MCV 90.4 MCH 28.7 MCHC 31.8 RDW 20.6 H Plt Count 134 MPV 8.9 Gran % 49.3 L Lymph % (Auto) 32.9 Ransom % (Auto) 9.6 H Eos % (Auto) 7.4 H Baso % (Auto) 0.8 Gran # 1.74 Lymph # (Auto) 1.2 Ransom # (Auto) 0.3 Eos # (Auto) 0.3 Baso # (Auto) 0.03 pO2 VBG pH VBG pCO2 VBG HCO3 VBG Total CO2 VBG O2 Sat (Calc) VBG Base Excess VBG Potassium Sodium Chloride Glucose Lactate FiO2 Crit Value Called To Crit Value Called By Blood Gas Notified Time Potassium Carbon Dioxide Anion Gap BUN Creatinine Est GFR ( Amer) Est GFR (Non-Af Amer) POC Glucose (mg/dL) 156 H 226 H Random Glucose Calcium Total Bilirubin AST ALT Alkaline Phosphatase Total Protein Albumin Globulin Albumin/Globulin Ratio TSH 3rd Generation Venous Blood Potassium 02/24/18 16:08 WBC RBC Hgb Hct MCV MCH MCHC RDW Plt Count MPV Gran % Lymph % (Auto) Ransom % (Auto) Eos % (Auto) Baso % (Auto) Gran # Lymph # (Auto) Ransom # (Auto) Eos # (Auto) Baso # (Auto) pO2 VBG pH VBG pCO2 VBG HCO3 VBG Total CO2 VBG O2 Sat (Calc) VBG Base Excess VBG Potassium Sodium Chloride Glucose Lactate FiO2 Crit Value Called To Crit Value Called By Blood Gas Notified Time Potassium Carbon Dioxide Anion Gap BUN Creatinine Est GFR ( Amer) Est GFR (Non-Af Amer) POC Glucose (mg/dL) 344 H Random Glucose Calcium Total Bilirubin AST ALT Alkaline Phosphatase Total Protein Albumin Globulin Albumin/Globulin Ratio TSH 3rd Generation Venous Blood Potassium Attending/Attestation - Attestation I have personally seen and examined this patient.: Yes I have fully participated in the care of the patient.: Yes I have reviewed all pertinent clinical information: Yes Notes (Text): This is an addendum to GI consult report dictated by the GI Fellow. The patient was seen and examined earlier. Medical records, lab studies, imagings were reviewed. Last 24 hours events reviewed. Agreed with the above treatment plan as outlined in GI Fellow 's notes with the addition of the following 02/24/18 23:53
[2018-02-24] MEDS ORDERED: Potassium Chloride 20 mEq ER Tab PO ONE (13:05)
--- NOTE | 2018-02-24 15:33 | RAD ---
Date of service: 02/23/2018 HISTORY: abdominal pain. r/o free air COMPARISON: 10/23/2017 FINDINGS: LUNGS: No active pulmonary disease. PLEURA: No significant pleural effusion identified, no pneumothorax apparent. CARDIOVASCULAR: No aortic atherosclerotic calcification present. Normal cardiac size. No pulmonary vascular congestion. OSSEOUS STRUCTURES: No significant abnormalities. VISUALIZED UPPER ABDOMEN: Normal. OTHER FINDINGS: None. IMPRESSION: No active disease.
[2018-02-24] MEDS: Insulin Reg-LOW-Coverage SC SCH (22:25)
[2018-02-25] MEDS: Levothyroxine 25 MCG TAB PO SCH (05:43)
--- NOTE | 2018-02-25 06:14 | CARD ---
APPROVED REPORT Date of service: 02/23/2018 EKG Measurement Heart [id number] <Conclusion> Sinus tachycardia with occasional premature ventricular complexes Right bundle branch block Possible Lateral infarct, age undetermined T wave abnormality, consider inferior ischemia Abnormal ECG
[2018-02-25 06:58] LABS: ALB/GLOB RATIO 0.8 (1.1-1.8); ALBUMIN 2.5 g/dL (3.0-4.8); ALT/SGPT 25 U/L (7-56); AST/SGOT 19 U/L (14-36); BLOOD UREA NITROGEN 10 mg/dL (7-21); CALCIUM 8.7 mg/dL (8.4-10.5); GFR NON-AFRICAN AMERICAN > 60
[2018-02-25 07:16] LABS: BASO # 0.03 K/mm3 (0.0-2.0); BASO % 0.9 % (0.0-3.0); EOS # 0.3 (0.0-0.7); EOS % 8.7 % (1.5-5.0); GRAN # 1.84 (1.4-6.5); GRAN % 55.3 % (50.0-68.0); HEMOGLOBIN 9.3 g/dL (12.0-16.0); LYMPH # 0.8 (1.2-3.4); LYMPH % 25.2 % (22.0-35.0); MEAN CELL VOLUME 90.5 fl (80.0-105.0); MEAN CORPUSCULAR HEMOGLOBIN 29.4 pg (25.0-35.0); MEAN CORPUSCULAR HGB CONC 32.5 g/dl (31.0-37.0); MEAN PLATELET VOLUME 9.1 fl (7.0-11.0); MONO # 0.3 (0.1-0.6); MONO % 9.9 % (1.0-6.0); RBC 3.16 10^6/uL (3.5-6.1); RED CELL DISTRIBUTION WIDTH 20.7 % (11.5-14.5); WHITE BLOOD COUNT 3.3 10^3/uL (4.5-11.0)
[2018-02-25] MEDS: Insulin Reg-LOW-Coverage SC SCH ×4 (07:48→22:06)
[2018-02-25] MEDS: Pantoprazole 40 mg EC Tab PO SCH (09:54)
--- NOTE | 2018-02-25 11:34 | PN ---
SUBJECTIVE: The patient was seen and examined at bedside on the telemetry navarro. No acute events overnight. She remains afebrile and hemodynamically stable. She continues to endorse abdominal discomfort which is unchanged since admission. She otherwise denies fevers, chills, nausea, vomiting, diarrhea, melena or hematochezia. OBJECTIVE: VITAL SIGNS: Temperature 97.7, pulse 85, blood pressure 125/59, respiratory rate 18, oxygen saturation 100% on 2L NC. GENERAL: Elderly woman, lying in bed in moderate distress secondary to abdominal pain. HEENT: PERRL, EOMI. No scleral icterus. Conjunctival pallor is noted. NECK: No JVD, no bruits. LUNGS: Decreased breath sounds at the bases. CARDIOVASCULAR: Regular rate and rhythm. Normal S1, S2. Grade II/ MILTON to RUSB. ABDOMEN: Markedly distended with tense ascites and positive fluid wave, distant bowel sounds, tender to palpation with voluntary guarding. EXTREMITIES: Trace lower extremity edema bilaterally. NEUROLOGIC: Awake, alert and oriented x 3. No focal motor deficits. No asterixis. LABORATORY DATA: WBC 3.3 with 55% neutrophils, hemoglobin 9.3, hematocrit 29, platelets 133. Sodium 138, potassium 3.6, chloride 107, bicarb 28, BUN 10, creatinine 0.6, glucose 150. Blood cultures with no growth to date. IMAGING STUDIES: CT of the abdomen and pelvis without contrast demonstrates hepatic cirrhosis with extensive ascites and diverticulosis without evidence of diverticulitis. ASSESSMENT: The patient is a 72-year-old woman with a past medical history of cirrhosis of unclear etiology (favor cardiac cirrhosis +/- FORD) who presented with a 3 day history of abdominal distention and was admitted for management of decompensated ascites. PLAN: 1. Cirrhosis of unclear etiology, although favor cardiac cirrhosis +/- FORD, with recurrent decompensated ascites. Input from Dr. Osei noted and appreciated. Evaluation with Dr. Mat Swain is pending for therapeutic paracentesis. Continue Lasix 40 mg p.o. daily and Aldactone 50 mg p.o. b.i.d. Continue Tylenol 650 mg p.o. q. 6 hours p.r.n. pain and Zofran 4 mg IV q 6 hours p.r.n. nausea. 2. 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 Labs with stable H/H. Continue Feosol 325 mg p.o. t.i.d. 3. Critical aortic stenosis. 4. Nonobstructive CAD. Continue Lipitor 20 mg p.o. daily 5. Hypertension. Blood pressure remained stable. Continue current medications. 6. History of remote PE. The patient remains off anticoagulation therapy due to history of GI bleed. 7. Non-insulin dependent diabetes mellitus, diet controlled. 8. Hypothyroidism. Continue Synthroid 25 mcg p.o. daily 9. Vitamin B12 deficiency. The patient receives monthly B12 injections. 10. Prophylaxis. Continue Protonix for GI prophylaxis and SCDs for DVT prophylaxis. CODE STATUS: Full code. Robin Richards MD MTDD
--- NOTE | 2018-02-25 14:00 | CP.PCM.PN ---
<Santa Robertson - Last Filed: 02/25/18 13:56> Subjective - Date & Time of Evaluation Date of Evaluation: 02/25/18 Time of Evaluation: 13:57 - Subjective Subjective: Gastroenterology Fellow/PGY6 Progress Note Patient sitting in chair comfortably. Admits to abdominal discomfort due to distended abdomen. Tolerating regular diet. Denies bowel movement last two days. A 12-point review of systems negative except for as above. Objective - Vital Signs/Intake and Output Vital Signs (last 24 hours): Temp Pulse Resp BP Pulse Ox 97.7 F 85 18 125/59 L 100 02/25/18 06:00 02/25/18 06:00 02/25/18 06:00 02/25/18 09:55 02/25/18 06:00 Intake and Output: 02/25/18 02/25/18 06:59 18:59 Intake Total 120 Output Total 550 Balance -430 - Medications Medications: Current Medications Acetaminophen (Tylenol 325mg Tab) 650 mg PO Q6H PRN PRN Reason: Pain, moderate (4-7) Last Admin: 02/25/18 02:39 Dose: 650 mg Atorvastatin Calcium (Lipitor) 20 mg PO DAILY [facility] Last Admin: 02/25/18 09:54 Dose: 20 mg Ferrous Sulfate (Feosol) 324 mg PO TID [facility] Last Admin: 02/25/18 09:53 Dose: 324 mg Furosemide (Lasix) 40 mg PO DAILY [facility] Last Admin: 02/25/18 09:55 Dose: 40 mg Insulin Human Regular (Humulin R Low) 0 units SC ACHS [facility]; Protocol Last Admin: 02/25/18 11:32 Dose: 3 units Levothyroxine Sodium (Synthroid) 25 mcg PO 0600 [facility] Last Admin: 02/25/18 05:43 Dose: 25 mcg Ondansetron HCl (Zofran Inj) 4 mg IVP Q6 PRN PRN Reason: Nausea Pantoprazole Sodium (Protonix Ec Tab) 40 mg PO DAILY [facility] Last Admin: 02/25/18 09:54 Dose: 40 mg Spironolactone (Aldactone) 50 mg PO BID [facility] Last Admin: 02/25/18 09:53 Dose: 50 mg Tramadol HCl (Ultram) 50 mg PO Q6 PRN PRN Reason: Pain, moderate (4-7) Last Admin: 02/25/18 05:43 Dose: 50 mg - Labs Labs: 02/25/18 05:00 02/25/18 05:00 PT 14.3 SECONDS (9.4-12.5) H 02/23/18 20:00 INR 1.25 02/23/18 20:00 APTT 29.5 Seconds (25.1-36.5) 02/23/18 20:00 - Constitutional Appears: Non-toxic, No Acute Distress - Head Exam Head Exam: ATRAUMATIC, NORMOCEPHALIC - Eye Exam Eye Exam: EOMI, PERRL. absent: Scleral icterus Pupil Exam: PERRL. absent: Miosis, Mydriatic - ENT Exam ENT Exam: Mucous Membranes Moist, Normal Oropharynx - Neck Exam Neck Exam: Full ROM, Normal Inspection - Respiratory Exam Respiratory Exam: Clear to Ausculation Bilateral. absent: Rales, Rhonchi, Wheezes - Cardiovascular Exam Cardiovascular Exam: RRR, +S1, +S2. absent: Gallop, Rubs - GI/Abdominal Exam GI & Abdominal Exam: Distended, Firm, Soft, Tenderness, Normal Bowel Sounds. 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 Active treatment of decompensated cirrhosis 2/2 ascites in setting of portal vein thrombosis. Prior EGD and colonoscopy 08/2017 with severe GAVE and gastric/colonic with multiple AVMs s/p APC. Plan: -MELD on admission 13 -ordered for diagnostic and therapeutic paracentesis with fluid analysis on Monday02/26/18 -on Lasix 40mg and spironolactone 100mg daily, to be hel d Monday for paracent esis -continue 2g sodium diet -patient refuses bowel regimen, counselling provided -will follow clinical course <Sea,Kovil V - Last Filed: 02/25/18 23:44> Objective - Vital Signs/Intake and Output Vital Signs (last 24 hours): Temp Pulse Resp BP Pulse Ox 97.6 F 93 H 16 111/52 L 100 02/25/18 12:00 02/25/18 12:00 02/25/18 12:00 02/25/18 12:00 02/25/18 06:00 Intake and Output: 02/25/18 02/25/18 06:59 18:59 Intake Total 120 Output Total 550 Balance -430 - Medications Medications: Current Medications Acetaminophen (Tylenol 325mg Tab) 650 mg PO Q6H PRN PRN Reason: Pain, moderate (4-7) Last Admin: 02/25/18 02:39 Dose: 650 mg Atorvastatin Calcium (Lipitor) 20 mg PO DAILY [facility] Last Admin: 02/25/18 09:54 Dose: 20 mg Ferrous Sulfate (Feosol) 324 mg PO TID [facility] Last Admin: 02/25/18 17:58 Dose: 324 mg Furosemide (Lasix) 40 mg PO DAILY [facility] Last Admin: 02/25/18 09:55 Dose: 40 mg Insulin Human Regular (Humulin R Low) 0 units SC [facility]; Protocol Last Admin: 02/25/18 17:58 Dose: 2 units Levothyroxine Sodium (Synthroid) 25 mcg PO 0600 [facility] Last Admin: 02/25/18 05:43 Dose: 25 mcg Ondansetron HCl (Zofran Inj) 4 mg IVP Q6 PRN PRN Reason: Nausea Pantoprazole Sodium (Protonix Ec Tab) 40 mg PO DAILY [facility] Last Admin: 02/25/18 09:54 Dose: 40 mg Spironolactone (Aldactone) 50 mg PO BID [facility] Last Admin: 02/25/18 17:58 Dose: 50 mg Tramadol HCl (Ultram) 50 mg PO Q6 PRN PRN Reason: Pain, moderate (4-7) Last Admin: 02/25/18 05:43 Dose: 50 mg - Labs Labs: 02/25/18 05:00 02/25/18 05:00 PT 14.3 SECONDS (9.4-12.5) H 02/23/18 20:00 INR 1.25 02/23/18 20:00 APTT 29.5 Seconds (25.1-36.5) 02/23/18 20:00 Attending/Attestation - Attestation I have personally seen and examined this patient.: Yes I have fully participated in the care of the patient.: Yes I have reviewed all pertinent clinical information, including history, physical exam and plan: Yes Notes (Text): This is an addendum to GI followup progress report dictated by the GI Fellow. The patient was seen and examined earlier. Medical records, lab studies, imagings were reviewed. Last 24 hours events reviewed. Agreed with the above treatment plan as outlined in GI Fellow 's notes with the addition of the following This patient had paracentesis today. 02/25/18 18:05
--- NOTE | 2018-02-25 14:56 | CP.PCM.CON ---
History of Present Illness - History of Present Illness History of Present Illness: Surgery: Dr. Pena CC: Abd pain 2/2 ascites HPI: 72F with PMH of decompensated cirrhosis 2/2 cardiac etiology vs FORD, critical aortic stenosis with Heyde's syndrome, HTN, Diabetes, and Hypothyroidism is presenting w. abdominal pain x 4day. She states that her abdomen has gradually been increasing in size. She states that this has been accompanied by nausea, but not vomiting. She states that she does have some mild SOB. She states that she has undergone paracentesis in the past and it has brought relief to her symptoms. CT scan done upon admission showed significant ascites, and surgery was consulted for paracentesis. PMH: See above PSH: krishna, ventral hernia Meds: MAR reviewed ALL: codeine, benadryl, erythromycin Social: Social ETOH, no tobacco/drugs Fhx: non-contributory Review of Systems - Review of Systems All systems: reviewed and no additional remarkable complaints except (HPI) Past Patient History - Infectious Disease Hx of Infectious Diseases: None - Past Social History Smoking Status: Never Smoked - CARDIAC Hx Cardiac Disorders: Yes Hx Congestive Heart Failure: Yes Hx Hypertension: Yes Hx Peripheral Edema: Yes - PULMONARY Hx Respiratory Disorders: Yes Hx Asthma: Yes Hx Bronchitis: Yes Other/Comment: Ann's esophagus / PE - NEUROLOGICAL Hx Neurological Disorder: Yes HX Cerebrovascular Accident: Yes (2010) - HEENT Hx HEENT Problems: Yes Hx Deafness: Yes Hx Difficulty Chewing: Yes Hx Glaucoma: Yes - RENAL Hx Chronic Kidney Disease: No - ENDOCRINE/METABOLIC Hx Endocrine Disorders: Yes Hx Diabetes Mellitus Type 2: Yes - HEMATOLOGICAL/ONCOLOGICAL Hx Blood Disorders: Yes Hx Anemia: Yes - INTEGUMENTARY Hx Dermatological Problems: Yes (dry skin / rash to BLE / stage 3 sacrum) - MUSCULOSKELETAL/RHEUMATOLOGICAL Hx Musculoskeletal Disorders: Yes Hx Arthritis: Yes Hx Back Pain: Yes Hx Falls: Yes Hx Unsteady Gait: Yes - GASTROINTESTINAL Hx Gastrointestinal Disorders: Yes Other/Comment: ascites, GI bleed, Colonic polyps, hemorrhoids - GENITOURINARY/GYNECOLOGICAL Hx Genitourinary Disorders: Yes Hx Incontinence: Yes - PSYCHIATRIC Hx Psychophysiologic Disorder: No Hx Substance Use: No - SURGICAL HISTORY Hx Surgeries: Yes Hx Cardiac Catheterization: Yes Hx Cholecystectomy: Yes Hx Coronary Stent: Yes - ANESTHESIA Hx Anesthesia Reactions: No Hx Malignant Hyperthermia: No Meds Allergies/Adverse Reactions: Allergies Allergy/AdvReac Type Severity Reaction Status Date / Time banana Allergy RASH Verified 09/29/17 17:37 codeine Allergy ANAPHYLAXIS Verified 09/29/17 17:37 diphenhydramine Allergy RASH Verified 09/29/17 17:37 [From Benadryl Allergy] erythromycin base Allergy RASH Verified 09/29/17 17:37 [From Erythrocin] Penicillins Allergy ANAPHYLAXIS Verified 09/29/17 17:37 shellfish derived Allergy ANAPHYLAXIS Verified 09/29/17 17:37 strawberry Allergy RASH Verified 09/29/17 17:37 Sulfa (Sulfonamide Allergy ANAPHYLAXIS Verified 09/29/17 17:37 Antibiotics) - Medications Medications: Current Medications Acetaminophen (Tylenol 325mg Tab) 650 mg PO Q6H PRN PRN Reason: Pain, moderate (4-7) Last Admin: 02/25/18 02:39 Dose: 650 mg Atorvastatin Calcium (Lipitor) 20 mg PO DAILY [facility] Last Admin: 02/25/18 09:54 Dose: 20 mg Ferrous Sulfate (Feosol) 324 mg PO TID [facility] Last Admin: 02/25/18 14:20 Dose: 324 mg Furosemide (Lasix) 40 mg PO DAILY [facility] Last Admin: 02/25/18 09:55 Dose: 40 mg Insulin Human Regular (Humulin R Low) 0 units SC [facility]; Protocol Last Admin: 02/25/18 11:32 Dose: 3 units Levothyroxine Sodium (Synthroid) 25 mcg PO 0600 [facility] Last Admin: 02/25/18 05:43 Dose: 25 mcg Ondansetron HCl (Zofran Inj) 4 mg IVP Q6 PRN PRN Reason: Nausea Pantoprazole Sodium (Protonix Ec Tab) 40 mg PO DAILY [facility] Last Admin: 02/25/18 09:54 Dose: 40 mg Spironolactone (Aldactone) 50 mg PO BID [facility] Last Admin: 02/25/18 09:53 Dose: 50 mg Tramadol HCl (Ultram) 50 mg PO Q6 PRN PRN Reason: Pain, moderate (4-7) Last Admin: 02/25/18 05:43 Dose: 50 mg Physical Exam - Constitutional Appears: Non-toxic, No Acute Distress - Head Exam Head Exam: ATRAUMATIC, NORMOCEPHALIC - Eye Exam Eye Exam: EOMI - ENT Exam ENT Exam: Mucous Membranes Moist - Neck Exam Neck exam: Positive for: Full Rom - Respiratory Exam Respiratory Exam: NORMAL BREATHING PATTERN. absent: Accessory Muscle Use, Respiratory Distress - GI/Abdominal Exam GI & Abdominal Exam: Distended, Soft, Tenderness (mild). absent: Firm, Guarding, Rebound, Rigid - Extremities Exam Extremities exam: Negative for: calf tenderness, pedal edema - Neurological Exam Neurological exam: Alert, Oriented x3 - Psychiatric Exam Psychiatric exam: Normal Affect, Normal Mood - Skin Skin Exam: Dry, Normal Color, Warm Results - Vital Signs Recent Vital Signs: Last Vital Signs Temp 97.6 F 02/25/18 12:00 Pulse 93 H 02/25/18 12:00 Resp 16 02/25/18 12:00 BP 111/52 L 02/25/18 12:00 Pulse Ox 100 02/25/18 06:00 - Labs Result Diagrams: 02/25/18 05:00 02/25/18 05:00 Labs: Laboratory Results - last 24 hr 02/24/18 02/24/18 02/25/18 16:08 21:30 05:00 WBC 3.3 L RBC 3.16 L Hgb 9.3 L Hct 28.6 L MCV 90.5 MCH 29.4 MCHC 32.5 RDW 20.7 H Plt Count 133 MPV 9.1 Gran % 55.3 Lymph % (Auto) 25.2 Stanton % (Auto) 9.9 H Eos % (Auto) 8.7 H Baso % (Auto) 0.9 Gran # 1.84 Lymph # (Auto) 0.8 L Stanton # (Auto) 0.3 Eos # (Auto) 0.3 Baso # (Auto) 0.03 Sodium Potassium Chloride Carbon Dioxide Anion Gap BUN Creatinine Est GFR ( Amer) Est GFR (Non-Af Amer) POC Glucose (mg/dL) 344 H 323 H Random Glucose Calcium Total Bilirubin AST ALT Alkaline Phosphatase Total Protein Albumin Globulin Albumin/Globulin Ratio Fluid pH 02/25/18 02/25/18 02/25/18 05:00 07:15 11:25 WBC RBC Hgb Hct MCV MCH MCHC RDW Plt Count MPV Gran % Lymph % (Auto) Stanton % (Auto) Eos % (Auto) Baso % (Auto) Gran # Lymph # (Auto) Stanton # (Auto) Eos # (Auto) Baso # (Auto) Sodium 138 Potassium 3.6 Chloride 107 Carbon Dioxide 28 Anion Gap 7 L BUN 10 Creatinine 0.6 L Est GFR ( Amer) > 60 Est GFR (Non-Af Amer) > 60 POC Glucose (mg/dL) 157 H 251 H Random Glucose 150 H Calcium 8.7 Total Bilirubin 0.9 AST 19 ALT 25 Alkaline Phosphatase 60 Total Protein 5.7 L Albumin 2.5 L Globulin 3.2 Albumin/Globulin Ratio 0.8 L Fluid pH 02/25/18 14:15 WBC RBC Hgb Hct MCV MCH MCHC RDW Plt Count MPV Gran % Lymph % (Auto) Stanton % (Auto) Eos % (Auto) Baso % (Auto) Gran # Lymph # (Auto) Stanton # (Auto) Eos # (Auto) Baso # (Auto) Sodium Potassium Chloride Carbon Dioxide Anion Gap BUN Creatinine Est GFR ( Amer) Est GFR (Non-Af Amer) POC Glucose (mg/dL) Random Glucose Calcium Total Bilirubin AST ALT Alkaline Phosphatase Total Protein Albumin Globulin Albumin/Globulin Ratio Fluid pH 8 - Imaging and Cardiology CT scan - abdomen Status: Image reviewed by me, Report reviewed by me Assessment & Plan - Assessment and Plan (Free Text) Assessment: 72F w. abd pain 2/2 ascites from decompensated cirrhosis -Bedside paracentesis -Consent in chart, risks/benefits d/w pt -fluid sent for analysis, Cx/cytology/chemistry -d/w attending Tc PGY4 Procedure: Fluid Aspiration - Time Performed Time Performed: 14:00 - Time Out Time Out: Side verified, Site verified, Patient ID confirmed, Sterile procedures obs. - Procedure Procedure: Paracentesis - Consent Obtained Consent obtained: Written - Performed By Performed by: Mid-level Provider - Indications Indication(s): Therapeutic, Diagnostic, Massive ascites - Contraindications Contraindications: None - Location Location: Right, Abdomen - Anesthetic Technique Anesthetic Technique: Local Anesthetic: Lidocaine 1% Procedure: Usual prep and drape - Appearance Appearance: Straw-colored, Serous - Drained Drained ml: 3000 - Post-procedure Post-procedure: Dressed - Complications Complications: None - Patient tolerated procedure Patient tolerated procedure: Well
[2018-02-25 16:29] LABS: BODY FLUID TYPE PERITONEAL/ASCITES
[2018-02-25 17:23] LABS: BF GROSS APPEARANCE CLEAR (CLEAR)
[2018-02-25 17:47] LABS: BODY FLUID TOTAL COUNT 100 (0-0)
[2018-02-26] MEDS: Levothyroxine 25 MCG TAB PO SCH (06:28)
[2018-02-26 06:35] LABS: BASO # 0.01 K/mm3 (0.0-2.0); BASO % 0.3 % (0.0-3.0); EOS # 0.2 (0.0-0.7); EOS % 6.4 % (1.5-5.0); GRAN # 1.99 (1.4-6.5); GRAN % 57.7 % (50.0-68.0); HEMOGLOBIN 9.2 g/dL (12.0-16.0); LYMPH # 0.9 (1.2-3.4); LYMPH % 24.6 % (22.0-35.0); MEAN CELL VOLUME 89.2 fl (80.0-105.0); MEAN CORPUSCULAR HEMOGLOBIN 29.1 pg (25.0-35.0); MEAN CORPUSCULAR HGB CONC 32.6 g/dl (31.0-37.0); MEAN PLATELET VOLUME 10.4 fl (7.0-11.0); MONO # 0.4 (0.1-0.6); RBC 3.16 10^6/uL (3.5-6.1); RED CELL DISTRIBUTION WIDTH 20.5 % (11.5-14.5); WHITE BLOOD COUNT 3.5 10^3/uL (4.5-11.0)
[2018-02-26 06:42] LABS: ALB/GLOB RATIO 0.8 (1.1-1.8); ALBUMIN 2.5 g/dL (3.0-4.8); ALT/SGPT 27 U/L (7-56); AST/SGOT 21 U/L (14-36); BLOOD UREA NITROGEN 10 mg/dL (7-21); CALCIUM 8.7 mg/dL (8.4-10.5); GFR NON-AFRICAN AMERICAN > 60
[2018-02-26] MEDS: Insulin Reg-LOW-Coverage SC SCH ×4 (08:53→21:55)
[2018-02-26] MEDS: Pantoprazole 40 mg EC Tab PO SCH (10:30)
--- NOTE | 2018-02-26 11:22 | PN ---
SUBJECTIVE: The patient was seen and examined at bedside on the telemetry navarro. No acute events overnight. She remains afebrile and hemodynamically stable. She is s/p therapeutic paracentesis with removal of 3 liters of fluid. This morning she reports improvement in her abdominal discomfort and otherwise offers no complaints. OBJECTIVE: VITAL SIGNS: Temperature 97.6, pulse 102, blood pressure 106/64, respiratory rate 19, oxygen saturation 97% on 2L NC. GENERAL: No apparent distress. HEENT: PERRL, EOMI. No scleral icterus. Mild conjunctival pallor is noted. NECK: No JVD, no bruits. LUNGS: Decreased breath sounds at the bases. CARDIOVASCULAR: Regular rate and rhythm. Normal S1 and S2. Grade II/ MILTON to RUSB. ABDOMEN: Distended with ascites (significantly improved), distant bowel sounds and mildly tender to palpation to epigastrium with voluntary guarding. EXTREMITIES: Trace lower extremity edema bilaterally. NEUROLOGIC: Awake, alert and oriented x 3. No focal motor deficits. No asterixis. LABORATORY DATA: WBC 3.5 with 57% neutrophils, hemoglobin 9, hematocrit 28, platelets 152. Chemistry reviewed and unremarkable. Blood cultures with no growth to date. Ascitic fluid with no growth to date. ASSESSMENT: The patient is a 72-year-old woman with a past medical history of cirrhosis likely secondary to cardiac cirrhosis +/- FORD who presented with a 3 day history of abdominal distention and was admitted for management of decompensated ascites. PLAN: 1. Cirrhosis, likely secondary to cardiac cirrhosis +/- FORD with recurrent decompensated ascites. The patient is s/p therapeutic paracentesis with removal of 3 liters of fluid with significant improvement in her abdominal discomfort. No evidence of SBP. Input from GI noted. Continue Lasix 40 mg p.o. daily and Aldactone 50 mg p.o. b.i.d. Continue Tylenol 650 mg p.o. q. 6 hours p.r.n. pain and Zofran 4 mg IV q. 6 hours p.r.n. nausea. 2. 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 Labs with stable H/H. Continue Feosol 325 mg p.o. t.i.d. 3. Critical aortic stenosis. 4. Nonobstructive CAD. Continue Lipitor 20 mg p.o. daily. 5. Hypertension. Blood pressure stable. Continue current medications. 6. History of remote PE. The patient remains off anticoagulation therapy due to history of GI bleed. 7. Non-insulin dependent diabetes mellitus, diet-controlled. 8. Hypothyroidism. Continue Synthroid 25 mcg p.o. daily 9. Vitamin B12 deficiency. The patient receives monthly B12 injections. 10. Prophylaxis. Continue Protonix for GI prophylaxis and SCDs for DVT prophylaxis. CODE STATUS: Full code. Robin Richards MD MTDOlivia
--- NOTE | 2018-02-26 17:24 | US ---
PROCEDURE: Ultrasound guided paracentesis. HISTORY: Cryptogenic cirrhosis. ? cardiogenic versus FORD. Abdominal pain and distension. Recent paracentesis. PHYSICIAN(S): Mat Swain MD. TECHNIQUE: The relative risks and indications for the procedure were explained to the patient and informed written consent obtained. Sonography of the abdomen was performed in a supine position. This revealed a moderate amount of non-loculated ascites, greatest in the right lower quadrant. A puncture site was selected and the area was prepped and draped in the usual sterile fashion. 1% Xylocaine was used to anesthetize the skin and soft tissues. A 7 Icelandic paracentesis catheter was trocared into the right lower quadrantand 3900 cc of clear gutierrez fluid aspirated. No labs were sent due to the recent paracentesis. IMPRESSION: Ultrasound-guided paracentesis in the right lower quadrant. 3900 cc of clear gutierrez fluid was aspirated.
--- NOTE | 2018-02-26 18:13 | CP.PCM.PN ---
<Scottie Lipscomb - Last Filed: 02/26/18 20:33> Subjective - Date & Time of Evaluation Date of Evaluation: 02/26/18 Time of Evaluation: 09:30 - Subjective Subjective: PGY-4 GI Fellow Prog Note Pt lyinging in bed when seen this AM. Some ascitic fluid leak post para yesterday. 3 L removed; plans for further fluid removal with para today. 5 point ROS negative other than stated above Objective - Vital Signs/Intake and Output Vital Signs (last 24 hours): Temp Pulse Resp BP Pulse Ox 97.7 F 90 20 108/55 L 97 02/26/18 18:00 02/26/18 18:00 02/26/18 18:00 02/26/18 18:00 02/26/18 06:00 Intake and Output: 02/26/18 02/26/18 06:59 18:59 Intake Total 0 Balance 0 - Medications Medications: Current Medications Acetaminophen (Tylenol 325mg Tab) 650 mg PO Q6H PRN PRN Reason: Pain, moderate (4-7) Last Admin: 02/26/18 06:28 Dose: 650 mg Atorvastatin Calcium (Lipitor) 20 mg PO DAILY [facility] Last Admin: 02/26/18 10:30 Dose: Not Given Ferrous Sulfate (Feosol) 324 mg PO TID [facility] Last Admin: 02/26/18 18:06 Dose: 324 mg Furosemide (Lasix) 40 mg PO DAILY [facility] Last Admin: 02/26/18 10:30 Dose: 40 mg Insulin Human Regular (Humulin R Low) 0 units SC [facility]; Protocol Last Admin: 02/26/18 18:06 Dose: 2 units Levothyroxine Sodium (Synthroid) 25 mcg PO 0600 [facility] Last Admin: 02/26/18 06:28 Dose: 25 mcg Ondansetron HCl (Zofran Inj) 4 mg IVP Q6 PRN PRN Reason: Nausea Pantoprazole Sodium (Protonix Ec Tab) 40 mg PO DAILY [facility] Last Admin: 02/26/18 10:30 Dose: 40 mg Spironolactone (Aldactone) 50 mg PO BID [facility] Last Admin: 02/26/18 10:30 Dose: 50 mg Tramadol HCl (Ultram) 50 mg PO Q6 PRN PRN Reason: Pain, moderate (4-7) Last Admin: 02/25/18 05:43 Dose: 50 mg - Labs Labs: 02/26/18 05:25 02/26/18 05:25 PT 14.3 SECONDS (9.4-12.5) H 02/23/18 20:00 INR 1.25 02/23/18 20:00 APTT 29.5 Seconds (25.1-36.5) 02/23/18 20:00 - Constitutional Appears: No Acute Distress, Chronically Ill - Head Exam Head Exam: ATRAUMATIC, NORMAL INSPECTION - Eye Exam Eye Exam: EOMI - ENT Exam ENT Exam: Mucous Membranes Moist. absent: Mucous Membranes Dry - GI/Abdominal Exam GI & Abdominal Exam: Distended, Soft, Normal Bowel Sounds. 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 Active treatment of decompensated cirrhosis 2/2 ascites in setting of portal vein thrombosis. Prior EGD and colonoscopy 08/2017 with severe GAVE and gastric/colonic with multiple AVMs s/p APC. MELD on admission 13 - Plan: - Para with 3.9 L removed (total 6.9 L; therefore, will supplement albumin 25%) --- SBP neg - Cont Lasix 40mg and spironolactone 100mg daily - Cont 2g sodium diet - Hematology (PVT) and Cardiology () consult Pt seen and examined with Dr. Osei; please see attestation for further recs/changes. <Angie Osei V - Last Filed: 02/26/18 23:54> Objective - Vital Signs/Intake and Output Vital Signs (last 24 hours): Temp Pulse Resp BP Pulse Ox 97.7 F 88 20 108/55 L 97 02/26/18 18:00 02/26/18 18:00 02/26/18 18:00 02/26/18 18:00 02/26/18 06:00 - Medications Medications: Current Medications Acetaminophen (Tylenol 325mg Tab) 650 mg PO Q6H PRN PRN Reason: Pain, moderate (4-7) Last Admin: 02/26/18 06:28 Dose: 650 mg Atorvastatin Calcium (Lipitor) 20 mg PO DAILY [facility] Last Admin: 02/26/18 10:30 Dose: Not Given Ferrous Sulfate (Feosol) 324 mg PO TID [facility] Last Admin: 02/26/18 18:06 Dose: 324 mg Furosemide (Lasix) 40 mg PO DAILY [facility] Last Admin: 02/26/18 10:30 Dose: 40 mg Albumin Human (Albumin Human 25% (25 Gm/100 Ml)) 200 mls @ 60 mls/hr IV ONCE ONE Stop: 02/27/18 00:19 Insulin Human Regular (Humulin R Low) 0 units SC ACHS [facility]; Protocol Last Admin: 02/26/18 21:55 Dose: Not Given Levothyroxine Sodium (Synthroid) 25 mcg PO 0600 [facility] Last Admin: 02/26/18 06:28 Dose: 25 mcg Ondansetron HCl (Zofran Inj) 4 mg IVP Q6 PRN PRN Reason: Nausea Pantoprazole Sodium (Protonix Ec Tab) 40 mg PO DAILY [facility] Last Admin: 02/26/18 10:30 Dose: 40 mg Spironolactone (Aldactone) 50 mg PO BID [facility] Last Admin: 02/26/18 18:26 Dose: 50 mg Tramadol HCl (Ultram) 50 mg PO Q6 PRN PRN Reason: Pain, moderate (4-7) Last Admin: 02/25/18 05:43 Dose: 50 mg - Labs Labs: 02/26/18 05:25 02/26/18 05:25 PT 14.3 SECONDS (9.4-12.5) H 02/23/18 20:00 INR 1.25 02/23/18 20:00 APTT 29.5 Seconds (25.1-36.5) 02/23/18 20:00 Attending/Attestation - Attestation I have personally seen and examined this patient.: Yes I have fully participated in the care of the patient.: Yes I have reviewed all pertinent clinical information, including history, physical exam and plan: Yes Notes (Text): p 02/26/18 23:54
[2018-02-26] MEDS ORDERED: Albumin Human 25% (12.5 gm/50 ml) IV ONE (20:32)
[2018-02-27] MEDS: Levothyroxine 25 MCG TAB PO SCH (05:15)
[2018-02-27] MEDS: Insulin Reg-LOW-Coverage SC SCH ×4 (09:54→21:57)
[2018-02-27] MEDS: Pantoprazole 40 mg EC Tab PO SCH (09:55)
[2018-02-27] MEDS: Vitamins A & D Oint UD Foilpak TOP SCH ×2 (12:20→18:35)
[2018-02-27] MEDS: Nystatin 100,000 Units/gm Cream(15 gm) TOP SCH (12:20)
--- NOTE | 2018-02-27 13:23 | CP.PCM.PCO ---
Physician Communication Note - Physician Communication Note Physician Communication Note: pending consults Esau/Flavio, PT brigidal pending
--- NOTE | 2018-02-27 15:59 | CON ---
DATE: 02/27/2018 CARDIOLOGY CONSULTATION HISTORY: The patient is a 72-year-old woman, who presents with recurrent CHF. She is found to have ascites and pedal edema, who is short of breath. PAST MEDICAL HISTORY: The patient's past medical history is notable for documented aortic valve stenosis, documented by cardiac catheterization and echocardiogram. On cardiac catheterization in 08/2017, she was found to have an aortic valve area of 0.8 cm squared with normal LV function. In addition, her mean pulmonary artery pressures were approximately 30 to 35 mmHg. The patient was transferred to [facility] for evaluation of a TAVR. The people at TAVR because of her documented cirrhosis sent to the [place] [facility] which discharged her back home, where the patient presented again today with heart failure. The patient's past medical history also includes GI bleeding issues secondary to documented by endoscopy. Currently, the patient is comfortable at rest. She underwent recent paracentesis yesterday without issues. PHYSICAL EXAMINATION: VITAL SIGNS: The blood pressure is 123/58, heart rate in the 80s. NECK: Negative JVD. LUNGS: Decreased breath sounds bilaterally. HEART: Reveals a 3/6 systolic ejection murmur. EXTREMITIES: Edema is noted. LABORATORY DATA: Laboratories revealed a hemoglobin of 9.2. Chemistries: Glucose is 270, creatinine is 0.7 with an albumin of 2.5. Her PT/INR is 1.25. IMPRESSION: 1. Recurrent acute systolic congestive heart failure. 2. Critical aortic stenosis. 3. Ascites. 4. Cirrhoses. 5. Normal coagulation profile. 6. Anemia. Given these findings, I have discussed the case with Dr. Rico; Dr. Osei, the GI attending; as well as Dr. Berry, the surgeon at [facility] for TAVR. She should be able to undergo TAVR with reasonable risk, which would only be helpful. Given her multiple comorbidities. Mat Muniz MD [facility] # [id number]
--- NOTE | 2018-02-27 16:02 | PN ---
SUBJECTIVE: The patient was seen and examined at bedside on the telemetry navarro. No acute events overnight. She remains afebrile and hemodynamically stable. She is s/p repeat therapeutic paracentesis with removal of 3.9 liters of fluid. She continues to endorse improvement in her abdominal discomfort and overall offers no complaints. A discussion was had with Dr. Osei regarding the patient's need for TAVR and we will have Dr. Muniz and Dr. Cifuentes evaluate the patient to comment on the role, if any, of long-term antithrombotic therapy s/p planned TAVR in this patient with history of GI bleed. OBJECTIVE: VITAL SIGNS: Temperature 98.1, pulse 97, blood pressure 110/56, respiratory rate 18 and oxygen saturation 99% on 2L NC. GENERAL: No apparent distress. HEENT: PERRL, EOMI. No scleral icterus. Mild conjunctival pallor is noted. NECK: No JVD. No bruits. LUNGS: Decreased breath sounds at the bases. CARDIOVASCULAR: Regular rate and rhythm. Normal S1, and S2. Grade II/ MILTON to RUSB. ABDOMEN: Mildly distended with ascites, soft and nontender. EXTREMITIES: Trace lower extremity edema bilaterally. NEUROLOGIC: Awake, alert and oriented x 3. No focal motor deficits. No asterixis. LABORATORY DATA: Morning labs are pending. Blood cultures negative. Ascitic fluid culture negative. ASSESSMENT: The patient is a 72-year-old woman with a past medical history of cirrhosis likely secondary to cardiac cirrhosis +/- YO who presented with a 3 day history of abdominal distention and was admitted for management of decompensated ascites. PLAN: 1. Cirrhosis, likely secondary to cardiac cirrhosis +/- Yo, with recurrent decompensated ascites s/p therapeutic paracentesis, improving. Input from Dr. Osei noted. Continue Lasix 40 mg p.o. daily and Aldactone 50 mg p.o. b.i.d. Continue Tylenol 650 mg p.o. q. 6 hours p.r.n. pain and Zofran 4 mg IV q. 6 hours p.r.n. nausea. 2. 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 Hb stable. Continue Feosol 325 mg p.o. t.i.d. 3. Critical aortic stenosis. Evaluation with Dr. Muniz and Dr. Cifuentes pending to comment on the role, if any, of long-term antithrombotic therapy s/p planned TAVR in this patient with history of GI bleed. 4. Nonobstructive CAD. Continue Lipitor 20 mg p.o. daily. 5. Hypertension. Blood pressure stable. Continue current medications. 6. History of remote PE. The patient remains off anticoagulation therapy due to history of GI bleed. 7. Non-insulin dependent diabetes mellitus. Continue low-dose insulin sliding scale for coverage. 8. Hypothyroidism. Continue Synthroid 25 mcg p.o. daily. 9. Vitamin B12 deficiency. The patient receives monthly B12 injections. 10. Prophylaxis. Continue Protonix for GI prophylaxis and SCDs for DVT prophylaxis. CODE STATUS: Full code. Robin Richards MD [facility]
--- NOTE | 2018-02-27 20:23 | CP.PCM.PN ---
Subjective - Date & Time of Evaluation Date of Evaluation: 02/27/18 Time of Evaluation: 20:19 - Subjective Subjective: PGY-2 heme/onc progress note for Dr Cifuentes No acute events noted overnight. Patient hard of hearing. Patient stated she is feeling better after her paracentesis. Tolerating regular diet. Gave number of her son Ryan who she stated is more up to date on her health conditions. Objective - Vital Signs/Intake and Output Vital Signs (last 24 hours): Temp Pulse Resp BP Pulse Ox 98.8 F 97 H 20 106/64 96 02/27/18 18:00 02/27/18 18:00 02/27/18 18:00 02/27/18 18:00 02/27/18 12:00 - Medications Medications: Current Medications Acetaminophen (Tylenol 325mg Tab) 650 mg PO Q6H PRN PRN Reason: Pain, moderate (4-7) Last Admin: 02/26/18 06:28 Dose: 650 mg Atorvastatin Calcium (Lipitor) 20 mg PO DAILY [facility] Last Admin: 02/27/18 09:55 Dose: 20 mg Ferrous Sulfate (Feosol) 324 mg PO TID [facility] Last Admin: 02/27/18 18:31 Dose: 324 mg Furosemide (Lasix) 40 mg PO DAILY [facility] Last Admin: 02/27/18 09:55 Dose: 40 mg Insulin Human Regular (Humulin R Low) 0 units SC ACHS [facility]; Protocol Last Admin: 02/27/18 16:38 Dose: 7 units Levothyroxine Sodium (Synthroid) 25 mcg PO 0600 [facility] Last Admin: 02/27/18 05:15 Dose: 25 mcg Nystatin (Mycostatin Cream) 0 ea TOP DAILY [facility] Last Admin: 02/27/18 12:20 Dose: Not Given Ondansetron HCl (Zofran Inj) 4 mg IVP Q6 PRN PRN Reason: Nausea Pantoprazole Sodium (Protonix Ec Tab) 40 mg PO DAILY [facility] Last Admin: 02/27/18 09:55 Dose: 40 mg Spironolactone (Aldactone) 50 mg PO BID [facility] Last Admin: 02/27/18 18:31 Dose: 50 mg Vitamin A (Vitamin A & D Oint Ud Foilpak) 1 ea TOP BID [facility] Last Admin: 02/27/18 18:35 Dose: 1 ea - Labs Labs: 02/26/18 05:25 02/27/18 16:52 PT 14.3 SECONDS (9.4-12.5) H 02/23/18 20:00 INR 1.25 02/23/18 20:00 APTT 29.5 Seconds (25.1-36.5) 02/23/18 20:00 - Additional Findings Additional findings: - Constitutional Appears: No Acute Distress, Chronically Ill - Head Exam Head Exam: ATRAUMATIC, NORMAL INSPECTION - Eye Exam Eye Exam: EOMI - ENT Exam ENT Exam: Mucous Membranes Moist. absent: Mucous Membranes Dry - GI/Abdominal Exam GI & Abdominal Exam: Distended, Soft, Normal Bowel Sounds. 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 Prior EGD and colonoscopy 08/2017 with severe GAVE and gastric/colonic with multiple AVMs s/p APC. Critical Aortic Stenosis -Platelet count ~ 150s - there are no contraindications to TAVR - antiplatelet post surgery should suffice Iron Deficiency Anemia -2/2 to chronic GI losses -continue feosol 325mg po tid Vitamin B12 Deficiency -patient receives monthly b12 injections Seen and discussed with Dr Cifuentes
[2018-02-28] MEDS: Levothyroxine 25 MCG TAB PO SCH (05:30)
[2018-02-28 07:13] LABS: ALB/GLOB RATIO 0.9 (1.1-1.8); ALBUMIN 2.5 g/dL (3.0-4.8); ALT/SGPT 29 U/L (7-56); AST/SGOT 18 U/L (14-36); BLOOD UREA NITROGEN 11 mg/dL (7-21); CALCIUM 8.7 mg/dL (8.4-10.5); GFR NON-AFRICAN AMERICAN > 60
[2018-02-28 07:14] LABS: BASO # 0.03 K/mm3 (0.0-2.0); BASO % 0.9 % (0.0-3.0); EOS # 0.3 (0.0-0.7); EOS % 8.3 % (1.5-5.0); GRAN # 1.83 (1.4-6.5); GRAN % 52.1 % (50.0-68.0); HEMOGLOBIN 8.6 g/dL (12.0-16.0); LYMPH # 0.9 (1.2-3.4); LYMPH % 25.9 % (22.0-35.0); MEAN CELL VOLUME 88.8 fl (80.0-105.0); MEAN CORPUSCULAR HEMOGLOBIN 29.2 pg (25.0-35.0); MEAN CORPUSCULAR HGB CONC 32.8 g/dl (31.0-37.0); MEAN PLATELET VOLUME 9.1 fl (7.0-11.0); MONO # 0.5 (0.1-0.6); MONO % 12.8 % (1.0-6.0); RBC 2.95 10^6/uL (3.5-6.1); RED CELL DISTRIBUTION WIDTH 20.5 % (11.5-14.5); WHITE BLOOD COUNT 3.5 10^3/uL (4.5-11.0)
[2018-02-28] MEDS: Insulin Reg-LOW-Coverage SC SCH ×4 (08:12→23:08)
--- NOTE | 2018-02-28 08:19 | PN ---
DATE: 02/27/2018 SUBJECTIVE: This patient was seen and evaluated earlier today. The patient is feeling comfortable after a large volume paracentesis. PHYSICAL EXAMINATION: VITAL SIGNS: Temperature is 98, blood pressure is 106/64, respirations 20, O2 saturation 99%. HEENT: Atraumatic. Anicteric. NECK: Supple. HEART: S1 and S2 heard. There is a systolic murmur present. LUNGS: Bilateral air entry present, slightly reduced at the base. EXTREMITIES: Mild edema present. NEUROLOGIC: Alert, oriented. Moves all extremities. LABORATORY DATA: Hemoglobin stable 9.2, hematocrit 28.2, WBC is 3.5, platelets 152. Chemistry showed LFTs normal. IMPRESSION: This 77-year-old patient with decompensated cirrhosis with partial portal vein thrombosis was admitted with abdominal discomfort, found to have large ascites recurrence. The patient underwent large volume paracentesis, now much more comfortable. The patient has history of critical aortic stenosis, being evaluated by a cardiac surgeon in [facility]. I did discuss with Dr. Muniz today regarding this patient's status regarding transcatheter aortic valve replacement. The patient does have decompensated cirrhosis, being now managed with intermittent episodes of large volume paracentesis and also has partial borderline thrombosis. The patient did have gastric angiodysplasia, gastric arteriovenous malformations, gastric vascular ectasia, was treated with argon plasma coagulation. The patient did also have colonoscopy in the past showing colonic angiodysplasia which was also treated with bipolar circumactive probe. Also treated with argon plasma coagulation. The patient does have significant risk factors for the surgery which includes cirrhosis. The patient also has critical aortic stenosis associated with arteriovenous malformation which is more common. The patient did undergo colonoscopy and treatment of this angiodysplasia and could have been stable. I did review the hematological evaluation and the patient has been cleared from the hematological perspective for transcatheter aortic valve replacement. The patient's gastrointestinal perspective revealed a critical aortic stenosis. The patient needs surgery, but however, she does have increased risk of any surgery for the patient's cirrhosis. The patient's possibility of small arteriovenous malformation to the small bowel has to be considered. However, patients with aortic stenosis with small arteriovenous malformations do have some improvement after the treatment of the aortic stenosis. The patient's life expectancy and prognosis is significantly poor without the surgery in view of the critical aortic stenosis. I did have detailed discussion with Dr. Muniz of the risk-benefit ratio and gastrointestinal perspective. The patient can undergo surgery with consideration of the amount of the risk involved also in the procedure. We will also discuss with Dr. Robin Richards, primary physician again. Angie Osei MD
[2018-02-28] MEDS: Nystatin 100,000 Units/gm Cream(15 gm) TOP SCH (10:27)
[2018-02-28] MEDS: Vitamins A & D Oint UD Foilpak TOP SCH ×2 (10:28→17:31)
[2018-02-28] MEDS: Pantoprazole 40 mg EC Tab PO SCH (10:28)
--- NOTE | 2018-02-28 11:29 | PN ---
SUBJECTIVE: The patient was seen and examined at bedside on the telemetry navarro. No acute events overnight. She remains afebrile and hemodynamically stable. Her abdominal pain is improved and she offers no complaints. OBJECTIVE: VITAL SIGNS: Temperature 97.8, pulse 100, blood pressure 112/59, respiratory rate 19, oxygen saturation 99% on 2L NC. GENERAL: No apparent distress. HEENT: PERRL, EOMI. No scleral icterus. Mild conjunctival pallor is noted. NECK: No JVD, no bruits. LUNGS: Decreased breath sounds to the bases. CARDIOVASCULAR: Regular rate and rhythm. Normal S1, S2. Grade II/ SEC to RUSB. ABDOMEN: Mildly distended with normoactive bowel sounds, soft and nontender. EXTREMITIES: No edema. NEUROLOGIC: Awake, alert and oriented x 3. No focal motor deficits. No asterixis. LABORATORY DATA: WBC 3.5, hemoglobin 8.6, hematocrit 26, platelets 121. Sodium 136, potassium 3.6, chloride 103, bicarb 30, BUN 11, creatinine 0.6, glucose 151. Blood cultures negative. Ascitic fluid culture negative. ASSESSMENT: The patient is a 72-year-old woman with a past medical history of cirrhosis likely secondary to FORD who presented with a 3 day history of abdominal distention and was admitted for management of decompensated ascites. PLAN: 1. Cirrhosis, likely secondary to FORD with recurrent decompensated ascites s/p therapeutic paracentesis, improving. Input from Dr. Osei noted. Continue Lasix 40 mg p.o. daily and Aldactone 50 mg p.o. b.i.d. Continue Tylenol 650 mg p.o. q. 6 hours p.r.n. pain and Zofran 4 mg IV q. 6 hours p.r.n. nausea. 2. 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 Hb stable. Continue Feosol 325 mg p.o. t.i.d. 3. Critical aortic stenosis. Input from Dr. Muniz noted and the case will be reevaluated at [facility] for possible TAVR. Input from Dr. Cifuentes also noted and there is no contraindication from his standpoint to proceed with planned TAVR. 4. Nonobstructive CAD. Continue Lipitor 20 mg p.o. daily. 5. Hypertension. Blood pressure stable. Continue current medications. 6. History of remote PE. The patient remains off anticoagulation therapy due to history of GI bleed. 7. Non-insulin dependent diabetes mellitus. Fingersticks remain elevated. Continue low-dose insulin sliding scale for coverage and start Metformin 500 mg p.o. b.i.d. 8. Hypothyroidism. Continue Synthroid 25 mcg p.o. daily. 9. Vitamin B12 deficiency. The patient receives monthly B12 injections. 10. Prophylaxis. Continue Protonix for GI prophylaxis and SCDs for DVT prophylaxis. CODE STATUS: Full code. Robin Richards MD [facility]
--- NOTE | 2018-02-28 15:48 | PN ---
DATE: 02/28/2018 CARDIOLOGY FOLLOWUP SUBJECTIVE: The patient is without shortness of breath and more comfortable after paracentesis. OBJECTIVE: VITAL SIGNS: Blood pressure is 112/59, heart rate is 87, normal sinus rhythm. NECK: Negative JVD. LUNGS: Decreased breath sounds. HEART: Reveals 2/6 systolic ejection murmur. EXTREMITIES: Without change. LABORATORY DATA: Hemoglobin is 8.6. Chemistries, BUN and creatinine is unremarkable. IMPRESSION: 1. Gastroenterology evaluation is noted. 2. Recurrent congestive heart failure. 3. Ascites. 4. Gastrointestinal bleeds from malformation. 5. Critical aortic stenosis. 6. Cirrhosis. Given these findings, after consideration risks, benefits of her comorbidities with cirrhosis as well as critical aortic stenosis and recurrent CHF, I have recontacted the reevaluation for possible TAVR. Mat Muniz MD
--- NOTE | 2018-02-28 23:50 | PN ---
DATE: 02/28/2018 HEMATOLOGY/ONCOLOGY PROGRESS NOTE LOCATION: The patient is in room 263, bed 2. SUBJECTIVE: The patient is examined at the bedside in the telemetry unit. The patient is hard of hearing. No acute events noted. Remains afebrile and hemodynamically stable. The patient says that her abdominal pain is better and overall has been functioning. PHYSICAL EXAMINATION: VITAL SIGNS: The patient is afebrile, T-max is 98.4, pulse is 100, blood pressure is 112/59, respirations 19, O2 sat is 99% on 2 L of nasal oxygen. HEENT: Head is normocephalic, atraumatic. Conjunctivae pale. Sclerae are anicteric. Pupils are equally reactive to light and accommodation. Examination of the oropharynx reveals no oropharyngeal lesions. The patient is hard of hearing. NECK: Supple. There is no adenopathy. No jugular venous distention noted. LUNGS: Reveal decreased breath sounds at both bases. CARDIOVASCULAR SYSTEM: Reveals grade 2/6 systolic ejection murmur in the right upper sternal border. S1 and S2 are normal. ABDOMEN: Soft, distended, normoactive bowel sounds, nontender. The patient has ascites. EXTREMITIES: Reveal no significant edema. NEUROLOGIC: Reveals the patient to be awake, alert, and oriented x3. No focal deficits are noted. The patient has no asterixis. LABORATORY DATA: Today's white count is 3.5, hemoglobin 8.6, hematocrit 26, platelet count 121,000. Sodium is 136, K is 3.6, chloride is 103, bicarbonate is 30, BUN is 11, creatinine is 0.6, glucose 151. Blood cultures are negative. Ascitic fluid culture is negative. 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 Osei, currently on Lasix and Aldactone along with Tylenol p.o. p.r.n. and Zofran p.r.n. for nausea. Iron-deficiency anemia, secondary to chronic gastrointestinal loss secondary to Heyde syndrome. Hemoglobin is stable. The patient has iron supplementations, may benefit from IV iron. The patient has critical aortic stenosis. Discussed the findings with Dr. Mat Muniz yesterday. Spoke to Dr. Robin Richards as well this morning. I feel that the risk of sudden from critical aortic stenosis is significantly higher than the risk of bleeding. The patient should be at least allowed to have an approach to transcatheter aortic valve replacement and monitored carefully. If the platelet count should drop or have any dysfunctional issues post-transcatheter aortic valve replacement as the patient may be placed on aspirin, then we will manage the situation accordingly, but I think this should not hold from going for the transcatheter aortic valve replacement procedure and it may be life saving for her. Platelet count had been stable ranging between 130 and today it is 121. I explained the findings in detail to Dr. Richards, who is the primary medical doctor. The patient is cleared from our point of view to go for evaluation for transcatheter aortic valve replacement. Time spent with the patient is greater than 35 minutes. Please make a note, this is a complex patient with multiple comorbid medical issues. Torin Cifuentes MD
[2018-03-01] MEDS: Levothyroxine 25 MCG TAB PO SCH (05:50)
[2018-03-01] MEDS: Insulin Reg-LOW-Coverage SC SCH ×4 (08:32→23:25)
--- NOTE | 2018-03-01 09:08 | PN ---
SUBJECTIVE: The patient was seen and examined at bedside on the telemetry navarro. No acute events overnight. She remains afebrile and hemodynamically stable. This morning she feels ok and offers no complaints. OBJECTIVE: VITAL SIGNS: Temperature 97.6, pulse 96, blood pressure 113/52, respiratory rate 19, oxygen saturation 98% on 2L NC. GENERAL: No apparent distress. HEENT: PERRL, EOMI. No scleral icterus. Mild conjunctival pallor is noted. NECK: No JVD, no bruits. LUNGS: Decreased breath sounds at the bases. CARDIOVASCULAR: Regular rate and rhythm. Normal S1, S2. Grade II/ MILTON to RUSB. ABDOMEN: Mildly distended with normoactive bowel sounds, soft and nontender. EXTREMITIES: No edema. NEUROLOGIC: Awake, alert and oriented x 3. No focal motor deficits. No asterixis. LABORATORY DATA: The patient declined morning labs. Blood cultures negative. Ascitic fluid culture negative. ASSESSMENT: The patient is a 72-year-old woman with a past medical history of cirrhosis likely secondary to FORD who presented with a 3 day history of abdominal distention and was admitted for management of decompensated ascites. PLAN: 1. Cirrhosis, likely secondary to FORD with recurrent decompensated ascites s/p therapeutic paracentesis, improving. Input from Dr. Osei noted. Continue Lasix 40 mg p.o. daily and Aldactone 50 mg p.o. b.i.d. Continue Tylenol 650 mg p.o. q. 6 hours p.r.n. pain and Zofran 4 mg IV q. 6 hours p.r.n. nausea. 2. 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 Hb stable. Continue Feosol 325 mg p.o. t.i.d. 3. Critical aortic stenosis. Input from Dr. Muniz noted. The case is being reevaluated at [facility] for TAVR. 4. Nonobstructive CAD. Continue Lipitor 20 mg p.o. daily. 5. Hypertension. Blood pressure stable. Continue current medications. 6. History of remote PE. The patient remains off anticoagulation therapy due to history of GI bleed. 7. Osq-flfxyly-lugrtnlqi diabetes mellitus. Continue low-dose insulin sliding scale and Metformin 500 mg p.o. b.i.d. 8. Hypothyroidism. Continue Synthroid 25 mcg p.o. daily. 9. Vitamin B12 deficiency. The patient receives monthly B12 injections. 10. Prophylaxis. Continue Protonix for GI prophylaxis and SCDs for DVT prophylaxis. CODE STATUS: Full code. Robin Richards MD [facility]
[2018-03-01] MEDS: Pantoprazole 40 mg EC Tab PO SCH (09:43)
[2018-03-01] MEDS: Vitamins A & D Oint UD Foilpak TOP SCH ×2 (09:43→18:29)
[2018-03-01] MEDS: Nystatin 100,000 Units/gm Cream(15 gm) TOP SCH (09:45)
--- NOTE | 2018-03-01 11:27 | CP.PCM.PCO ---
Physician Communication Note - Physician Communication Note Physician Communication Note: possible TAVR eval
[2018-03-01] MEDS ORDERED: Barium Sulfate Susp 2.1% w/v, 2.0% w/w 450 mL Bottle PO ONE (12:43)
--- NOTE | 2018-03-01 13:01 | CP.PCM.PN ---
Subjective - Date & Time of Evaluation Date of Evaluation: 03/01/18 Time of Evaluation: 12:55 - Subjective Subjective: PGY-2 heme/onc progress note for Dr Cifuentes No acute events noted overnight. Patient is very hard of hearing. She stated her abd pain is better since admission. She denied fevers, n/v, d/c. Objective - Vital Signs/Intake and Output Vital Signs (last 24 hours): Temp Pulse Resp BP Pulse Ox 98.1 F 94 H 20 108/60 97 03/01/18 12:00 03/01/18 12:00 03/01/18 12:00 03/01/18 12:00 02/28/18 09:00 Intake and Output: 03/01/18 03/01/18 06:59 18:59 Intake Total 240 Output Total 400 Balance -160 - Medications Medications: Current Medications Acetaminophen (Tylenol 325mg Tab) 650 mg PO Q6H PRN PRN Reason: Pain, moderate (4-7) Last Admin: 02/26/18 06:28 Dose: 650 mg Atorvastatin Calcium (Lipitor) 20 mg PO DAILY [facility] Last Admin: 03/01/18 09:43 Dose: 20 mg Docusate Sodium (Colace) 100 mg PO ONCE ONE Stop: 03/01/18 21:25 Ferrous Sulfate (Feosol) 324 mg PO TID [facility] Last Admin: 03/01/18 09:42 Dose: 324 mg Furosemide (Lasix) 40 mg PO DAILY [facility] Last Admin: 03/01/18 09:45 Dose: 40 mg Metronidazole (Flagyl) 500 mg in 100 mls @ 100 mls/hr IVPB Q8 [facility]; Protocol Levofloxacin/Dextrose (Levaquin 750mg) 750 mg in 150 mls @ 100 mls/hr IVPB DAILY [facility]; Protocol Insulin Human Regular (Humulin R Low) 0 units SC ACHS [facility]; Protocol Last Admin: 03/01/18 12:25 Dose: 1 units Levothyroxine Sodium (Synthroid) 25 mcg PO 0600 [facility] Last Admin: 03/01/18 05:50 Dose: 25 mcg Metformin HCl (Glucophage) 500 mg PO BID [facility] Last Admin: 03/01/18 09:42 Dose: 500 mg Nystatin (Mycostatin Cream) 0 ea TOP DAILY [facility] Last Admin: 03/01/18 09:45 Dose: 1 applic Ondansetron HCl (Zofran Inj) 4 mg IVP Q6 PRN PRN Reason: Nausea Pantoprazole Sodium (Protonix Ec Tab) 40 mg PO DAILY [facility] Last Admin: 03/01/18 09:43 Dose: 40 mg Spironolactone (Aldactone) 50 mg PO BID [facility] Last Admin: 03/01/18 09:43 Dose: 50 mg Vitamin A (Vitamin A & D Oint Ud Foilpak) 1 ea TOP BID [facility] Last Admin: 03/01/18 09:43 Dose: 1 ea - Labs Labs: 02/28/18 05:40 02/28/18 05:40 PT 14.3 SECONDS (9.4-12.5) H 02/23/18 20:00 INR 1.25 02/23/18 20:00 APTT 29.5 Seconds (25.1-36.5) 02/23/18 20:00 - Additional Findings Additional findings: - Constitutional Appears: No Acute Distress, Chronically Ill - Head Exam Head Exam: ATRAUMATIC, NORMAL INSPECTION - Eye Exam Eye Exam: EOMI - ENT Exam ENT Exam: Mucous Membranes Moist. absent: Mucous Membranes Dry - GI/Abdominal Exam GI & Abdominal Exam: Distended, Soft, Normal Bowel Sounds. 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 Prior EGD and colonoscopy 08/2017 with severe GAVE and gastric/colonic with multiple AVMs s/p APC. Critical Aortic Stenosis -Platelet count stable ~130 - there are no contraindications to TAVR - antiplatelet post surgery should suffice -sudden from critical aortic stenosis significantly higher than risk of bleeding -if platelet count should drop or have any dysfunctional issues post-TAVR then we will manage the situation accordingly -cleared from heme/onc point of view to go for evaluation for TAVR Iron Deficiency Anemia -2/2 to chronic GI losses -continue feosol 325mg po tid -recommend iron injections Vitamin B12 Deficiency -patient receives monthly b12 injections Seen and discussed with Dr Cifuentes
[2018-03-01] MEDS: levoFLOXacin 750 mg in D5W 750 MG/150 ML BAG IVPB SCH (13:30)
--- NOTE | 2018-03-01 14:23 | CP.PCM.PN ---
Subjective - Date & Time of Evaluation Date of Evaluation: 03/01/18 Time of Evaluation: 09:30 - Subjective Subjective: PGY-4 GI Fellow Prog Note Pt using bedside commode when seen this AM. States she is doing OK but has been having abd pain since paracentesis that seems to be persisting. Denied any N/V, melena nor hematochezia. Tolerating diet. 5 point ROS negative other than stated above Objective - Vital Signs/Intake and Output Vital Signs (last 24 hours): Temp Pulse Resp BP Pulse Ox 98.1 F 94 H 20 108/60 97 03/01/18 12:00 03/01/18 12:00 03/01/18 12:00 03/01/18 12:00 02/28/18 09:00 Intake and Output: 03/01/18 03/01/18 06:59 18:59 Intake Total 240 Output Total 400 Balance -160 - Medications Medications: Current Medications Acetaminophen (Tylenol 325mg Tab) 650 mg PO Q6H PRN PRN Reason: Pain, moderate (4-7) Last Admin: 02/26/18 06:28 Dose: 650 mg Atorvastatin Calcium (Lipitor) 20 mg PO DAILY [facility] Last Admin: 03/01/18 09:43 Dose: 20 mg Docusate Sodium (Colace) 100 mg PO ONCE ONE Stop: 03/01/18 21:25 Ferrous Sulfate (Feosol) 324 mg PO TID [facility] Last Admin: 03/01/18 13:30 Dose: 324 mg Furosemide (Lasix) 40 mg PO DAILY [facility] Last Admin: 03/01/18 09:45 Dose: 40 mg Metronidazole (Flagyl) 500 mg in 100 mls @ 100 mls/hr IVPB Q8 [facility]; Protocol Levofloxacin/Dextrose (Levaquin 750mg) 750 mg in 150 mls @ 100 mls/hr IVPB DAILY [facility]; Protocol Last Admin: 03/01/18 13:30 Dose: 100 mls/hr Insulin Human Regular (Humulin R Low) 0 units SC ACHS [facility]; Protocol Last Admin: 03/01/18 12:25 Dose: 1 units Levothyroxine Sodium (Synthroid) 25 mcg PO 0600 [facility] Last Admin: 03/01/18 05:50 Dose: 25 mcg Metformin HCl (Glucophage) 500 mg PO BID [facility] Last Admin: 03/01/18 09:42 Dose: 500 mg Nystatin (Mycostatin Cream) 0 ea TOP DAILY [facility] Last Admin: 03/01/18 09:45 Dose: 1 applic Ondansetron HCl (Zofran Inj) 4 mg IVP Q6 PRN PRN Reason: Nausea Pantoprazole Sodium (Protonix Ec Tab) 40 mg PO DAILY [facility] Last Admin: 03/01/18 09:43 Dose: 40 mg Spironolactone (Aldactone) 50 mg PO BID [facility] Last Admin: 03/01/18 09:43 Dose: 50 mg Vitamin A (Vitamin A & D Oint Ud Foilpak) 1 ea TOP BID [facility] Last Admin: 03/01/18 09:43 Dose: 1 ea - Labs Labs: 02/28/18 05:40 02/28/18 05:40 PT 14.3 SECONDS (9.4-12.5) H 02/23/18 20:00 INR 1.25 02/23/18 20:00 APTT 29.5 Seconds (25.1-36.5) 02/23/18 20:00 - Constitutional Appears: Well, No Acute Distress - Head Exam Head Exam: ATRAUMATIC, NORMAL INSPECTION - Eye Exam Eye Exam: EOMI - ENT Exam ENT Exam: Mucous Membranes Moist. absent: Mucous Membranes Dry - Respiratory Exam Respiratory Exam: NORMAL BREATHING PATTERN. absent: Accessory Muscle Use, Respiratory Distress - GI/Abdominal Exam GI & Abdominal Exam: Distended, Soft, Tenderness (ttp in epigastrum w/o guarding), Normal Bowel Sounds. 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 Active treatment of decompensated cirrhosis 2/2 ascites in setting of portal vein thrombosis. Prior EGD and colonoscopy 08/2017 with severe GAVE and gastric/colonic with multiple AVMs s/p APC. MELD on admission 13 Plan: - Abd+Pelvis CT with PO contrast to eval Abd Pain - BCx then Levofloxacin+Metronidazole - Cont Lasix 40mg and spironolactone 100mg daily - Cont 2g sodium diet - Hematology (PVT) and Cardiology () consult --- Plans to withold anticoagulation to proceed with TAVR as more critical than risk of bleeding Pt discussed with Dr. Osei; please see attestation for further recs/changes.
--- NOTE | 2018-03-01 15:31 | PN ---
DATE: 03/01/2018 CARDIOLOGY FOLLOWUP SUBJECTIVE: The patient is awake and alert with difficulty hearing, in bed. PHYSICAL EXAMINATION: VITAL SIGNS: Blood pressure is 108/60, heart rates in the 90s. NECK: Negative JVD. LUNGS: Decreased breath sounds. HEART: Revealed S1, S2 with 2/6 systolic ejection murmur. EXTREMITIES: Without edema. LABORATORY DATA: Hemoglobin is 8.6, platelet count is 121. Chemistries, glucose is 199. IMPRESSION: 1. Critical aortic stenosis. 2. Diabetes mellitus. 3. Cirrhosis. 4. Ascites which is better after paracentesis. Given these findings, [facility] has agreed to take her back for TAVR. I have discussed with the patient and the patient is agreeable. We will need to wait for the patient's family to be informed as well as waiting for a date procedure from [facility]. Mat Muniz MD
[2018-03-01] MEDS: metroNIDAZOLE IV 500 mg/100 ml 500 MG/100 ML BAG IVPB SCH ×2 (16:36→23:28)
[2018-03-01 17:04] LABS: ALB/GLOB RATIO 0.9 (1.1-1.8); ALT/SGPT 21 U/L (7-56); AST/SGOT 24 U/L (14-36); BLOOD UREA NITROGEN 13 mg/dL (7-21); CALCIUM 9.4 mg/dL (8.4-10.5); GFR NON-AFRICAN AMERICAN > 60
[2018-03-01 17:11] LABS: BASO # 0.02 K/mm3 (0.0-2.0); BASO % 0.6 % (0.0-3.0); EOS # 0.2 (0.0-0.7); EOS % 5.9 % (1.5-5.0); GRAN # 2.19 (1.4-6.5); GRAN % 62.1 % (50.0-68.0); HEMOGLOBIN 9.3 g/dL (12.0-16.0); LYMPH # 0.8 (1.2-3.4); LYMPH % 21.8 % (22.0-35.0); MEAN CELL VOLUME 90.2 fl (80.0-105.0); MEAN CORPUSCULAR HEMOGLOBIN 29.4 pg (25.0-35.0); MEAN CORPUSCULAR HGB CONC 32.6 g/dl (31.0-37.0); MEAN PLATELET VOLUME 9.1 fl (7.0-11.0); MONO # 0.3 (0.1-0.6); MONO % 9.6 % (1.0-6.0); RBC 3.16 10^6/uL (3.5-6.1); RED CELL DISTRIBUTION WIDTH 20.7 % (11.5-14.5); WHITE BLOOD COUNT 3.5 10^3/uL (4.5-11.0)
[2018-03-02] MEDS: metroNIDAZOLE IV 500 mg/100 ml 500 MG/100 ML BAG IVPB SCH ×3 (06:58→21:27)
[2018-03-02] MEDS: Levothyroxine 25 MCG TAB PO SCH (06:59)
--- NOTE | 2018-03-02 07:37 | CP.PCM.PN ---
Subjective - Date & Time of Evaluation Date of Evaluation: 03/02/18 Time of Evaluation: 07:36 - Subjective Subjective: PGY-2 heme/onc progress note for Dr Cifuentes No acute events noted overnight. Patient with diaper due to urinary incontinence. She is hard of hearing. Stated she felt okay. Denied chest pain, sob, f/c, n/v, being in pain. Objective - Vital Signs/Intake and Output Vital Signs (last 24 hours): Temp Pulse Resp BP Pulse Ox 98.2 F 99 H 19 104/60 99 03/02/18 06:00 03/02/18 06:00 03/02/18 06:00 03/02/18 06:00 03/02/18 06:00 Intake and Output: 03/02/18 03/02/18 06:59 18:59 Intake Total 360 Output Total 200 Balance 160 - Medications Medications: Current Medications Acetaminophen (Tylenol 325mg Tab) 650 mg PO Q6H PRN PRN Reason: Pain, moderate (4-7) Last Admin: 02/26/18 06:28 Dose: 650 mg Atorvastatin Calcium (Lipitor) 20 mg PO DAILY [facility] Last Admin: 03/01/18 09:43 Dose: 20 mg Ferrous Sulfate (Feosol) 324 mg PO TID [facility] Last Admin: 03/01/18 18:12 Dose: 324 mg Furosemide (Lasix) 40 mg PO DAILY [facility] Last Admin: 03/01/18 09:45 Dose: 40 mg Metronidazole (Flagyl) 500 mg in 100 mls @ 100 mls/hr IVPB Q8 [facility]; Protocol Last Admin: 03/02/18 06:58 Dose: 100 mls/hr Levofloxacin/Dextrose (Levaquin 750mg) 750 mg in 150 mls @ 100 mls/hr IVPB DAILY [facility]; Protocol Last Admin: 03/01/18 13:30 Dose: 100 mls/hr Insulin Human Regular (Humulin R Low) 0 units SC ACHS [facility]; Protocol Last Admin: 03/01/18 23:25 Dose: Not Given Levothyroxine Sodium (Synthroid) 25 mcg PO 0600 [facility] Last Admin: 03/02/18 06:59 Dose: 25 mcg Metformin HCl (Glucophage) 500 mg PO BID [facility] Last Admin: 03/01/18 18:12 Dose: 500 mg Nystatin (Mycostatin Cream) 0 ea TOP DAILY [facility] Last Admin: 03/01/18 09:45 Dose: 1 applic Ondansetron HCl (Zofran Inj) 4 mg IVP Q6 PRN PRN Reason: Nausea Pantoprazole Sodium (Protonix Ec Tab) 40 mg PO DAILY [facility] Last Admin: 03/01/18 09:43 Dose: 40 mg Spironolactone (Aldactone) 50 mg PO BID [facility] Last Admin: 03/01/18 18:12 Dose: 50 mg Vitamin A (Vitamin A & D Oint Ud Foilpak) 1 ea TOP BID [facility] Last Admin: 03/01/18 18:29 Dose: 1 ea - Labs Labs: 03/01/18 16:30 03/01/18 16:30 PT 14.3 SECONDS (9.4-12.5) H 02/23/18 20:00 INR 1.25 02/23/18 20:00 APTT 29.5 Seconds (25.1-36.5) 02/23/18 20:00 - Additional Findings Additional findings: - Constitutional Appears: No Acute Distress, Chronically Ill - Head Exam Head Exam: ATRAUMATIC, NORMAL INSPECTION - Eye Exam Eye Exam: EOMI - ENT Exam ENT Exam: Mucous Membranes Moist. absent: Mucous Membranes Dry - GI/Abdominal Exam GI & Abdominal Exam: Distended, Soft, Normal Bowel Sounds. 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 Prior EGD and colonoscopy 08/2017 with severe GAVE and gastric/colonic with multiple AVMs s/p APC. Critical Aortic Stenosis -Platelet count stable ~130 - there are no contraindications to TAVR - a ntiplatelet post surgery should suffice -sudden from critical aortic stenosis significantly higher than risk of bleeding -if platelet count should drop or have any dysfunctional issues post-TAVR then we will manage the situation accordingly -cleared from heme/onc point of view to go for evaluation for TAVR Iron Deficiency Anemia -2/2 to chronic GI losses -continue feosol 325mg po tid -recommend iron injections Vitamin B12 Deficiency -patient receives monthly b12 injections Seen and discussed with Dr Cifuentes
[2018-03-02] MEDS: Insulin Reg-LOW-Coverage SC SCH ×5 (08:04→22:42)
[2018-03-02] MEDS: levoFLOXacin 750 mg in D5W 750 MG/150 ML BAG IVPB SCH (09:23)
[2018-03-02] MEDS: Vitamins A & D Oint UD Foilpak TOP SCH ×2 (09:23→17:19)
[2018-03-02] MEDS: Pantoprazole 40 mg EC Tab PO SCH (09:24)
[2018-03-02] MEDS: Nystatin 100,000 Units/gm Cream(15 gm) TOP SCH (09:25)
[2018-03-02] MEDS ORDERED: Iohexol 240 (50 ml) ONE (09:40)
--- NOTE | 2018-03-02 11:04 | PN ---
DATE: 03/02/2018 SUBJECTIVE: The patient is without shortness of breath at rest. PHYSICAL EXAMINATION: VITAL SIGNS: Blood pressure 104/60, the heart rates in the 90s. NECK: Negative JVD. LUNGS: No rales noted. HEART: Reveal S1, S2 with a 2/6 systolic ejection murmur. EXTREMITIES: Without change. LABORATORY MINESH: Hemoglobin is 9.3. Chemistries, BUN and creatinine are unremarkable. The glucose is 187. Albumin is 3 with a PT/INR is 1.25. IMPRESSION: 1. Critical aortic stenosis. 2. Recurrent congestive heart failure. 3. Ascites. 4. No coagulopathy. 5. Resolution of dyspnea. PLAN: Given these findings, awaiting a response from [facility] for her TAVR date where we can transfer over for the procedure. Mat Muniz MD
--- NOTE | 2018-03-02 11:27 | PN ---
DATE: 03/02/2018 SUBJECTIVE: The patient 72-year-old female, in room 263 bed 2. The patient has no current complaints and there have been no acute events overnight. PHYSICAL EXAMINATION: VITAL SIGNS: Temperature of 98.2, pulse rate of 95, blood pressure 104/60, O2 saturation of 99% on a nasal cannula. HEENT: Unremarkable. NECK: Supple with a full range of motion. LUNGS: Clear bilaterally. HEART: Regular rate and rhythm. There is a grade 3/6 systolic murmur over the entire precordium radiating up to the neck. ABDOMEN: Soft, nontender. EXTREMITIES: Plus edema. ABDOMEN: Soft, nontender, it is somewhat distended. The patient had some ascitic fluid removed. NEUROLOGICAL: There are no focal motor deficits. LABORATORY DATA: WBC of 3.5, hemoglobin and hematocrit of 9.3 and 28.5. Chemistry with a random glucose of 139, AST 24, ALT 21, total bilirubin of 1. IMPRESSION: 1. Aortic stenosis. 2. Ascites. 3. Pleural effusion. 4. Anemia. PLAN: Spoke with Dr. Muniz who spoke with the surgeon from [facility] and we will see later today when in fact the patient could be transferred for the aortic valve replacement. Marcelo Richards MD
--- NOTE | 2018-03-02 12:48 | CT ---
Date of service: 03/02/2018 PROCEDURE: CT Abdomen and Pelvis without intravenous contrast HISTORY: abdominal pain COMPARISON: 02/23/2018 TECHNIQUE: Without contrast.. Contrast dose: Radiation dose: Total exam DLP = 818.51 mGy-cm. This CT exam was performed using one or more of the following dose reduction techniques: Automated exposure control, adjustment of the mA and/or kV according to patient size, and/or use of iterative reconstruction technique. FINDINGS: LOWER THORAX: Small left effusion LIVER: The liver is atrophic and irregular in contour consistent with cirrhosis. GALLBLADDER AND BILE DUCTS: Unremarkable. PANCREAS: Unremarkable. No gross lesion or ductal dilatation. SPLEEN: The spleen measures 12 by 6.8 cm transversely and 13.5 cm in height. ADRENALS: Unremarkable. No mass. KIDNEYS AND URETERS: Unremarkable. No hydronephrosis. No solid mass. VASCULATURE: Unremarkable. No aortic aneurysm. No aortic atherosclerotic calcification or mural plaque present. BOWEL: Unremarkable. No obstruction. No gross mural thickening. APPENDIX: Unremarkable. Normal appendix. PERITONEUM: There is severe ascites. This is unchanged LYMPH NODES: Unremarkable. No enlarged lymph nodes. BLADDER: Unremarkable. REPRODUCTIVE: Unremarkable. BONES: No acute fracture. OTHER FINDINGS: None. IMPRESSION: Cirrhosis with splenomegaly and ascites unchanged
--- NOTE | 2018-03-02 13:57 | CP.PCM.PCO ---
Physician Communication Note - Physician Communication Note Physician Communication Note: transfer for TAVR being arranged by cardiology
--- NOTE | 2018-03-02 15:31 | CP.PCM.PN ---
<Scottie Lipscomb - Last Filed: 03/02/18 15:34> Subjective - Date & Time of Evaluation Date of Evaluation: 03/02/18 Time of Evaluation: 09:00 - Subjective Subjective: PGY-4 GI Fellow Prog Note Pt lying in bed when seen this AM. States doing OK other than some persistent abd pain. No F/C, N/V/D. 5 point ROS negative other than stated above Objective - Vital Signs/Intake and Output Vital Signs (last 24 hours): Temp Pulse Resp BP Pulse Ox 98 F 93 H 20 123/59 L 99 03/02/18 12:00 03/02/18 12:00 03/02/18 12:00 03/02/18 12:00 03/02/18 06:00 Intake and Output: 03/02/18 03/02/18 06:59 18:59 Intake Total 360 Output Total 200 Balance 160 - Medications Medications: Current Medications Acetaminophen (Tylenol 325mg Tab) 650 mg PO Q6H PRN PRN Reason: Pain, moderate (4-7) Last Admin: 03/02/18 08:21 Dose: 650 mg Atorvastatin Calcium (Lipitor) 20 mg PO DAILY [facility] Last Admin: 03/02/18 09:25 Dose: 20 mg Ferrous Sulfate (Feosol) 324 mg PO TID [facility] Last Admin: 03/02/18 13:26 Dose: 324 mg Furosemide (Lasix) 40 mg PO DAILY [facility] Last Admin: 03/02/18 09:23 Dose: 40 mg Metronidazole (Flagyl) 500 mg in 100 mls @ 100 mls/hr IVPB Q8 [facility]; Protocol Last Admin: 03/02/18 13:26 Dose: 100 mls/hr Levofloxacin/Dextrose (Levaquin 750mg) 750 mg in 150 mls @ 100 mls/hr IVPB DAILY [facility]; Protocol Last Admin: 03/02/18 09:23 Dose: 100 mls/hr Insulin Human Regular (Humulin R Low) 0 units SC ACHS [facility]; Protocol Last Admin: 03/02/18 12:15 Dose: Not Given Levothyroxine Sodium (Synthroid) 25 mcg PO 0600 [facility] Last Admin: 03/02/18 06:59 Dose: 25 mcg Metformin HCl (Glucophage) 500 mg PO BID [facility] Last Admin: 03/02/18 09:25 Dose: 500 mg Nystatin (Mycostatin Cream) 0 ea TOP DAILY [facility] Last Admin: 03/02/18 09:25 Dose: 1 applic Ondansetron HCl (Zofran Inj) 4 mg IVP Q6 PRN PRN Reason: Nausea Pantoprazole Sodium (Protonix Ec Tab) 40 mg PO DAILY [facility] Last Admin: 03/02/18 09:24 Dose: 40 mg Spironolactone (Aldactone) 50 mg PO BID [facility] Last Admin: 03/02/18 09:24 Dose: 50 mg Vitamin A (Vitamin A & D Oint Ud Foilpak) 1 ea TOP BID [facility] Last Admin: 03/02/18 09:23 Dose: 1 ea - Labs Labs: 03/01/18 16:30 03/01/18 16:30 PT 14.3 SECONDS (9.4-12.5) H 02/23/18 20:00 INR 1.25 02/23/18 20:00 APTT 29.5 Seconds (25.1-36.5) 02/23/18 20:00 - Constitutional Appears: No Acute Distress, Chronically Ill - Head Exam Head Exam: ATRAUMATIC, NORMAL INSPECTION - Eye Exam Eye Exam: EOMI. absent: Scleral icterus - ENT Exam ENT Exam: Mucous Membranes Moist. absent: Mucous Membranes Dry - Respiratory Exam Respiratory Exam: NORMAL BREATHING PATTERN. absent: Accessory Muscle Use, Respiratory Distress - GI/Abdominal Exam GI & Abdominal Exam: Distended, Soft, Tenderness, Normal Bowel Sounds. absent: Bruit, Firm, Guarding, Rigid, Mass, Organomegaly, Pulsatile Mass Additional comments: sig distension and ttp w/o guarding in epigastrum. Assessment and Plan - Assessment and Plan (Free Text) Assessment: 72 year old female with PMH of decompensated cirrhosis (likely cardiac etiology) in setting of portal vein thrombosis, 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 Active treatment of decompensated cirrhosis 2/2 ascites in setting of portal vein thrombosis. Prior EGD and colonoscopy 08/2017 with severe GAVE and gastric/colonic with multiple AVMs s/p APC. MELD on admission 13 Plan: - Abd+Pelvis CT with PO contrast to eval Abd Pain: Reaccumulation of ascites, otherwise no other acute findings - Cont Levofloxacin+Metronidazole - Would benefit from therapeutic paracentesis with cell ct and differential - Cont Lasix 40mg and spironolactone 100mg daily, will consider increasing dose - Cont 2g sodium diet - Hematology (PVT) and Cardiology () consult --- Plans to withhold anticoagulation to proceed with TAVR as more critical than risk of bleeding Pt discussed with Dr. Osei; please see attestation for further recs/changes. <Angie Osei V - Last Filed: 03/02/18 22:49> Objective - Vital Signs/Intake and Output Vital Signs (last 24 hours): Temp Pulse Resp BP Pulse Ox 97.4 F L 93 H 18 110/61 99 03/02/18 17:45 03/02/18 17:51 03/02/18 17:45 03/02/18 17:45 03/02/18 06:00 Intake and Output: 03/02/18 03/03/18 18:59 06:59 Intake Total 250 780 Output Total 950 Balance 250 -170 - Medications Medications: Current Medications Acetaminophen (Tylenol 325mg Tab) 650 mg PO Q6H PRN PRN Reason: Pain, moderate (4-7) Last Admin: 03/02/18 21:27 Dose: 650 mg Atorvastatin Calcium (Lipitor) 20 mg PO DAILY [facility] Last Admin: 03/02/18 09:25 Dose: 20 mg Ferrous Sulfate (Feosol) 324 mg PO TID [facility] Last Admin: 03/02/18 18:09 Dose: Not Given Furosemide (Lasix) 40 mg PO DAILY [facility] Last Admin: 03/02/18 09:23 Dose: 40 mg Metronidazole (Flagyl) 500 mg in 100 mls @ 100 mls/hr IVPB Q8 [facility]; Protocol Last Admin: 03/02/18 21:27 Dose: 100 mls/hr Levofloxacin/Dextrose (Levaquin 750mg) 750 mg in 150 mls @ 100 mls/hr IVPB DAILY [facility]; Protocol Last Admin: 03/02/18 09:23 Dose: 100 mls/hr Insulin Human Regular (Humulin R Low) 0 units SC ACHS [facility]; Protocol Last Admin: 03/02/18 17:16 Dose: 1 units Levothyroxine Sodium (Synthroid) 25 mcg PO 0600 [facility] Last Admin: 03/02/18 06:59 Dose: 25 mcg Metformin HCl (Glucophage) 500 mg PO BID [facility] Last Admin: 03/02/18 18:09 Dose: Not Given Nystatin (Mycostatin Cream) 0 ea TOP DAILY [facility] Last Admin: 03/02/18 09:25 Dose: 1 applic Ondansetron HCl (Zofran Inj) 4 mg IVP Q6 PRN PRN Reason: Nausea Last Admin: 03/02/18 17:17 Dose: 4 mg Pantoprazole Sodium (Protonix Ec Tab) 40 mg PO DAILY [facility] Last Admin: 03/02/18 09:24 Dose: 40 mg Spironolactone (Aldactone) 50 mg PO BID [facility] Last Admin: 03/02/18 18:08 Dose: Not Given Vitamin A (Vitamin A & D Oint Ud Foilpak) 1 ea TOP BID [facility] Last Admin: 03/02/18 17:19 Dose: 1 ea - Labs Labs: 03/01/18 16:30 03/01/18 16:30 PT 14.3 SECONDS (9.4-12.5) H 02/23/18 20:00 INR 1.25 02/23/18 20:00 APTT 29.5 Seconds (25.1-36.5) 02/23/18 20:00 Attending/Attestation - Attestation I have personally seen and examined this patient.: Yes I have fully participated in the care of the patient.: Yes I have reviewed all pertinent clinical information, including history, physical exam and plan: Yes Notes (Text): This is an addendum to GI progress report dictated by the GI Fellow.The patient was seen and examined earlier. Medical records, lab studies, imagings were reviewed. Last 24 hours events reviewed. Agreed with the above treatment plan as outlined in GI Fellow 's notes with the addition of the following CT was reviewed abdominal pain slightley less r/o sbp continue iv antibiotics would need GUIDED paracentesis 03/02/18 22:37
[2018-03-03] MEDS: metroNIDAZOLE IV 500 mg/100 ml 500 MG/100 ML BAG IVPB SCH ×3 (05:30→21:23)
[2018-03-03] MEDS: Levothyroxine 25 MCG TAB PO SCH (05:30)
[2018-03-03 07:06] LABS: BASO # 0.03 K/mm3 (0.0-2.0); BASO % 1.1 % (0.0-3.0); EOS # 0.3 (0.0-0.7); EOS % 8.9 % (1.5-5.0); HEMOGLOBIN 8.9 g/dL (12.0-16.0); LYMPH # 0.6 (1.2-3.4); LYMPH % 22.5 % (22.0-35.0); MEAN CELL VOLUME 90.1 fl (80.0-105.0); MEAN CORPUSCULAR HEMOGLOBIN 29.5 pg (25.0-35.0); MEAN CORPUSCULAR HGB CONC 32.7 g/dl (31.0-37.0); MEAN PLATELET VOLUME 9.4 fl (7.0-11.0); MONO # 0.3 (0.1-0.6); MONO % 9.6 % (1.0-6.0); RBC 3.02 10^6/uL (3.5-6.1); RED CELL DISTRIBUTION WIDTH 20.9 % (11.5-14.5); WHITE BLOOD COUNT 2.8 10^3/uL (4.5-11.0)
[2018-03-03 07:45] LABS: ALB/GLOB RATIO 0.9 (1.1-1.8); ALBUMIN 2.8 g/dL (3.0-4.8); ALT/SGPT 33 U/L (7-56); AST/SGOT 23 U/L (14-36); BLOOD UREA NITROGEN 14 mg/dL (7-21); CALCIUM 9.4 mg/dL (8.4-10.5); GFR NON-AFRICAN AMERICAN > 60
[2018-03-03] MEDS: Insulin Reg-LOW-Coverage SC SCH ×4 (08:43→21:24)
[2018-03-03] MEDS: levoFLOXacin 750 mg in D5W 750 MG/150 ML BAG IVPB SCH (10:03)
[2018-03-03] MEDS: Vitamins A & D Oint UD Foilpak TOP SCH ×2 (10:04→17:19)
[2018-03-03] MEDS: Nystatin 100,000 Units/gm Cream(15 gm) TOP SCH (10:04)
[2018-03-03] MEDS: Pantoprazole 40 mg EC Tab PO SCH (10:04)
--- NOTE | 2018-03-03 10:23 | CP.PCM.PN ---
<Joe Recinos - Last Filed: 03/03/18 14:39> Subjective - Date & Time of Evaluation Date of Evaluation: 03/03/18 Time of Evaluation: 11:35 - Subjective Subjective: No acute overnight events. She thinks her abdomen is more distended. She does have some right sided abdominal pain, localized. Objective - Vital Signs/Intake and Output Vital Signs (last 24 hours): Temp Pulse Resp BP Pulse Ox 97.8 F 86 20 116/60 98 03/03/18 06:00 03/03/18 06:00 03/03/18 06:00 03/03/18 10:03 03/03/18 06:00 Intake and Output: 03/03/18 03/03/18 06:59 18:59 Intake Total 1020 Output Total 952 Balance 68 - Medications Medications: Current Medications Acetaminophen (Tylenol 325mg Tab) 650 mg PO Q6H PRN PRN Reason: Pain, moderate (4-7) Last Admin: 03/02/18 21:27 Dose: 650 mg Atorvastatin Calcium (Lipitor) 20 mg PO DAILY [facility] Last Admin: 03/03/18 10:04 Dose: 20 mg Ferrous Sulfate (Feosol) 324 mg PO TID [facility] Last Admin: 03/03/18 10:05 Dose: 324 mg Furosemide (Lasix) 40 mg PO DAILY [facility] Last Admin: 03/03/18 10:03 Dose: 40 mg Metronidazole (Flagyl) 500 mg in 100 mls @ 100 mls/hr IVPB Q8 [facility]; Protocol Last Admin: 03/03/18 05:30 Dose: 100 mls/hr Levofloxacin/Dextrose (Levaquin 750mg) 750 mg in 150 mls @ 100 mls/hr IVPB DAILY [facility]; Protocol Last Admin: 03/03/18 10:03 Dose: 100 mls/hr Insulin Human Regular (Humulin R Low) 0 units SC ACHS [facility]; Protocol Last Admin: 03/03/18 08:43 Dose: Not Given Levothyroxine Sodium (Synthroid) 25 mcg PO 0600 [facility] Last Admin: 03/03/18 05:30 Dose: 25 mcg Metformin HCl (Glucophage) 500 mg PO BID [facility] Last Admin: 03/03/18 10:04 Dose: 500 mg Nystatin (Mycostatin Cream) 0 ea TOP DAILY [facility] Last Admin: 03/03/18 10:04 Dose: 1 applic Ondansetron HCl (Zofran Inj) 4 mg IVP Q6 PRN PRN Reason: Nausea Last Admin: 03/02/18 17:17 Dose: 4 mg Pantoprazole Sodium (Protonix Ec Tab) 40 mg PO DAILY [facility] Last Admin: 03/03/18 10:04 Dose: 40 mg Spironolactone (Aldactone) 50 mg PO BID [facility] Last Admin: 03/03/18 10:08 Dose: 50 mg Vitamin A (Vitamin A & D Oint Ud Foilpak) 1 ea TOP BID [facility] Last Admin: 03/03/18 10:04 Dose: 1 ea - Labs Labs: 03/03/18 06:35 03/03/18 06:35 PT 14.3 SECONDS (9.4-12.5) H 02/23/18 20:00 INR 1.25 02/23/18 20:00 APTT 29.5 Seconds (25.1-36.5) 02/23/18 20:00 - Constitutional Appears: Non-toxic, No Acute Distress - Head Exam Head Exam: ATRAUMATIC, NORMAL INSPECTION - Eye Exam Eye Exam: EOMI, Normal appearance - Respiratory Exam Respiratory Exam: Clear to Ausculation Bilateral, NORMAL BREATHING PATTERN - Cardiovascular Exam Cardiovascular Exam: REGULAR RHYTHM, +S1, +S2 - GI/Abdominal Exam GI & Abdominal Exam: Soft, Tenderness, Normal Bowel Sounds - Neurological Exam Neurological Exam: Alert, Awake, Oriented x3 - Psychiatric Exam Psychiatric exam: Normal Affect, Normal Mood Assessment and Plan - Assessment and Plan (Free Text) Assessment: 72 year old female with PMH of decompensated cirrhosis (likely cardiac etiology) in setting of portal vein thrombosis, 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 Active t reatment of decompensated cirrhosis 2/2 ascites in setting of portal vein thrombosis. Prior EGD and colonoscopy 08/2017 with severe GAVE and gastric/colonic with multiple AVMs s/p APC. MELD on admission 13 Plan: - MELD 10. - Abd+Pelvis CT with PO contrast to eval Abd Pain: Reaccumulation of ascites, otherwise no other acute findings - Cont Levofloxacin+Metronidazole - Would benefit from therapeutic paracentesis with cell ct and differential - Cont Lasix 40mg and spironolactone 100mg daily, will consider increasing dose - Cont 2g sodium diet. 1L fluid restriction. daily weights - Hematology (PVT) and Cardiology () consult --- Plans to withhold anticoagulation to proceed with TAVR as more critical than risk of bleeding Pt discussed with Dr. Osei; please see attestation for further recs/changes. <Angie Osei V - Last Filed: 03/03/18 23:50> Objective - Vital Signs/Intake and Output Vital Signs (last 24 hours): Temp Pulse Resp BP Pulse Ox 97.1 F L 13 L 19 106/53 L 98 03/03/18 18:00 03/03/18 18:00 03/03/18 18:00 03/03/18 18:00 03/03/18 06:00 - Medications Medications: Current Medications Acetaminophen (Tylenol 325mg Tab) 650 mg PO Q6H PRN PRN Reason: Pain, moderate (4-7) Last Admin: 03/03/18 21:23 Dose: 650 mg Atorvastatin Calcium (Lipitor) 20 mg PO DAILY [facility] Last Admin: 03/03/18 10:04 Dose: 20 mg Ferrous Sulfate (Feosol) 324 mg PO TID [facility] Last Admin: 03/03/18 17:19 Dose: 324 mg Furosemide (Lasix) 40 mg PO DAILY [facility] Last Admin: 03/03/18 10:03 Dose: 40 mg Metronidazole (Flagyl) 500 mg in 100 mls @ 100 mls/hr IVPB Q8 [facility]; Protocol Last Admin: 03/03/18 21:23 Dose: 100 mls/hr Levofloxacin/Dextrose (Levaquin 750mg) 750 mg in 150 mls @ 100 mls/hr IVPB DAILY [facility]; Protocol Last Admin: 03/03/18 10:03 Dose: 100 mls/hr Insulin Human Regular (Humulin R Low) 0 units SC ACHS [facility]; Protocol Last Admin: 03/03/18 21:24 Dose: Not Given Levothyroxine Sodium (Synthroid) 25 mcg PO 0600 [facility] Last Admin: 03/03/18 05:30 Dose: 25 mcg Metformin HCl (Glucophage) 500 mg PO BID [facility] Last Admin: 03/03/18 17:19 Dose: 500 mg Nystatin (Mycostatin Cream) 0 ea TOP DAILY [facility] Last Admin: 03/03/18 10:04 Dose: 1 applic Ondansetron HCl (Zofran Inj) 4 mg IVP Q6 PRN PRN Reason: Nausea Last Admin: 03/03/18 17:19 Dose: 4 mg Pantoprazole Sodium (Protonix Ec Tab) 40 mg PO DAILY [facility] Last Admin: 03/03/18 10:04 Dose: 40 mg Spironolactone (Aldactone) 50 mg PO BID [facility] Last Admin: 03/03/18 17:19 Dose: 50 mg Vitamin A (Vitamin A & D Oint Ud Foilpak) 1 ea TOP BID [facility] Last Admin: 03/03/18 17:19 Dose: 1 ea - Labs Labs: 03/03/18 06:35 03/03/18 06:35 PT 14.3 SECONDS (9.4-12.5) H 02/23/18 20:00 INR 1.25 02/23/18 20:00 APTT 29.5 Seconds (25.1-36.5) 02/23/18 20:00 Attending/Attestation - Attestation I have personally seen and examined this patient.: Yes I have fully participated in the care of the patient.: Yes I have reviewed all pertinent clinical information, including history, physical exam and plan: Yes Notes (Text): on examination adomen was softly distended. Patient did have mild rebound tenderness Discussed with the nursing staff at length Patient is allergic to multiple medications Clinically more suggestive of SBP Recurrent daily refractory ascites could be due to portal vein thrombosis presently on Levaquin and Flagyl Will discuss with the . Robin Mcdermott Would benefit from ID evaluation We will request Dr. Mat Swain for guided large volume paracentesis, cell count analysis and culture 03/03/18 23:44
--- NOTE | 2018-03-03 11:03 | PN ---
SUBJECTIVE: The patient was seen and examined at bedside on the telemetry navarro. No acute events overnight. She remains afebrile and hemodynamically stable. This morning she feels okay and offers no complaints. She is pending transfer to [facility] for TAVR. OBJECTIVE: VITAL SIGNS: Temperature 97.8, pulse 86, blood pressure 114/53, respiratory rate 20, oxygen saturation 98% on room air. GENERAL: No apparent distress. HEENT: PERRL, EOMI. No scleral icterus. Mild conjunctival pallor is noted. NECK: No JVD. LUNGS: Decreased breath sounds at the bases. CARDIOVASCULAR: Regular rate and rhythm. Normal S1, S2. Grade II/ MILTON to RUSB. ABDOMEN: Distended with positive fluid wave, distant bowel sounds, soft and mildly tender to palpation. EXTREMITIES: No edema. NEUROLOGIC: Awake, alert, and oriented x 3. No focal motor deficits. No asterixis. LABORATORY DATA: WBC 2.8, hemoglobin 9, hematocrit 27, platelets 126. Chemistry reviewed and unremarkable. Blood cultures negative. Ascitic fluid culture negative. ASSESSMENT: The patient is a 72-year-old woman with a past medical history of cirrhosis likely secondary to FORD who presented with a 3 day history abdominal distention and was admitted for management of decompensated ascites. PLAN: 1. Cirrhosis, likely secondary to FORD with recurrent decompensated ascites s/p therapeutic paracentesis. Input from Dr. Osei noted. Continue Lasix 40 mg p.o. daily and Aldactone 50 mg p.o. b.i.d. Continue Tylenol 650 mg p.o. q. 6 hours p.r.n. pain and Zofran 4 mg IV q. 6 hours p.r.n. nausea. 2. Critical aortic stenosis. Input from Dr. Muniz noted. Arrangements are being made for transfer to [facility] for TAVR. 3. 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 Hb stable. Continue Feosol 325 mg p.o. t.i.d. 4. Nonobstructive CAD. Continue Lipitor 20 mg p.o. daily. 5. Hypertension. Blood pressure stable. Continue current medications. 6. History of remote PE. The patient remains off anticoagulation therapy due to history of GI bleed. 7. Non-insulin dependent diabetes mellitus. Continue low-dose insulin sliding scale and Metformin 500 mg p.o. b.i.d. 8. Hypothyroidism. Continue Synthroid 25 mcg p.o. daily. 9. Vitamin B12 deficiency. The patient receives monthly B12 injections. 10. Prophylaxis. Continue Protonix for GI prophylaxis and SCDs for DVT prophylaxis. CODE STATUS: Full code. Robin Richards MD MTDD
--- NOTE | 2018-03-03 13:06 | PN ---
DATE: 03/03/2018 REASON FOR DICTATION: Covering for Dr. Mat Muniz. REASON FOR CONSULTATION: Severe aortic stenosis, diabetes, cirrhosis, ascites. SUBJECTIVE: The patient denies any chest pain, shortness of breath, or any palpitation, complaint of pain in her right lower quadrant, but the patient had abdominal thoracentesis was done. OBJECTIVE: GENERAL: Not in apparent distress. Mild tenderness. No rebound tenderness. VITAL SIGNS: Temperature afebrile. Heart rate 86, blood pressure 114/53. HEENT: PERRLA. Extraocular muscles intact. NECK: Supple. No carotid bruits. No thyromegaly. CHEST: Clear to auscultation. HEART: S1, S2, regular. Loud systolic murmur in the aortic area. LABORATORY DATA: Blood workup. WBC 2.8, hemoglobin 8.9, hematocrit 27.2, platelet count 126. Chemistry shows sodium 139, potassium 3.6, chloride 103, carbon dioxide 28, anion gap 12, BUN 14, creatinine 0.9, total protein 6, albumin 2.8. IMPRESSION: A 72-year-old female with past medical history significant for severe aortic stenosis awaiting to transferred to [facility] for transcatheter aortic valve replacement evaluation, history of congestive heart failure, history of ascites, history of status post abdominal paracentesis, dyspnea improved, severe protein calorie malnutrition, which was not present during admission. Poor intake. RECOMMENDATION: We will put supplementary times to increase the nutritional support. Encourage eating. Thank you Dr. Richards for providing us the opportunity in taking care of [place]. We will follow with you, and we will transferred care on Monday to Dr. Mat Muniz. Once the bed is available, the patient will be transferred to [facility] interim, continue Spironolactone, continue ferrous sulfate, continue Lasix , atorvastatin and levothyroxine. We will add Ensure pudding four times a day. Sheldon Gavin MD
--- NOTE | 2018-03-03 17:24 | PN ---
DATE: 03/03/2018 This is Dilia Santiago's hospital visit on the telemetry floor. For Dr. Cifuentes. SUBJECTIVE: The patient is a 72-year-old female reporting abdominal discomfort with known history of cirrhosis, ascites, and critical aortic stenosis which she is scheduled for a TAVR procedure in the near future with recent paracentesis done here. With this, the patient is for transfer once the bed is available. In the interim, there is consideration for a paracentesis for her comfort as per erp implementation consultant's recommendations. OBJECTIVE/PHYSICAL EXAMINATION: VITAL SIGNS: Temperature 97.8, pulse 86, respirations 20, blood pressure 116/60, pulse ox 98%. HEENT: Unremarkable. NECK: Supple. HEART: 2/6 systolic ejection murmur. LUNGS: Rare rhonchi. ABDOMEN: Distended with minimal tenderness to general palpation. Positive ascitic fluid wave. EXTREMITIES: No edema. SKIN: Otherwise, warm and dry. NEUROLOGIC: Awake and alert with marked decreased hearing. LABORATORY DATA: The patient's labs were done. White blood cell count of 2.8 this morning, hemoglobin of 8.9, hematocrit of 27.2, and platelet count of 126,000 with a metabolic panel completely within normal range, albumin of 2.8. INR done early in her hospital stay on 02/23/2018 was 1.25. The patient did have a CAT scan of her abdomen and pelvis done yesterday, was read as cirrhosis with splenomegaly and ascites unchanged. ASSESSMENT: For this patient is that of critical aortic stenosis for transcatheter aortic valve replacement procedure as per Dr. Muniz with transfer once bed is available, anemia of chronic disease, arteriovenous malformation, nonalcoholic steatohepatitis with cirrhosis, tense ascites, abdominal discomfort, diabetes mellitus. PLAN: For this patient after conversation with doctor, she is to continue present medical regimen. We will monitor clinically with labs, with Tylenol offered for her pain at this point with further recommendations as per consultants with transfer to [facility] for her TAVR procedure as indicated. This is a complex patient with a comprehensive medically necessary and appropriate visit carried out in excess of 20 minutes with the patient's questions answered to her satisfaction. Estiven Quan MD [facility] # [id number]
[2018-03-04] MEDS: metroNIDAZOLE IV 500 mg/100 ml 500 MG/100 ML BAG IVPB SCH ×2 (06:23→15:04)
[2018-03-04] MEDS: Levothyroxine 25 MCG TAB PO SCH (07:29)
[2018-03-04] MEDS: Insulin Reg-LOW-Coverage SC SCH ×4 (07:30→22:26)
[2018-03-04] MEDS: levoFLOXacin 750 mg in D5W 750 MG/150 ML BAG IVPB SCH (09:48)
[2018-03-04] MEDS: Vitamins A & D Oint UD Foilpak TOP SCH ×2 (09:49→17:42)
[2018-03-04] MEDS: Pantoprazole 40 mg EC Tab PO SCH (09:49)
[2018-03-04] MEDS: Nystatin 100,000 Units/gm Cream(15 gm) TOP SCH (09:52)
--- NOTE | 2018-03-04 11:56 | CP.PCM.PN ---
Subjective - Date & Time of Evaluation Date of Evaluation: 03/04/18 Time of Evaluation: 11:51 - Subjective Subjective: Patient still complaining of diffuse abdominal pain, worse on the right side. Some vomiting, improved with antimemetics. Paracentesis tomorrow. Objective - Vital Signs/Intake and Output Vital Signs (last 24 hours): Temp Pulse Resp BP Pulse Ox 98.5 F 98 H 16 129/77 98 03/04/18 05:42 03/04/18 10:00 03/04/18 05:42 03/04/18 09:49 03/04/18 05:42 Intake and Output: 03/04/18 03/04/18 06:59 18:59 Intake Total 180 Output Total 100 Balance 80 - Medications Medications: Current Medications Acetaminophen (Tylenol 325mg Tab) 650 mg PO Q6H PRN PRN Reason: Pain, moderate (4-7) Last Admin: 03/03/18 21:23 Dose: 650 mg Atorvastatin Calcium (Lipitor) 20 mg PO DAILY [facility] Last Admin: 03/04/18 09:49 Dose: 20 mg Ferrous Sulfate (Feosol) 324 mg PO TID [facility] Last Admin: 03/04/18 09:49 Dose: 324 mg Furosemide (Lasix) 40 mg PO DAILY [facility] Last Admin: 03/04/18 09:49 Dose: 40 mg Metronidazole (Flagyl) 500 mg in 100 mls @ 100 mls/hr IVPB Q8 [facility]; Protocol Last Admin: 03/04/18 06:23 Dose: 100 mls/hr Levofloxacin/Dextrose (Levaquin 750mg) 750 mg in 150 mls @ 100 mls/hr IVPB DAILY [facility]; Protocol Last Admin: 03/04/18 09:48 Dose: 100 mls/hr Insulin Human Regular (Humulin R Low) 0 units SC ACHS [facility]; Protocol Last Admin: 03/04/18 07:30 Dose: Not Given Levothyroxine Sodium (Synthroid) 25 mcg PO 0600 [facility] Last Admin: 03/04/18 07:29 Dose: 25 mcg Metformin HCl (Glucophage) 500 mg PO BID [facility] Last Admin: 03/03/18 17:19 Dose: 500 mg Metoprolol Tartrate (Lopressor) 12.5 mg PO BID [facility] Nystatin (Mycostatin Cream) 0 ea TOP DAILY [facility] Last Admin: 01/27/19 09:52 Dose: 1 applic Ondansetron HCl (Zofran Inj) 4 mg IVP Q6 PRN PRN Reason: Nausea Last Admin: 03/04/18 09:58 Dose: 4 mg Pantoprazole Sodium (Protonix Ec Tab) 40 mg PO DAILY [facility] Last Admin: 03/04/18 09:49 Dose: 40 mg Spironolactone (Aldactone) 50 mg PO BID [facility] Last Admin: 03/04/18 09:49 Dose: 50 mg Vitamin A (Vitamin A & D Oint Ud Foilpak) 1 ea TOP BID [facility] Last Admin: 03/04/18 09:49 Dose: 1 ea - Labs Labs: 03/03/18 06:35 03/03/18 06:35 PT 14.3 SECONDS (9.4-12.5) H 02/23/18 20:00 INR 1.25 02/23/18 20:00 APTT 29.5 Seconds (25.1-36.5) 02/23/18 20:00 - Constitutional Appears: Non-toxic, No Acute Distress - Head Exam Head Exam: ATRAUMATIC, NORMAL INSPECTION - ENT Exam ENT Exam: Mucous Membranes Moist, Normal Exam - Respiratory Exam Respiratory Exam: Clear to Ausculation Bilateral, NORMAL BREATHING PATTERN - Cardiovascular Exam Cardiovascular Exam: REGULAR RHYTHM, +S1, +S2 - GI/Abdominal Exam GI & Abdominal Exam: Distended, Soft, Tenderness, Normal Bowel Sounds - Neurological Exam Neurological Exam: Alert, Awake, Oriented x3 - Psychiatric Exam Psychiatric exam: Normal Affect, Normal Mood - Skin Skin Exam: Normal Color, Warm Assessment and Plan - Assessment and Plan (Free Text) Assessment: 72 year old female with PMH of decompensated cirrhosis (likely cardiac etiology) in setting of portal vein thrombosis, 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 Active treatment of decompensated cirrhosis 2/2 ascites in setting of portal vein thrombosis. Prior EGD and colonoscopy 08/2017 with severe GAVE and gastric/colonic with multiple AVMs s/p APC. MELD on admission 13 Plan: - MELD 10. - Abd+Pelvis CT with PO contrast to eval Abd Pain: Reaccumulation of ascites, otherwise no other acute findings - Cont Levofloxacin+Metronidazole - Would benefit from therapeutic paracentesis with cell ct and differential. Ordered for MONDAY. - Cont Lasix 40mg and spironolactone 100mg daily - Cont 2g sodium diet. 1L fluid restriction. daily weights - Hematology (PVT) and Cardiology () consult --- Plans to withhold anticoagulation to proceed with TAVR as more critical than risk of bleeding ---Start Sub Q heparin. Hb stable at this point. Continue to monitor. Pt discussed with Dr. Osei; please see attestation for further recs/changes.
--- NOTE | 2018-03-04 16:03 | PN ---
DATE: 03/04/2018 REASON FOR DICTATION: Covering for Dr. Mat Muniz. REASON FOR CONSULTATION: Severe aortic stenosis, diabetes, cirrhosis, ascites. SUBJECTIVE: The patient denies any chest pain with complaint of abdominal pain the patient had abdominal paracentesis on right lower quadrant. Denies any chest pain. PHYSICAL EXAMINATION VITAL SIGNS: Temperature afebrile, heart rate 91, blood pressure 127/77. HEENT: PERRLA. Extraocular muscles intact. NECK: Supple. No carotid bruits or thyromegaly. CHEST: Clear to auscultation. HEART: S1 and S2 regular. ABDOMEN: Soft, distended, positive. LABORATORY DATA: Blood workup as follows: WBC 2.8, hemoglobin 8.9, hematocrit 27.2, platelet count 126. Chemistry shows sodium 139, potassium 3.6, chloride 103, carbon dioxide 28, anion gap of 12, BUN of 14, creatinine of 0.9. IMPRESSION: A 72-year-old female with past medical history significant for critical aortic stenosis, awaiting to go to [facility] for transcatheter aortic valve replacement evaluation; history of congestive heart failure; history of ascites; history of abdominal paracentesis twice; dyspnea, improved; severe protein-calorie malnutrition, which was not present on admission; poor p.o. intake. RECOMMENDATIONS: Continue supplement nutritional support, encourage eating, continue spironolactone, continue gentle diuretics, continue atorvastatin, continue levothyroxine, put low dose beta-erasto as heart rate and blood pressure is tolerated. Thank you Dr. Robin Richards for providing us the opportunity in taking care of the patient, Dilia Santiago. Tomorrow, we will transfer the care to Dr. Muniz. We will supplement potassium, the patient is on spironolactone 50 mg, so that will cover the potassium. As mentioned, we will put 12.5 of Lopressor b.i.d. as blood pressure and heart rate is tolerated. Sheldon Gavin MD
--- NOTE | 2018-03-04 21:44 | PN ---
SUBJECTIVE: The patient was seen and examined at bedside on the telemetry navarro. No acute events overnight. She remains afebrile and hemodynamically stable. She is pending transfer to [facility] for TAVR. OBJECTIVE: VITAL SIGNS: Temperature 98.1, pulse 90, blood pressure 114/53, respiratory rate 20, oxygen saturation 98% on room air. GENERAL: No apparent distress. HEENT: PERRL. EOMI. No scleral icterus. Mild conjunctival pallor is noted. NECK: No JVD. LUNGS: Decreased breath sounds at the bases. CARDIOVASCULAR: Regular rate and rhythm. Normal S1 and S2. Grade II/ MILTON to RUSB. ABDOMEN: Distended with positive fluid wave, distant bowel sounds, soft, mildly tender to palpation. EXTREMITIES: No edema. NEUROLOGIC: Awake, alert and oriented x 3. No focal motor deficits. No asterixis. LABORATORY DATA: No new labs. ASSESSMENT: The patient is a 72-year-old woman with a past medical history of cirrhosis likely secondary to FORD who presented with a 3 day history of abdominal distention and was admitted for management of decompensated ascites. PLAN: 1. Cirrhosis, likely secondary to FORD with recurrent decompensated ascites s/p therapeutic paracentesis. Input from Dr. Osei noted. Continue with Lasix 40 mg p.o. daily and Aldactone 50 mg p.o. b.i.d. Continue Tylenol 650 mg p.o. q. 6 hours p.r.n. pain and Zofran 4 mg IV q. 6 hours p.r.n. nausea. We will discuss with Dr. Mat Swain of the need for repeat therapeutic paracentesis. 2. Critical aortic stenosis. Input from Dr. Muniz noted. Arrangements are being made for transfer to [facility] for TAVR. 3. 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 Hb stable. Continue Feosol 325 mg p.o. t.i.d. 4. Nonobstructive CAD. Continue Lipitor 20 mg p.o. daily. 5. Hypertension. Blood pressure is stable. Continue current medications. 6. History of remote PE. The patient remains off anticoagulation therapy due to history of GI bleed. 7. Non-insulin dependent diabetes mellitus. Continue low-dose insulin sliding scale and Metformin 500 mg p.o. b.i.d. 8. Hypothyroidism. Continue Synthroid 25 mcg p.o. daily. 9. Vitamin B12 deficiency. The patient receives monthly B12 injections. 10. Prophylaxis. Continue Protonix for GI prophylaxis and SCDs for DVT prophylaxis. CODE STATUS: Full code. Robin Richards MD MTDOlivia
[2018-03-05 03:50] VITALS: O2SAT 96
[2018-03-05] MEDS ORDERED: Metoprolol 1 mg/ml Inj IVP STA (06:16)
[2018-03-05] MEDS: Levothyroxine 25 MCG TAB PO SCH (06:36)
[2018-03-05 07:19] LABS: BASO # 0.02 K/mm3 (0.0-2.0); BASO % 0.5 % (0.0-3.0); EOS # 0.1 (0.0-0.7); EOS % 3.2 % (1.5-5.0); HEMOGLOBIN 9.5 g/dL (12.0-16.0); LYMPH # 0.7 (1.2-3.4); LYMPH % 18.7 % (22.0-35.0); MEAN CELL VOLUME 89.4 fl (80.0-105.0); MEAN CORPUSCULAR HEMOGLOBIN 28.7 pg (25.0-35.0); MEAN CORPUSCULAR HGB CONC 32.1 g/dl (31.0-37.0); MEAN PLATELET VOLUME 9.6 fl (7.0-11.0); MONO # 0.4 (0.1-0.6); MONO % 9.7 % (1.0-6.0); RBC 3.31 10^6/uL (3.5-6.1); RED CELL DISTRIBUTION WIDTH 21.3 % (11.5-14.5); WHITE BLOOD COUNT 3.8 10^3/uL (4.5-11.0)
[2018-03-05] MEDS: Insulin Reg-LOW-Coverage SC SCH ×4 (07:55→23:17)
[2018-03-05 08:19] LABS: ALB/GLOB RATIO 0.9 (1.1-1.8); ALT/SGPT 30 U/L (7-56); AST/SGOT 29 U/L (14-36); BLOOD UREA NITROGEN 20 mg/dL (7-21); GFR NON-AFRICAN AMERICAN 54
--- NOTE | 2018-03-05 08:58 | CP.PCM.PN ---
Subjective - Date & Time of Evaluation Date of Evaluation: 03/05/18 Time of Evaluation: 08:56 - Subjective Subjective: PGY-2 heme/onc progress note for Dr Cifuentes No acute events noted overnight. She is to have a paracentesis performed again today. Complained of diffuse abd discomfort. Otherwise no issue. AAOx3. Denied bleeding, focal deficits, cp, sob, f/c. Objective - Vital Signs/Intake and Output Vital Signs (last 24 hours): Temp Pulse Resp BP Pulse Ox 98.2 F 120 H 18 109/57 L 96 03/05/18 03:50 03/05/18 06:36 03/05/18 03:50 03/05/18 06:36 03/05/18 03:50 Intake and Output: 03/05/18 03/05/18 06:59 18:59 Intake Total 120 Output Total 400 Balance -280 - Medications Medications: Current Medications Acetaminophen (Tylenol 325mg Tab) 650 mg PO Q6H PRN PRN Reason: Pain, moderate (4-7) Last Admin: 03/03/18 21:23 Dose: 650 mg Atorvastatin Calcium (Lipitor) 20 mg PO DAILY [facility] Last Admin: 03/04/18 09:49 Dose: 20 mg Ferrous Sulfate (Feosol) 324 mg PO TID [facility] Last Admin: 03/04/18 17:41 Dose: Not Given Furosemide (Lasix) 40 mg PO DAILY [facility] Last Admin: 03/04/18 09:49 Dose: 40 mg Heparin Sodium (Porcine) (Heparin) 5,000 units SC Q12 [facility]; Protocol Last Admin: 03/04/18 22:13 Dose: Not Given Insulin Human Regular (Humulin R Low) 0 units SC ACHS [facility]; Protocol Last Admin: 03/05/18 07:55 Dose: Not Given Levothyroxine Sodium (Synthroid) 25 mcg PO 0600 [facility] Last Admin: 03/05/18 06:36 Dose: 25 mcg Metformin HCl (Glucophage) 500 mg PO BID [facility] Last Admin: 03/04/18 17:41 Dose: Not Given Metoprolol Tartrate (Lopressor) 12.5 mg PO BID [facility] Last Admin: 03/04/18 17:42 Dose: Not Given Nystatin (Mycostatin Cream) 0 ea TOP DAILY [facility] Last Admin: 03/04/18 09:52 Dose: 1 applic Ondansetron HCl (Zofran Inj) 4 mg IVP Q6 PRN PRN Reason: Nausea Last Admin: 03/04/18 14:40 Dose: 4 mg Pantoprazole Sodium (Protonix Ec Tab) 40 mg PO DAILY [facility] Last Admin: 03/04/18 09:49 Dose: 40 mg Spironolactone (Aldactone) 50 mg PO BID [facility] Last Admin: 03/04/18 17:41 Dose: Not Given Vitamin A (Vitamin A & D Oint Ud Foilpak) 1 ea TOP BID [facility] Last Admin: 03/04/18 17:42 Dose: 1 ea - Labs Labs: 03/05/18 07:00 03/05/18 07:00 PT 14.3 SECONDS (9.4-12.5) H 02/23/18 20:00 INR 1.25 02/23/18 20:00 APTT 29.5 Seconds (25.1-36.5) 02/23/18 20:00 - Additional Findings Additional findings: - Constitutional Appears: No Acute Distress, Chronically Ill - Head Exam Head Exam: ATRAUMATIC, NORMAL INSPECTION - Eye Exam Eye Exam: EOMI - ENT Exam ENT Exam: Mucous Membranes Moist. absent: Mucous Membranes Dry - GI/Abdominal Exam GI & Abdominal Exam: Distended, Soft, Normal Bowel Sounds. 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 Prior EGD and colonoscopy 08/2017 with severe GAVE and gastric/colonic with multiple AVMs s/p APC. Critical Aortic Stenosis -Platelet count stable ~130 - there are no contraindications to TAVR - antiplatelet post surgery should suffice -sudden from critical aortic stenosis significantly higher than risk of bleeding -if platelet count should drop or have any dysfunctional issues post-TAVR then we will manage the situation accordingly -cleared from heme/onc point of view to go for evaluation for TAVR Iron Deficiency Anemia -2/2 to chronic GI losses -continue feosol 325mg po tid -recommend iron injections Vitamin B12 Deficiency -patient receives monthly b12 injections Seen and discussed with Dr Cifuentes
--- NOTE | 2018-03-05 11:27 | PN ---
SUBJECTIVE: The patient was seen and examined at bedside on the telemetry navarro. No acute events overnight. She is pending repeat therapeutic paracentesis this morning and is pending transfer to [facility] for TAVR. PHYSICAL EXAMINATION: VITAL SIGNS: Temperature 98.2, pulse 120, blood pressure 109/57, respiratory rate 18, oxygen saturation 96% on room air. GENERAL: No apparent distress. HEENT: PERRL, EOMI. No scleral icterus. Mild conjunctival pallor is noted. NECK: No JVD. LUNGS: Decreased breath sounds to the bases. CARDIOVASCULAR: Tachycardic. Normal S1 and S2. Grade II/ MILTON to RUSB. ABDOMEN: Distended with positive fluid wave, distant bowel sounds, soft, nontender. EXTREMITIES: No edema. NEUROLOGIC: Awake, alert and oriented x 3. No focal motor deficits. LABORATORY DATA: WBC 3.8 with 70% neutrophils, hemoglobin 9.5, hematocrit 29, platelets 142. Chemistry reviewed and unremarkable. Blood cultures negative. Ascitic fluid culture negative. ASSESSMENT: The patient is a 72-year-old woman with a past medical history of cirrhosis likely secondary to FORD who presented with a 3 day history of abdominal distention and was admitted for management of decompensated ascites. PLAN: 1. Cirrhosis, likely secondary to FORD with recurrent decompensated ascites s/p therapeutic paracentesis. Input from Dr. Osei noted. Continue with Lasix 40 mg p.o. daily and Aldactone 50 mg p.o. b.i.d. Continue Tylenol 650 mg p.o. q. 6 hours p.r.n. pain and Zofran 4 mg IV q. 6 hours p.r.n. nausea. As above, the patient is pending repeat therapeutic paracentesis today. 2. Critical aortic stenosis. Input from Dr. Muniz noted. Arrangements are being made for transfer to [facility] for TAVR. 3. 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 Hb stable. Continue Feosol 325 mg p.o. t.i.d. 4. Nonobstructive CAD. Continue Lipitor 20 mg p.o. daily. 5. Hypertension. BP stable. Continue current medications. 6. History of remote PE. The patient remains off anticoagulation therapy due to history of GI bleed. 7. Non-insulin dependent diabetes mellitus. Continue low-dose insulin sliding scale and Metformin 500 mg p.o. b.i.d. 8. Hypothyroidism. Continue Synthroid 25 mcg p.o. daily. 9. Vitamin B12 deficiency. The patient receives monthly vitamin B12 injections. 10. Prophylaxis. Continue Protonix for GI prophylaxis and Heparin for DVT prophylaxis. CODE STATUS: Full code. Robin Richards MD MTDOlivia
[2018-03-05] MEDS: Pantoprazole 40 mg EC Tab PO SCH (11:30)
[2018-03-05] MEDS: Nystatin 100,000 Units/gm Cream(15 gm) TOP SCH (11:36)
[2018-03-05] MEDS: Vitamins A & D Oint UD Foilpak TOP SCH ×2 (11:47→17:03)
--- NOTE | 2018-03-05 12:18 | PN ---
DATE: 03/05/2018 CARDIOLOGY FOLLOWUP SUBJECTIVE: The patient is comfortable, no shortness of breath observed. PHYSICAL EXAMINATION: VITAL SIGNS: Blood pressure is 109/59 and heart rate is 100. NECK: Negative JVD. LUNGS: Without rales. HEART: S1 and S2. 2/6 systolic ejection murmur. EXTREMITIES: Without edema. LABORATORY DATA: Hemoglobin is noted. IMPRESSION: 1. Recurrent congestive heart failure. 2. Cirrhosis. 3. Ascites. 4. Critical aortic stenosis. 5. Anemia. 6. History of telangiectasia, gastrointestinal bleed. Given these findings, the patient is scheduled to transfer to [facility] for TAVR. Mat Muniz MD
[2018-03-05 12:27] VITALS: RESP 19
--- NOTE | 2018-03-05 13:29 | CP.PCM.PN ---
Subjective - Date & Time of Evaluation Date of Evaluation: 03/05/18 Time of Evaluation: 11:00 - Subjective Subjective: PGY-4 GI Fellow Prog Note Pt lying in bed when seen this AM. States that abd pain about the same. Tolerating diet. No other complaints. 5 point ROS negative other than stated above Objective - Vital Signs/Intake and Output Vital Signs (last 24 hours): Temp Pulse Resp BP Pulse Ox 98.2 F 86 19 130/86 96 03/05/18 12:00 03/05/18 12:00 03/05/18 12:00 03/05/18 12:00 03/05/18 03:50 Intake and Output: 03/05/18 03/05/18 06:59 18:59 Intake Total 120 Output Total 400 Balance -280 - Medications Medications: Current Medications Acetaminophen (Tylenol 325mg Tab) 650 mg PO Q6H PRN PRN Reason: Pain, moderate (4-7) Last Admin: 03/03/18 21:23 Dose: 650 mg Atorvastatin Calcium (Lipitor) 20 mg PO DAILY [facility] Last Admin: 03/05/18 11:29 Dose: Not Given Ferrous Sulfate (Feosol) 324 mg PO TID [facility] Last Admin: 03/05/18 11:31 Dose: 324 mg Furosemide (Lasix) 40 mg PO DAILY [facility] Last Admin: 03/05/18 11:31 Dose: 40 mg Heparin Sodium (Porcine) (Heparin) 5,000 units SC Q12 [facility]; Protocol Last Admin: 03/05/18 11:29 Dose: Not Given Insulin Human Regular (Humulin R Low) 0 units SC ACHS [facility]; Protocol Last Admin: 03/05/18 11:46 Dose: Not Given Levothyroxine Sodium (Synthroid) 25 mcg PO 0600 [facility] Last Admin: 03/05/18 06:36 Dose: 25 mcg Metformin HCl (Glucophage) 500 mg PO BID [facility] Last Admin: 03/05/18 11:30 Dose: 500 mg Metoprolol Tartrate (Lopressor) 12.5 mg PO BID [facility] Last Admin: 03/05/18 11:30 Dose: 12.5 mg Nystatin (Mycostatin Cream) 0 ea TOP DAILY [facility] Last Admin: 03/05/18 11:36 Dose: 1 applic Ondansetron HCl (Zofran Inj) 4 mg IVP Q6 PRN PRN Reason: Nausea Last Admin: 03/04/18 14:40 Dose: 4 mg Pantoprazole Sodium (Protonix Ec Tab) 40 mg PO DAILY [facility] Last Admin: 03/05/18 11:30 Dose: 40 mg Spironolactone (Aldactone) 50 mg PO BID [facility] Last Admin: 03/05/18 11:31 Dose: 50 mg Vitamin A (Vitamin A & D Oint Ud Foilpak) 1 ea TOP BID [facility] Last Admin: 03/05/18 11:47 Dose: Not Given - Labs Labs: 03/05/18 07:00 03/05/18 07:00 PT 14.3 SECONDS (9.4-12.5) H 02/23/18 20:00 INR 1.25 02/23/18 20:00 APTT 29.5 Seconds (25.1-36.5) 02/23/18 20:00 - Constitutional Appears: Well, No Acute Distress, Chronically Ill - Head Exam Head Exam: ATRAUMATIC, NORMAL INSPECTION - Eye Exam Eye Exam: EOMI. absent: Scleral icterus - ENT Exam ENT Exam: Mucous Membranes Moist. absent: Mucous Membranes Dry - Respiratory Exam Respiratory Exam: NORMAL BREATHING PATTERN. absent: Accessory Muscle Use, Respiratory Distress - GI/Abdominal Exam GI & Abdominal Exam: Distended, Soft, Tenderness, Normal Bowel Sounds. 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 Active treatment of decompensated cirrhosis 2/2 ascites in setting of portal vein thrombosis. Prior EGD and colonoscopy 08/2017 with severe GAVE and gastric/coloni c with multiple AVMs s/p APC. MELD on admission 13 Plan: - Cont Levofloxacin+Metronidazole - Therapeutic paracentesis with cell ct and differential. Ordered for 03/05/18. Unclear why not today; to be done 03/06/18 - Cont Lasix 40mg and spironolactone 100mg daily - Cont 2g sodium diet. 1L fluid restriction. daily weights - Hematology (PVT) and Cardiology () consult --- Plans to withhold anticoagulation to proceed with TAVR as more critical than risk of bleeding --- Cont Sub Q heparin. Hgb stable at this point. Continue to monitor. Pt discussed with Dr. Osei; please see attestation for further recs/changes.
[2018-03-05 18:31] VITALS: BP 124/56; TEMP 97.1
[2018-03-05 18:38] VITALS: PULSE 86
--- NOTE | 2018-03-07 01:26 | DS ---
ADMITTING DIAGNOSES: Cirrhosis secondary to FORD with recurrent decompensated ascites and critical aortic stenosis. DISCHARGE DIAGNOSES: Cirrhosis secondary to FORD with recurrent decompensated ascites s/p therapeutic paracentesis and critical aortic stenosis. SECONDARY DIAGNOSES: Iron-deficiency anemia secondary to chronic GI losses secondary to Heyde syndrome, hypothyroidism, hypertension, type 2 diabetes mellitus, Vitamin B12 deficiency, nonobstructive CAD and a remote history of pulmonary embolism. CONSULTATIONS: Dr. Cifuentes (Hematology/Oncology), Dr. Osei (Gastroenterology), Dr. Swain (Interventional Radiology) and Dr. Muniz (Cardiology). IMAGING STUDIES: 1. Chest x-ray demonstrated no active disease. 2. CT of the abdomen and pelvis without contrast demonstrated hepatic cirrhosis with extensive ascites and diverticulosis to the descending/sigmoid colon without evidence of diverticulitis. PROCEDURES: Therapeutic paracentesis with removal of 6 liters of ascitic fluid. HISTORY OF PRESENT ILLNESS: The patient is a 72-year-old woman with a past medical history of cirrhosis secondary to FORD and critical aortic stenosis who presented for evaluation of a 3 day history of worsening abdominal discomfort associated with abdominal distention and nausea. She was in her usual state of health until approximately 3 days prior to presentation to the ED when she noticed increasing abdominal girth and pedal edema. Over the next 2 days she developed significant abdominal distention, abdominal pain and nausea. She denied vomiting, hematemesis, melena or hematochezia associated with her symptoms and furthermore denied fevers, chills or rigors. Due to the severe pain, she opted for ED evaluation. In the ED she was afebrile, tachycardic with a pulse of 130s and otherwise hemodynamically stable. Physical examination disclosed a markedly distended abdomen. A CT of the abdomen and pelvis demonstrated extensive ascites and she was subsequently admitted to the telemetry navarro for continued management of decompensated ascites. HOSPITAL COURSE: Upon admission to the telemetry navarro she was evaluated by Dr. Osei of GI and Dr. Muniz of Cardiology. She underwent therapeutic paracentesis x 2 with a removal of a total volume of 6 liters of ascitic fluid which was negative for SBP. Her hospital stay overall was unremarkable and arrangements were made for reevaluation at [facility] for TAVR. After medical optimization at [facility] [place], she was accepted for transfer at [facility] for planned TAVR. On hospital day #9, she was transferred. CONDITION: Fair, improved. DISPOSITION: [facility]. DISCHARGE MEDICATIONS: Synthroid 25 mcg p.o. daily, Lasix 40 mg p.o. daily, Aldactone 50 mg p.o. b.i.d., Lipitor 20 mg p.o. daily, Protonix 40 mg p.o. daily, Feosol 325 mg p.o. t.i.d., Metformin 500 mg p.o. b.i.d. and Vitamin B12 1000 mcg IM q. monthly. FOLLOWUP: The patient to follow with her PMD within 1 week of discharge from [facility]. The patient to follow up with Dr. Osei and Dr. Muniz as scheduled. Robin Richards MD MTDOlivia
== END 2018-03-05 23:00 | disposition short-term general hospital (02) | DRG 441 ==
LOC: ED 19:31 → ERH 21:24 → 2RNO 02-24 03:29
PROVIDERS: ADMIT Student in an Organized Health Care Education/Training Program; ATTEND Student in an Organized Health Care Education/Training Program
PROC: 0W9G3ZZ Drainage of Peritoneal Cavity, Percutaneous Approach (ICD-10-PCS; 2018-02-25)
PROC: 0W9G3ZZ Drainage of Peritoneal Cavity, Percutaneous Approach (ICD-10-PCS; principal; 2018-02-26 15:00)
DX: K75.81 Nonalcoholic steatohepatitis (NASH) (principal); K76.7 Hepatorenal syndrome; I81 Portal vein thrombosis; I50.21 Acute systolic (congestive) heart failure; E43 Unspecified severe protein-calorie malnutrition; R18.8 Other ascites; K74.69 Other cirrhosis of liver; I35.0 Nonrheumatic aortic (valve) stenosis; I25.10 Atherosclerotic heart disease of native coronary artery without angina pectoris; I11.0 Hypertensive heart disease with heart failure; E11.9 Type 2 diabetes mellitus without complications; E03.9 Hypothyroidism, unspecified; D50.0 Iron deficiency anemia secondary to blood loss (chronic); K31.819 Angiodysplasia of stomach and duodenum without bleeding; K55.20 Angiodysplasia of colon without hemorrhage; E53.8 Deficiency of other specified B group vitamins; H91.90 Unspecified hearing loss, unspecified ear; R32 Unspecified urinary incontinence; Z86.73 Personal history of transient ischemic attack (TIA), and cerebral infarction without residual deficits; Z86.711 Personal history of pulmonary embolism; Z95.5 Presence of coronary angioplasty implant and graft

== ENCOUNTER 2018-03-26 23:18 | Inpatient (IN) | payer MEDICARE, OTHER ==
--- NOTE | 2018-03-27 00:43 | ED PDOC ---
Arrival/HPI - General Historian: Patient - History of Present Illness Narrative History of Present Illness (Text): 03/27/18 00:36 72 y/o female with PMH of liver cirrhosis 2ry to FORD, recurrent decompensated ascites, critical aortic stenosis presents to the ED c/o abdominal distension and lower augie swelling for one week. Patient was recently admitted to [facility] for ascites with therapeutic paracentesis then transferred to [facility] for TAVR. Patient is not aware if TAVR was done or not during her stay at [facility]. She was discharged to detention and shortly started to accumulate fluid again. He reports associated fever, chills, constipation, SOB, dry cough. She denied chest pain, palpitations, nausea, headache, dizziness. Time/Duration: > week Symptom Onset: Gradual Symptom Course: Worsening <Noam Savage - Last Filed: 03/27/18 06:43> <Filiberto Goncalves - Last Filed: 03/29/18 19:33> - General Time Seen by Provider: 03/26/18 23:25 Past Medical History - Provider Review Nursing Documentation Reviewed: Yes - Travel History Have you recently traveled outside [place] w/in the past 3 mons?: No - Infectious Disease Hx of Infectious Diseases: None - Cardiac Hx Cardiac Disorders: Yes Hx Congestive Heart Failure: Yes Hx Hypertension: Yes - Pulmonary Hx Respiratory Disorders: Yes Hx Asthma: Yes Hx Bronchitis: Yes Other/Comment: Ann's esophagus / PE - Neurological HX Cerebrovascular Accident: Yes (2010) - HEENT Hx HEENT Disorder: Yes Hx Deafness: Yes Hx Difficulty Chewing: Yes Hx Glaucoma: Yes - Renal Hx Renal Disorder: No - Endocrine/Metabolic Hx Diabetes Mellitus Type 2: Yes - Hematological/Oncological Hx Blood Disorders: Yes Hx Anemia: Yes - Integumentary Hx Dermatological Disorder: Yes (dry skin / rash to BLE / stage 3 sacrum) - Musculoskeletal/Rheumatological Hx Arthritis: Yes - Gastrointestinal Hx Gastrointestinal Disorders: Yes Other/Comment: ascites, GI bleed, Colonic polyps, hemorrhoids - Genitourinary/Gynecological Hx Genitourinary Disorders: Yes Hx Incontinence: Yes - Psychiatric Hx Psychophysiologic Disorder: No Hx Substance Use: No - Surgical History Hx Cardiac Catheterization: Yes Hx Cholecystectomy: Yes Hx Coronary Stent: Yes - Anesthesia Hx Anesthesia Reactions: No Hx Malignant Hyperthermia: No - Suicidal Assessment Feels Threatened In Home Enviroment: No <Noam Savage - Last Filed: 03/27/18 06:43> Family/Social History - Physician Review Nursing Documentation Reviewed: Yes Family/Social History: No Known Family HX Smoking Status: Never Smoked Hx Alcohol Use: Yes (occasional) Hx Substance Use: No Hx Substance Use Treatment: No <Noam Savage - Last Filed: 03/27/18 06:43> Allergies/Home Meds <Noam Savage - Last Filed: 03/27/18 06:43> <Filiberto Goncalves - Last Filed: 03/29/18 19:33> Allergies/Adverse Reactions: Allergies banana Allergy (Verified 03/27/18 01:32) RASH codeine Allergy (Verified 03/27/18 01:32) ANAPHYLAXIS diphenhydramine [From Benadryl Allergy] Allergy (Verified 03/27/18 01:32) RASH erythromycin base [From Erythrocin] Allergy (Verified 03/27/18 01:32) RASH Penicillins Allergy (Verified 03/27/18 01:32) ANAPHYLAXIS shellfish derived Allergy (Verified 03/27/18 01:32) ANAPHYLAXIS strawberry Allergy (Verified 03/27/18 01:32) RASH Sulfa (Sulfonamide Antibiotics) Allergy (Verified 03/27/18 01:32) ANAPHYLAXIS Home Medications: Home Meds Medication Instructions Recorded Confirmed Acetaminophen [Tylenol] 650 mg PO Q6 09/30/17 03/27/18 Ascorbic Acid [Vitamin C] 1,000 mg PO BID 09/30/17 03/27/18 Docusate Sodium [Colace] 100 mg PO Q12 09/30/17 03/27/18 Ferrous Sulfate [Feosol] 325 mg PO BID 09/30/17 03/28/18 Review of Systems - Physician Review All systems were reviewed & negative as marked: Yes - Review of Systems Constitutional: Fevers Eyes: Normal ENT: Normal Respiratory: SOB, Cough Cardiovascular: Edema, HEALY Gastrointestinal: Constipation. absent: Nausea, Vomiting Genitourinary Female: absent: Dysuria, Frequency, Vaginal Discharge Musculoskeletal: Arthralgias Skin: Pruritis Neurological: Normal. absent: Headache, Dizziness Endocrine: Normal Hemo/Lymphatic: Easy Bleeding Psychiatric: Normal <Noam Savage - Last Filed: 03/27/18 06:43> Physical Exam Temperature: Afebrile <Noam Savage - Last Filed: 03/27/18 06:43> Vital Signs Temp Pulse Resp BP Pulse Ox 03/27/18 12:58 98 F 87 18 130/79 03/27/18 12:40 81 18 127/79 97 03/27/18 11:30 98.5 F 89 20 105/56 L 99 03/27/18 10:49 139/71 03/27/18 10:19 98.6 F 91 H 18 144/58 L 03/27/18 09:59 98.7 F 91 H 18 113/59 L 03/27/18 07:00 97.8 F 92 H 18 121/62 99 03/27/18 05:47 97.8 F 88 16 116/56 L 98 03/27/18 03:48 93 H 16 120/60 96 03/26/18 23:30 98 F 99 H 18 117/75 100 <Filiberto Goncalves - Last Filed: 03/29/18 19:33> Medical Decision Making ED Course and Treatment: Patient Hb 7.3, 1 PRBCs ordered, patient signed consent form. Patient is scheduled for therpeutic paracentesis with Dr Mat Swain today Cipro IV given for SBP prophylaxis Labs reviewed, cultures pending Case discussed with PCP Dr Richards who accepted the patient under his service, agreed with the plan. 03/27/18 06:44 <Noam Savage - Last Filed: 03/27/18 06:43> ED Course and Treatment: 03/27/18 06:49 72 year old female presents to the ED for evaluation of abdominal distention and lower extremity swelling. In agreement with resident note which contains more details about the patient. Patient seen and evaluated with resident. Came up with plan and treatment together. - Lab Interpretations Microbiology Results: Microbiology Results 03/27/18 04:30 Blood Blood Culture - Preliminary NO GROWTH AFTER 48 HOURS Lab Results: PT 14.0 SECONDS (9.4-12.5) H 03/28/18 06:00 INR 1.24 03/28/18 06:00 Troponin I < 0.01 ng/mL 03/27/18 01:30 NT-Pro-B Natriuret Pep 793 pg/mL (0-450) H 03/27/18 01:30 Total Bilirubin 1.5 mg/dL (0.2-1.3) H 03/28/18 06:00 AST 31 U/L (14-36) 03/28/18 06:00 ALT 21 U/L (7-56) 03/28/18 06:00 Alkaline Phosphatase 61 U/L (38-126) 03/28/18 06:00 Total Protein 6.1 g/dL (5.8-8.3) 03/28/18 06:00 Albumin 2.6 g/dL (3.0-4.8) L 03/28/18 06:00 Globulin 3.5 gm/dL 03/28/18 06:00 Albumin/Globulin Ratio 0.8 (1.1-1.8) L 03/28/18 06:00 Lipase 200 U/L (23-300) 03/27/18 01:30 - RAD Interpretation Radiology Orders: 03/27/18 01:47 CHEST PORTABLE [RAD] Stat - Medication Orders Current Medication Orders: Discontinued Medications Atorvastatin Calcium (Lipitor) 20 mg PO DAILY [facility] Last Admin: 03/28/18 09:46 Dose: 20 mg Ferrous Sulfate (Feosol) 324 mg PO TID [facility] Last Admin: 03/28/18 09:46 Dose: 324 mg Furosemide (Lasix) 40 mg PO DAILY [facility] Last Admin: 03/28/18 09:47 Dose: 40 mg MAR Blood Pressure Document 03/28/18 09:47 ARSENIO (Rec: 03/28/18 09:47 ARSENIO [id number]) Blood Pressure Blood Pressure (100/60-150/90) 114/51 Ciprofloxacin (Cipro 400mg/200ml Dsw) 400 mg in 200 mls @ 133.3 mls/hr IVPB STAT STA; Protocol Stop: 03/27/18 05:28 Last Admin: 03/27/18 04:39 Dose: 133.3 mls/hr eMAR Start Stop Document 03/27/18 04:39 (Rec: 03/27/18 04:39 [id number]) Intravenous Solution Start Date 03/27/18 Start Time 04:39 Magnesium Sulfate (Magnesium Sulfate 2 Gm/50 Ml Water) 2 gm in 50 mls @ 50 mls/hr IVPB ONCE ONE Stop: 03/28/18 10:14 Last Admin: 03/28/18 09:43 Dose: 50 mls/hr eMAR Start Stop Document 03/28/18 09:43 ARSENIO (Rec: 03/28/18 09:44 ARSENIO [id number]) Intravenous Solution Start Date 03/28/18 Start Time 09:43 Influenza Virus Vaccine (Flucelvax Quad 3997-7004 Syr) 60 mcg IM .ONCE ONE Stop: 03/27/18 23:05 Insulin Human Regular (Humulin R Low) 0 units SC ACHS [facility]; Protocol Last Admin: 03/28/18 13:42 Dose: Not Given Non-Admin Reason: Patient discharge Levothyroxine Sodium (Synthroid) 25 mcg PO 0600 [facility] Last Admin: 03/28/18 05:18 Dose: 25 mcg Magnesium Oxide (Mag-Ox) 400 mg PO STAT STA Stop: 03/27/18 03:41 Last Admin: 03/27/18 04:05 Dose: 400 mg Metformin HCl (Glucophage) 500 mg PO BID [facility] Last Admin: 03/28/18 09:46 Dose: 500 mg Pantoprazole Sodium (Protonix Ec Tab) 40 mg PO DAILY [facility] Last Admin: 03/28/18 09:46 Dose: 40 mg Pneumococcal Polyvalent Vaccine (Pneumovax 23 Vaccine) 0.5 ml IM .ONCE ONE Stop: 03/27/18 23:05 Polyethylene Glycol (Miralax) 17 gm PO ONCE ONE Stop: 03/28/18 10:58 Last Admin: 03/28/18 11:55 Dose: Not Given Non-Admin Reason: Patient Refused Potassium Chloride (K-Dur 20 Meq Er Tab) 40 meq PO ONCE ONE Stop: 03/28/18 08:40 Last Admin: 03/28/18 09:44 Dose: 40 meq Sennosides (Senokot Tab) 8.6 mg PO DAILY [facility] Last Admin: 03/28/18 11:51 Dose: 8.6 mg Spironolactone (Aldactone) 50 mg PO BID [facility] Last Admin: 03/28/18 09:46 Dose: 50 mg <Filiberto Goncalves - Last Filed: 03/29/18 19:33> - PA / COMPUTER TECHNOLOGY TEACHER / Resident Statement SHMUEL has reviewed & agrees with the documentation as recorded. / has examined the patient and agrees with the treatment plan. <Filiberto Goncalves - Last Filed: 03/29/18 19:33> Disposition/Present on Arrival - Present on Arrival Any Indicators Present on Arrival: Yes History of DVT/PE: Yes History of Uncontrolled Diabetes: No Urinary Catheter: No History Surgical Site Infection Following: None - Disposition Have Diagnosis and Disposition been Completed?: Yes Disposition Time: 06:43 Patient Plan: Admission, Telemetry <Noam Savage - Last Filed: 03/27/18 06:43> <Filiberto Goncalves - Last Filed: 03/29/18 19:33> - Disposition Diagnosis: Anemia, Ascites, Aortic stenosis Disposition: HOSPITALIZED Condition: GUARDED
[2018-03-27 01:29] VITALS: BMI 29.2
[2018-03-27 02:44] LABS: B-TYPE NATRIURETIC PEPTIDE 793 pg/mL (0-450); TROPONIN I < 0.01 ng/mL
[2018-03-27 03:01] LABS: BASO # 0.03 K/mm3 (0.0-2.0); BASO % 0.7 % (0.0-3.0); EOS # 0.1 (0.0-0.7); EOS % 2.5 % (1.5-5.0); LYMPH # 0.9 (1.2-3.4); LYMPH % 23.2 % (22.0-35.0); MEAN CELL VOLUME 91.7 fl (80.0-105.0); MEAN CORPUSCULAR HEMOGLOBIN 30.4 pg (25.0-35.0); MEAN CORPUSCULAR HGB CONC 33.2 g/dl (31.0-37.0); MEAN PLATELET VOLUME 8.8 fl (7.0-11.0); MONO # 0.4 (0.1-0.6); MONO % 9.7 % (1.0-6.0); RBC 2.4 10^6/uL (3.5-6.1); RED CELL DISTRIBUTION WIDTH 20.8 % (11.5-14.5)
[2018-03-27 03:04] LABS: HEMOGLOBIN 7.3 g/dL (12.0-16.0)
[2018-03-27 03:06] LABS: ALB/GLOB RATIO 0.8 (1.1-1.8); ALBUMIN 2.8 g/dL (3.0-4.8); ALT/SGPT 12 U/L (7-56); AST/SGOT 21 U/L (14-36); BLOOD UREA NITROGEN 16 mg/dL (7-21); CALCIUM 9.1 mg/dL (8.4-10.5); GFR NON-AFRICAN AMERICAN > 60; LIPASE 200 U/L (23-300)
[2018-03-27] MEDS ORDERED: Magnesium Oxide 400 mg Tab UD PO STA (03:40)
[2018-03-27] MEDS ORDERED: Ciprofloxacin 400mg/200ml D5W 400 MG/200 ML BAG IVPB STA (03:58)
[2018-03-27 05:36] LABS: IRON 30 ug/dL (45-180)
[2018-03-27 05:46] LABS: % IRON SATURATION 10 % (20-55); TOTAL IRON BINDING CAPACITY 285 ug/dL (265-497)
--- NOTE | 2018-03-27 09:52 | RAD ---
Date of service: 03/27/2018 HISTORY: chest pain COMPARISON: 02/23/2018 FINDINGS: LUNGS: No active pulmonary disease. PLEURA: No significant pleural effusion identified, no pneumothorax apparent. CARDIOVASCULAR: No aortic atherosclerotic calcification present. Mild cardiomegaly mild vascular congestion OSSEOUS STRUCTURES: No significant abnormalities. VISUALIZED UPPER ABDOMEN: Normal. OTHER FINDINGS: None. IMPRESSION: Mild cardiomegaly and mild vascular congestion
[2018-03-27 12:40] VITALS: O2SAT 97
--- NOTE | 2018-03-27 15:12 | CP.PCM.CON ---
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 Patient notes abdominal distension and not feeling well for the last 2-3 days. +fever chills and diaphoresis. Denies nausea, vomiting, hematemesis, heartburn, acid reflux, melena, hematochezia, yellowing of skin, or confusion. Prior EGD and colonoscopy 08/2017 with severe GAVE and gastric/colonic with multiple AVMs s/p APC. Patient was recently admitted to [facility] [place] for ascites with therapeutic paracentesis then transferred to [facility] for possible TAVR. When pt was questioned in the ER, she was not aware if TAVR was done or not during her stay at [facility]. She was discharged to residential and shortly started to accumulate fluid again. Med hx: as above Family History- denies stomach cancer, colon cancer Social History- denies stomach cancer, colon cancer Surgical History- cholecystectomy, tonsillectomy ROS: 12 point ROS conducted, neg other than above Past Patient History - Infectious Disease Hx of Infectious Diseases: None - Past Social History Smoking Status: Never Smoked - CARDIAC Hx Cardiac Disorders: Yes Hx Congestive Heart Failure: Yes Hx Hypertension: Yes - PULMONARY Hx Respiratory Disorders: Yes Hx Asthma: Yes Hx Bronchitis: Yes Other/Comment: Ann's esophagus / PE - NEUROLOGICAL HX Cerebrovascular Accident: Yes (2010) - HEENT Hx HEENT Problems: Yes Hx Deafness: Yes Hx Difficulty Chewing: Yes Hx Glaucoma: Yes - RENAL Hx Chronic Kidney Disease: No - ENDOCRINE/METABOLIC Hx Diabetes Mellitus Type 2: Yes - HEMATOLOGICAL/ONCOLOGICAL Hx Blood Disorders: Yes Hx Anemia: Yes - INTEGUMENTARY Hx Dermatological Problems: Yes (dry skin / rash to BLE / stage 3 sacrum) - MUSCULOSKELETAL/RHEUMATOLOGICAL Hx Arthritis: Yes - GASTROINTESTINAL Hx Gastrointestinal Disorders: Yes Other/Comment: ascites, GI bleed, Colonic polyps, hemorrhoids - GENITOURINARY/GYNECOLOGICAL Hx Genitourinary Disorders: Yes Hx Incontinence: Yes - PSYCHIATRIC Hx Psychophysiologic Disorder: No Hx Substance Use: No - SURGICAL HISTORY Hx Cardiac Catheterization: Yes Hx Cholecystectomy: Yes Hx Coronary Stent: Yes - ANESTHESIA Hx Anesthesia Reactions: No Hx Malignant Hyperthermia: No Meds Allergies/Adverse Reactions: Allergies Allergy/AdvReac Type Severity Reaction Status Date / Time banana Allergy RASH Verified 03/27/18 01:32 codeine Allergy ANAPHYLAXIS Verified 03/27/18 01:32 diphenhydramine Allergy RASH Verified 03/27/18 01:32 [From Benadryl Allergy] erythromycin base Allergy RASH Verified 03/27/18 01:32 [From Erythrocin] Penicillins Allergy ANAPHYLAXIS Verified 03/27/18 01:32 shellfish derived Allergy ANAPHYLAXIS Verified 03/27/18 01:32 strawberry Allergy RASH Verified 03/27/18 01:32 Sulfa (Sulfonamide Allergy ANAPHYLAXIS Verified 03/27/18 01:32 Antibiotics) - Medications Medications: Current Medications Atorvastatin Calcium (Lipitor) 20 mg PO DAILY [facility] Last Admin: 03/27/18 10:49 Dose: 20 mg Ferrous Sulfate (Feosol) 324 mg PO TID [facility] Last Admin: 03/27/18 11:30 Dose: 324 mg Furosemide (Lasix) 40 mg PO DAILY [facility] Last Admin: 03/27/18 10:49 Dose: 40 mg Insulin Human Regular (Humulin R Low) 0 units SC [facility]; Protocol Levothyroxine Sodium (Synthroid) 25 mcg PO 0600 [facility] Metformin HCl (Glucophage) 500 mg PO BID [facility] Last Admin: 03/27/18 10:49 Dose: 500 mg Pantoprazole Sodium (Protonix Ec Tab) 40 mg PO DAILY [facility] Spironolactone (Aldactone) 50 mg PO BID [facility] Last Admin: 03/27/18 11:30 Dose: 50 mg Physical Exam - Constitutional Appears: Non-toxic, No Acute Distress, Chronically Ill - Head Exam Head Exam: ATRAUMATIC, NORMOCEPHALIC - Eye Exam Eye Exam: Normal appearance - ENT Exam ENT Exam: Mucous Membranes Moist, Normal Exam - Neck Exam Neck exam: Positive for: Normal Inspection - Respiratory Exam Respiratory Exam: Clear to Auscultation Bilateral, NORMAL BREATHING PATTERN. absent: Prolonged Expiratory Phase, Rales, Rhonchi, Wheezes, Respiratory Distress - Cardiovascular Exam Cardiovascular Exam: REGULAR RHYTHM, +S1, +S2 - GI/Abdominal Exam GI & Abdominal Exam: Normal Bowel Sounds, Soft. absent: Diminished Bowel Sounds, Distended, Firm, Guarding, Organomegaly, Rebound, Rigid - Extremities Exam Extremities exam: Negative for: joint swelling, pedal edema - Back Exam Back exam: NORMAL INSPECTION - Neurological Exam Neurological exam: Alert, Oriented x3 - Psychiatric Exam Psychiatric exam: Normal Affect, Normal Mood - Skin Skin Exam: Dry, Intact, Normal Color, Warm Results - Vital Signs Recent Vital Signs: Last Vital Signs Temp 98 F 03/27/18 12:58 Pulse 87 03/27/18 12:58 Resp 18 03/27/18 12:58 BP 130/79 03/27/18 12:58 Pulse Ox 97 03/27/18 12:40 - Labs Result Diagrams: 03/27/18 01:30 03/27/18 01:30 Labs: Laboratory Results - last 24 hr 03/27/18 03/27/18 03/27/18 01:30 01:30 01:30 WBC 4.0 L RBC 2.40 L Hgb 7.3 L D Hct 22.0 L MCV 91.7 MCH 30.4 MCHC 33.2 RDW 20.8 H Plt Count 152 MPV 8.8 Neut % (Auto) 63.9 Lymph % (Auto) 23.2 [place] % (Auto) 9.7 H Eos % (Auto) 2.5 Baso % (Auto) 0.7 Lymph # (Auto) 0.9 L [place] # (Auto) 0.4 Eos # (Auto) 0.1 Baso # (Auto) 0.03 Absolute Neuts (auto) 2.56 Sodium 134 Potassium 3.8 Chloride 105 Carbon Dioxide 23 Anion Gap 9 L BUN 16 Creatinine 0.5 L Est GFR ( Amer) > 60 Est GFR (Non-Af Amer) > 60 POC Glucose (mg/dL) Random Glucose 206 H Calcium 9.1 Phosphorus 3.2 Magnesium 1.4 L Iron TIBC % Saturation Ferritin Total Bilirubin 0.9 AST 21 ALT 12 Alkaline Phosphatase 65 Troponin I < 0.01 NT-Pro-B Natriuret Pep 793 H Total Protein 6.3 Albumin 2.8 L Globulin 3.5 Albumin/Globulin Ratio 0.8 L Lipase 200 Blood Type A POSITIVE Antibody Screen Positive Antibody Identification Anti K Antigen Identification K Antigen - NEGATIVE MINESH, Poly Interpret Negative Crossmatch See Detail BBK History Checked Patient has bt 03/27/18 03/27/18 03/27/18 05:05 05:05 10:35 WBC RBC Hgb Hct MCV MCH MCHC RDW Plt Count MPV Neut % (Auto) Lymph % (Auto) [place] % (Auto) Eos % (Auto) Baso % (Auto) Lymph # (Auto) [place] # (Auto) Eos # (Auto) Baso # (Auto) Absolute Neuts (auto) Sodium Potassium Chloride Carbon Dioxide Anion Gap BUN Creatinine Est GFR ( Amer) Est GFR (Non-Af Amer) POC Glucose (mg/dL) 187 H Random Glucose Calcium Phosphorus Magnesium Iron 30 L TIBC 285 % Saturation 10 L Ferritin 15.8 Total Bilirubin AST ALT Alkaline Phosphatase Troponin I NT-Pro-B Natriuret Pep Total Protein Albumin Globulin Albumin/Globulin Ratio Lipase Blood Type Antibody Screen Antibody Identification Antigen Identification MINESH, Poly Interpret Crossmatch BBK History Checked Assessment & Plan - Assessment and Plan (Free Text) Assessment: 72 year old female with PMH of decompensated cirrhosis (likely cardiac etiology) in setting of portal vein thrombosis, critical aortic stenosis with Heyde's syndrome and gastric and colonic AVMs s/p APCs 08/2017, HTN, Diabetes, and Hypothyroidism presenting with abdominal pain. Prior EGD and colonoscopy 08/2017 with severe GAVE and gastric/colonic with multiple AVMs s/p APC. Decompensated Liver cirrhosis, etiology FORD vs Cardiac vs cyptogenic Portal Vein Thrombosis Tense Ascites 2/2 above Aortic stenosis hx of GAVE and AVMs Anemia, no active GI bleed Plan: -IR consulted -recommend IR guided paracentesis, r/o sbp -send for blood cultures -UA -INR -Daily MELD labs: CMP, INR -s/p 1 unit PRBC, keep hgb > 7 -repeat cbc -continue protonix IV 40mg daily -Last HCC screening; Abd U/S 09/2017; no recent AFP -will repeat abd u/s w/ afp D/W Dr. Osei <Angie Osei V - Last Filed: 03/27/18 22:55> Meds - Medications Medications: Current Medications Atorvastatin Calcium (Lipitor) 20 mg PO DAILY [facility] Last Admin: 03/27/18 10:49 Dose: 20 mg Ferrous Sulfate (Feosol) 324 mg PO TID [facility] Last Admin: 03/27/18 19:57 Dose: Not Given Furosemide (Lasix) 40 mg PO DAILY [facility] Last Admin: 03/27/18 10:49 Dose: 40 mg Insulin Human Regular (Humulin R Low) 0 units SC ACHS [facility]; Protocol Last Admin: 03/27/18 19:58 Dose: Not Given Levothyroxine Sodium (Synthroid) 25 mcg PO 0600 [facility] Metformin HCl (Glucophage) 500 mg PO BID [facility] Last Admin: 03/27/18 19:57 Dose: Not Given Pantoprazole Sodium (Protonix Ec Tab) 40 mg PO DAILY [facility] Last Admin: 03/27/18 19:59 Dose: Not Given Spironolactone (Aldactone) 50 mg PO BID [facility] Last Admin: 03/27/18 20:00 Dose: Not Given Results - Vital Signs Recent Vital Signs: Last Vital Signs Temp 98 F 03/27/18 12:58 Pulse 87 03/27/18 12:58 Resp 18 03/27/18 12:58 BP 130/79 03/27/18 12:58 Pulse Ox 97 03/27/18 12:40 - Labs Result Diagrams: 03/27/18 20:30 03/27/18 01:30 Labs: Laboratory Results - last 24 hr 03/27/18 03/27/18 03/27/18 01:30 01:30 01:30 WBC 4.0 L RBC 2.40 L Hgb 7.3 L D Hct 22.0 L MCV 91.7 MCH 30.4 MCHC 33.2 RDW 20.8 H Plt Count 152 MPV 8.8 Neut % (Auto) 63.9 Lymph % (Auto) 23.2 [place] % (Auto) 9.7 H Eos % (Auto) 2.5 Baso % (Auto) 0.7 Lymph # (Auto) 0.9 L [place] # (Auto) 0.4 Eos # (Auto) 0.1 Baso # (Auto) 0.03 Absolute Neuts (auto) 2.56 PT INR Sodium 134 Potassium 3.8 Chloride 105 Carbon Dioxide 23 Anion Gap 9 L BUN 16 Creatinine 0.5 L Est GFR ( Amer) > 60 Est GFR (Non-Af Amer) > 60 POC Glucose (mg/dL) Random Glucose 206 H Calcium 9.1 Phosphorus 3.2 Magnesium 1.4 L Iron TIBC % Saturation Ferritin Total Bilirubin 0.9 AST 21 ALT 12 Alkaline Phosphatase 65 Troponin I < 0.01 NT-Pro-B Natriuret Pep 793 H Total Protein 6.3 Albumin 2.8 L Globulin 3.5 Albumin/Globulin Ratio 0.8 L Lipase 200 Fluid Source Fluid Appearance Fluid WBC Fluid RBC Fluid Tot Cell Count Fluid Mononuclear Cell Fl Polymorphonucl Cell Fluid Comment Blood Type A POSITIVE Antibody Screen Positive Antibody Identification Anti K Antigen Identification K Antigen - NEGATIVE MINESH, Poly Interpret Negative Crossmatch See Detail BBK History Checked Patient has bt 03/27/18 03/27/18 03/27/18 05:05 05:05 10:35 WBC RBC Hgb Hct MCV MCH MCHC RDW Plt Count MPV Neut % (Auto) Lymph % (Auto) [place] % (Auto) Eos % (Auto) Baso % (Auto) Lymph # (Auto) [place] # (Auto) Eos # (Auto) Baso # (Auto) Absolute Neuts (auto) PT INR Sodium Potassium Chloride Carbon Dioxide Anion Gap BUN Creatinine Est GFR ( Amer) Est GFR (Non-Af Amer) POC Glucose (mg/dL) 187 H Random Glucose Calcium Phosphorus Magnesium Iron 30 L TIBC 285 % Saturation 10 L Ferritin 15.8 Total Bilirubin AST ALT Alkaline Phosphatase Troponin I NT-Pro-B Natriuret Pep Total Protein Albumin Globulin Albumin/Globulin Ratio Lipase Fluid Source Fluid Appearance Fluid WBC Fluid RBC Fluid Tot Cell Count Fluid Mononuclear Cell Fl Polymorphonucl Cell Fluid Comment Blood Type Antibody Screen Antibody Identification Antigen Identification MINESH, Poly Interpret Crossmatch BBK History Checked 03/27/18 03/27/18 03/27/18 18:09 20:30 20:30 WBC 3.8 L RBC 3.08 L Hgb 9.2 L Hct 28.1 L MCV 91.2 MCH 29.9 MCHC 32.7 RDW 20.7 H Plt Count 150 MPV 8.9 Neut % (Auto) Lymph % (Auto) [place] % (Auto) Eos % (Auto) Baso % (Auto) Lymph # (Auto) [place] # (Auto) Eos # (Auto) Baso # (Auto) Absolute Neuts (auto) PT 15.3 H INR 1.38 Sodium Potassium Chloride Carbon Dioxide Anion Gap BUN Creatinine Est GFR ( Amer) Est GFR (Non-Af Amer) POC Glucose (mg/dL) Random Glucose Calcium Phosphorus Magnesium Iron TIBC % Saturation Ferritin Total Bilirubin AST ALT Alkaline Phosphatase Troponin I NT-Pro-B Natriuret Pep Total Protein Albumin Globulin Albumin/Globulin Ratio Lipase Fluid Source Peritoneal/ascites Fluid Appearance Cloudy Fluid WBC 158.0 Fluid RBC 2016.0 H Fluid Tot Cell Count 100 H Fluid Mononuclear Cell 99.4 H Fl Polymorphonucl Cell 0.6 H Fluid Comment Yellow Blood Type Antibody Screen Antibody Identification Antigen Identification MINESH, Poly Interpret Crossmatch BBK History Checked Attending/Attestation - Attestation I have personally seen and examined this patient.: Yes I have fully participated in the care of the patient.: Yes I have reviewed all pertinent clinical information: Yes Notes (Text): This is an addendum to GI consult report dictated by the GI Fellow.The patient was seen and examined earlier. Medical records, lab studies, imagings were reviewed. Last 24 hours events reviewed. Agreed with the above treatment plan as outlined in GI Fellow 's notes with the addition of the following 03/27/18 22:55
--- NOTE | 2018-03-27 17:12 | HP ---
HISTORY OF PRESENT ILLNESS: The patient is a 72-year-old woman with a past medical history of cirrhosis secondary to FORD with recurrent decompensated ascites and iron-deficiency anemia (baseline Hb 8-9) secondary to chronic GI losses secondary to Heyde syndrome who was sent to [facility] ED from her rehab facility for evaluation of increasing abdominal distension, pedal edema and labs demonstrating an Hb of 7.3. The patient recently underwent TAVR at [facility] and was subsequently transferred to a subacute rehab facility. She was excelling with PT and was doing well overall until approximately 5 days prior to presentation to the ED when she developed the aforementioned symptoms. Due to her underlying comorbidities and prior hospitalizations for therapeutic paracenteses, she was brought to the ED for evaluation. She denied fevers, chills, rigors, nausea, vomiting, diarrhea, hematemesis, melena, hematochezia or abdominal pain associated with her symptoms. In the ED she was afebrile and hemodynamically stable. Laboratory studies were unremarkable with the exception of a hemoglobin of 7.3 (baseline Hb 8-9). PAST MEDICAL HISTORY: As per HPI, also hypothyroidism, nonobstructive CAD, hypertension, type 2 diabetes mellitus, vitamin B12 deficiency, critical s/p TAVR and a remote history of PE. PAST SURGICAL HISTORY: Cholecystectomy, tonsillectomy and TAVR. ALLERGIES: Penicillin, Sulfas, Macrolides, Codeine and AARON inhibitors. MEDICATIONS: Synthroid 25 mcg p.o. daily, Lasix 40 mg p.o. daily, Aldactone 50 mg p.o. b.i.d., Lipitor 20 mg p.o. daily, Protonix 40 mg p.o. daily, Feosol 325 mg p.o. t.i.d., Metformin 500 mg p.o. b.i.d. and Vitamin B12 1000 mcg IM monthly. FAMILY HISTORY: Significant for hypertension, CAD and hyperlipidemia. SOCIAL HISTORY: The patient has no history of toxic habits. REVIEW OF SYSTEMS: A 12-point review of systems is negative except as per HPI. PHYSICAL EXAMINATION VITAL SIGNS: Temperature 97.8, pulse 92, blood pressure 121/62, respiratory rate 18, oxygen saturation 99% on room air. GENERAL: Nontoxic, chronically ill-appearing woman, lying in bed, in no apparent distress. HEENT: PERRL. EOMI. No scleral icterus. Conjunctival pallor is noted. NECK: No JVD. No bruits. LUNGS: Decreased breath sounds at the bases. CARDIOVASCULAR: Regular rate and rhythm. Normal S1 and S2. Grade II/ MILTON to RUSB. ABDOMEN: Distended with tense ascites and positive fluid wave, distant bowel sounds, nontender. EXTREMITIES: Trace pedal edema bilaterally. NEUROLOGIC: Awake, alert and oriented x 3. No focal motor deficits. No asterixis. LABORATORY DATA: WBC 4, hemoglobin 7.3, hematocrit 22, platelets 152. Sodium 134, potassium 3.8, chloride 105, bicarb 23, BUN 16, creatinine 0.5, glucose 206. ASSESSMENT: The patient is a 72-year-old woman with a past medical history of cirrhosis secondary to FORD with recurrent decompensated ascites and iron-deficiency anemia who presented with a 1 week history of worsening abdominal distension and pedal edema. PLAN 1. Cirrhosis secondary to FORD with recurrent decompensated ascites. Evaluation with Dr. Mat Swain for therapeutic paracentesis is pending. Evaluation with Dr. Osei of GI is pending. We will restart her home medications consisting of Lasix 40 mg p.o. daily and Aldactone 50 mg p.o. b.i.d. 2. Critical s/p TAVR. 3. 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 Baseline Hb 8-9. Continue Feosol 324 mg p.o. t.i.d. The patient has been typed and crossmatched and is scheduled to receive 1 unit of PRBC. 4. Nonobstructive CAD. Continue Lipitor 20 mg p.o. daily. 5. Hypertension. BP stable. Continue current medications. 6. History of remote PE. The patient remains off anticoagulation therapy due to history of GI bleed. 7. Non-insulin dependent diabetes mellitus. Continue low-dose insulin sliding scale and Metformin 500 mg p.o. b.i.d. 8. Hypothyroidism. Continue Synthroid 25 mcg p.o. daily. 9. Vitamin B12 deficiency. The patient receives monthly vitamin B12 injections. 10. Prophylaxis. Continue Protonix for GI prophylaxis and SCDs for DVT prophylaxis. CODE STATUS: Full code. Robin Richards MD [facility] # [id number] [place]LA[place]
--- NOTE | 2018-03-27 17:51 | US ---
PROCEDURE: Ultrasound guided paracentesis. HISTORY: Recurrent ascites with abdominal pain and distension. Needs diagnostic and therapeutic paracentesis PHYSICIAN(S): Mat Swain MD. TECHNIQUE: The relative risks and indications for the procedure were explained to the patient and informed written consent obtained. Sonography of the abdomen was performed in a supine position. This revealed a moderate amount of non-loculated ascites, greatest in the right lower quadrant. A puncture site was selected and the area was prepped and draped in the usual sterile fashion. 1% Xylocaine was used to anesthetize the skin and soft tissues. A 7 Arabic paracentesis catheter was trocared into the right lower quadrantand 6700 cc of turbid gutierrez fluid aspirated. The appropriate labs were sent IMPRESSION: Ultrasound-guided paracentesis in the right lower quadrant. 6700 cc of turbid gutierrez fluid was aspirated. The appropriate labs were sent
[2018-03-27 18:12] LABS: BODY FLUID TYPE PERITONEAL/ASCITES
[2018-03-27 18:42] LABS: BF GROSS APPEARANCE CLOUDY (CLEAR); BODY FLUID TOTAL COUNT 100 (0-0)
[2018-03-27] MEDS: Insulin Reg-LOW-Coverage SC SCH ×3 (19:57→22:30)
[2018-03-27] MEDS: Pantoprazole 40 mg EC Tab PO SCH (19:59)
[2018-03-27 20:45] LABS: HEMOGLOBIN 9.2 g/dL (12.0-16.0); MEAN CELL VOLUME 91.2 fl (80.0-105.0); MEAN CORPUSCULAR HEMOGLOBIN 29.9 pg (25.0-35.0); MEAN CORPUSCULAR HGB CONC 32.7 g/dl (31.0-37.0); MEAN PLATELET VOLUME 8.9 fl (7.0-11.0); RBC 3.08 10^6/uL (3.5-6.1); RED CELL DISTRIBUTION WIDTH 20.7 % (11.5-14.5); WHITE BLOOD COUNT 3.8 10^3/uL (4.5-11.0)
[2018-03-27 20:51] LABS: INR 1.38; PROTHROMBIN TIME 15.3 SECONDS (9.4-12.5)
--- NOTE | 2018-03-27 22:52 | CARD ---
APPROVED REPORT Date of service: 03/27/2018 EKG Measurement Heart [id number] <Conclusion> Sinus rhythm with frequent premature ventricular complexes Right bundle branch block NDSTT abnormalities Abnormal ECG
[2018-03-27] MEDS ORDERED: Influenza Vaccine 60 mcg/0.5 mL SYR (4YR UP) IM ONE (23:04)
[2018-03-27] MEDS ORDERED: Pneumococcal 23-Valent Vaccine IM ONE (23:04)
[2018-03-28] MEDS ORDERED: Levothyroxine 25 MCG TAB PO SCH (06:00)
[2018-03-28 06:27] LABS: INR 1.24
[2018-03-28 06:29] LABS: BASO # 0.02 K/mm3 (0.0-2.0); BASO % 0.6 % (0.0-3.0); EOS # 0.1 (0.0-0.7); EOS % 3.2 % (1.5-5.0); HEMOGLOBIN 8.5 g/dL (12.0-16.0); LYMPH # 0.9 (1.2-3.4); LYMPH % 25.2 % (22.0-35.0); MEAN CELL VOLUME 90.7 fl (80.0-105.0); MEAN CORPUSCULAR HEMOGLOBIN 29.4 pg (25.0-35.0); MEAN CORPUSCULAR HGB CONC 32.4 g/dl (31.0-37.0); MEAN PLATELET VOLUME 9.1 fl (7.0-11.0); MONO # 0.4 (0.1-0.6); MONO % 10.6 % (1.0-6.0); RBC 2.89 10^6/uL (3.5-6.1); WHITE BLOOD COUNT 3.4 10^3/uL (4.5-11.0)
[2018-03-28 07:17] LABS: ALB/GLOB RATIO 0.8 (1.1-1.8); ALBUMIN 2.6 g/dL (3.0-4.8); ALT/SGPT 21 U/L (7-56); AST/SGOT 31 U/L (14-36); BLOOD UREA NITROGEN 12 mg/dL (7-21); CALCIUM 8.7 mg/dL (8.4-10.5); GFR NON-AFRICAN AMERICAN > 60
[2018-03-28] MEDS ORDERED: Potassium Chloride 20 mEq ER Tab PO ONE (08:39)
[2018-03-28] MEDS: Insulin Reg-LOW-Coverage SC SCH ×2 (08:50→13:42)
[2018-03-28] MEDS ORDERED: Magnesium Sulfate 2 gm/50 ml 2 GM/50 ML BAG IVPB ONE (09:15)
[2018-03-28] MEDS: Pantoprazole 40 mg EC Tab PO SCH (09:46)
--- NOTE | 2018-03-28 09:50 | PN ---
SUBJECTIVE: The patient was seen and examined at bedside on the telemetry navarro. No acute events overnight. She remains afebrile and hemodynamically stable. She is s/p therapeutic paracentesis with removal of 6.7 liters of gutierrez fluid and reports resolution of her abdominal discomfort. She also received 1 unit of PRBC with an appropriate response in hemoglobin. This morning she feels well, offers no complaints and is looking forward to discharge back to [facility]. OBJECTIVE: VITAL SIGNS: Temperature 98, pulse 79, blood pressure 115/60, respiratory rate 20 and oxygen saturation 97% on room air. GENERAL: Nontoxic, chronically ill-appearing woman, lying in bed, in no apparent distress. HEENT: PERRL, EOMI. No scleral icterus. Conjunctival pallor is noted. NECK: No JVD, no bruits. LUNGS: Decreased breath sounds at the bases. CARDIOVASCULAR: Regular rate and rhythm. Normal S1, and S2. Grade II/ MILTON to RUSB. ABDOMEN: Normoactive bowel sounds, soft, nontender and nondistended. EXTREMITIES: Trace pedal edema bilaterally. NEUROLOGIC: Awake, alert and oriented x 3. No focal motor deficits. No asterixis. LABORATORY DATA: WBC 3.4, hemoglobin 8.5, hematocrit 26 and platelets 153. Sodium 136, potassium 3.5, chloride 105, bicarb 27, BUN 12, creatinine 0.5 and glucose 124. ASSESSMENT: The patient is a 72-year-old woman with a past medical history of cirrhosis secondary to FORD with recurrent decompensated ascites and iron-deficiency anemia who presented with a 1 week history of worsening abdominal distention and pedal edema. PLAN: 1. Cirrhosis secondary to FORD with recurrent decompensated ascites s/p therapeutic paracentesis with removal of 6.7 liters of gutierrez fluid. Input from Dr. Swain greatly appreciated. Input from Dr. Osei noted. Continue Lasix 40 mg p.o. daily and Aldactone 50mg p.o. b.i.d. 2. Iron-deficiency anemia secondary to chronic GI losses secondary to Heyde syndrome s/p transfusion of 1 unit of PRBC. Continue Feosol 324 mg p.o. t.i.d. No evidence of active bleed. 3. Critical s/p TAVR. 4. Nonobstructive CAD. Continue Lipitor 20 mg p.o. daily. 5. Hypertension. Continue current medications. 6. History of remote PE. The patient remains off anticoagulation therapy due to history of GI bleed. 7. Non-insulin dependent diabetes mellitus. Continue low-dose insulin sliding scale and Metformin 500 mg p.o. b.i.d. 8. Hypothyroidism. Continue Synthroid 25 mcg p.o. daily. 9. Vitamin B12 deficiency. The patient receives monthly Vitamin B12 injections. 10. Prophylaxis. Continue Protonix for GI prophylaxis and SCDs for DVT prophylaxis. CODE STATUS: Full code. Robin Richards MD [facility]TDD
--- NOTE | 2018-03-28 11:09 | US ---
Date of service: 03/27/2018 HISTORY: r/o liver lesion COMPARISON: 10/01/2017. duplex study of the abdomen. 10/03/2017 MR abdomen. 03/02/2018 CT abdomen and pelvis. TECHNIQUE: Sonographic evaluation of the abdomen. FINDINGS: LIVER: Measures 13.3 cm. Variable echogenicity of the liver parenchyma. Patent portal venous system. No mass. No intrahepatic bile duct dilatation. Nodular contour to the liver likely cirrhosis. GALLBLADDER: Cholelithiasis. Negative study for gallbladder wall thickening, pericholecystic fluid, sonographic Vaca's sign. Sludge identified in the gallbladder. COMMON BILE DUCT: Measures 4.2 mm. No stones. No dilatation. PANCREAS: Cystic lesion in the tail of the pancreas 6 x 7 mm. RIGHT KIDNEY: Measures 5.4 x 11.1cm. Normal echogenicity. No calculus, mass, or hydronephrosis. LEFT KIDNEY: Measures 6.3 x 10.6cm. Normal echogenicity. No calculus, mass, or hydronephrosis.Incidental finding(s): Subcentimeter midpole cyst SPLEEN: Splenomegaly. Orthogonal measurements 13.2 x 9 cm. AORTA: Obscured by overlying bowel gas. Non diagnostic assessment of the aorta. IVC: Obscured by overlying bowel gas. Non diagnostic assessment of the IVC. OTHER FINDINGS: Incompletely visualized right upper quadrant ascites. IMPRESSION: 1. Cirrhotic appearing liver without focal masses. 2. Cholelithiasis. No sonographic evidence of acute cholecystitis. Associated sludge identified. 3. Subcentimeter pancreatic tail mass. Follow-up recommended electively. 4. Persistent intra-abdominal ascites, finding identified on multiple prior studies. 5. Additional benign and/or incidental findings described above. Limitations of the current examination: Nondiagnostic study of the aorta and IVC. Concordant findings (preliminary report) provided by [facility].
--- NOTE | 2018-03-28 11:10 | CP.PCM.PN ---
<Delores Oliveira - Last Filed: 03/28/18 11:18> Subjective - Date & Time of Evaluation Date of Evaluation: 03/28/18 Time of Evaluation: 06:50 - Subjective Subjective: PGY5 GI Follow-up Pt seen and examined bedside Denies any abd pain tolerating diet + bloating +constipation s/p IR paracentesis Denies any fever, chills or diaphoresis ROS: 12 point ROS conducted, neg other than above Objective - Vital Signs/Intake and Output Vital Signs (last 24 hours): Temp Pulse Resp BP Pulse Ox 98.0 F 79 20 114/51 L 97 03/28/18 06:00 03/28/18 06:00 03/28/18 06:00 03/28/18 09:47 03/28/18 06:00 Intake and Output: 03/28/18 03/28/18 06:59 18:59 Intake Total 240 Balance 240 - Medications Medications: Current Medications Atorvastatin Calcium (Lipitor) 20 mg PO DAILY [facility] Last Admin: 03/28/18 09:46 Dose: 20 mg Ferrous Sulfate (Feosol) 324 mg PO TID [facility] Last Admin: 03/28/18 09:46 Dose: 324 mg Furosemide (Lasix) 40 mg PO DAILY [facility] Last Admin: 03/28/18 09:47 Dose: 40 mg Insulin Human Regular (Humulin R Low) 0 units SC [facility]; Protocol Last Admin: 03/28/18 08:50 Dose: Not Given Levothyroxine Sodium (Synthroid) 25 mcg PO 0600 [facility] Last Admin: 03/28/18 05:18 Dose: 25 mcg Metformin HCl (Glucophage) 500 mg PO BID [facility] Last Admin: 03/28/18 09:46 Dose: 500 mg Pantoprazole Sodium (Protonix Ec Tab) 40 mg PO DAILY [facility] Last Admin: 03/28/18 09:46 Dose: 40 mg Sennosides (Senokot Tab) 8.6 mg PO DAILY [facility] Spironolactone (Aldactone) 50 mg PO BID [facility] Last Admin: 03/28/18 09:46 Dose: 50 mg - Labs Labs: 03/28/18 06:00 03/28/18 06:00 PT 14.0 SECONDS (9.4-12.5) H 03/28/18 06:00 INR 1.24 03/28/18 06:00 - Constitutional Appears: Well, No Acute Distress - Head Exam Head Exam: ATRAUMATIC, NORMOCEPHALIC - Eye Exam Eye Exam: Normal appearance - ENT Exam ENT Exam: Mucous Membranes Moist, Normal Exam - Respiratory Exam Respiratory Exam: Clear to Ausculation Bilateral, NORMAL BREATHING PATTERN. absent: Rales, Rhonchi, Wheezes, Respiratory Distress - Cardiovascular Exam Cardiovascular Exam: REGULAR RHYTHM, +S1, +S2 - GI/Abdominal Exam GI & Abdominal Exam: Distended, Soft, Tenderness (epigastrum), Normal Bowel Sounds. 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 Prior EGD and colonoscopy 08/2017 with severe GAVE and gastric/colonic with multiple AVMs s/p APC. Decompensated Liver cirrhosis, etiology FORD vs Cardiac vs cyptogenic Portal Vein Thrombosis Tense Ascites 2/2 above Aortic stenosis hx of GAVE and AVMs Anemia, no active GI bleed Constipation Plan: -IR para 03/27/2018: 6.7L; no sbp -send for blood cultures -continue protonix 40mg daily -recommend 25g of albumin post paracentesis -Last HCC screening; Abd U/S 03/27/2018: no lesions, AFP pending started miralax and senna D/W Dr. Osei <Sea,Kovil V - Last Filed: 03/29/18 00:33> Objective - Vital Signs/Intake and Output Vital Signs (last 24 hours): Temp Pulse Resp BP Pulse Ox 98.1 F 87 18 110/47 L 97 03/28/18 12:00 03/28/18 12:00 03/28/18 12:00 03/28/18 12:00 03/28/18 06:00 Intake and Output: 03/28/18 03/29/18 18:59 06:59 Intake Total 480 Balance 480 - Labs Labs: 03/28/18 06:00 03/28/18 06:00 PT 14.0 SECONDS (9.4-12.5) H 03/28/18 06:00 INR 1.24 03/28/18 06:00 Attending/Attestation - Attestation I have personally seen and examined this patient.: Yes I have fully participated in the care of the patient.: Yes I have reviewed all pertinent clinical information, including history, physical exam and plan: Yes Notes (Text): This is an addendum to GI progress report dictated by the GI Fellow.The patient was seen and examined earlier. Medical records, lab studies, imagings were reviewed. Last 24 hours events reviewed. Agreed with the above treatment plan as outlined in GI Fellow 's notes with the addition of the following 03/29/18 00:25
[2018-03-28] MEDS ORDERED: Albumin Human 25% (25 gm/100 ml) IV ONE (11:18)
[2018-03-28] MEDS: POLYETHYLENE GLYCOL 3350 17 GM/Dose PACKET PO ONE ×2 (11:51→11:55)
[2018-03-28 12:14] VITALS: BP 110/47; PULSE 87; RESP 18; TEMP 98.1
== END 2018-03-28 13:58 | DRG 432 ==
LOC: ED 23:18 → ERH 03-27 05:53 → 2RNO 03-27 20:25
PROVIDERS: ADMIT Student in an Organized Health Care Education/Training Program; ATTEND Student in an Organized Health Care Education/Training Program
PROC: 30233N1 Transfusion of Nonautologous Red Blood Cells into Peripheral Vein, Percutaneous Approach (ICD-10-PCS; 2018-03-27)
PROC: 0W9G3ZZ Drainage of Peritoneal Cavity, Percutaneous Approach (ICD-10-PCS; principal; 2018-03-27 14:00)
DX: K74.69 Other cirrhosis of liver (principal); K76.7 Hepatorenal syndrome; I81 Portal vein thrombosis; R18.8 Other ascites; K75.81 Nonalcoholic steatohepatitis (NASH); D50.0 Iron deficiency anemia secondary to blood loss (chronic); I25.10 Atherosclerotic heart disease of native coronary artery without angina pectoris; I11.0 Hypertensive heart disease with heart failure; I50.9 Heart failure, unspecified; E11.9 Type 2 diabetes mellitus without complications; E03.9 Hypothyroidism, unspecified; E53.8 Deficiency of other specified B group vitamins; K55.20 Angiodysplasia of colon without hemorrhage; K31.819 Angiodysplasia of stomach and duodenum without bleeding; H40.9 Unspecified glaucoma; I35.0 Nonrheumatic aortic (valve) stenosis; K59.00 Constipation, unspecified; Z86.711 Personal history of pulmonary embolism; Z86.73 Personal history of transient ischemic attack (TIA), and cerebral infarction without residual deficits; Z95.2 Presence of prosthetic heart valve; Z95.5 Presence of coronary angioplasty implant and graft; Z79.4 Long term (current) use of insulin; Z88.0 Allergy status to penicillin; Z88.2 Allergy status to sulfonamides